=== PATIENT | female | born 1940 | race Caucasian/White ===

== ENCOUNTER 2017-03-20 00:09 | Inpatient (IN) | payer MEDICARE ==
[2017-03-20] MEDS ORDERED: Nitroglycerin 2% Ointment 1 INCH/1 GM Packet ONE (00:54)
[2017-03-20] MEDS ORDERED: Furosemide 40 MG/4 ML VIAL ONE (00:54)
[2017-03-20] MEDS ORDERED: Ondansetron HCl/PF 4 MG/2 ML Vial ONE (00:57)
[2017-03-20 01:06] LABS: #Monocytes 0.7 thou/uL (0.11-0.59); #Neutrophils 7.4 thou/uL (1.40-6.50); %Basophils 0.5 % (0.0-1.0); %Eosinophils 0.4 % (0.0-10.0); %Lymphocytes 10.5 % (21.0-51.0); %Monocytes 7.3 % (0.0-10.0); %Neutrophils 81.3 % (42.0-75.0); Hemoglobin 8.1 g/dL (12.0-16.0); Mean Corpuscular HGB CONC 31.7 g/dL (32.0-36.0); Mean Corpuscular Hemoglobin 26.7 pg (27.0-31.0); Mean Platelet Volume 8.2 fL (7.4-10.4); Platelet Count 175 thou/uL (130-400); RBC Distribution Width 16.3 % (11.5-14.5); Red Blood Cell (RBC) Count 3.03 mill/uL (4.20-5.40); White Blood Cell (WBC) Count 9.1 thou/uL (4.8-10.8)
[2017-03-20 01:08] LABS: INR-International Normal Ratio 2.5; Prothrombin Time 28.4 SEC (12.0-14.7)
[2017-03-20 01:09] LABS: PTT 70.5 SEC (22.9-36.1)
[2017-03-20 01:16] LABS: ALT (SGPT) 16 U/L (8-55); AST (SGOT) 21 U/L (5-34); Albumin 3.3 g/dL (3.4-4.8); Alkaline Phosphatase 80 U/L (40-150); Anion Gap 20 mmol/L (10-20); BUN (Urea Nitrogen) 32 mg/dL (9.8-20.1); CK (CPK) 27 U/L (29-168); Calc. Creatinine Clearance 0 mL/min (70-130); Calcium 8.4 mg/dL (7.8-10.44); Carbon Dioxide 26 mmol/L (23-31); Chloride 98 mmol/L (98-107); Estimated GFR-MDRD 31; Globulin 3.4 g/dL (2.4-3.5); Glucose 199 mg/dL (83-110); Potassium 4.6 mmol/L (3.5-5.1); Protein, Total 6.7 g/dL (6.0-8.3); Sodium 139 mmol/L (136-145)
[2017-03-20 01:21] LABS: CKMB 0.8 ng/mL (0-6.6)
[2017-03-20 02:09] LABS: Bilirubin Negative (Negative); Blood, Urine Negative (Negative); Clarity Slightly Cloudy (Clear); Glucose, Urine (Dipstick) Negative (Negative); Leukocyte Negative (Negative); Nitrite Negative (Negative); Protein, Urine (Dipstick) 30 mg/dL (Neg-Trace)
[2017-03-20 02:19] LABS: Bacteria/HPF Rare-Few HPF (None Seen); Hyaline Casts/LPF NONE SEEN LPF (0-3 Hyaline); RBC/HPF 0-3 HPF (0-3); Squamous Epithelial 0-3 HPF (0-3)
[2017-03-20] MEDS ORDERED: Ondansetron HCl/PF 4 MG/2 ML Vial IVP PRN (03:31)
[2017-03-20] MEDS ORDERED: Ondansetron ODT 4 MG TAB SL PRN (03:31)
[2017-03-20] MEDS: Furosemide 40 MG/4 ML VIAL SLOW IVP SCH ×2 (05:25→11:24)
[2017-03-20 05:30] LABS: Troponin I 0.036 ng/mL (< 0.028)
[2017-03-20] MEDS ORDERED: Sodium Chloride 0.9% 10 ML ONE (07:17)
[2017-03-20 07:47] LABS: Troponin I 0.026 ng/mL (< 0.028)
--- NOTE | 2017-03-20 07:59 | RAD ---
SINGLE VIEW OF THE CHEST: COMPARISON: 04/21/15. HISTORY: Dyspnea and bilateral lower extremity edema. Shortness of breath. FINDINGS: A single view of the chest shows an enlarged cardiomediastinal silhouette. The patient is status pos t sternotomy. This exam is limited secondary to patient's large body habitus. There is no evidence of consolidation, mass, or pleural effusion. IMPRESSION: Stable cardiomegaly. POS: [facility]
[2017-03-20] MEDS ORDERED: Dextrose 5% in Water 1,000 ML IV PRN (10:25)
[2017-03-20] MEDS ORDERED: Dextrose 50% Abboject 50 ML SYRINGE SLOW IVP PRN (10:25)
[2017-03-20] MEDS ORDERED: HYDROcodone/Acetaminophen 10/325 mg Tablet PO PRN (10:25)
[2017-03-20] MEDS ORDERED: Acetaminophen 325 MG TAB PO PRN (10:25)
[2017-03-20] MEDS ORDERED: metFORMIN 500 MG TAB PO SCH (11:00)
[2017-03-20] MEDS ORDERED: glipiZIDE 5 MG TAB PO SCH (11:00)
[2017-03-20] MEDS ORDERED: Gabapentin 300 MG CAP PO SCH (11:00)
[2017-03-20] MEDS ORDERED: Carvedilol 6.25 MG TAB PO SCH ×2 (11:00→21:00)
[2017-03-20] MEDS: HYDROcodone/Acetaminophen 10/325 mg Tablet PO PRN (11:23)
[2017-03-20] MEDS ORDERED: Spironolactone 25 MG TAB PO SCH (11:30)
[2017-03-20] MEDS: HumaLOG 300 UNITS/3 ML VIAL SC PRN (11:36)
--- NOTE | 2017-03-20 13:42 | CT ---
CT OF THE CHEST WITHOUT CONTRAST: COMPARISON: None. HISTORY: Shortness of breath with acute midline thoracic spine tenderness. History of cardiac valve replaceme nt. TECHNIQUE: Multiple contiguous axial images were obtained in a CT of the chest without contrast. Coronal reform ats were performed. FINDINGS: No pneumothorax or pleural effusion are seen. There is pleural thickening in the posterior aspect of the left hemithorax, inferiorly. No focal infiltrates or nodules are seen in the lungs. There is a calcified granuloma in the right upper lobe. The patient is status post aortic valve replacement. There are calcifications in the coronary arteri es, aorta, and mitral valve. No hilar or mediastinal lymphadenopathy are appreciated. Degenerative changes are seen in the spine. No focal fluid collection is seen in the paraspinal or p revertebral soft tissues. No osseous erosions of the vertebral bodies are seen. There are gallstones in the gallbladder. The other visualized subdiaphragmatic structures are unrema rkable. The chest wall soft tissues are unremarkable. IMPRESSION: 1. Nonspecific pleural thickening in the inferior aspect of the left thorax. 2. Cholelithiasis. POS: [facility]
[2017-03-20] MEDS: glipiZIDE 5 MG TAB PO SCH (16:48)
[2017-03-20] MEDS: Warfarin Sodium 5 MG TAB PO SCH (16:48)
[2017-03-20] MEDS: metFORMIN 500 MG TAB PO SCH (16:49)
[2017-03-20] MEDS ORDERED: Torsemide 20 MG TAB PO SCH (21:00)
[2017-03-20] MEDS: Simvastatin 20 MG TAB PO SCH (21:38)
[2017-03-20] MEDS: Gabapentin 300 MG CAP PO SCH (21:38)
[2017-03-20] MEDS: Carvedilol 6.25 MG TAB PO SCH (21:38)
[2017-03-21] MEDS: HYDROcodone/Acetaminophen 10/325 mg Tablet PO PRN ×2 (02:03→21:03)
[2017-03-21 08:32] LABS: ALT (SGPT) 12 U/L (8-55); AST (SGOT) 22 U/L (5-34); Albumin 3.1 g/dL (3.4-4.8); Alkaline Phosphatase 73 U/L (40-150); Anion Gap 17 mmol/L (10-20); BUN (Urea Nitrogen) 36 mg/dL (9.8-20.1); Bilirubin, Total 0.5 mg/dL (0.2-1.2); Calc. Creatinine Clearance 39 mL/min (70-130); Carbon Dioxide 25 mmol/L (23-31); Chloride 96 mmol/L (98-107); Estimated GFR-MDRD 28; Globulin 3.2 g/dL (2.4-3.5); Glucose 64 mg/dL (83-110); Magnesium 1.2 mg/dL (1.6-2.6); Potassium 4.2 mmol/L (3.5-5.1); Protein, Total 6.3 g/dL (6.0-8.3); Sodium 134 mmol/L (136-145)
[2017-03-21 08:37] LABS: #Eosinphils 0.2 thou/uL (0.0-0.7); #Lymphocytes 1.3 thou/uL (1.20-3.40); #Monocytes 0.7 thou/uL (0.11-0.59); #Neutrophils 5.3 thou/uL (1.40-6.50); %Basophils 0.2 % (0.0-1.0); %Eosinophils 3.3 % (0.0-10.0); %Lymphocytes 17.1 % (21.0-51.0); %Neutrophils 70.4 % (42.0-75.0); Hemoglobin 7.9 g/dL (12.0-16.0); Hypochromia SLIGHT = 6-15 cells (100X) (0-5/hpf); MDiff Complete? YES; Mean Corpuscular HGB CONC 29.8 g/dL (32.0-36.0); Mean Corpuscular Hemoglobin 26.3 pg (27.0-31.0); Mean Corpuscular Volume 88.2 fl (81.0-99.0); Mean Platelet Volume 8.7 fL (7.4-10.4); Platelet Count 184 thou/uL (130-400); RBC Distribution Width 16.5 % (11.5-14.5); Red Blood Cell (RBC) Count 2.99 mill/uL (4.20-5.40); White Blood Cell (WBC) Count 7.5 thou/uL (4.8-10.8)
[2017-03-21] MEDS: glipiZIDE 5 MG TAB PO SCH ×2 (09:20→16:47)
[2017-03-21] MEDS: metFORMIN 500 MG TAB PO SCH ×2 (09:21→16:46)
[2017-03-21] MEDS: Aspirin 81 mg Enteric Coated Tablet PO SCH (09:21)
[2017-03-21] MEDS: Spironolactone 25 MG TAB PO SCH (09:21)
[2017-03-21] MEDS: Gabapentin 300 MG CAP PO SCH ×2 (09:22→21:03)
[2017-03-21] MEDS: Carvedilol 6.25 MG TAB PO SCH ×2 (09:22→21:03)
[2017-03-21] MEDS ORDERED: Magnesium Sulfate 4 GM in Sodium Chloride 0.9% 250 ML 250 ML IVPB SCH (10:30)
--- NOTE | 2017-03-21 11:14 | PDOC.PN ---
- Subjective Encounter Start Date: 03/21/17 Encounter Start Time: 08:45 Back pain much better, only present when shemoves. Still feels SOB, no cough or sputum, no F/C, no pleuitic CP. No n/V/D/C. complaining about not getting enough food. CT neg for major abnormality, limited due to lack of contrast. possible pleural thickening in posterior left. 10 point ROS performed and neg for all systems except as per HPI - Objective Resuscitation Status: Resuscitation Status FULL:Full Resuscitation MAR Reviewed: Yes Vital Signs & Weight: Vital Signs (12 hours) Temp Pulse Resp BP BP Pulse Ox 03/21/17 09:22 142/81 H 03/21/17 09:00 97.9 F 78 16 95 03/21/17 07:40 97.9 F 78 16 142/81 H 95 03/21/17 04:00 97.9 F 73 14 119/61 100 Weight Weight 204 lb I&O: 03/20/17 03/21/17 03/22/17 06:59 06:59 06:59 Intake Total 615 Output Total 700 Balance -85 Result Diagrams: 03/21/17 05:04 03/21/17 05:04 Additional Labs: Accuchecks 03/21/17 03/20/17 03/20/17 06:15 20:07 16:50 POC Glucose 154 H 247 H 204 H 03/20/17 11:20 POC Glucose 323 H Radiology Reviewed by me: Yes EKG Reviewed by me: Yes Phys Exam - Physical Examination Constitutional: NAD HEENT: PERRLA, moist MMs, sclera anicteric, oral pharynx no lesions Neck: no nodes, no JVD, supple, full ROM Respiratory: no wheezing, no rales, no rhonchi, clear to auscultation bilateral Cardiovascular: RRR, no significant murmur, no rub Gastrointestinal: soft, non-tender, no distention, positive bowel sounds Musculoskeletal: no edema, pulses present midthoracic back ttp along spine Neurological: non-focal, normal sensation, moves all 4 limbs Lymphatic: no nodes Psychiatric: normal affect, A&O x 3 Dx/Plan (1) Acute thoracic back pain Code(s): M54.6 - PAIN IN THORACIC SPINE Status: Acute Qualifiers: Back pain laterality: midline Qualified Code(s): M54.6 - Pain in thoracic spine Comment: noncontrasted CT unrevealing (2) DM2 (diabetes mellitus, type 2) Status: Chronic Qualifiers: Diabetes mellitus complication status: with unspecified complications 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 No other evidence of acute exacerbation at present (4) HTN (hypertension) Code(s): I10 - ESSENTIAL (PRIMARY) HYPERTENSION Status: Chronic Qualifiers: Hypertension type: essential hypertension Qualified Code(s): I10 - Essential (primary) hypertension (5) Aortic valve disease Code(s): I35.9 - NONRHEUMATIC AORTIC VALVE DISORDER, UNSPECIFIED Status: Chronic Comment: follow up on echo. (6) HLD (hyperlipidemia) Code(s): E78.5 - HYPERLIPIDEMIA, UNSPECIFIED Status: Chronic Qualifiers: Hyperlipidemia type: unspecified Qualified Code(s): E78.5 - Hyperlipidemia , unspecified - Plan * .
[2017-03-21] MEDS: Torsemide 10 MG TAB PO SCH (14:02)
[2017-03-21] MEDS: HumaLOG 300 UNITS/3 ML VIAL SC PRN ×2 (14:06→16:48)
[2017-03-21] MEDS: Warfarin Sodium 5 MG TAB PO SCH (16:47)
[2017-03-21] MEDS ORDERED: Warfarin Sodium 5 MG TAB PO SCH (17:00)
--- NOTE | 2017-03-21 17:12 | HP ---
TIME OF SERVICE: 10:15. PRIMARY CARE PHYSICIAN: Ernst Vanegas M.D. PRIMARY SENIOR QUALITY MANAGER: Avtar Cosby M.D. CHIEF COMPLAINT: Shortness of breath. HISTORY OF PRESENT ILLNESS: Ms. Morejon is a 76-year-old white female with history of combined sys tolic and diastolic chronic congestive heart failure, valvular heart disease, diabetes, hyperlipidemi a, hypertension, who presents to the emergency department for complaints of chest pain. She states she has had worsening back pain in the central part of her back and chest tightness and sh ortness of breath for 2 days and has been taking her fluid pills. She denies any diaphoresis or naus ea. No palpitations. She has had some increased edema of the lower extremities and has woken up sev eral times short of breath. She states that when she breathes deeply, hurts her back more, and she i s getting comfortable. She also came to the emergency department for evaluation and was evaluated th ere. Labs were fairly unremarkable except for creatinine 1.6, which is slightly above her baseline, and a BNP of 1376. We were called for admission, the doctors accepted and turned over the day shift to complete. The patient has no other current complaints. She is writhing in pain from her back and comfortable a nd basically crying. She has no other current complaints. PAST MEDICAL HISTORY: 1. Chronic combined systolic and diastolic CHF. 2. Valvular heart disease, status post atrial valve replacement. 3. Diabetes mellitus type 2. 4. Hyperlipidemia. 5. Hypertension. PAST SURGICAL HISTORY: 1. Aortic valve replacement with a mechanical valve. 2. Right total knee arthroplasty remotely. HOME MEDICATIONS: 1. Metformin 1000 mg p.o. b.i.d. 2. Glipizide 10 mg p.o. b.i.d. 3. Coumadin 5 mg daily. 4. Torsemide 60 mg p.o. b.i.d. 5. Aldactone 2.5 mg daily. 6. Zocor 20 mg p.o. at bedtime. 7. vitamin daily. 8. Omeprazole 20 mg daily. 9. Metolazone 5 mg p.o. on Mondays and Fridays. 10. Gabapentin 300 mg p.o. b.i.d. 11. Coreg 6.25 mg p.o. b.i.d. 12. Aspirin 81 mg daily. 13. Vitamin C 500 mg daily. ALLERGIES: NKDA. Last echocardiogram in 04/2015 showed LV hypokinesis, EF of 25-30%, mechanical aortic valve, diastoli c dysfunction, and moderate mitral regurgitation and tricuspid regurgitation. FAMILY HISTORY: Negative for clotting or bleeding disorder. No immune dysfunction. SOCIAL HISTORY: Negative for habits x3. REVIEW OF SYSTEMS: A 10-point review of systems was performed and negative for all other systems exc ept those per HPI. PHYSICAL EXAMINATION: VITAL SIGNS: Temperature 98.8, pulse 81, blood pressure 134/69, respiratory rate 21, satting 97% on room air and 98% on 2 liters nasal cannula. GENERAL: She is awake. She is alert. She is oriented x3. She appears to be in moderate to severe discomfort. HEENT: Normocephalic, atraumatic. Pupils are equal and reactive bilaterally, mucous membranes moist . There are no visible lesions. No thrush. NECK: Supple. She has no lymphadenopathy, no JVD, no thyromegaly. She has normal carotid upstrokes . There are no bruits. CHEST: Lungs are clear. She has good air movement, symmetrical chest excursion. She has no wheezes , no rales, no rhonchi, no prolonged expiratory phase. She has symmetrical chest excursion. CARDIOVASCULAR: She is slightly tachycardic, but regular. Normal S1 and S2. She does have a holosy stolic murmur best heard at the apex and the right lower sternal border. She has a mechanical aortic valve click at present with a little bit of about 2/6 systolic ejection murmur at the right upper st ernal border. ABDOMEN: Soft, is obese, is nontender and nondistended. I cannot palpate internal organs. She has no rebound, rigidity, or guarding. There is normoactive bowel sounds present in all 4 quadrants. EXTREMITIES: Show no cyanosis, no clubbing. She has 1+ pedal edema. She has 1+ dorsalis pedis and posterior tibial pulses bilaterally. SKIN: Otherwise warm, moist, and well perfused. She has no other rashes or lesions. MUSCULOSKELETAL: Large joints are normal to inspection. She has no inflammation, no palpable effusi ons. She has had point tenderness present at around the T8 level of the midline of her back. There is no fluctuance. No discoloration. NEUROLOGIC: Cranial nerves II through XII are grossly intact. She has no focal neurologic deficits. Normal speech pattern and 5/5 strength. LABORATORY DATA: Sodium 139, potassium 4.6, chloride 98, bicarbonate 26, BUN 32, creatinine 1.63, an d glucose 199. Calcium is 8.4. Liver function completely normal, albumin is little low at 3.3. CBC showed a white count of 9.1, hemoglobin 8.1, and hematocrit of 25.5. Her last hemoglobin here in was 12. Platelets of 175,000. BNP is 1376.5, CK of 27, MB fraction 0.8. Troponin I was 0.020, 0.036, and 0.026. INR is 2.5 on Cou madin. Chest x-ray showed stable cardiomegaly, no acute cardiopulmonary process. ASSESSMENT AND PLAN: 1. Back pain, acute, thoracic. Unclear of etiology. We will get a CT scan noncontrast due to creat inine to evaluate and make sure there is no surrounding fluid or evidence of infection. 2. Elevated BNP. Clinically, the patient has no signs of heart failure. Her lungs are clear. We w ill continue her regular medications. She did get some IV Lasix. We may actually dry her out in the process. We will hold off on any further Lasix now. 3. Valvular heart disease with moderate mitral regurgitation, tricuspid regurgitation, and history o f aortic valve replacement, currently stable. 4. Diabetes mellitus type 2. 5. Hyperlipidemia. 6. Hypertension. We will continue medications. 7. Hyperlipidemia. Continue Zocor. We will reevaluate. We will continue current management at present and follow up on the results of t he CAT scan.
[2017-03-21] MEDS: Simvastatin 20 MG TAB PO SCH (21:03)
[2017-03-22 05:16] LABS: INR-International Normal Ratio 3.4; Prothrombin Time 36.3 SEC (12.0-14.7)
[2017-03-22 05:21] LABS: #Eosinphils 0.3 thou/uL (0.0-0.7); #Monocytes 0.7 thou/uL (0.11-0.59); #Neutrophils 4.8 thou/uL (1.40-6.50); %Basophils 0.4 % (0.0-1.0); %Eosinophils 4.2 % (0.0-10.0); %Lymphocytes 15.1 % (21.0-51.0); %Monocytes 9.9 % (0.0-10.0); %Neutrophils 70.4 % (42.0-75.0); Mean Corpuscular HGB CONC 31.4 g/dL (32.0-36.0); Mean Corpuscular Hemoglobin 27.4 pg (27.0-31.0); Mean Corpuscular Volume 87.3 fl (81.0-99.0); Mean Platelet Volume 8.5 fL (7.4-10.4); Platelet Count 226 thou/uL (130-400); RBC Distribution Width 16.4 % (11.5-14.5); Red Blood Cell (RBC) Count 2.91 mill/uL (4.20-5.40); White Blood Cell (WBC) Count 6.9 thou/uL (4.8-10.8)
[2017-03-22 05:48] LABS: ALT (SGPT) 13 U/L (8-55); AST (SGOT) 19 U/L (5-34); Albumin 3.3 g/dL (3.4-4.8); Alkaline Phosphatase 76 U/L (40-150); Anion Gap 19 mmol/L (10-20); BUN (Urea Nitrogen) 39 mg/dL (9.8-20.1); Bilirubin, Total 0.5 mg/dL (0.2-1.2); Calc. Creatinine Clearance 37 mL/min (70-130); Carbon Dioxide 22 mmol/L (23-31); Chloride 93 mmol/L (98-107); Estimated GFR-MDRD 23; Globulin 3.5 g/dL (2.4-3.5); Glucose 112 mg/dL (83-110); Magnesium 2.1 mg/dL (1.6-2.6); Potassium 4.9 mmol/L (3.5-5.1); Protein, Total 6.8 g/dL (6.0-8.3); Sodium 129 mmol/L (136-145)
[2017-03-22] MEDS: metFORMIN 500 MG TAB PO SCH ×2 (08:14→16:19)
[2017-03-22] MEDS: Carvedilol 6.25 MG TAB PO SCH ×2 (08:15→20:33)
[2017-03-22] MEDS: Metolazone 5 MG TAB PO SCH (08:15)
[2017-03-22] MEDS: glipiZIDE 5 MG TAB PO SCH ×2 (08:15→16:19)
[2017-03-22] MEDS: Gabapentin 300 MG CAP PO SCH ×2 (08:15→20:33)
[2017-03-22] MEDS: Aspirin 81 mg Enteric Coated Tablet PO SCH (08:15)
[2017-03-22] MEDS: Spironolactone 25 MG TAB PO SCH (08:15)
[2017-03-22] MEDS: Torsemide 10 MG TAB PO SCH ×2 (08:16→14:22)
[2017-03-22] MEDS: HumaLOG 300 UNITS/3 ML VIAL SC PRN ×3 (12:06→20:40)
--- NOTE | 2017-03-22 13:42 | PDOC.PN ---
- Subjective Encounter Start Date: 03/22/17 Encounter Start Time: 08:20 Pt seen for followup re: shortness of breath. Reports SOB, particularly with exertion. Back pain still +, with movement. - Objective Resuscitation Status: Resuscitation Status FULL:Full Resuscitation Vital Signs & Weight: Vital Signs (12 hours) Temp Pulse Resp BP BP Pulse Ox 03/22/17 12:00 97.2 F L 76 18 124/61 96 03/22/17 08:05 98.0 F 84 18 138/69 94 L 03/22/17 03:33 99.7 F H 83 20 126/76 94 L Weight Weight 224 lb 13.944 oz I&O: 03/21/17 03/22/17 03/23/17 06:59 06:59 06:59 Intake Total 615 1375 Output Total 700 325 Balance -85 1050 Result Diagrams: 03/22/17 04:51 03/22/17 04:51 Additional Labs: Accuchecks 03/22/17 03/22/17 03/21/17 11:41 05:40 20:20 POC Glucose 201 H 118 H 185 H 03/21/17 16:41 POC Glucose 260 H Phys Exam - Physical Examination Morbid obesity HEENT: moist MMs, sclera anicteric Neck: supple Respiratory: clear to auscultation bilateral Cardiovascular: RRR Gastrointestinal: soft, positive bowel sounds Tenderness over interscapular region Neurological: moves all 4 limbs Psychiatric: normal affect Deviation from normal: Wounds L piper Dx/Plan (1) Shortness of breath Code(s): R06.02 - SHORTNESS OF BREATH Status: Acute (2) Acute thoracic back pain Code(s): M54.6 - PAIN IN THORACIC SPINE Status: Acute Qualifiers: Back pain laterality: midline Qualified Code(s): M54.6 - Pain in thoracic spine Comment: noncontrasted CT unrevealing (3) Chronic combined systolic (congestive) and diastolic (congestive) heart failure Code(s): I50.42 - CHRONIC COMBINED SYSTOLIC AND DIASTOLIC HRT FAIL Status: Chronic Comment: elevated BNP, lungs and exam clear. 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 Etiology of dyspnea unclear. Will consult cardiology re: possible CHF exacerbation. Pt also has pulmonary hypertension. Continue warfarin. CT chest shows degenerative changes in thoracic spine. Pt is on Sultan PRN. Will add Flexeril for possible skeletal muscle spasm. Review of Systems - Review of Systems Respiratory: Shortness of Breath, SOB with Excertion. negative: Cough, Dry, Hemoptysis, Pleuritic Pain, Sputum, Wheezing Cardiovascular: negative: chest pain, palpitations, orthopnea, paroxysmal nocturnal dyspnea, edema, light headedness Musculoskeletal: Back Pain - Medications/Allergies Allergies/Adverse Reactions: Allergies Allergy/AdvReac Type Severity Reaction Status Date / Time No Known Allergies Allergy Verified 03/20/17 03:47 Medications: Current Medications Acetaminophen (Tylenol) 650 mg PO Q4H PRN PRN Reason: Headache/Fever or Pain Hydrocodone Bitart/Acetaminophen (Sultan 10/325) 2 tab PO Q4H PRN PRN Reason: Severe Pain (7-10) Last Admin: 03/21/17 21:03 Dose: 2 tab Hydrocodone Bitart/Acetaminophen (Sultan 10/325) 1 tab PO Q4H PRN PRN Reason: Moderate Pain (4-6) Aspirin (Ecotrin) 81 mg PO DAILY [facility] Last Admin: 03/22/17 08:15 Dose: 81 mg Carvedilol (Coreg) 6.25 mg PO BID [facility] Last Admin: 03/22/17 08:15 Dose: 6.25 mg Dextrose/Water (Dextrose 50%) 25 gm SLOW IVP PRN PRN PRN Reason: Hypoglycemia Furosemide (Lasix) 20 mg SLOW IVP NOW [facility] Stop: 03/22/17 16:00 Gabapentin (Neurontin) 300 mg PO BID [facility] Last Admin: 03/22/17 08:15 Dose: 300 mg Glipizide (Glucotrol) 10 mg PO BID[facility] Last Admin: 03/22/17 08:15 Dose: 10 mg Glucagon (Glucagon) 1 mg IM PRN PRN PRN Reason: Hypoglycemia Dextrose/Water (D5w) 1,000 mls @ 0 mls/hr IV .Q0M PRN; As Directed PRN Reason: Hypoglycemia Insulin Human Lispro (Humalog) 0 units SC .MILD SLIDING SCALE PRN PRN Reason: Mild Correctional Scale Last Admin: 03/22/17 12:06 Dose: 3 unit Metformin HCl (Glucophage) 1,000 mg PO BID-[facility] Last Admin: 03/22/17 08:14 Dose: 1,000 mg Metolazone (Zaroxolyn) 5 mg PO MoFr@0900 [facility] Last Admin: 03/22/17 08:15 Dose: 5 mg Pantoprazole Sodium (Protonix) 40 mg PO DAILY [facility] Last Admin: 03/22/17 08:15 Dose: 40 mg Simvastatin (Zocor) 20 mg PO [facility] Last Admin: 03/21/17 21:03 Dose: 20 mg Spironolactone (Aldactone) 12.5 mg PO DAILY [facility] Last Admin: 03/22/17 08:15 Dose: 12.5 mg Torsemide (Demadex) 60 mg PO BID@0900,1400 [facility] Last Admin: 03/22/17 08:16 Dose: 60 mg Warfarin Sodium (Coumadin) 2.5 mg PO MoFr@1700 [facility] Warfarin Sodium (Coumadin) 5 mg PO SuTuWeThSa@1700 [facility] Last Admin: 03/21/17 16:47 Dose: 5 mg
[2017-03-22] MEDS ORDERED: Furosemide 40 MG/4 ML VIAL SLOW IVP SCH (13:45)
[2017-03-22] MEDS ORDERED: Furosemide 20 MG/2 ML VIAL SLOW IVP SCH (13:45)
[2017-03-22] MEDS ORDERED: Cyclobenzaprine 10 MG TAB PO PRN (13:50)
[2017-03-22] MEDS ORDERED: Cyclobenzaprine 10 MG TAB PO SCH (14:15)
[2017-03-22] MEDS ORDERED: Warfarin Sodium 2.5 MG TAB PO SCH (17:00)
[2017-03-22] MEDS ORDERED: predniSONE 20 MG TAB PO SCH ×2 (17:45→20:00)
--- NOTE | 2017-03-22 20:07 | CON ---
DATE OF CONSULTATION: 03/22/2017 REASON FOR CONSULTATION: Back pain, previous aortic valve replacement, congestive heart failure. HISTORY OF PRESENT ILLNESS: Ms. Morejon is a 76-year-old woman. The patient has multiple medical problems as will be outlined below. Ms. Morejon came to the hospital complaining of back pain, this is in the upper back, mostly to the right of the midline, much worse when she tried to move or lift her right arm or twist or turn with a deep breath. The patient has been on Coumadin, longstanding, for aortic valve replacement. She di d not have any chest pain in front of her chest, heaviness, or squeezing. The patient complains of shortness of breath with breathing and worsening peripheral edema. PAST MEDICAL HISTORY: 1. Combined systolic/diastolic heart failure. 2. Previous mechanical aortic valve replacement. 3. Diabetes. 4. Hyperlipidemia. 5. Hypertension. PAST SURGICAL HISTORY: 1. Aortic valve replacement, mechanical valve years ago. 2. Right total knee arthroplasty remotely. HOME MEDICATIONS: 1. Metformin. 2. Glipizide. 3. Coumadin. 4. Torsemide. 5. Aldactone. 6. Zocor. 7. Omeprazole. 8. Metolazone. 9. Coreg. 10. Aspirin. ALLERGIES: None known. MEDICATIONS: As outlined above. FAMILY HISTORY: Negative for heart disease at a young age. SOCIAL HISTORY: Negative for alcohol or tobacco abuse. REVIEW OF SYSTEMS: Constitutional: No significant weight gain or loss. Vision: No changes. Hearing: No changes. Pulmonary: Positive for shortness of breath. Cardiac: As outlined above. Gastrointestinal: No nausea, vomiting or diarrhea. Skin: No rashes. Extremities: She has some blisters on her lower extremities where she has the edema. PHYSICAL EXAMINATION: GENERAL: This is a pleasant patient in no distress, 5 feet tall, 224 pounds. BMI over 40. VITAL SIGNS: Blood pressure 131/66, pulse 70 and currently regular. NECK: Neck veins normal. Carotid normal upstrokes. LUNGS: Clear. CARDIOVASCULAR: Normal S1, normal S2. I do not hear an S3. There is brisk and crisp prosthetic pablo ve sounds. ABDOMEN: Soft and nontender. EXTREMITIES: No clubbing or cyanosis. There is moderate to severe edema. PERTINENT LABORATORY: Hemoglobin 8, MCV is 87, creatinine is 2.05. Estimated GFR 23. Sodium is 129 . BNP 1376. Troponin peak is 0.036. Chest x-ray did not show pulmonary vascular congestion. Chest CT was done without contrast in view of the renal failure and found to have gallstones and nonspecif ic pleural thickening. There is calcium in the coronary arteries. EKG is sinus rhythm, left bundle- branch block, QRS duration 120. ASSESSMENT: Complicated situation with the following problems: 1. Back pain of uncertain etiology appears to be more musculoskeletal. 2. Congestive heart failure, systolic and diastolic combined. 3. 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 4. Renal failure stage IV. 5. Hyponatremia. 6. Anemia, suspect iron deficiency. PLAN: 1. We wanted to check iron levels tomorrow. 2. We will give some steroids what sounds like musculoskeletal back pain, cannot give anti-inflammat ories in view of the renal failure. 3. Hold Coumadin if the INR is supratherapeutic at 3.4. 4. We will give a dose of Lasix tonight when she is in bed to try to avoid intravascular depletion. Prognosis is guarded in this patient. We will continue to follow with you.
[2017-03-22] MEDS: Simvastatin 20 MG TAB PO SCH (20:33)
[2017-03-22] MEDS: HYDROcodone/Acetaminophen 10/325 mg Tablet PO PRN (20:33)
[2017-03-22] MEDS ORDERED: Furosemide 100 MG/10 ML VIAL SLOW IVP SCH (22:00)
[2017-03-23 05:06] LABS: Prothrombin Time 45.7 SEC (12.0-14.7)
[2017-03-23 05:11] LABS: INR-International Normal Ratio 4.6
[2017-03-23] MEDS: metFORMIN 500 MG TAB PO SCH ×2 (07:55→17:10)
[2017-03-23] MEDS: glipiZIDE 5 MG TAB PO SCH ×2 (07:55→17:11)
[2017-03-23] MEDS: Aspirin 81 mg Enteric Coated Tablet PO SCH (07:56)
[2017-03-23] MEDS: Spironolactone 25 MG TAB PO SCH (07:56)
[2017-03-23] MEDS: Carvedilol 6.25 MG TAB PO SCH ×2 (07:56→20:05)
[2017-03-23] MEDS: Gabapentin 300 MG CAP PO SCH ×2 (07:57→20:06)
[2017-03-23] MEDS: Torsemide 10 MG TAB PO SCH ×2 (07:57→13:48)
[2017-03-23] MEDS ORDERED: Iron Dextran 500 MG in Sodium Chloride 0.9% 250 ML IVPB SCH (10:00)
--- NOTE | 2017-03-23 10:41 | PRG ---
DATE OF SERVICE: 03/23/2017 SUBJECTIVE: Ms. Morejon had a reasonably good diuresis last night after the intravenous Lasix. She is still very edematous. She still feels short of breath and very swollen. No chest pain. OBJECTIVE: VITAL SIGNS: Her blood pressure 147/67, pulse 70. LUNGS: Clear. CARDIAC: Normal S1, normal S2. ABDOMEN: Soft, nontender. EXTREMITIES: Still severe edema. PERTINENT LABORATORY DATA: She has severe iron deficiency with iron level less than 8 and ferritin o f 43.8. ASSESSMENT: 1. Congestive heart failure, systolic and diastolic combined. 2. Severe edema. 3. Severe iron deficiency anemia. PLAN: 1. I will give her an extra dose of furosemide again tonight. 2. INR is high, we will hold Coumadin. 3. Give intravenous iron.
[2017-03-23] MEDS: HumaLOG 300 UNITS/3 ML VIAL SC PRN ×2 (11:19→17:11)
[2017-03-23] MEDS ORDERED: Bisacodyl 5 MG TAB PO PRN (12:32)
[2017-03-23] MEDS ORDERED: Bisacodyl 5 MG TAB PO SCH (12:45)
--- NOTE | 2017-03-23 17:02 | PDOC.PN ---
- Subjective Encounter Start Date: 03/23/17 Encounter Start Time: 07:40 Pt seen for shortness fo breath. Says SOBOE still +, but better. Back pain still +, maybe slightly better. - Objective Resuscitation Status: Resuscitation Status FULL:Full Resuscitation MAR Reviewed: Yes Vital Signs & Weight: Vital Signs (12 hours) Temp Pulse Resp BP Pulse Ox 03/23/17 12:07 97.8 F 78 18 148/65 H 95 03/23/17 08:00 98.0 F 69 20 03/23/17 07:55 98.0 F 69 20 147/67 H 95 Weight Weight 224 lb 13.944 oz I&O: 03/22/17 03/23/17 03/24/17 06:59 06:59 06:59 Intake Total 1375 1050 Output Total 325 2550 Balance 1050 -1500 Result Diagrams: 03/22/17 04:51 03/22/17 04:51 Additional Labs: Accuchecks 03/23/17 03/23/17 03/23/17 16:09 11:09 06:44 POC Glucose 311 H 307 H 288 H 03/22/17 03/22/17 20:14 17:08 POC Glucose 235 H 244 H EKG Reviewed by me: Yes (Tele: NSR) Phys Exam - Physical Examination Morbidly obese HEENT: moist MMs, sclera anicteric Neck: supple Respiratory: clear to auscultation bilateral Cardiovascular: RRR Gastrointestinal: soft Musculoskeletal: edema present Neurological: moves all 4 limbs Psychiatric: normal affect Dx/Plan (1) Shortness of breath Code(s): R06.02 - SHORTNESS OF BREATH Status: Acute (2) Acute thoracic back pain Code(s): M54.6 - PAIN IN THORACIC SPINE Status: Acute Qualifiers: Back pain laterality: midline Qualified Code(s): M54.6 - Pain in thoracic spine Comment: noncontrasted CT unrevealing (3) Chronic combined systolic (congestive) and diastolic (congestive) heart failure Code(s): I50.42 - CHRONIC COMBINED SYSTOLIC AND DIASTOLIC HRT FAIL Status: Chronic Comment: elevated BNP, lungs and exam clear. No other evidence of acute exacerbation at present (4) DM2 (diabetes mellitus, type 2) Status: Chronic Qualifiers: Diabetes mellitus complication status: with unspecified complications Diabetes mellitus extermination supervisor insulin use: without extermination supervisor use Qualified Code( s): E11.8 - Type 2 diabetes mellitus with unspecified complications (5) HLD (hyperlipidemia) Code(s): E78.5 - HYPERLIPIDEMIA, UNSPECIFIED Status: Chronic Qualifiers: Hyperlipidemia type: unspecified Qualified Code(s): E78.5 - Hyperlipidemia , unspecified (6) HTN (hypertension) Code(s): I10 - ESSENTIAL (PRIMARY) HYPERTENSION Status: Chronic Qualifiers: Hypertension type: essential hypertension Qualified Code(s): I10 - Essential (primary) hypertension - Plan PT/OT, out of bed/ambulate * . Continue steroids, flexeril. Warfarin held by cardiology service. Pt receiving diuretic today. Review of Systems - Review of Systems Respiratory: Shortness of Breath, SOB with Excertion. negative: Cough, Dry, Hemoptysis, Pleuritic Pain, Sputum, Wheezing Cardiovascular: negative: chest pain, palpitations, orthopnea, paroxysmal nocturnal dyspnea, edema, light headedness Musculoskeletal: Back Pain - Medications/Allergies Allergies/Adverse Reactions: Allergies Allergy/AdvReac Type Severity Reaction Status Date / Time No Known Allergies Allergy Verified 03/20/17 03:47 Medications: Current Medications Acetaminophen (Tylenol) 650 mg PO Q4H PRN PRN Reason: Headache/Fever or Pain Hydrocodone Bitart/Acetaminophen ([place] 10/325) 2 tab PO Q4H PRN PRN Reason: Severe Pain (7-10) Last Admin: 03/22/17 20:33 Dose: 2 tab Hydrocodone Bitart/Acetaminophen ([place] 10/325) 1 tab PO Q4H PRN PRN Reason: Moderate Pain (4-6) Aspirin (Ecotrin) 81 mg PO DAILY [facility] Last Admin: 03/23/17 07:56 Dose: 81 mg Bisacodyl (Dulcolax) 10 mg PO DAILYPRN PRN PRN Reason: . Carvedilol (Coreg) 6.25 mg PO BID [facility] Last Admin: 03/23/17 07:56 Dose: 6.25 mg Cyclobenzaprine HCl (Flexeril) 10 mg PO TID PRN PRN Reason: Muscle Spasm Dextrose/Water (Dextrose 50%) 25 gm SLOW IVP PRN PRN PRN Reason: Hypoglycemia Furosemide (Lasix) 80 mg SLOW IVP 1999 [facility] Stop: 03/23/17 20:01 Gabapentin (Neurontin) 300 mg PO BID [facility] Last Admin: 03/23/17 07:57 Dose: 300 mg Glipizide (Glucotrol) 10 mg PO BID-[facility] Last Admin: 03/23/17 07:55 Dose: 10 mg Glucagon (Glucagon) 1 mg IM PRN PRN PRN Reason: Hypoglycemia Dextrose/Water (D5w) 1,000 mls @ 0 mls/hr IV .Q0M PRN; As Directed PRN Reason: Hypoglycemia Insulin Human Lispro (Humalog) 0 units SC .MILD SLIDING SCALE PRN PRN Reason: Mild Correctional Scale Last Admin: 03/23/17 11:19 Dose: 5 unit Metformin HCl (Glucophage) 1,000 mg PO BID-[facility] Last Admin: 03/23/17 07:55 Dose: 1,000 mg Metolazone (Zaroxolyn) 5 mg PO MoFr@0900 [facility] Last Admin: 03/22/17 08:15 Dose: 5 mg Pantoprazole Sodium (Protonix) 40 mg PO DAILY [facility] Last Admin: 03/23/17 07:56 Dose: 40 mg Simvastatin (Zocor) 20 mg PO [facility] Last Admin: 03/22/17 20:33 Dose: 20 mg Spironolactone (Aldactone) 12.5 mg PO DAILY [facility] Last Admin: 03/23/17 07:56 Dose: 12.5 mg Torsemide (Demadex) 60 mg PO BID@0900,1400 [facility] Last Admin: 03/23/17 13:48 Dose: 60 mg
[2017-03-23] MEDS ORDERED: Furosemide 100 MG/10 ML VIAL SLOW IVP SCH (20:00)
[2017-03-23] MEDS: Simvastatin 20 MG TAB PO SCH (20:06)
[2017-03-23] MEDS: HYDROcodone/Acetaminophen 10/325 mg Tablet PO PRN (20:29)
[2017-03-24 05:28] LABS: Prothrombin Time 58.5 SEC (12.0-14.7)
[2017-03-24 05:34] LABS: Anion Gap 17 mmol/L (10-20); BUN (Urea Nitrogen) 46 mg/dL (9.8-20.1); Calc. Creatinine Clearance 39 mL/min (70-130); Calcium 8.5 mg/dL (7.8-10.44); Carbon Dioxide 27 mmol/L (23-31); Chloride 89 mmol/L (98-107); Estimated GFR-MDRD 25; Glucose 154 mg/dL (83-110); Potassium 4.7 mmol/L (3.5-5.1); Sodium 128 mmol/L (136-145)
[2017-03-24 05:35] LABS: INR-International Normal Ratio 6.2
[2017-03-24] MEDS: glipiZIDE 5 MG TAB PO SCH ×2 (07:59→17:36)
[2017-03-24] MEDS: Aspirin 81 mg Enteric Coated Tablet PO SCH (07:59)
[2017-03-24] MEDS: metFORMIN 500 MG TAB PO SCH ×2 (07:59→17:36)
[2017-03-24] MEDS: Gabapentin 300 MG CAP PO SCH ×2 (07:59→21:48)
[2017-03-24] MEDS: Spironolactone 25 MG TAB PO SCH (08:00)
[2017-03-24] MEDS: Carvedilol 6.25 MG TAB PO SCH ×2 (08:00→21:48)
[2017-03-24] MEDS: Torsemide 20 MG TAB PO SCH ×2 (08:09→15:09)
--- NOTE | 2017-03-24 09:18 | PQF ---
CLINICAL DOCUMENTATION IMPROVEMENT CLARIFICATION FORM: ICD-10 Updated PLEASE DO AN ADDENDUM TO THE PROGRESS NOTE WITH ANY DOCUMENTATION UPDATES OR ADDITIONS AND CARRY THROUGH TO DC SUMMARY. THANK YOU. DATE: 03/24 ATTN: DR. REINA NYE Please exercise your independent, professional judgment in responding to the clarification form. Clinical indicators are provided on the bottom of this form for your review Please check appropriate box(s): CHRONIC COMBINED SYSTOLIC & DIASTOLIC HEART FAILURE: ACUITY: [ ] Acute [X ] Acute on Chronic [ ] Chronic [ ] Other diagnosis [ ] Unable to determine For continuity of documentation, please document condition throughout progress notes and discharge summary. Thank You. CLINICAL INDICATORS - SIGNS / SYMPTOMS / LABS ER PRESENTATION 03/20: PRESENTS W/SHORTNESS OF BREATH. WORSENING BACK PAIN, CHEST TIGHTNESS OVER PAST 2 DAYS. ASSOCIATED WITH LEG SWELLING, PAROXYSMAL NOCTURNAL DYSPNEA, & ORTHOPNEA ER PHYSICIAN FINAL DIAGNOSIS 03/20: CHF EXACERBATION CARDIOLOGY CONS DOCUMENTATION 03/22: ASSESSMENT: 2. CHF, SYSTOLIC & DIASTOLIC COMBINED; PLAN: 4. WE WILL GIVE A DOSE OF LASIX TONIGHT WHEN SHE IS IN BED TO TRY TO AVOID INTRAVASCULAR DEPLETION CARDIOLOGY PN 03/23: SUBJECTIVE: SHE IS STILL VERY EDEMATOUS. SHE STILL FEELS SOB & VERY SWOLLEN; ASSESSMENT: 1. CHF, SYSTOLIC & DIASTOLIC COMBINED; PLAN: 1. I WILL GIVE HER AN EXTRA DOSE OF FUROSEMIDE AGAIN TONIGHT ATTENDING PN 03/22 & : PT SEEN FOR FOLLOWUP RE: SOB. REPORTS SOB, PARTICULARLY W/EXERTION. DX/PLAN: 1. ACUTE SOB; 3. CHRONIC COMBINED SYSTOLIC & DIASTOLIC HF. BNP: 1376 (03/20) B LE EDEMA ACUTE SOB RISKS: HX CKD CHRONIC COMBINED CHF ACUTE SOB B LE EDEMA MORBID OBESITY TREATMENTS: IV LASIX (ONE TIME DOSES ON 03/22 & 03/23) TELEMETRY MONITORING SUPPLEMENTAL OXYGEN CARDIOLOGY CONSULT THANK YOU! Mariajose (This form is maintained as a part of the permanent medical record) 2015 [employer]. All Rights Reserved Mariajose Samaniego RN, BSN [email or web address] Office: [phone] [facility]
--- NOTE | 2017-03-24 12:48 | PDOC.PN ---
- Subjective Encounter Start Date: 03/24/17 Encounter Start Time: 08:00 Pt seen for followup re: CHF exacerbation. Back pain slightly better. - Objective Resuscitation Status: Resuscitation Status FULL:Full Resuscitation MAR Reviewed: Yes Vital Signs & Weight: Vital Signs (12 hours) Temp Pulse Resp BP Pulse Ox 03/24/17 08:00 98.1 F 71 18 137/74 98 03/24/17 04:00 97.6 F 67 20 133/61 98 Weight Weight 225 lb 8 oz I&O: 03/23/17 03/24/17 03/25/17 06:59 06:59 06:59 Intake Total 1050 760 Output Total 2550 1650 Balance -1500 -890 Result Diagrams: 03/22/17 04:51 03/24/17 05:07 Additional Labs: Accuchecks 03/24/17 03/24/17 03/23/17 11:41 06:03 20:33 POC Glucose 98 162 H 226 H 03/23/17 16:09 POC Glucose 311 H EKG Reviewed by me: Yes (Tele: NSR) Phys Exam - Physical Examination Morbid obesity HEENT: moist MMs Neck: supple Respiratory: clear to auscultation bilateral Cardiovascular: RRR Gastrointestinal: soft Neurological: moves all 4 limbs Psychiatric: normal affect Dx/Plan (1) Acute on chronic congestive heart failure Code(s): I50.9 - HEART FAILURE, UNSPECIFIED Status: Acute (2) Shortness of breath Code(s): R06.02 - SHORTNESS OF BREATH Status: Acute (3) Acute thoracic back pain Code(s): M54.6 - PAIN IN THORACIC SPINE Status: Acute Qualifiers: Back pain laterality: midline Qualified Code(s): M54.6 - Pain in thoracic spine Comment: noncontrasted CT unrevealing (4) DM2 (diabetes mellitus, type 2) Status: Chronic Qualifiers: Diabetes mellitus complication status: with unspecified complications Diabetes mellitus terminal operations manager insulin use: without fci use Qualified Code( s): E11.8 - Type 2 diabetes mellitus with unspecified complications (5) HLD (hyperlipidemia) Code(s): E78.5 - HYPERLIPIDEMIA, UNSPECIFIED Status: Chronic Qualifiers: Hyperlipidemia type: unspecified Qualified Code(s): E78.5 - Hyperlipidemia , unspecified (6) HTN (hypertension) Code(s): I10 - ESSENTIAL (PRIMARY) HYPERTENSION Status: Chronic Qualifiers: Hypertension type: essential hypertension Qualified Code(s): I10 - Essential (primary) hypertension - Plan PT/OT, out of bed/ambulate * . Hold warfarin for supratherapeutic INR. Continue steroids, Flexeril. Ambulate patient. Cardiology service following. Review of Systems - Review of Systems Respiratory: Shortness of Breath, SOB with Excertion. negative: Cough, Dry, Hemoptysis, Pleuritic Pain, Sputum, Wheezing Cardiovascular: negative: chest pain, palpitations, orthopnea, paroxysmal nocturnal dyspnea, edema, light headedness Musculoskeletal: Back Pain - Medications/Allergies Allergies/Adverse Reactions: Allergies Allergy/AdvReac Type Severity Reaction Status Date / Time No Known Allergies Allergy Verified 03/20/17 03:47 Medications: Current Medications Acetaminophen (Tylenol) 650 mg PO Q4H PRN PRN Reason: Headache/Fever or Pain Hydrocodone Bitart/Acetaminophen ([place] 10/325) 2 tab PO Q4H PRN PRN Reason: Severe Pain (7-10) Last Admin: 03/23/17 20:29 Dose: 2 tab Hydrocodone Bitart/Acetaminophen ([place] 10/325) 1 tab PO Q4H PRN PRN Reason: Moderate Pain (4-6) Aspirin (Ecotrin) 81 mg PO DAILY [facility] Last Admin: 03/24/17 07:59 Dose: 81 mg Bisacodyl (Dulcolax) 10 mg PO DAILYPRN PRN PRN Reason: . Last Admin: 03/24/17 08:09 Dose: 10 mg Carvedilol (Coreg) 6.25 mg PO BID [facility] Last Admin: 03/24/17 08:00 Dose: 6.25 mg Cyclobenzaprine HCl (Flexeril) 10 mg PO TID PRN PRN Reason: Muscle Spasm Dextrose/Water (Dextrose 50%) 25 gm SLOW IVP PRN PRN PRN Reason: Hypoglycemia Gabapentin (Neurontin) 300 mg PO BID [facility] Last Admin: 03/24/17 07:59 Dose: 300 mg Glipizide (Glucotrol) 10 mg PO BID-[facility] Last Admin: 03/24/17 07:59 Dose: 10 mg Glucagon (Glucagon) 1 mg IM PRN PRN PRN Reason: Hypoglycemia Dextrose/Water (D5w) 1,000 mls @ 0 mls/hr IV .Q0M PRN; As Directed PRN Reason: Hypoglycemia Insulin Human Lispro (Humalog) 0 units SC .MILD SLIDING SCALE PRN PRN Reason: Mild Correctional Scale Last Admin: 03/23/17 17:11 Dose: 5 unit Metformin HCl (Glucophage) 1,000 mg PO BID-[facility] Last Admin: 03/24/17 07:59 Dose: 1,000 mg Metolazone (Zaroxolyn) 5 mg PO MoFr@0900 [facility] Last Admin: 03/22/17 08:15 Dose: 5 mg Pantoprazole Sodium (Protonix) 40 mg PO DAILY [facility] Last Admin: 03/24/17 07:59 Dose: 40 mg Simvastatin (Zocor) 20 mg PO HS [facility] Last Admin: 03/23/17 20:06 Dose: 20 mg Spironolactone (Aldactone) 12.5 mg PO DAILY [facility] Last Admin: 03/24/17 08:00 Dose: 12.5 mg Torsemide (Demadex) 60 mg PO BID@0900,1400 [facility] Last Admin: 03/24/17 08:09 Dose: 60 mg
[2017-03-24] MEDS ORDERED: Magnesium 2 GM/NS 0.9% 100 ML 2 GM in Premix Bag 1 BAG IVPB SCH ×2 (13:15→20:00)
--- NOTE | 2017-03-24 13:19 | PRG ---
DATE OF SERVICE: 03/24/2017 Ms. Morejon is improving very slowly. She still has a tremendous amount of fluid. She still has some pain between her shoulder blades or in her back. It sounds musculoskeletal. PHYSICAL EXAMINATION: VITAL SIGNS: Blood pressure 134/74, pulse 70, it is regular. LUNGS: Clear. CARDIAC: Normal S1, normal S2, crisp prosthetic valve sounds. ABDOMEN: Soft, nontender. EXTREMITIES: Moderate to severe edema. ASSESSMENT: 1. Congestive heart failure, systolic and diastolic mixed, still very volume overloaded. 2. Anemia, iron deficiency. 3. Renal failure stage 4, stable. 4. Hyponatremia. PLAN: 1. Restrict fluid. 2. Give her some extra metolazone and diuretic tonight. 3. INR is very high, 6.2, Coumadin is on hold. If it is higher tomorrow will give her vitamin K.
[2017-03-24] MEDS: HYDROcodone/Acetaminophen 10/325 mg Tablet PO PRN ×2 (15:10→22:51)
[2017-03-24] MEDS: HumaLOG 300 UNITS/3 ML VIAL SC PRN (17:36)
[2017-03-24] MEDS ORDERED: Metolazone 5 MG TAB PO SCH (18:00)
[2017-03-24] MEDS ORDERED: Furosemide 100 MG/10 ML VIAL SLOW IVP SCH (20:00)
[2017-03-24] MEDS: Simvastatin 20 MG TAB PO SCH (21:48)
[2017-03-25] MEDS: HYDROcodone/Acetaminophen 10/325 mg Tablet PO PRN (05:26)
[2017-03-25 05:27] LABS: Prothrombin Time 40.8 SEC (12.0-14.7)
[2017-03-25 05:34] LABS: Anion Gap 15 mmol/L (10-20); BUN (Urea Nitrogen) 49 mg/dL (9.8-20.1); Calc. Creatinine Clearance 45 mL/min (70-130); Calcium 8.7 mg/dL (7.8-10.44); Carbon Dioxide 32 mmol/L (23-31); Chloride 88 mmol/L (98-107); Estimated GFR-MDRD 29; Glucose 76 mg/dL (83-110); Potassium 4.5 mmol/L (3.5-5.1); Sodium 130 mmol/L (136-145)
[2017-03-25] MEDS: metFORMIN 500 MG TAB PO SCH (08:00)
[2017-03-25] MEDS ORDERED: Polyethylene Glycol 3350 17 GM Packet PO SCH (10:00)
[2017-03-25] MEDS ORDERED: Cyclobenzaprine 10 MG TAB PO SCH (10:00)
[2017-03-25] MEDS: Carvedilol 6.25 MG TAB PO SCH (10:28)
[2017-03-25] MEDS: glipiZIDE 5 MG TAB PO SCH ×2 (10:28→18:55)
[2017-03-25] MEDS: Gabapentin 300 MG CAP PO SCH ×2 (10:28→20:36)
[2017-03-25] MEDS: Spironolactone 25 MG TAB PO SCH (10:29)
[2017-03-25] MEDS: Torsemide 20 MG TAB PO SCH ×2 (10:38→15:42)
--- NOTE | 2017-03-25 11:03 | PDOC.PN ---
- Subjective Encounter Start Date: 03/25/17 Encounter Start Time: 10:30 Patient seen and examined. Back pain - chronic. No CP/SOB at rest. No overnight events - Objective Resuscitation Status: Resuscitation Status FULL:Full Resuscitation MAR Reviewed: Yes Vital Signs & Weight: Vital Signs (12 hours) Temp Pulse Resp BP BP Pulse Ox 03/25/17 10:28 123/58 L 03/25/17 08:15 98.0 F 71 18 123/58 L 95 03/25/17 04:00 97.8 F 75 20 136/65 94 L Weight Weight 224 lb 4.8 oz I&O: 03/24/17 03/25/17 03/26/17 06:59 06:59 06:59 Intake Total 760 1270 Output Total 1650 2685 Balance -890 -1415 Result Diagrams: 03/22/17 04:51 03/25/17 04:58 Additional Labs: Accuchecks 03/25/17 03/24/17 03/24/17 05:22 20:25 17:19 POC Glucose 83 172 H 208 H 03/24/17 11:41 POC Glucose 98 EKG Reviewed by me: Yes (Tele SR) Phys Exam - Physical Examination Constitutional: NAD Respiratory: no wheezing, no rhonchi Cardiovascular: RRR, no rub Gastrointestinal: soft, positive bowel sounds Musculoskeletal: edema present Neurological: moves all 4 limbs Dx/Plan - Plan IMPRESSION: 1. Acute/Chronic Systolic & Diastolic Heart failure exacerbation. No ACEI/ARB due to renal dysfunction. 2. Mod-severe 3. Morbid Obesity BMI 41 4. CKD 4 5. Mechanical Aortic Valve on anticoagulation/Supratherapeutic INR 6. Chronic Anemia/Elevated troponins due to demand ischemia/HTN/HLD/DM2/ Cholelithiasis on CT chest PLAN: * Warfain on hold due to elevated INR * Cont PO Torsemide/Metolazone/low dose Aldactone * Counselled on CHF * AM labs * Cont other meds as below * DC Metformin due to elevated Cr. Review of Systems - Review of Systems Respiratory: negative: Cough, Dry, Shortness of Breath, Hemoptysis, SOB with Excertion, Pleuritic Pain, Sputum, Wheezing Cardiovascular: negative: chest pain, palpitations, orthopnea, paroxysmal nocturnal dyspnea, edema, light headedness - Medications/Allergies Allergies/Adverse Reactions: Allergies Allergy/AdvReac Type Severity Reaction Status Date / Time No Known Allergies Allergy Verified 03/20/17 03:47 Medications: Current Medications Acetaminophen (Tylenol) 650 mg PO Q4H PRN PRN Reason: Headache/Fever or Pain Hydrocodone Bitart/Acetaminophen ([place] 10/325) 2 tab PO Q4H PRN PRN Reason: Severe Pain (7-10) Last Admin: 03/25/17 05:26 Dose: 2 tab Hydrocodone Bitart/Acetaminophen ([place] 10/325) 1 tab PO Q4H PRN PRN Reason: Moderate Pain (4-6) Bisacodyl (Dulcolax) 10 mg PO DAILYPRN PRN PRN Reason: . Last Admin: 03/24/17 08:09 Dose: 10 mg Carvedilol (Coreg) 6.25 mg PO BID [facility] Last Admin: 03/25/17 10:28 Dose: 6.25 mg Cyclobenzaprine HCl (Flexeril) 5 mg PO TID [facility] Stop: 03/27/17 15:01 Cyclobenzaprine HCl (Flexeril) 5 mg PO ONE [facility] Stop: 03/25/17 12:00 Last Admin: 03/25/17 10:38 Dose: 5 mg Dextrose/Water (Dextrose 50%) 25 gm SLOW IVP PRN PRN PRN Reason: Hypoglycemia Docusate Sodium (Colace) 100 mg PO BID [facility] Gabapentin (Neurontin) 300 mg PO BID [facility] Last Admin: 03/25/17 10:28 Dose: 300 mg Glipizide (Glucotrol) 10 mg PO BID-[facility] Last Admin: 03/25/17 10:28 Dose: 10 mg Glucagon (Glucagon) 1 mg IM PRN PRN PRN Reason: Hypoglycemia Dextrose/Water (D5w) 1,000 mls @ 0 mls/hr IV .Q0M PRN; As Directed PRN Reason: Hypoglycemia Insulin Human Lispro (Humalog) 0 units SC .MILD SLIDING SCALE PRN PRN Reason: Mild Correctional Scale Last Admin: 03/24/17 17:36 Dose: 3 unit Metolazone (Zaroxolyn) 5 mg PO MoFr@0900 [facility] Last Admin: 03/22/17 08:15 Dose: 5 mg Pantoprazole Sodium (Protonix) 40 mg PO DAILY [facility] Last Admin: 03/25/17 10:28 Dose: 40 mg Polyethylene Glycol (Miralax) 17 gm PO DAILY [facility] Polyethylene Glycol (Miralax) 17 gm PO ONE [facility] Stop: 03/25/17 14:00 Simvastatin (Zocor) 20 mg PO HS [facility] Last Admin: 03/24/17 21:48 Dose: 20 mg Sodium Chloride (Flush - Normal Saline) 10 ml IVF Q12HR [facility] Last Admin: 03/25/17 10:30 Dose: 10 ml Sodium Chloride (Flush - Normal Saline) 10 ml IVF PRN PRN PRN Reason: Saline Flush Spironolactone (Aldactone) 12.5 mg PO DAILY [facility] Last Admin: 03/25/17 10:29 Dose: 12.5 mg Torsemide (Demadex) 60 mg PO BID@0900,1400 [facility] Last Admin: 03/25/17 10:38 Dose: 60 mg
[2017-03-25 11:58] VITALS: BMI 41.0
[2017-03-25] MEDS ORDERED: Metolazone 5 MG TAB PO SCH (18:15)
--- NOTE | 2017-03-25 18:19 | PRG ---
DATE OF SERVICE: 03/25/2017 SUBJECTIVE: Ms. Morejon is doing just slightly better. She is still extremely edematous and also only diuresing moderately well. PHYSICAL EXAMINATION: VITAL SIGNS: Blood pressure 139/68, pulse 70, regular. LUNGS: Clear. CARDIAC: Normal S1, normal S2. ABDOMEN: Soft, nontender. EXTREMITIES: Still severe edema. LABORATORY DATA: Her hemoglobin is 8. Her creatinine is 1.69. ASSESSMENT: 1. Congestive heart failure, systolic and diastolic mixed. 2. Stage 3-4 renal failure, currently stage 4. 3. Hyponatremia, slightly improved. PLAN: Give her another dose of intravenous furosemide and metolazone today. Prognosis is guarded. I discussed with family.
[2017-03-25] MEDS: Cyclobenzaprine 10 MG TAB PO SCH ×2 (18:40→20:36)
[2017-03-25] MEDS ORDERED: Furosemide 100 MG/10 ML VIAL SLOW IVP SCH (20:00)
[2017-03-25] MEDS: Docusate 100 MG CAP PO SCH (20:36)
[2017-03-25] MEDS: Simvastatin 20 MG TAB PO SCH (20:37)
[2017-03-26 05:10] LABS: #Eosinphils 0.2 thou/uL (0.0-0.7); #Lymphocytes 0.9 thou/uL (1.20-3.40); #Monocytes 0.5 thou/uL (0.11-0.59); #Neutrophils 4.4 thou/uL (1.40-6.50); %Basophils 0.1 % (0.0-1.0); %Lymphocytes 15.5 % (21.0-51.0); %Monocytes 8.9 % (0.0-10.0); %Neutrophils 72.5 % (42.0-75.0); Hemoglobin 7.5 g/dL (12.0-16.0); Mean Corpuscular HGB CONC 31.7 g/dL (32.0-36.0); Mean Corpuscular Hemoglobin 27.2 pg (27.0-31.0); Mean Corpuscular Volume 85.9 fl (81.0-99.0); Mean Platelet Volume 7.3 fL (7.4-10.4); Platelet Count 214 thou/uL (130-400); RBC Distribution Width 16.1 % (11.5-14.5); Red Blood Cell (RBC) Count 2.75 mill/uL (4.20-5.40)
[2017-03-26 05:15] LABS: INR-International Normal Ratio 2.8; Prothrombin Time 30.3 SEC (12.0-14.7)
[2017-03-26 05:25] LABS: Anion Gap 14 mmol/L (10-20); BUN (Urea Nitrogen) 48 mg/dL (9.8-20.1); BUN/Creatinine Ratio 31.17; Calc. Creatinine Clearance 49 mL/min (70-130); Calcium 8.8 mg/dL (7.8-10.44); Carbon Dioxide 35 mmol/L (23-31); Chloride 87 mmol/L (98-107); Estimated GFR-MDRD 33; Glucose 182 mg/dL (83-110); Magnesium 1.7 mg/dL (1.6-2.6); Potassium 4.2 mmol/L (3.5-5.1); Sodium 132 mmol/L (136-145)
[2017-03-26] MEDS: HumaLOG 300 UNITS/3 ML VIAL SC PRN ×2 (06:21→17:35)
[2017-03-26] MEDS: Cyclobenzaprine 10 MG TAB PO SCH ×2 (08:56→15:09)
[2017-03-26] MEDS: Polyethylene Glycol 3350 17 GM Packet PO SCH (08:56)
[2017-03-26] MEDS: Docusate 100 MG CAP PO SCH ×2 (08:58→21:28)
[2017-03-26] MEDS: Gabapentin 300 MG CAP PO SCH ×2 (08:58→21:28)
[2017-03-26] MEDS: Metolazone 5 MG TAB PO SCH (08:58)
[2017-03-26] MEDS: Spironolactone 25 MG TAB PO SCH (08:58)
[2017-03-26] MEDS: glipiZIDE 5 MG TAB PO SCH ×2 (08:58→17:36)
[2017-03-26] MEDS: Torsemide 20 MG TAB PO SCH ×2 (09:01→15:10)
[2017-03-26] MEDS: HYDROcodone/Acetaminophen 10/325 mg Tablet PO PRN (12:11)
[2017-03-26] MEDS ORDERED: Metolazone 5 MG TAB PO SCH (15:15)
--- NOTE | 2017-03-26 15:28 | PRG ---
DATE OF SERVICE: 03/26/2017 SUBJECTIVE: Ms. Morejon feels somewhat better, but still feels very fatigued, has not feel well. OBJECTIVE: VITAL SIGNS: Her blood pressure 112/80, pulse 86 and it is regular. LUNGS: Clear. CARDIAC: Normal S1, normal S2. ABDOMEN: Soft, nontender. EXTREMITIES: Still severe edema. I noted the patient did put out -3.4 liters yesterday. ASSESSMENT: 1. Diastolic and systolic heart failure, combined, very slow to respond. 2. Anemia. 3. Continued back pain, musculoskeletal. The patient did have a chest CT scan done on 03/20/2017 showing just degenerative changes in the spin e. PLAN: 1. Continue to give metolazone and furosemide IV in the evening when she is supine. 2. Coumadin still on hold. The INR is down to 2.8. We will resume Coumadin at low dose 2 mg a day.
[2017-03-26] MEDS ORDERED: Warfarin Sodium 2 MG TAB PO SCH (17:00)
--- NOTE | 2017-03-26 17:41 | PDOC.PN ---
- Subjective Encounter Start Date: 03/26/17 Encounter Start Time: 18:00 Patient seen and examined. SOB on exertion. Feels gen weak. No overnight events - Objective Resuscitation Status: Resuscitation Status FULL:Full Resuscitation MAR Reviewed: Yes Vital Signs & Weight: Vital Signs (12 hours) Temp Pulse Pulse Pulse Resp BP BP 03/26/17 15:37 98.1 F 85 14 03/26/17 11:32 87 14 03/26/17 09:35 74 80 140/61 144/61 H 03/26/17 09:24 74 80 140/61 144/61 H 03/26/17 07:17 97.5 F L 87 14 BP BP Pulse Ox 03/26/17 15:37 162/76 H 94 L 03/26/17 11:32 112/80 92 L 03/26/17 09:35 03/26/17 09:24 03/26/17 07:17 122/58 L 97 Weight Admit Weight 224 lb 13.944 oz Weight 229 lb 6.4 oz I&O: 03/25/17 03/26/17 03/27/17 06:59 06:59 06:59 Intake Total 1270 540 Output Total 2685 3950 Balance -1415 -3410 Result Diagrams: 03/28/17 04:57 03/29/17 07:07 Additional Labs: Accuchecks 03/26/17 03/26/17 03/26/17 15:44 11:33 06:20 POC Glucose 247 H 213 H 178 H 03/25/17 03/25/17 19:45 17:14 POC Glucose 79 61 L Phys Exam - Physical Examination Constitutional: NAD Respiratory: no wheezing, no rhonchi Bibasilar rales Cardiovascular: RRR, no rub Gastrointestinal: soft, non-tender, positive bowel sounds Musculoskeletal: no edema Neurological: non-focal, moves all 4 limbs Dx/Plan - Plan IMPRESSION: 1. Acute/Chronic Systolic & Diastolic Heart failure exacerbation. No ACEI/ARB due to renal dysfunction. 2. Mod-severe 3. Morbid Obesity BMI 41 4. CKD 4 5. Mechanical Aortic Valve on anticoagulation/Supratherapeutic INR 6. Chronic Anemia/Elevated troponins due to demand ischemia/HTN/HLD/DM2/ Cholelithiasis on CT chest PLAN: * Cont Warfain * Cont PO Torsemide/Metolazone/low dose Aldactone * One dose Lasix today per Cardiology * AM labs * Cont other meds as below * Cont to monitor Review of Systems - Review of Systems Respiratory: negative: Cough, Dry, Shortness of Breath, Hemoptysis, SOB with Excertion, Pleuritic Pain, Sputum, Wheezing Cardiovascular: negative: chest pain, palpitations, orthopnea, paroxysmal nocturnal dyspnea, edema, light headedness - Medications/Allergies Allergies/Adverse Reactions: Allergies Allergy/AdvReac Type Severity Reaction Status Date / Time No Known Allergies Allergy Verified 03/20/17 03:47 Medications: Current Medications Acetaminophen (Tylenol) 650 mg PO Q4H PRN PRN Reason: Headache/Fever or Pain Hydrocodone Bitart/Acetaminophen ([place] 10/325) 2 tab PO Q4H PRN PRN Reason: Severe Pain (7-10) Last Admin: 03/26/17 12:11 Dose: 2 tab Hydrocodone Bitart/Acetaminophen ([place] 10/325) 1 tab PO Q4H PRN PRN Reason: Moderate Pain (4-6) Bisacodyl (Dulcolax) 10 mg PO DAILYPRN PRN PRN Reason: . Last Admin: 03/24/17 08:09 Dose: 10 mg Cyclobenzaprine HCl (Flexeril) 5 mg PO TID [facility] Stop: 03/27/17 15:01 Last Admin: 03/26/17 15:09 Dose: 5 mg Dextrose/Water (Dextrose 50%) 25 gm SLOW IVP PRN PRN PRN Reason: Hypoglycemia Docusate Sodium (Colace) 100 mg PO BID [facility] Last Admin: 03/26/17 08:58 Dose: 100 mg Furosemide (Lasix) 80 mg SLOW IVP 1815 [facility] Stop: 03/26/17 20:15 Gabapentin (Neurontin) 300 mg PO BID [facility] Last Admin: 03/26/17 08:58 Dose: 300 mg Glipizide (Glucotrol) 5 mg PO BID-[facility] Last Admin: 03/26/17 08:58 Dose: 5 mg Glucagon (Glucagon) 1 mg IM PRN PRN PRN Reason: Hypoglycemia Dextrose/Water (D5w) 1,000 mls @ 0 mls/hr IV .Q0M PRN; As Directed PRN Reason: Hypoglycemia Insulin Human Lispro (Humalog) 0 units SC .MILD SLIDING SCALE PRN PRN Reason: Mild Correctional Scale Last Admin: 03/26/17 06:21 Dose: 2 unit Metolazone (Zaroxolyn) 5 mg PO MoFr@0900 [facility] Last Admin: 03/26/17 08:58 Dose: 5 mg Pantoprazole Sodium (Protonix) 40 mg PO DAILY [facility] Last Admin: 03/26/17 08:58 Dose: 40 mg Polyethylene Glycol (Miralax) 17 gm PO DAILY [facility] Last Admin: 03/26/17 08:56 Dose: Not Given Simvastatin (Zocor) 20 mg PO HS [facility] Last Admin: 03/25/17 20:37 Dose: 20 mg Sodium Chloride (Flush - Normal Saline) 10 ml IVF Q12HR [facility] Last Admin: 03/26/17 08:56 Dose: 10 ml Sodium Chloride (Flush - Normal Saline) 10 ml IVF PRN PRN PRN Reason: Saline Flush Spironolactone (Aldactone) 12.5 mg PO DAILY [facility] Last Admin: 03/26/17 08:58 Dose: 12.5 mg Torsemide (Demadex) 60 mg PO BID@0900,1400 [facility] Last Admin: 03/26/17 15:10 Dose: 60 mg Warfarin Sodium (Coumadin) 2 mg PO 1700 [facility]
[2017-03-26] MEDS ORDERED: Furosemide 100 MG/10 ML VIAL SLOW IVP SCH (18:15)
[2017-03-26] MEDS: Simvastatin 20 MG TAB PO SCH (21:28)
[2017-03-27] MEDS: Cyclobenzaprine 10 MG TAB PO SCH ×3 (02:25→14:14)
[2017-03-27 05:35] LABS: #Eosinphils 0.2 thou/uL (0.0-0.7); #Monocytes 0.7 thou/uL (0.11-0.59); #Neutrophils 7.3 thou/uL (1.40-6.50); %Basophils 0.3 % (0.0-1.0); %Eosinophils 1.7 % (0.0-10.0); %Lymphocytes 10.8 % (21.0-51.0); %Monocytes 7.4 % (0.0-10.0); %Neutrophils 79.8 % (42.0-75.0); Hemoglobin 7.7 g/dL (12.0-16.0); Mean Corpuscular HGB CONC 31.3 g/dL (32.0-36.0); Mean Corpuscular Hemoglobin 27.3 pg (27.0-31.0); Mean Corpuscular Volume 87.1 fl (81.0-99.0); Mean Platelet Volume 7.6 fL (7.4-10.4); Platelet Count 259 thou/uL (130-400); RBC Distribution Width 16.9 % (11.5-14.5); White Blood Cell (WBC) Count 9.2 thou/uL (4.8-10.8)
[2017-03-27 05:49] LABS: Anion Gap 13 mmol/L (10-20); BUN (Urea Nitrogen) 50 mg/dL (9.8-20.1); BUN/Creatinine Ratio 32.26; Calc. Creatinine Clearance 50 mL/min (70-130); Calcium 8.9 mg/dL (7.8-10.44); Carbon Dioxide 35 mmol/L (23-31); Chloride 88 mmol/L (98-107); Estimated GFR-MDRD 32; Glucose 266 mg/dL (83-110); Magnesium 1.7 mg/dL (1.6-2.6); Phosphorus 3.6 mg/dL (2.3-4.7); Potassium 4.2 mmol/L (3.5-5.1); Sodium 132 mmol/L (136-145)
[2017-03-27 05:53] LABS: INR-International Normal Ratio 2.2
[2017-03-27] MEDS: Furosemide 40 MG/4 ML VIAL SLOW IVP SCH ×2 (06:05→14:13)
[2017-03-27] MEDS: HumaLOG 300 UNITS/3 ML VIAL SC PRN (08:06)
[2017-03-27] MEDS: Polyethylene Glycol 3350 17 GM Packet PO SCH (08:06)
[2017-03-27] MEDS: glipiZIDE 5 MG TAB PO SCH ×2 (08:08→17:25)
[2017-03-27] MEDS: Spironolactone 25 MG TAB PO SCH (08:08)
[2017-03-27] MEDS: Metolazone 5 MG TAB PO SCH (08:08)
[2017-03-27] MEDS: Docusate 100 MG CAP PO SCH ×2 (08:09→21:29)
[2017-03-27] MEDS: Gabapentin 300 MG CAP PO SCH (08:09)
[2017-03-27] MEDS: Simethicone Chewable 80 MG TAB PO PRN ×2 (10:39→22:47)
--- NOTE | 2017-03-27 16:36 | PDOC.CTH ---
<Nelsy Doe - Last Filed: 03/27/17 16:45> Cardiology Progress Note - Subjective The pt seen and examined. No overnight events. No cardiac complaints. She reported she can breath better today; however, still complains of URIARTE. - Objective Vital Signs Temp Pulse Resp BP Pulse Ox 03/27/17 15:30 97.8 F 86 20 120/58 L 95 03/27/17 11:15 96 03/27/17 11:12 85 20 143/62 H 96 03/27/17 07:19 97.8 F 85 20 95 03/27/17 07:07 97.8 F 81 18 135/63 95 Admit Weight 224 lb 13.944 oz Weight 229 lb 6.4 oz 03/26/17 03/27/17 03/28/17 06:59 06:59 06:59 Intake Total 540 920 250 Output Total 3950 1375 1400 Balance -9880 455 -1150 - Physical Examination General/Neuro: alert & oriented x3 Neck: no JVD present Lungs: other: (diminished at bases) Heart: RRR Abdomen: soft Extremities: other: (3+ pitting edema) - Telemetry Telemetry Rhythm: SR w/ PVCs and PACs - Labs Result Diagrams: 03/27/17 04:49 03/27/17 04:49 Troponin/CKMB CK-MB (CK-2) 0.8 ng/mL (0-6.6) 03/20/17 00:50 Troponin I 0.026 ng/mL (< 0.028) 03/20/17 06:49 - Assessment/Plan 1. 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 On Lasix IV, Metolazone, and Aldactone; No ACEI/ARB due to renal dysfunction. 2. HTN - stable 3. CKD stage 4 - no changed; No HARLEY/ARB; cont. monitor 4. Mechanical Aortic Valve with Coumadin - on Coumadin; INR today was 2.2; Pharmacy will manage the pt's Coumadin dosage 5. DM type 2 - managed by PCP 6. Hyperlipidemia - on Statin Chronic Anemia - cont. monitor MAR reviewed Review of Systems - Review of Systems Constitutional: reports: no symptoms reported EENTM: reports: no symptoms reported Respiratory: reports: see HPI Cardiac (ROS): reports: no symptoms reported ABD/GI: reports: no symptoms reported : reports: no symptoms reported Musculoskeletal: reports: no symptoms reported <Jackson Eastman - Last Filed: 03/28/17 01:24> Cardiology Progress Note - Objective Vital Signs Temp Pulse Resp BP Pulse Ox 03/27/17 19:45 98.1 F 77 16 124/60 97 03/27/17 15:30 97.8 F 86 20 120/58 L 95 Admit Weight 224 lb 13.944 oz Weight 229 lb 6.4 oz 03/26/17 03/27/17 03/28/17 06:59 06:59 06:59 Intake Total 540 920 600 Output Total 3950 1375 2900 Balance -7224 -122 -6460 - Labs Result Diagrams: 03/27/17 04:49 03/27/17 04:49 Troponin/CKMB CK-MB (CK-2) 0.8 ng/mL (0-6.6) 03/20/17 00:50 Troponin I 0.026 ng/mL (< 0.028) 03/20/17 06:49 - Assessment/Plan The pt. was seen and eval. by me. I agree with the A/P by the [employer]CHIT[employer]M.
[2017-03-27] MEDS ORDERED: COUMADIN PO PRN (16:56)
[2017-03-27] MEDS ORDERED: Warfarin Sodium 2 MG TAB PO SCH (17:00)
--- NOTE | 2017-03-27 18:08 | PDOC.PN ---
- Subjective Encounter Start Date: 03/27/17 Encounter Start Time: 15:00 Patient seen and examined. No new complaints. Has gen tremors for several months - never mentioned to PCP. No overnight events - Objective Resuscitation Status: Resuscitation Status FULL:Full Resuscitation MAR Reviewed: Yes Vital Signs & Weight: Vital Signs (12 hours) Temp Pulse Resp BP Pulse Ox 03/27/17 15:30 97.8 F 86 20 120/58 L 95 03/27/17 11:15 96 03/27/17 11:12 85 20 143/62 H 96 03/27/17 07:19 97.8 F 85 20 95 03/27/17 07:07 97.8 F 81 18 135/63 95 Weight Admit Weight 224 lb 13.944 oz Weight 229 lb 6.4 oz I&O: 03/26/17 03/27/17 03/28/17 06:59 06:59 06:59 Intake Total 540 920 250 Output Total 3950 1375 1400 Balance -1771 -917 -8090 Result Diagrams: 03/27/17 04:49 03/27/17 04:49 Additional Labs: Accuchecks 03/27/17 03/27/17 03/27/17 16:33 11:32 05:51 POC Glucose 172 H 228 H 331 H 03/26/17 20:37 POC Glucose 236 H EKG Reviewed by me: Yes (Tele SR) Phys Exam - Physical Examination Constitutional: NAD Respiratory: no wheezing, no rhonchi Cardiovascular: RRR, no rub Gastrointestinal: soft, non-tender, positive bowel sounds Musculoskeletal: edema present Neurological: moves all 4 limbs Dx/Plan - Plan IMPRESSION: 1. Acute/Chronic Systolic & Diastolic Heart failure exacerbation. No ACEI/ARB due to renal dysfunction. 2. Mod-severe 3. Morbid Obesity BMI 41 4. CKD 4 5. Mechanical Aortic Valve on anticoagulation/Supratherapeutic INR 6. Tremors - prob due to Gabapentin vs Essential tremors. 7. Chronic Anemia/Elevated troponins due to demand ischemia/HTN/HLD/DM2/ Cholelithiasis on CT chest PLAN: * Cont Warfain. INR 2.2 today * Hold Gabapentin * Cont IV diuretics * AM labs * Cont other meds as below * Cont to monitor * Cardiology following * DC Richard in AM * Await SNF eval * Change Glipizide to home dose Review of Systems - Review of Systems Respiratory: SOB with Excertion. negative: Cough, Dry, Shortness of Breath, Hemoptysis, Pleuritic Pain, Sputum, Wheezing Cardiovascular: edema. negative: chest pain, palpitations, orthopnea, paroxysmal nocturnal dyspnea, light headedness Gastrointestinal: negative: Nausea, Vomiting, Abdominal Pain, Diarrhea, Constipation, Melena, Hematochezia - Medications/Allergies Allergies/Adverse Reactions: Allergies Allergy/AdvReac Type Severity Reaction Status Date / Time No Known Allergies Allergy Verified 03/20/17 03:47 Medications: Current Medications Acetaminophen (Tylenol) 650 mg PO Q4H PRN PRN Reason: Headache/Fever or Pain Hydrocodone Bitart/Acetaminophen ([place] 10/325) 2 tab PO Q4H PRN PRN Reason: Severe Pain (7-10) Last Admin: 03/26/17 12:11 Dose: 2 tab Hydrocodone Bitart/Acetaminophen ([place] 10/325) 1 tab PO Q4H PRN PRN Reason: Moderate Pain (4-6) Bisacodyl (Dulcolax) 10 mg PO DAILYPRN PRN PRN Reason: . Last Admin: 03/24/17 08:09 Dose: 10 mg Dextrose/Water (Dextrose 50%) 25 gm SLOW IVP PRN PRN PRN Reason: Hypoglycemia Docusate Sodium (Colace) 100 mg PO BID [facility] Last Admin: 03/27/17 08:09 Dose: 100 mg Furosemide (Lasix) 60 mg SLOW IVP 0600,1400 [facility] Last Admin: 03/27/17 14:13 Dose: 60 mg Glipizide (Glucotrol) [address] Glucagon (Glucagon) 1 mg IM PRN PRN PRN Reason: Hypoglycemia Dextrose/Water (D5w) 1,000 mls @ 0 mls/hr IV .Q0M PRN; As Directed PRN Reason: Hypoglycemia Insulin Human Lispro (Humalog) 0 units SC .MILD SLIDING SCALE PRN PRN Reason: Mild Correctional Scale Last Admin: 03/27/17 08:06 Dose: 5 unit Metolazone (Zaroxolyn) 5 mg PO 0830 [facility] Last Admin: 03/27/17 08:08 Dose: 5 mg Miscellaneous Medication (Pharmacy To Dose) 1 each PO PRN PRN PRN Reason: Pharmacy to dose Pantoprazole Sodium (Protonix) 40 mg PO DAILY [facility] Last Admin: 03/27/17 08:09 Dose: 40 mg Polyethylene Glycol (Miralax) 17 gm PO DAILY [facility] Last Admin: 03/27/17 08:06 Dose: 17 gm Simethicone (Mylicon Chewable) 80 mg PO PCHS PRN PRN Reason: Gas Pain Last Admin: 03/27/17 10:39 Dose: 80 mg Simvastatin (Zocor) 20 mg PO HS [facility] Last Admin: 03/26/17 21:28 Dose: 20 mg Sodium Chloride (Flush - Normal Saline) 10 ml IVF Q12HR [facility] Last Admin: 03/27/17 08:06 Dose: 10 ml Sodium Chloride (Flush - Normal Saline) 10 ml IVF PRN PRN PRN Reason: Saline Flush Spironolactone (Aldactone) 12.5 mg PO DAILY [facility] Last Admin: 03/27/17 08:08 Dose: 12.5 mg Warfarin Sodium (Coumadin) 2 mg PO 1700 [facility] Last Admin: 03/27/17 17:25 Dose: 2 mg
[2017-03-27] MEDS ORDERED: Primidone 50 MG TAB PO SCH ×2 (21:00)
[2017-03-27] MEDS: Simvastatin 20 MG TAB PO SCH (21:29)
[2017-03-27] MEDS: HYDROcodone/Acetaminophen 10/325 mg Tablet PO PRN (23:51)
[2017-03-28] MEDS: Furosemide 40 MG/4 ML VIAL SLOW IVP SCH ×2 (04:55→13:59)
[2017-03-28 05:14] LABS: #Eosinphils 0.3 thou/uL (0.0-0.7); #Lymphocytes 1.2 thou/uL (1.20-3.40); #Monocytes 0.7 thou/uL (0.11-0.59); #Neutrophils 7.9 thou/uL (1.40-6.50); %Basophils 0.2 % (0.0-1.0); %Eosinophils 2.7 % (0.0-10.0); %Lymphocytes 12.1 % (21.0-51.0); %Neutrophils 78.1 % (42.0-75.0); Hemoglobin 7.8 g/dL (12.0-16.0); Mean Corpuscular HGB CONC 30.7 g/dL (32.0-36.0); Mean Corpuscular Hemoglobin 27.3 pg (27.0-31.0); Mean Platelet Volume 7.3 fL (7.4-10.4); Platelet Count 253 thou/uL (130-400); RBC Distribution Width 17.4 % (11.5-14.5); Red Blood Cell (RBC) Count 2.84 mill/uL (4.20-5.40); White Blood Cell (WBC) Count 10.1 thou/uL (4.8-10.8)
[2017-03-28 05:20] LABS: INR-International Normal Ratio 1.8; Prothrombin Time 21.6 SEC (12.0-14.7)
[2017-03-28 05:31] LABS: Albumin 2.9 g/dL (3.4-4.8); BUN (Urea Nitrogen) 46 mg/dL (9.8-20.1); BUN/Creatinine Ratio 35.94; Calc. Creatinine Clearance 60 mL/min (70-130); Calcium 9.2 mg/dL (7.8-10.44); Estimated GFR-MDRD 40; Glucose 110 mg/dL (83-110); Magnesium 1.4 mg/dL (1.6-2.6); Phosphorus 3.5 mg/dL (2.3-4.7)
[2017-03-28 05:41] LABS: Anion Gap 18 mmol/L (10-20); Carbon Dioxide 35 mmol/L (23-31); Chloride 88 mmol/L (98-107); Sodium 137 mmol/L (136-145)
[2017-03-28] MEDS: Spironolactone 25 MG TAB PO SCH (08:19)
[2017-03-28] MEDS: glipiZIDE 10 MG TAB PO SCH ×2 (08:19→15:57)
[2017-03-28] MEDS: Metolazone 5 MG TAB PO SCH (08:19)
[2017-03-28] MEDS: Docusate 100 MG CAP PO SCH ×2 (08:19→21:35)
[2017-03-28] MEDS: Polyethylene Glycol 3350 17 GM Packet PO SCH (08:20)
[2017-03-28] MEDS: Simethicone Chewable 80 MG TAB PO PRN (08:27)
--- NOTE | 2017-03-28 10:32 | PDOC.PN ---
- Subjective Encounter Start Date: 03/28/17 Encounter Start Time: 10:30 Ms. Morejon was seen today in follow-up. She says she is still as much short of breath now, as she was on admission. She does admit that her legs feel a little stronger. She denies any chest pain. - Objective Resuscitation Status: Resuscitation Status FULL:Full Resuscitation MAR Reviewed: Yes Vital Signs & Weight: Vital Signs (12 hours) Temp Pulse Resp BP Pulse Ox 03/28/17 08:00 99.0 F 79 22 H 138/63 97 03/28/17 04:00 98.7 F 73 18 127/58 L 95 Weight Admit Weight 224 lb 13.944 oz Weight 229 lb 6.4 oz I&O: 03/27/17 03/28/17 03/29/17 06:59 06:59 06:59 Intake Total 920 700 Output Total 1375 6100 Balance -455 5404 Result Diagrams: 03/28/17 04:57 03/28/17 04:57 Additional Labs: Accuchecks 03/28/17 03/27/17 03/27/17 05:16 20:01 16:33 POC Glucose 120 H 127 H 172 H 03/27/17 11:32 POC Glucose 228 H Phys Exam - Physical Examination HEENT: PERRLA Respiratory: wheezing present + wheezing throughout both lungs Cardiovascular: RRR 2/6 systolic murmur Gastrointestinal: soft, non-tender, positive bowel sounds Musculoskeletal: no edema Dx/Plan (1) Acute exacerbation of chronic bronchitis Code(s): J20.9 - ACUTE BRONCHITIS, UNSPECIFIED; J42 - UNSPECIFIED CHRONIC BRONCHITIS Status: Acute (2) Acute on chronic congestive heart failure Code(s): I50.9 - HEART FAILURE, UNSPECIFIED Status: Acute (3) Chronic combined systolic (congestive) and diastolic (congestive) heart failure Code(s): I50.42 - CHRONIC COMBINED SYSTOLIC AND DIASTOLIC HRT FAIL Status: Chronic Comment: elevated BNP, lungs and exam clear. No other evidence of acute exacerbation at present (4) DM2 (diabetes mellitus, type 2) Status: Chronic Qualifiers: Diabetes mellitus complication status: with unspecified complications Diabetes mellitus manager long term care insulin use: without manager long term care use Qualified Code( s): E11.8 - Type 2 diabetes mellitus with unspecified complications (5) HTN (hypertension) Code(s): I10 - ESSENTIAL (PRIMARY) HYPERTENSION Status: Chronic Qualifiers: Hypertension type: essential hypertension Qualified Code(s): I10 - Essential (primary) hypertension - Plan * Ms. Morejon says she is still short of breath- she may have a degree of acute bronchitis on top of chronic bronchitis. She has a history of smoking in the past, and a history of chronic bronchitis- will add Duonebs, and follow * Hypomagnesemia- replace magnesium * Acute on chronic systolic and diastolic heart failure- she has diuresed well- continue Lasix and Metolazone as per Cardiology * Essential Tremor- she has been placed on Primidone * DM- blood glucose is stable * HTN- blood pressure is stable. * Awaiting alf transfer
[2017-03-28] MEDS ORDERED: Magnesium 2 GM/NS 0.9% 50 ML 2 GM in Premix Bag 1 BAG IVPB SCH (10:45)
[2017-03-28] MEDS ORDERED: Magnesium 2 GM/NS 0.9% 100 ML 2 GM in Premix Bag 1 BAG IVPB SCH (11:00)
--- NOTE | 2017-03-28 12:38 | PDOC.CTH ---
<Nelsy Doe - Last Filed: 03/28/17 12:36> Cardiology Progress Note - Subjective The pt seen and examined. No overnight events. No cardiac complaints. She stated she can breath better today. - Objective Vital Signs Temp Pulse Resp BP BP Pulse Ox 03/28/17 12:28 97.2 F L 90 18 151/66 H 97 03/28/17 08:00 99.0 F 79 22 H 138/63 97 03/28/17 04:00 98.7 F 73 18 127/58 L 95 Admit Weight 224 lb 13.944 oz Weight 229 lb 6.4 oz 03/27/17 03/28/17 03/29/17 06:59 06:59 06:59 Intake Total 920 700 Output Total 1375 6100 Balance -455 -5400 - Physical Examination General/Neuro: alert & oriented x3 Neck: no JVD present Lungs: other: (very diminished at bases) Heart: RRR Abdomen: soft Extremities: other: (3+ pitting edema BLE) - Telemetry Telemetry Rhythm: SR 80s PVCs - Labs Result Diagrams: 03/28/17 04:57 03/28/17 04:57 Troponin/CKMB CK-MB (CK-2) 0.8 ng/mL (0-6.6) 03/20/17 00:50 Troponin I 0.026 ng/mL (< 0.028) 03/20/17 06:49 - Assessment/Plan 1. 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 On Lasix IV, Metolazone, and Aldactone; No ACEI/ARB due to renal dysfunction. 2. HTN - stable 3. CKD stage 4 - no changed; No HARLEY/ARB; cont. monitor 4. Mechanical Aortic Valve with Coumadin - on Coumadin; INR today was 2.2; Pharmacy will manage the pt's Coumadin dosage 5. DM type 2 - managed by PCP 6. Hyperlipidemia - on Statin 7. Chronic Anemia - cont. monitor 8. essential tremor - on Primidone; managed by PCP MAR reviewed Review of Systems - Review of Systems Constitutional: reports: no symptoms reported Eyes (ROS): reports: no symptoms reported Ear: reports: no symptoms reported Nose (ROS): reports: no symptoms reported Respiratory: reports: see HPI Cardiology: reports: no symptoms reported <Jackson Eastman - Last Filed: 03/29/17 09:42> Cardiology Progress Note - Objective Vital Signs Temp Pulse Resp BP BP Pulse Ox 03/29/17 08:00 96.5 F L 70 18 123/58 L 98 03/29/17 07:58 68 16 03/29/17 06:45 73 18 135/61 97 Admit Weight 224 lb 13.944 oz Weight 229 lb 03/28/17 03/29/17 03/30/17 06:59 06:59 06:59 Intake Total 700 1200 Output Total 6100 800 Balance -5400 400 - Labs Result Diagrams: 03/28/17 04:57 03/29/17 07:07 Troponin/CKMB CK-MB (CK-2) 0.8 ng/mL (0-6.6) 03/20/17 00:50 Troponin I 0.026 ng/mL (< 0.028) 03/20/17 06:49 - Assessment/Plan Pt. seen and eval. by me. I agree with the A/P by the [employer]INE [employer].Chest clear. RRR.
[2017-03-28] MEDS: Warfarin Sodium 5 MG TAB PO SCH (16:00)
[2017-03-28] MEDS: HumaLOG 300 UNITS/3 ML VIAL SC PRN ×2 (17:07→23:37)
[2017-03-28] MEDS: Simvastatin 20 MG TAB PO SCH (21:35)
[2017-03-29] MEDS: Simethicone Chewable 80 MG TAB PO PRN ×2 (00:18→19:54)
[2017-03-29] MEDS: HYDROcodone/Acetaminophen 10/325 mg Tablet PO PRN ×3 (00:19→22:25)
[2017-03-29 05:49] LABS: Prothrombin Time 23.8 SEC (12.0-14.7)
[2017-03-29] MEDS: Furosemide 40 MG/4 ML VIAL SLOW IVP SCH ×2 (06:38→15:28)
[2017-03-29 07:29] LABS: Albumin 2.6 g/dL (3.4-4.8); Anion Gap 18 mmol/L (10-20); BUN (Urea Nitrogen) 43 mg/dL (9.8-20.1); BUN/Creatinine Ratio 30.94; Calc. Creatinine Clearance 56 mL/min (70-130); Calcium 9.1 mg/dL (7.8-10.44); Carbon Dioxide 32 mmol/L (23-31); Chloride 86 mmol/L (98-107); Estimated GFR-MDRD 37; Glucose 116 mg/dL (83-110); Magnesium 1.7 mg/dL (1.6-2.6); Phosphorus 3.1 mg/dL (2.3-4.7); Potassium 3.8 mmol/L (3.5-5.1); Sodium 132 mmol/L (136-145)
--- NOTE | 2017-03-29 09:18 | PDOC.PN ---
- Subjective Encounter Start Date: 03/29/17 (n) Encounter Start Time: 09:16 Ms. Escobar was seen today in follow-up. She says she still feels a bit weak. She says she can't tell if her breathing is any better. - Objective Resuscitation Status: Resuscitation Status FULL:Full Resuscitation MAR Reviewed: Yes Vital Signs & Weight: Vital Signs (12 hours) Temp Pulse Resp BP BP Pulse Ox 03/29/17 08:00 96.5 F L 70 18 123/58 L 98 03/29/17 07:58 68 16 03/29/17 06:45 73 18 135/61 97 03/28/17 21:35 98.2 F 82 18 121/57 L 93 L Weight Admit Weight 224 lb 13.944 oz Weight 229 lb I&O: 03/28/17 03/29/17 03/30/17 06:59 06:59 06:59 Intake Total 700 1200 Output Total 6100 800 Balance -5400 400 Result Diagrams: 03/28/17 04:57 03/29/17 07:07 Additional Labs: Accuchecks 03/29/17 03/28/17 03/28/17 06:31 21:24 17:01 POC Glucose 130 H 267 H 249 H 03/28/17 11:13 POC Glucose 222 H Phys Exam - Physical Examination HEENT: PERRLA Respiratory: wheezing present + wheezing, but diminished from yesterday Cardiovascular: RRR, no significant murmur Gastrointestinal: soft, non-tender, positive bowel sounds Musculoskeletal: edema present trace pedal edema Dx/Plan (1) Acute exacerbation of chronic bronchitis Code(s): J20.9 - ACUTE BRONCHITIS, UNSPECIFIED; J42 - UNSPECIFIED CHRONIC BRONCHITIS Status: Acute (2) Acute on chronic congestive heart failure Code(s): I50.9 - HEART FAILURE, UNSPECIFIED Status: Acute (3) Chronic combined systolic (congestive) and diastolic (congestive) heart failure Code(s): I50.42 - CHRONIC COMBINED SYSTOLIC AND DIASTOLIC HRT FAIL Status: Chronic Comment: elevated BNP, lungs and exam clear. No other evidence of acute exacerbation at present (4) DM2 (diabetes mellitus, type 2) Status: Chronic Qualifiers: Diabetes mellitus complication status: with unspecified complications Diabetes mellitus snf insulin use: without snf use Qualified Code( s): E11.8 - Type 2 diabetes mellitus with unspecified complications (5) HTN (hypertension) Code(s): I10 - ESSENTIAL (PRIMARY) HYPERTENSION Status: Chronic Qualifiers: Hypertension type: essential hypertension Qualified Code(s): I10 - Essential (primary) hypertension - Plan * Acute on chronic CHF with normal EF- she appears to be close to euvolemia. * Continue IV Lasix as per Cardiology- ? accurate I/O 's * DM- blood glucose is slightly elevated * Chronic kidney disease- continue to monitor renal function * Acute on chronic bronchitis- her lungs sound better, will continue duonebs * Continue PT/OT for severe deconditioning * Anemia- appears to be a combination of anemia in renal disease as well as iron deficiency- will add Iron supplements, and consider Epogen * AVR- INR is now around 2.0, will continue coumadin at 5 mg a day and monitor * Await Rehab evaluation
[2017-03-29] MEDS: glipiZIDE 10 MG TAB PO SCH ×2 (09:19→16:32)
[2017-03-29] MEDS: Docusate 100 MG CAP PO SCH ×2 (09:19→19:54)
[2017-03-29] MEDS: Spironolactone 25 MG TAB PO SCH (09:19)
[2017-03-29] MEDS: Metolazone 5 MG TAB PO SCH (09:19)
[2017-03-29] MEDS: Polyethylene Glycol 3350 17 GM Packet PO SCH (09:20)
[2017-03-29] MEDS: Warfarin Sodium 5 MG TAB PO SCH (16:32)
[2017-03-29] MEDS ORDERED: Ferrous Sulfate 325 MG TAB PO SCH (17:00)
--- NOTE | 2017-03-29 17:49 | PRG ---
DATE OF SERVICE: 03/29/2017 SUBJECTIVE: Ms. Morejon is feeling better. Her back pain is better. Her breathing is improved. Her edema is low. OBJECTIVE: VITAL SIGNS: Blood pressure 153/72, pulse 84. LUNGS: Clear. CARDIAC: Normal S1, normal S2. ABDOMEN: Soft, nontender. EXTREMITIES: There is only [id number] edema now. ASSESSMENT: 1. Congestive heart failure, systolic and diastolic, mixed, improved. 2. Renal failure, stable, creatinine 1.39. PLAN: 1. Continue furosemide. 2. Continue metolazone. 3. Consideration for rehab has been given. She did have an excellent diuresis yesterday, but less s o today. She may be coming close to what her euvolemic status is.
[2017-03-29] MEDS: Simvastatin 20 MG TAB PO SCH (19:54)
[2017-03-29 20:06] VITALS: BP 153/67; TEMP 97.9
--- NOTE | 2017-03-30 02:43 | DIS ---
DATE OF ADMISSION: 03/20/2017 DATE OF DISCHARGE: 03/29/2017 PRIMARY CARE PHYSICIAN: Ernst Vanegas M.D. DISCHARGE DISPOSITION: To inpatient rehabilitation. DISCHARGE DIAGNOSES: 1. Acute on chronic respiratory failure with hypoxemia secondary to acute on chronic systolic and di astolic congestive heart failure exacerbation. 2. History of valvular heart disease, status post aortic valve replacement. 3. Diabetes mellitus, type 2. 4. Hyperlipidemia. 5. Hypertension. DISCHARGE MEDICATIONS: Include Coumadin 5 mg p.o. daily, Aldactone 12.5 mg twice a day, simvastatin 20 mg at bedtime, vitamins once a day, omeprazole 20 mg daily, metolazone 5 mg daily, DuoNeb s q.6 hours scheduled and q.4 hours as needed, glipizide 10 mg twice a day, gabapentin 300 mg twice d aily, furosemide 60 mg twice a day, ferrous sulfate 325 mg twice a day, docusate 100 mg twice a day, carvedilol 6.25 mg twice daily, aspirin 81 mg daily, and vitamin C 500 mg twice a day. PROCEDURES DONE DURING ADMISSION: The patient had a CT scan of the chest, which was significant for nonspecific pleural thickening in the inferior aspect of the left thorax as well as cholelithiasis. There is no pneumothorax or pleural effusion seen. There were no focal infiltrates or nodule in the lungs and there was a calcified granuloma in the right upper lung. The patient also had an echocardi ogram in which the ejection fraction was estimated at 25%-30%. There was grade 2/3 diastolic dysfunc tion as well as global hypokinesia. CODE STATUS: FULL CODE. ALLERGIES: No known drug allergies. HOSPITAL COURSE: Mr. Morejon is a pleasant 76-year-old female, who presented to the emergency room with complaints of shortness of breath. This had happened at least 2 days prior to admission. She states that she has been compliant with her medications. It was found that she was in acute on chron ic systolic and diastolic heart failure. She was evaluated by Cardiology and started on IV diuretics . She diuresed well over the course of her admission. She also continued to have some dyspnea on wh eezing even though she was improving with her volume status. She reports a long history of smoking e peggy though she quit 10 years ago after she had her valve replacement surgery. Therefore, I suspected that she may have some degree of chronic bronchitis and for this reason, the DuoNebs were added and she improved with this. She was severely deconditioned and for this reason, she was discharged to [facility] inpatient rehabilitation unit for continued physical therapy. Also, her PT/INR will also need to b e monitored closely while she in the rehab unit.
== END 2017-03-29 22:28 | DRG 291 ==
LOC: SCSER 00:09 → 2NO 01:48
PROVIDERS: ADMIT Internal Medicine; ATTEND Internal Medicine
DX: I13.0 Hypertensive heart and chronic kidney disease with heart failure and stage 1 through stage 4 chronic kidney disease, or unspecified chronic kidney disease (principal); J96.21 Acute and chronic respiratory failure with hypoxia; E11.22 Type 2 diabetes mellitus with diabetic chronic kidney disease; E66.01 Morbid (severe) obesity due to excess calories; E83.42 Hypomagnesemia; I08.3 Combined rheumatic disorders of mitral, aortic and tricuspid valves; I50.43 Acute on chronic combined systolic (congestive) and diastolic (congestive) heart failure; N18.4 Chronic kidney disease, stage 4 (severe); E87.1 Hypo-osmolality and hyponatremia; I24.8 Other forms of acute ischemic heart disease; Z68.41 Body mass index [BMI] 40.0-44.9, adult; J84.10 Pulmonary fibrosis, unspecified; Z95.2 Presence of prosthetic heart valve; E78.5 Hyperlipidemia, unspecified; K80.20 Calculus of gallbladder without cholecystitis without obstruction; J42 Unspecified chronic bronchitis; D50.9 Iron deficiency anemia, unspecified; Z79.01 Long term (current) use of anticoagulants; J20.9 Acute bronchitis, unspecified; R25.1 Tremor, unspecified; M54.6 Pain in thoracic spine
CPT/HCPCS: 36415; 36416; 51702; 71045; 71250; 80048; 80053; 80069; 81003; 81015; 82553; 82728; 83540; 83735; 83880; 84484; 85025; 85610; 85730; 93005; 93306; 93798; 94640; 96374; 96375; A4216; G8978-GP-CM; G8979-GP-CI; G8987-GO-CL; G8988-GO-CJ; J1750; J1940; J2270; J2405; J3475; J7050; J7506; J7620

== ENCOUNTER 2017-05-03 19:54 | Inpatient (IN) | payer MEDICARE ==
[2017-05-03 21:07] LABS: #Eosinphils 0.1 thou/uL (0.0-0.7); #Lymphocytes 1.3 thou/uL (1.20-3.40); #Monocytes 0.5 thou/uL (0.11-0.59); #Neutrophils 5.5 thou/uL (1.40-6.50); %Basophils 0.6 % (0.0-1.0); %Eosinophils 0.8 % (0.0-10.0); %Lymphocytes 18.1 % (21.0-51.0); %Neutrophils 73.6 % (42.0-75.0); Hemoglobin 8.6 g/dL (12.0-16.0); Mean Corpuscular Hemoglobin 28.9 pg (27.0-31.0); Mean Corpuscular Volume 87.6 fl (81.0-99.0); Mean Platelet Volume 7.7 fL (7.4-10.4); Platelet Count 192 thou/uL (130-400); RBC Distribution Width 15.8 % (11.5-14.5); Red Blood Cell (RBC) Count 2.99 mill/uL (4.20-5.40); White Blood Cell (WBC) Count 7.4 thou/uL (4.8-10.8)
[2017-05-03 21:32] LABS: CKMB 0.9 ng/mL (0-6.6); Troponin I 0.026 ng/mL (< 0.028)
[2017-05-03 21:35] LABS: ALT (SGPT) 16 U/L (8-55); AST (SGOT) 31 U/L (5-34); Albumin 3.2 g/dL (3.4-4.8); Alkaline Phosphatase 134 U/L (40-150); Anion Gap 16 mmol/L (10-20); BUN (Urea Nitrogen) 38 mg/dL (9.8-20.1); Bilirubin, Total 0.5 mg/dL (0.2-1.2); Calc. Creatinine Clearance 0 mL/min (70-130); Calcium 8.6 mg/dL (7.8-10.44); Carbon Dioxide 24 mmol/L (23-31); Chloride 96 mmol/L (98-107); Estimated GFR-MDRD 32; Globulin 3.1 g/dL (2.4-3.5); Glucose 136 mg/dL (83-110); Potassium 4.8 mmol/L (3.5-5.1); Protein, Total 6.3 g/dL (6.0-8.3); Sodium 131 mmol/L (136-145)
--- NOTE | 2017-05-03 21:39 | RAD ---
RIGHT HAND THREE VIEW: History: Pain. Comparison: None. FINDINGS: No displaced fracture or malalignment. Mild narrowing of the second and third metacarpal phalangeal j oints with small lateral erosion of the proximal phalanx space of the second digit. Mild vascular calcifications. IMPRESSION: No acute abnormality. POS: HECTOR
--- NOTE | 2017-05-03 21:44 | RAD ---
CHEST ONE VIEW: History: Fluid overload. CHF. Comparison: 03-20-17 FINDINGS: Heart size is enlarged. Mild pulmonary edema. Small effusions. No pneumothorax. Prosthetic aortic valve is present. IMPRESSION: Mild to moderate congestive heart failure. POS: ZARINA
[2017-05-03 23:26] LABS: INR-International Normal Ratio 3.1; Prothrombin Time 32.9 SEC (12.0-14.7)
[2017-05-03 23:27] LABS: PTT 78.4 SEC (22.9-36.1)
[2017-05-03] MEDS ORDERED: Colchicine 0.6 MG TAB PO SCH (23:45)
[2017-05-04] MEDS ORDERED: Furosemide 40 MG/4 ML VIAL ONE (01:02)
[2017-05-04] MEDS ORDERED: Furosemide 20 MG/2 ML VIAL ONE (01:02)
[2017-05-04] MEDS ORDERED: Morphine 2 MG/ML SYRINGE ONE (01:34)
[2017-05-04] MEDS ORDERED: Bisacodyl 5 MG TAB PO PRN (01:45)
[2017-05-04] MEDS ORDERED: Acetaminophen 650 MG Suppository PR PRN (01:45)
[2017-05-04] MEDS ORDERED: Morphine 2 MG/ML SYRINGE SLOW IVP PRN (01:48)
[2017-05-04] MEDS ORDERED: Dextrose 5% in Water 1,000 ML IV PRN (01:57)
[2017-05-04] MEDS ORDERED: Dextrose 50% Abboject 50 ML SYRINGE SLOW IVP PRN (01:57)
--- NOTE | 2017-05-04 02:40 | HP ---
PRIMARY CARE PHYSICIAN: Ernst Vanegas MD CHIEF COMPLAINT: Shortness of breath. HISTORY OF PRESENT ILLNESS: Ms. Morejon is a pleasant 76-year-old lady who was seen at [facility] on 05/04/2017. She was hospitalized at this facility towards the end of March 2017 for congestive heart failure ex acerbation. She reports that over the last few days, she has had progressively worsening shortness of breath. Sh e also endorses orthopnea and paroxysmal nocturnal dyspnea. She denies any chest pain. She reports worsening leg swelling bilaterally. She denies any cough, fevers, or chills. She reports that she h ad a blister on the left thigh. She denies any abdominal pain. She also reports pain over her right wrist over the last 3 days. REVIEW OF SYSTEMS: The following complete review of systems was negative, unless otherwise mentioned in the HPI or below: Constitutional: Weight loss or gain, ability to conduct usual activities. Sk in: Rash, itching. Eyes: Double vision, pain. ENT/Mouth: Nose bleeding, neck stiffness, pain, te nderness. Cardiovascular: Palpitations, dyspnea on exertion, orthopnea. Respiratory: Shortness of breath, wheezing, cough, hemoptysis, fever or night sweats. Gastrointestinal: Poor appetite, abdom inal pain, heartburn, nausea, vomiting, constipation, or diarrhea. Genitourinary: Urgency, frequenc y, dysuria, nocturia. Musculoskeletal: Pain, swelling. Neurologic/Psychiatric: Anxiety, depressio n. Allergy/Immunologic: Skin rash, bleeding tendency. 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 PAST SURGICAL HISTORY: Aortic valve replacement with a mechanical valve, right total knee arthroplas ty. SOCIAL HISTORY: The patient denies tobacco use, alcohol use, or recreational drug use. FAMILY HISTORY: Negative for clotting or bleeding disorder. ALLERGIES: No known drug allergies. CURRENT MEDICATIONS: Include warfarin 5 mg daily, aspirin 81 mg daily, Coreg 6.25 mg 2 times a day, Lasix 60 mg 2 times a day, gabapentin 300 mg 2 times a day, glipizide 10 mg 2 times a day, omeprazole 20 mg daily, simvastatin 20 mg daily, spironolactone 25 mg daily, Levemir insulin 10 units at bedtim e, and ferrous sulfate 325 mg 2 times a day. CODE STATUS: I discussed her code status. She is FULL CODE. PHYSICAL EXAMINATION: GENERAL: Ms. Morejon is awake and alert, not in acute distress. VITAL SIGNS: Blood pressure is 110/59, pulse is 79. She is breathing at rate of 18, and saturating 100% on 2 liters of oxygen. Her room air oxygen saturation was 90%. She is afebrile. EYES: No scleral icterus. No conjunctival pallor. ENT: Moist mucosal membranes, no oropharyngeal erythema or exudates. NECK: Supple, nontender, she has jugular venous distention, trachea is midline. RESPIRATORY: Accessory muscles of breathing are not active. Chest wall movements are symmetric bila terally. She has few bibasilar crackles. CARDIOVASCULAR: S1 and S2 are heard, regular. LUNGS: Peripheral pulses palpable. No carotid bruit, no pericardial rub. ABDOMEN: Soft, nontender, bowel sounds are heard, no hepatomegaly, no splenomegaly. NEUROLOGIC: Cranial nerves II through XII intact. Deep tendon reflexes 2+. MUSCULOSKELETAL: Power is 5/5 in all four extremities. She has bilateral lower extremity edema. Ri ght wrist is swollen and warm. SKIN: She has a dressing over the left thigh. Otherwise, no rashes or subcutaneous nodules. LYMPHATIC: No cervical lymphadenopathy. PSYCHIATRIC: Normal mood, normal affect. The patient is oriented to person, place, and time. LABORATORY DATA: Ms. Morejon's labs and investigations were reviewed. I reviewed her electrocardi ogram, which shows normal sinus rhythm, no ST changes to suggest an acute coronary artery syndrome. She has a left bundle branch block. I also reviewed her chest x-ray, which shows pulmonary edema and small pleural effusions. She also had x-rays of the right hand, which did not show any acute abnorm ality. She has normal white count, normocytic anemia with hemoglobin 8.6, normal platelet count, INR 3.1, decreased sodium of 131, normal potassium, elevated blood urea nitrogen of 38, elevated creatin ine of 1.57, normal troponin I, unremarkable liver profile except for decreased albumin of 3.2, eleva kehinde C-reactive protein of 11.27, elevated uric acid of 15.3 and an elevated BNP of 1030.9. Her ESR i s 104. ASSESSMENT AND PLAN: Ms. Morejon is a pleasant 76-year-old lady who was seen at [facility] on 05/04/2017. Her problem list includes: 1. Congestive heart failure exacerbation: Ms. Morejon is presenting with congestive heart failure exacerbation. She will be admitted to the hospital for further management including intravenous diu retics. Cardiology service consultation. We will be requested for optimizing her heart failure medi cations. 2. Gout flare: She appears to have gout flare in her right wrist. She received a dose of colchicin e. We will hold off on further doses of colchicine due to interaction with carvedilol. We will star t her on steroids and quickly taper off. 3. Diabetes mellitus. Start Accu-Cheks, insulin sliding scale. 4. Mechanical aortic valve: Pharmacy will be requested to manage her warfarin dosing. 5. Hypertension: Monitor vital signs, titrate antihypertensives as needed. 6. Dyslipidemia: Continue statin. Many thanks for allowing me to participate in your patient's care. Please feel free to contact me wi th any questions or concerns. LEVEL OF RISK: High. LEVEL OF COMPLEXITY: High.
[2017-05-04 05:26] LABS: #Eosinphils 0.1 thou/uL (0.0-0.7); #Lymphocytes 1.5 thou/uL (1.20-3.40); #Monocytes 0.7 thou/uL (0.11-0.59); %Basophils 0.2 % (0.0-1.0); %Eosinophils 0.8 % (0.0-10.0); %Lymphocytes 20.3 % (21.0-51.0); %Monocytes 9.1 % (0.0-10.0); %Neutrophils 69.6 % (42.0-75.0); Hemoglobin 8.5 g/dL (12.0-16.0); Mean Corpuscular HGB CONC 32.2 g/dL (32.0-36.0); Mean Corpuscular Hemoglobin 28.1 pg (27.0-31.0); Mean Corpuscular Volume 87.5 fl (81.0-99.0); Mean Platelet Volume 7.7 fL (7.4-10.4); Platelet Count 196 thou/uL (130-400); RBC Distribution Width 15.9 % (11.5-14.5); White Blood Cell (WBC) Count 7.1 thou/uL (4.8-10.8)
[2017-05-04 05:49] LABS: Anion Gap 15 mmol/L (10-20); BUN (Urea Nitrogen) 37 mg/dL (9.8-20.1); Calc. Creatinine Clearance 48 mL/min (70-130); Calcium 9.1 mg/dL (7.8-10.44); Carbon Dioxide 23 mmol/L (23-31); Chloride 98 mmol/L (98-107); Estimated GFR-MDRD 34; Glucose 86 mg/dL (83-110); Potassium 4.6 mmol/L (3.5-5.1); Sodium 131 mmol/L (136-145)
[2017-05-04] MEDS: Furosemide 40 MG/4 ML VIAL SLOW IVP SCH ×2 (06:28→15:54)
[2017-05-04] MEDS ORDERED: Enoxaparin Sodium 40 MG/0.4 ML SYRINGE SC SCH (09:00)
--- NOTE | 2017-05-04 10:27 | PDOC.EVN ---
Event Note - Event Note Event Note: 76 F with a 10+ year history of CHF admitted with exacerbation and possible Gout flare. Has no complaints today and is diuresing well. Physical examination significant for edema and erythema R hand, as well as significant b/l leg edema. Plan is to continue to diurese and monitor vital signs, labs and ensure adequate pain control.
[2017-05-04] MEDS: Acetaminophen 325 MG TAB PO PRN (10:29)
[2017-05-04] MEDS: Sulfameth/Trimethoprim DS 800-160mg TAB PO SCH ×2 (10:29→20:44)
[2017-05-04] MEDS: predniSONE 20 MG TAB PO SCH (10:29)
[2017-05-04] MEDS ORDERED: Metolazone 5 MG TAB PO SCH (14:15)
[2017-05-04] MEDS ORDERED: Warfarin Sodium 5 MG TAB PO SCH (17:00)
[2017-05-04] MEDS: Ferrous Sulfate 325 MG TAB PO SCH (18:44)
[2017-05-04] MEDS ORDERED: Colchicine 0.6 MG TAB PO SCH (18:45)
[2017-05-04] MEDS: HumaLOG 300 UNITS/3 ML VIAL SC PRN (18:52)
[2017-05-04] MEDS: Carvedilol 6.25 MG TAB PO SCH (20:43)
[2017-05-04] MEDS: Gabapentin 300 MG CAP PO SCH (20:43)
[2017-05-04] MEDS: Spironolactone 25 MG TAB PO SCH (20:44)
[2017-05-04] MEDS: Simvastatin 20 MG TAB PO SCH (20:44)
[2017-05-04] MEDS: Insulin Detemir 100 UNITS/ML 10 UNITS in Pre-Filled Syringe SC SCH (20:48)
--- NOTE | 2017-05-05 00:42 | CON ---
DATE OF CONSULTATION: 05/04/2017 REASON FOR CONSULTATION: Congestive heart failure, systolic and diastolic mixed with recurrent volum e overload. Ms. Morejon is a very pleasant patient with history of severe heart failure, systolic and diastolic combined, also history of mechanical aortic valve. She was hospitalized for a prolonged time. Rece ntly, here it was very difficult to get the patient free of heart failure symptoms, ultimately that w as able to be accomplished. She required high doses of diuretics. She required metolazone as well as intravenous furosemide. Ul luisito was able to be gotten euvolemic. She also had some renal failure during that admission. Cr eatinine got as high as 2.05. She did undergo echocardiogram and was found to have a normally functioning mechanical aortic valve, but an ejection fraction of 25%-30%. The velocity is up to 2.9 meters per second. The patient ultim ately was able to be released home. She, however, has had gradual fluid retention and had to come ba ck to the hospital for further diuresis and therapy. The patient also has a history of iron deficiency anemia. She did receive some intravenous iron last visit, but is still iron deficient. MEDICATIONS: At home, she was takin. Coumadin. 2. Carvedilol. 3. Spironolactone. 4. Furosemide 60 mg twice a day. 5. Insulin. REVIEW OF SYSTEMS: Constitutional: No significant weight gain or loss. Vision: No changes. Heari ng: No changes. Pulmonary: Cough, or wheezing. Gastrointestinal: No nausea, vomiting, diarrhea. Skin: No rashes. Neurologic: No unilateral weakness or numbness. Psychiatric: No unusual depres lauro or anxiety. Hematologic: No unusual bruising. Musculoskeletal: She does have what appears to be gout in the right hand. Skin: Warm and dry. SOCIAL HISTORY: She was living at home. No alcohol or tobacco. PHYSICAL EXAMINATION: GENERAL: On examination is a pleasant patient in no distress, 5 feet 2 inches tall, 209 pounds, BMI is 38. HEENT: Eyes: Sclerae nonicteric. Mouth: Mucous membranes moist. NECK: Supple, no lymphadenopathy. LUNGS: Clear, no wheezing, rales, or rhonchi. CARDIAC: Costilla prosthetic valve sounds. No significant murmur, rub, or gallop. ABDOMEN: Soft, nontender. EXTREMITIES: No clubbing or cyanosis. There is idkxuekr-po-ehmtwy edema. PERTINENT LABORATORY AND X-RAY FINDINGS: The sodium is 131, creatinine 1.47. Iron level 41. Ferrit in 82.1. The hemoglobin is 8.5. It did get as low as 7.2 last admission. The EKG sinus rhythm with a bundle branch block. The QRS duration is 0.14. ASSESSMENT: 1. Congestive heart failure, systolic and diastolic mixed. 2. Iron deficiency anemia. 3. Previous prosthetic aortic valve. PLAN: 1. Continue diuretics. 2. We will give intravenous iron tomorrow. 3. We will follow with you.
[2017-05-05] MEDS: Furosemide 40 MG/4 ML VIAL SLOW IVP SCH ×2 (05:05→10:54)
[2017-05-05 05:24] LABS: #Lymphocytes 0.7 thou/uL (1.20-3.40); #Monocytes 0.3 thou/uL (0.11-0.59); #Neutrophils 3.8 thou/uL (1.40-6.50); %Basophils 0.1 % (0.0-1.0); %Eosinophils 0.3 % (0.0-10.0); %Monocytes 6.4 % (0.0-10.0); %Neutrophils 78.3 % (42.0-75.0); Hemoglobin 7.6 g/dL (12.0-16.0); Mean Corpuscular HGB CONC 32.2 g/dL (32.0-36.0); Mean Corpuscular Hemoglobin 28.1 pg (27.0-31.0); Mean Corpuscular Volume 87.2 fl (81.0-99.0); Mean Platelet Volume 7.5 fL (7.4-10.4); Platelet Count 203 thou/uL (130-400); RBC Distribution Width 15.5 % (11.5-14.5); Red Blood Cell (RBC) Count 2.68 mill/uL (4.20-5.40); White Blood Cell (WBC) Count 4.8 thou/uL (4.8-10.8)
[2017-05-05 05:35] LABS: INR-International Normal Ratio 3.7; Prothrombin Time 38.8 SEC (12.0-14.7)
[2017-05-05 05:44] LABS: Anion Gap 14 mmol/L (10-20); BUN (Urea Nitrogen) 46 mg/dL (9.8-20.1); Calc. Creatinine Clearance 41 mL/min (70-130); Calcium 8.7 mg/dL (7.8-10.44); Carbon Dioxide 26 mmol/L (23-31); Chloride 95 mmol/L (98-107); Estimated GFR-MDRD 29; Glucose 217 mg/dL (83-110); Iron 20 ug/dL (50-170); Iron 21 ug/dL (50-170); Iron Binding Capacity, Total 189 mcg/dL (265-497); Sodium 130 mmol/L (136-145); Uric Acid 16.3 mg/dL (2.6-6.0)
[2017-05-05] MEDS ORDERED: Iron Dextran 500 MG in Sodium Chloride 0.9% 250 ML 250 ML IVPB SCH ×2 (08:00→11:45)
[2017-05-05] MEDS ORDERED: Colchicine 0.6 MG TAB PO SCH (09:00)
[2017-05-05] MEDS ORDERED: Aspirin 81 mg Enteric Coated Tablet PO SCH (09:00)
[2017-05-05] MEDS: predniSONE 20 MG TAB PO SCH (10:55)
[2017-05-05] MEDS: Ferrous Sulfate 325 MG TAB PO SCH (10:55)
[2017-05-05] MEDS: Gabapentin 300 MG CAP PO SCH ×2 (10:55→19:58)
[2017-05-05] MEDS: Spironolactone 25 MG TAB PO SCH ×2 (10:56→19:59)
[2017-05-05] MEDS: Carvedilol 6.25 MG TAB PO SCH ×2 (10:56→19:57)
[2017-05-05] MEDS: Sulfameth/Trimethoprim DS 800-160mg TAB PO SCH ×2 (10:56→20:00)
--- NOTE | 2017-05-05 11:12 | PRG ---
DATE OF SERVICE: 05/05/2017 Ms. Morejon is doing about the same. She had really not a very good response to the metolazone and furosemide. Only very minimal negative balance with ins and outs. Her gout is worse, or at least no better in th e right hand. She has had severe constipation. She thinks the iron is playing a role, which it probably is. PHYSICAL EXAMINATION: VITAL SIGNS: Her blood pressure 140/60 earlier, now it is 110 systolic, pulse 60s. LUNGS: Clear. CARDIAC: Normal S1, normal S2. ABDOMEN: Soft, nontender. EXTREMITIES: Still moderate to severe edema. PERTINENT LABORATORY: Creatinine is up to 1.7. Estimated GFR is 29, which is stage 4 renal failure. Potassium is 5.0. Her ferritin level was 133 today, but it was 82 on the , the percent iron sa turation is still low at 11, iron level is 21. ASSESSMENT: 1. Iron deficiency anemia, probably slow gastrointestinal blood loss. 2. Mechanical aortic valve in place, needs to be on Coumadin. 3. Coumadin levels are elevated today at 3.7. 4. Congestive heart failure, systolic, diastolic mixed, still volume overloaded. 5. Stage 4 renal failure. 6. Gout. PLAN: 1. Prednisone x1 for the gout. 2. We will stop the colchicine after this morning's dose in view of renal failure. 3. Stop oral iron. 4. Continue to try the diuresis. We will give her a dose tonight of furosemide. The patient is really not doing very well. Long-term prognosis is guarded.
[2017-05-05] MEDS: Acetaminophen 325 MG TAB PO PRN (11:14)
[2017-05-05] MEDS: HumaLOG 300 UNITS/3 ML VIAL SC PRN ×2 (12:34→16:10)
--- NOTE | 2017-05-05 13:20 | PDOC.PN ---
- Subjective Encounter Start Date: 05/05/17 Encounter Start Time: 13:24 Subjective: Still has soome pain in her hand. -: No acute events overnight. - Objective Resuscitation Status: Resuscitation Status FULL:Full Resuscitation MAR Reviewed: Yes Vital Signs & Weight: Vital Signs (12 hours) Temp Pulse Resp BP BP Pulse Ox 05/05/17 10:56 107/53 L 05/05/17 03:37 98.0 F 73 20 127/60 96 Weight Admit Weight 209 lb 11.2 oz Weight 210 lb 1.6 oz I&O: 05/04/17 05/05/17 05/06/17 06:59 06:59 06:59 Intake Total 1300 Output Total 1355 Balance -55 Result Diagrams: 05/05/17 04:33 05/05/17 04:33 Additional Labs: Accuchecks 05/05/17 05/05/17 05/04/17 12:18 06:07 20:31 POC Glucose 234 H 226 H 260 H 05/04/17 16:51 POC Glucose 211 H Phys Exam - Physical Examination Constitutional: NAD HEENT: PERRLA, moist MMs, sclera anicteric Neck: no JVD, supple, full ROM Respiratory: no wheezing, no rales, no rhonchi mild b/l basal crackles. Cardiovascular: no significant murmur Gastrointestinal: soft, non-tender, no distention, positive bowel sounds Musculoskeletal: pulses present, edema present Neurological: non-focal, moves all 4 limbs Psychiatric: normal affect, A&O x 3 Skin: no rash, normal turgor Dx/Plan (1) Chronic combined systolic (congestive) and diastolic (congestive) heart failure Code(s): I50.42 - CHRONIC COMBINED SYSTOLIC AND DIASTOLIC HRT FAIL Status: Acute Comment: In acute exacerbation. Startesd on furosemide and home meds. Guarded diuresis since creatinine trending up. Cardiology on board, recs appreciated. (2) Gout flare Code(s): M10.9 - GOUT, UNSPECIFIED Status: Acute Qualifiers: Gout site: hand Laterality: right Comment: Given colchicine at first but discontinued tdue to SPENCER on CKD. Started on prednisone. (3) SPENCER (acute kidney injury) Code(s): N17.9 - ACUTE KIDNEY FAILURE, UNSPECIFIED Status: Acute Comment: Likely cardiorenal. Continue diuresis. Will monitor and consult nephrology if worsening. (4) Prosthetic replacement of heart valve Code(s): Z95.2 - PRESENCE OF PROSTHETIC HEART VALVE Status: Chronic Comment : AVR (5) DM2 (diabetes mellitus, type 2) Status: Chronic Qualifiers: Diabetes mellitus complication status: with kidney complications Diabetes mellitus complication detail: with chronic kidney disease Diabetes mellitus longterm insulin use: with hair or beauty salon assistant use Chronic kidney disease stage: stage 3 (moderate) Qualified Code(s): E11.22 - Type 2 diabetes mellitus with diabetic chronic kidney disease; N18.3 - Chronic kidney disease, stage 3 ( moderate); N18.3 - Chronic kidney disease, stage 3 (moderate); Z79.4 - hepatology physician (current) use of insulin; Z79.4 - hepatology physician (current) use of insulin; Z79.4 - longterm (current) use of insulin; Z79.4 - longterm (current) use of insulin Comment: Continue glipizide, insulin. (6) HTN (hypertension) Code(s): I10 - ESSENTIAL (PRIMARY) HYPERTENSION Status: Chronic Qualifiers: Hypertension type: essential hypertension Comment: Fairly well controlled. (7) HLD (hyperlipidemia) Code(s): E78.5 - HYPERLIPIDEMIA, UNSPECIFIED Status: Chronic Qualifiers: Hyperlipidemia type: pure hypercholesterolemia Qualified Code(s): E78.00 - Pure hypercholesterolemia, unspecified; E78.0 - Pure hypercholesterolemia - Plan cont current plan of care, gonzalez catheter, out of bed/ambulate, DVT proph w/ heparin * .
[2017-05-05] MEDS ORDERED: Docusate 100 MG CAP PO SCH (13:30)
[2017-05-05] MEDS: glipiZIDE 10 MG TAB PO SCH (16:10)
[2017-05-05] MEDS: Docusate 100 MG CAP PO SCH (19:58)
[2017-05-05] MEDS: Simvastatin 20 MG TAB PO SCH (19:59)
[2017-05-05] MEDS: Senokot 8.6 MG TAB PO SCH (19:59)
[2017-05-05] MEDS ORDERED: Furosemide 40 MG/4 ML VIAL SLOW IVP SCH (20:00)
[2017-05-05] MEDS: Insulin Detemir 100 UNITS/ML 10 UNITS in Pre-Filled Syringe SC SCH (20:56)
[2017-05-05] MEDS ORDERED: Heparin 5,000 UNITS/ML VIAL SC SCH (21:00)
[2017-05-06 05:37] LABS: #Lymphocytes 0.7 thou/uL (1.20-3.40); #Monocytes 0.3 thou/uL (0.11-0.59); #Neutrophils 5.5 thou/uL (1.40-6.50); %Basophils 0.2 % (0.0-1.0); %Eosinophils 0.5 % (0.0-10.0); %Lymphocytes 10.6 % (21.0-51.0); %Neutrophils 84.7 % (42.0-75.0); Hemoglobin 8.2 g/dL (12.0-16.0); Mean Corpuscular HGB CONC 31.7 g/dL (32.0-36.0); Mean Corpuscular Hemoglobin 28.3 pg (27.0-31.0); Mean Corpuscular Volume 89.4 fl (81.0-99.0); Mean Platelet Volume 7.6 fL (7.4-10.4); Platelet Count 225 thou/uL (130-400); RBC Distribution Width 15.8 % (11.5-14.5); Red Blood Cell (RBC) Count 2.89 mill/uL (4.20-5.40); White Blood Cell (WBC) Count 6.5 thou/uL (4.8-10.8)
[2017-05-06 05:38] LABS: Prothrombin Time 45.2 SEC (12.0-14.7)
[2017-05-06 05:44] LABS: INR-International Normal Ratio 4.5
[2017-05-06 05:52] LABS: Anion Gap 15 mmol/L (10-20); BUN (Urea Nitrogen) 56 mg/dL (9.8-20.1); Calc. Creatinine Clearance 38 mL/min (70-130); Calcium 8.8 mg/dL (7.8-10.44); Carbon Dioxide 23 mmol/L (23-31); Chloride 95 mmol/L (98-107); Estimated GFR-MDRD 26; Glucose 249 mg/dL (83-110); Potassium 4.9 mmol/L (3.5-5.1); Sodium 128 mmol/L (136-145)
[2017-05-06] MEDS ORDERED: Phytonadione 10 MG/ML AMP PO SCH (07:00)
--- NOTE | 2017-05-06 09:01 | PRG ---
DATE OF SERVICE: 05/06/2017 HISTORY: Ms. Morejon is very nauseated today. She is vomiting after her breakfast. She has some epigastric discomfort. Her breathing is about the same. PHYSICAL EXAMINATION: VITAL SIGNS: Blood pressure 118/53, pulse 70. LUNGS: Clear. CARDIAC: Normal S1, S2. ABDOMEN: Soft, nontender. EXTREMITIES: Still with significant moderate edema. ASSESSMENT: 1. Congestive heart failure, systolic, diastolic, becoming more refractory due to medication. 2. Renal failure stage 4, estimated GFR is 26. 3. Nausea and vomiting. 4. Iron deficiency anemia. 5. Previous mechanical aortic valve. 6. Increase INR of 4.5. PLAN: 1. Coumadin has been stopped. 2. Would hold off on vitamin K at this time in view of the mechanical valve. 3. Stop heparin. 4. Hold aspirin for now. 5. Stop spironolactone for now. 6. Prognosis group home guarded.
[2017-05-06] MEDS: Docusate 100 MG CAP PO SCH ×2 (09:58→21:05)
[2017-05-06] MEDS: Furosemide 40 MG/4 ML VIAL SLOW IVP SCH (09:58)
[2017-05-06] MEDS: Carvedilol 6.25 MG TAB PO SCH ×2 (09:59→21:06)
[2017-05-06] MEDS: Sulfameth/Trimethoprim DS 800-160mg TAB PO SCH ×2 (09:59→21:07)
[2017-05-06] MEDS: glipiZIDE 10 MG TAB PO SCH ×2 (09:59→17:33)
[2017-05-06] MEDS: Gabapentin 300 MG CAP PO SCH ×2 (09:59→21:06)
[2017-05-06] MEDS: predniSONE 20 MG TAB PO SCH ×2 (10:01→10:26)
[2017-05-06] MEDS: HumaLOG 300 UNITS/3 ML VIAL SC PRN ×3 (10:03→22:01)
[2017-05-06] MEDS ORDERED: Ondansetron ODT 4 MG TAB PO PRN (10:31)
[2017-05-06] MEDS ORDERED: Ondansetron HCl/PF 4 MG/2 ML Vial SLOW IVP PRN (10:33)
--- NOTE | 2017-05-06 11:20 | PQF ---
CLINICAL DOCUMENTATION IMPROVEMENT CLARIFICATION FORM: ICD-10 Updated PLEASE DO AN ADDENDUM TO THE PROGRESS NOTE WITH ANY DOCUMENTATION UPDATES OR ADDITIONS AND CARRY THROUGH TO DC SUMMARY. THANK YOU. DATE: 05/06/17 ATTN: Dr. Valle Please exercise your independent, professional judgment in responding to the clarification form. Clinical indicators are provided on the bottom of this form for your review Please check appropriate box(s): I (concur) with the Wound Care findings as stated below. [ ] Pressure Ulcer: (Stage I: Erythema; Stage II: Partial thickness; Stage III : Full thickness; Stage IV: Necrosis to muscle/bone) [ ] Location: __L hip stage 3 Stage (I to IV): (Left_x____ Right Bilateral____ _ N/A ) [ ] Location: Stage (I to IV): (Left Right Bilateral N/A ) [ ] No pressure ulcer diagnosis [ ] Deep tissue injury [ ] Other diagnosis [ ] Unable to determine In addition, please specify: Present on Admission (POA): [ x ] Yes [ ] No [ ] Unable to determine For continuity of documentation, please document condition throughout progress notes and discharge summary. Thank You. CLINICAL INDICATORS - SIGNS / SYMPTOMS / LABS WOUND CARE ASSESSMENT: LEFT HIP PRESSURE ULCER. STAGE III. RISKS: H&P: SHE REPORTS THAT SHE HAD A BLISTER ON THE L THIGH. HX SIGNIFICANT FOR CHRONIC COMBINED SYSTOLIC & DIASTOLIC CHF; DM 2 ; HTN. SHE HAS BILATERAL LOWER EXTREMITY EDEMA. TREATMENT: CONSULT 05/04/17: WOUNDCARE EVAL / TREAT ROUTINE FOR BOIL ? TO L HIP, BLE EDEMATOUS / WEEPING RECOMMENDATIONS: FOLLOW NURSING WOUND CARE PROTOCOL REINFORCE W/ ABSORBENT PAD & GAUZE ROLL Pre-ulcer skin changes limited to persistent focal edema (Stage 1) Abrasion, blister, partial thickness skin loss involving epidermis and/or dermis (Stage 2) Full thickness skin loss involving damage or necrosis of SQ tissue. (Stage 3) Necrosis of soft tissue through to underlying muscle, tendon, or bone. (Stage 4) Purple or maroon discolored skin or blood filled blister Thank you, Patito (This form is maintained as a part of the permanent medical record) 2015 [employer] All Rights Reserved Patito Mims RN, BSN [email or web address] Office: [phone] [facility]
--- NOTE | 2017-05-06 16:08 | PDOC.PN ---
- Subjective Encounter Start Date: 05/06/17 Encounter Start Time: 16:17 Subjective: NO new complaints -: No acute events overnight. - Objective Resuscitation Status: Resuscitation Status FULL:Full Resuscitation MAR Reviewed: Yes Vital Signs & Weight: Vital Signs (12 hours) Temp Pulse Pulse Pulse Resp BP BP 05/06/17 14:01 67 05/06/17 13:25 76 73 115/55 L 05/06/17 11:15 98.4 F 68 18 05/06/17 09:59 126/59 L BP BP Pulse Ox Pulse Ox Pulse Ox 05/06/17 14:01 117/56 L 95 97 05/06/17 13:25 123/58 L 92 L 94 L 05/06/17 11:15 115/54 L 98 05/06/17 09:59 Weight Admit Weight 209 lb 11.2 oz Weight 211 lb 9.6 oz I&O: 05/05/17 05/06/17 05/07/17 06:59 06:59 06:59 Intake Total 1300 1920 480 Output Total 1355 900 Balance -55 1020 480 Result Diagrams: 05/06/17 04:31 05/06/17 04:31 Additional Labs: Accuchecks 05/06/17 05/06/17 05/05/17 12:47 05:44 20:31 POC Glucose 159 H 243 H 325 H Phys Exam - Physical Examination Constitutional: NAD HEENT: PERRLA, moist MMs, sclera anicteric Neck: no JVD, supple Respiratory: no rales, no rhonchi Vesicular breath sounds with bibasilar crackles Cardiovascular: RRR, no significant murmur, no rub Gastrointestinal: soft, non-tender, no distention, positive bowel sounds Musculoskeletal: edema present (b/l lower extremities) Neurological: non-focal, moves all 4 limbs Psychiatric: normal affect, A&O x 3 Skin: no rash, normal turgor Dx/Plan (1) Chronic combined systolic (congestive) and diastolic (congestive) heart failure Code(s): I50.42 - CHRONIC COMBINED SYSTOLIC AND DIASTOLIC HRT FAIL Status: Acute Comment: In acute exacerbation. Startesd on furosemide and home meds. Guarded diuresis since creatinine trending up. Cardiology on board, recs appreciated. (2) Gout flare Code(s): M10.9 - GOUT, UNSPECIFIED Status: Acute Qualifiers: Gout site: hand Laterality: right Comment: Given colchicine at first but discontinued due to SPENCER on CKD. Continue prednisone. (3) SPENCER (acute kidney injury) Code(s): N17.9 - ACUTE KIDNEY FAILURE, UNSPECIFIED Status: Acute Comment: Likely cardiorenal. Continue guarged diuresis. Will consult nephrology. Monitor creatinine. (4) Prosthetic replacement of heart valve Code(s): Z95.2 - PRESENCE OF PROSTHETIC HEART VALVE Status: Chronic Comment : AVR. Coumadin held 2/2 supratherapeutic INR. Monitor. (5) DM2 (diabetes mellitus, type 2) Status: Chronic Qualifiers: Diabetes mellitus complication status: with kidney complications Diabetes mellitus complication detail: with chronic kidney disease Diabetes mellitus tank terminal gauger insulin use: with [facility] use Chronic kidney disease stage: stage 3 (moderate) Qualified Code(s): E11.22 - Type 2 diabetes mellitus with diabetic chronic kidney disease; N18.3 - Chronic kidney disease, stage 3 ( moderate); N18.3 - Chronic kidney disease, stage 3 (moderate); Z79.4 - care home (current) use of insulin; Z79.4 - care home (current) use of insulin; Z79.4 - intermediate project manager (current) use of insulin; Z79.4 - intermediate project manager (current) use of insulin Comment: Continue glipizide, insulin. (6) HTN (hypertension) Code(s): I10 - ESSENTIAL (PRIMARY) HYPERTENSION Status: Chronic Qualifiers: Hypertension type: essential hypertension Comment: Fairly well controlled. (7) HLD (hyperlipidemia) Code(s): E78.5 - HYPERLIPIDEMIA, UNSPECIFIED Status: Chronic Qualifiers: Hyperlipidemia type: pure hypercholesterolemia Qualified Code(s): E78.00 - Pure hypercholesterolemia, unspecified; E78.0 - Pure hypercholesterolemia - Plan cont current plan of care, gonzalez catheter, PT/OT * . Review of Systems - Review of Systems Constitutional: negative: fever, chills, sweats, weakness, malaise, other Eyes: negative: Pain, Vision Change, Conjunctivae Inflammation, Eyelid Inflammation, Redness, Other ENT: negative: Ear Pain, Ear Discharge, Nose Pain, Nose Discharge, Nose Congestion, Mouth Pain, Mouth Swelling, Throat Pain, Throat Swelling, Other Respiratory: negative: Cough, Dry, Shortness of Breath, Hemoptysis, SOB with Excertion, Pleuritic Pain, Sputum, Wheezing Cardiovascular: edema Gastrointestinal: negative: Nausea, Vomiting, Abdominal Pain, Diarrhea, Constipation, Melena, Hematochezia, Other Genitourinary: negative: Dysuria, Frequency, Incontinence, Hematuria, Retention , Other Musculoskeletal: negative: Neck Pain, Shoulder Pain, Arm Pain, Back Pain, Hand Pain, Leg Pain, Foot Pain, Other Neurological: negative: Weakness, Numbness, Incoordination, Change in Speech, Confusion, Seizures, Other - Medications/Allergies Allergies/Adverse Reactions: Allergies Allergy/AdvReac Type Severity Reaction Status Date / Time No Known Allergies Allergy Verified 05/04/17 05:11 Medications: Current Medications Acetaminophen (Tylenol) 650 mg PO Q4H PRN PRN Reason: Headache/Fever or Pain Last Admin: 05/05/17 11:14 Dose: 650 mg Acetaminophen (Tylenol) 650 mg MN Q4H PRN PRN Reason: Headache/Fever or Pain Bisacodyl (Dulcolax) 10 mg PO DAILYPRN PRN PRN Reason: Constipation Carvedilol (Coreg) 6.25 mg PO BID [facility] Last Admin: 05/06/17 09:59 Dose: 6.25 mg Dextrose/Water (Dextrose 50%) 25 gm SLOW IVP PRN PRN PRN Reason: Hypoglycemia Docusate Sodium (Colace) 100 mg PO BID [facility] Last Admin: 05/06/17 09:58 Dose: 100 mg Furosemide (Lasix) 40 mg SLOW IVP DAILY [facility] Last Admin: 05/06/17 09:58 Dose: 40 mg Gabapentin (Neurontin) 300 mg PO BID [facility] Last Admin: 05/06/17 09:59 Dose: 300 mg Glipizide (Glucotrol) 10 mg PO BID-AC [facility] Last Admin: 05/06/17 09:59 Dose: 10 mg Glucagon (Glucagon) 1 mg IM PRN PRN PRN Reason: Hypoglycemia Dextrose/Water (D5w) 1,000 mls @ 0 mls/hr IV .Q0M PRN; As Directed PRN Reason: Hypoglycemia Insulin Detemir 10 units/ (Miscellaneous Medication) 0.1 mls @ 0 mls/hr [facility] Last Admin: 05/05/17 20:56 Dose: 0.1 mls Insulin Human Lispro (Humalog) 0 units SC .MILD SLIDING SCALE PRN PRN Reason: Mild Correctional Scale Last Admin: 05/06/17 10:03 Dose: 3 unit Miscellaneous Medication (Pharmacy To Dose) 1 each PO PRN PRN PRN Reason: Pharmacy to dose Morphine Sulfate (Morphine) 2 mg SLOW IVP Q4H PRN PRN Reason: Pain Last Admin: 05/06/17 02:36 Dose: 2 mg Ondansetron HCl (Zofran Odt) 4 mg PO Q6H PRN PRN Reason: Nausea/Vomiting Last Admin: 05/06/17 11:01 Dose: 4 mg Ondansetron HCl (Zofran) 4 mg SLOW IVP Q6H PRN PRN Reason: Nausea/Vomiting Pantoprazole Sodium (Protonix) 40 mg PO DAILY [facility] Last Admin: 05/06/17 09:59 Dose: 40 mg Prednisone (Prednisone) 20 mg PO QAM-WM [facility] Last Admin: 05/06/17 10:01 Dose: 20 mg Senna (Senokot) 1 tab PO HS [facility] Last Admin: 05/05/17 19:59 Dose: 1 tab Simvastatin (Zocor) 20 mg PO HS [facility] Last Admin: 05/05/17 19:59 Dose: 20 mg Sodium Chloride (Flush - Normal Saline) 10 ml IVF Q12HR [facility] Last Admin: 05/06/17 10:02 Dose: 10 ml Sodium Chloride (Flush - Normal Saline) 10 ml IVF PRN PRN PRN Reason: Saline Flush Last Admin: 05/05/17 05:05 Dose: 10 ml Trimethoprim/Sulfamethoxazole (Bactrim Ds) 1 tab PO BID [facility] Last Admin: 05/06/17 09:59 Dose: 1 tab
[2017-05-06] MEDS: Senokot 8.6 MG TAB PO SCH (21:06)
[2017-05-06] MEDS: Simvastatin 20 MG TAB PO SCH (21:07)
[2017-05-06] MEDS: Insulin Detemir 100 UNITS/ML 10 UNITS in Pre-Filled Syringe SC SCH (22:00)
[2017-05-07 05:08] LABS: #Eosinphils 0.1 thou/uL (0.0-0.7); #Lymphocytes 1.1 thou/uL (1.20-3.40); #Monocytes 0.5 thou/uL (0.11-0.59); #Neutrophils 5.2 thou/uL (1.40-6.50); %Basophils 0.1 % (0.0-1.0); %Eosinophils 0.9 % (0.0-10.0); %Lymphocytes 16.4 % (21.0-51.0); %Monocytes 7.1 % (0.0-10.0); %Neutrophils 75.4 % (42.0-75.0); Hemoglobin 7.8 g/dL (12.0-16.0); Mean Corpuscular HGB CONC 31.4 g/dL (32.0-36.0); Mean Corpuscular Hemoglobin 27.7 pg (27.0-31.0); Mean Corpuscular Volume 88.1 fl (81.0-99.0); Mean Platelet Volume 7.5 fL (7.4-10.4); Platelet Count 226 thou/uL (130-400); RBC Distribution Width 15.6 % (11.5-14.5); Red Blood Cell (RBC) Count 2.84 mill/uL (4.20-5.40); White Blood Cell (WBC) Count 6.9 thou/uL (4.8-10.8)
[2017-05-07 05:12] LABS: Prothrombin Time 47.9 SEC (12.0-14.7)
[2017-05-07 05:17] LABS: Anion Gap 13 mmol/L (10-20); BUN (Urea Nitrogen) 69 mg/dL (9.8-20.1); Calc. Creatinine Clearance 36 mL/min (70-130); Calcium 8.8 mg/dL (7.8-10.44); Carbon Dioxide 26 mmol/L (23-31); Chloride 95 mmol/L (98-107); Estimated GFR-MDRD 24; Glucose 156 mg/dL (83-110); INR-International Normal Ratio 4.8; Potassium 5.3 mmol/L (3.5-5.1); Sodium 129 mmol/L (136-145)
[2017-05-07] MEDS: Furosemide 40 MG/4 ML VIAL SLOW IVP SCH ×2 (09:17→09:20)
[2017-05-07] MEDS: Gabapentin 300 MG CAP PO SCH ×2 (09:18→21:49)
[2017-05-07] MEDS: Docusate 100 MG CAP PO SCH ×2 (09:18→21:49)
[2017-05-07] MEDS: Carvedilol 6.25 MG TAB PO SCH ×2 (09:18→21:49)
[2017-05-07] MEDS: glipiZIDE 10 MG TAB PO SCH ×2 (09:19→17:20)
[2017-05-07] MEDS: predniSONE 20 MG TAB PO SCH (09:19)
--- NOTE | 2017-05-07 09:38 | PRG ---
DATE OF SERVICE: 05/07/2017 SUBJECTIVE: Ms. Morejon is feeling somewhat better. Her gout is improved. OBJECTIVE: VITAL SIGNS: Her blood pressure is 128/57, pulse 70, it is regular. LUNGS: Clear. CARDIAC: Normal S1, normal S2. ABDOMEN: Soft, nontender. EXTREMITIES: Still moderate edema. LABORATORY DATA: Her hemoglobin is down to 7.8. The potassium is 5.3, creatinine is up to 1.99. ASSESSMENT: 1. Congestive heart failure; systolic and diastolic mixed, becoming more refractory to medical thera py. 2. Previous mechanically placed aortic valve with normal function. 3. Supratherapeutic INR of 4.8, but no evidence of bleeding, we would avoid vitamin K at this point. She has not received Coumadin for several days, likely there will be a trend down to suspect it may be slightly lower tomorrow. 4. Volume overloaded. 5. Gout, improved. 6. Diabetes. PLAN: 1. I would continue intravenous diuretic, but we have stopped the spironolactone. 2. I have discussed with the patient, the ejection fraction is below 35%. There is some risk of mal ignant ventricular arrhythmias, which can be life threatening. However, the patient's heart failure is becoming more and more intractable, explained to the patient that the defibrillator will not obvio usly help her heart failure. We also have to go off Coumadin to successfully place the device, it is not clear to me that with the defibrillator would lengthen her life. Her prognosis from a heart angel lure standpoint does not appear to be favorable. After further discussion, she does not wish to purs ue defibrillator implantation at this point. 3. Reduce prednisone in view of the fluid retention and the gout is improved.
--- NOTE | 2017-05-07 10:29 | ULT ---
BILATERAL RENAL ULTRASOUND: COMPARISON: 03/14/06. HISTORY: Renal failure. TECHNIQUE: Sagittal and transverse imaging of the kidneys performed. FINDINGS: There is bilateral renal cortical thinning. The right kidney measures 8.3 x 4.8 x 4.6 cm. The left kidney measures 7.7 x 5.6 x 4.4 cm. Bilaterally, no hydronephrosis. Note there is a Ramos catheter present, but there is still urine within the bladder. Bladder measure s 5.4 x 4.3 x 3.5 cm. IMPRESSION: 1. Bilateral renal cortical thinning. 2. No hydronephrosis. POS: [facility]
--- NOTE | 2017-05-07 10:32 | CON ---
DATE OF CONSULTATION: 05/07/2017 HISTORY OF PRESENT ILLNESS: Ms. Morejon is a 76-year-old white female, who was initially admitted for shortness of breath. She was found to be in congestive heart failure. Over the last few days wi th the diuretics, her renal function has been worsening. Please note her spironolactone, Bactrim has been discontinued recently. We are being consulted for her acute kidney injury on top of her chroni c renal failure. REVIEW OF SYSTEMS: Shortness of breath actually improved. No chest pain, no syncopal episode, no na usea, no vomiting. Positive for leg edema. No diarrhea, no constipation, no gross hematuria, no dys uria, no frequency. Appetite and energy level is fair. No headache, no diplopia, no sore throat, oc casional joint pains, no new skin rash, no abdominal pain, no hematochezia, no melena, no hematemesis . MEDICATIONS: The patient currently on Tylenol q.6 hours p.r.n., Dulcolax 10 mg daily p.r.n., carvedi lol 6.25 mg p.o. b.i.d., furosemide 40 mg IV p.r.n., gabapentin 300 mg p.o. b.i.d., glipizide 10 mg b .i.d., Humalog sliding scale, Protonix 40 mg daily, and simvastatin 20 mg tab at bedtime. PAST MEDICAL HISTORY: Includes the following, 1. History of CHF. 2. Aortic valve disease. 3. Type 2 diabetes mellitus. 4. Hyperlipidemia. 5. Hypertension. 6. History of diabetic neuropathy. PAST SURGICAL HISTORY: Status post cardiac catheterization, status post aortic valve replacement wit h mechanical valve, right total knee replacement, status post colonoscopy. SOCIAL HISTORY: The patient lives in [place], lives alone, 2 children. She smoked for 15-20 years 1-2 packs a day. Alcohol currently none. No IV drug abuse. Denies any blood transfusion. 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 ALLERGIES: No known drug allergies. TRAUMA: None. IMMUNIZATIONS: Up to date. HOSPITALIZATIONS: Please see past medical history. PHYSICAL EXAMINATION: VITAL SIGNS: Blood pressure 120/57, heart rate 73, respiratory 16, temperature 97.5, and pulse ox 96 %. GENERAL: Noted to be awake, alert, comfortable, not in distress. SKIN: Adequate turgor. HEENT: Pinkish conjunctivae, anicteric sclerae. NECK: No neck mass, no carotid bruits, no JVD. CHEST: No deformities. LUNGS: Decreased breath sounds. HEART: Normal sinus rhythm. No murmur, no gallops, no rubs. ABDOMEN: Globular, soft, nontender, no masses. EXTREMITIES: Positive for edema, but no deformities. NEUROLOGIC: Awake, oriented to 3 spheres. Moving all extremities. LABORATORY DATA: On 05/05/2017 - white count 6.9, hemoglobin 7.8. Sodium 130, potassium 5.0, chlori de 95, carbon dioxide 26, BUN 46, creatinine 1.71. Laboratories of 05/07/2017 - Sodium 129, potassium 5.3, chloride 95, carbon dioxide 26, BUN 69, creat inine 1.99, glucose 156, and calcium 8.8. Chest x-ray of 05/03/2017 showed mild to moderate CHF. ASSESSMENT AND PLAN: 1. Acute kidney injury on top of her chronic renal failure, consider the possibility of a hemodynami linda mediated renal dysfunction secondary to her underlying congestive heart failure. Currently on p.r.n. Lasix. Continue current diuretic regimen in view of her congestive heart failure. Her underl adis chronic renal failure is of uncertain etiology, although diabetic nephropathy is a possibility. I am waiting for a repeat urinalysis with this patient. In addition, renal ultrasound has been orde red. There is no indication for any dialytic intervention with this patient. 2. Congestive heart failure. The patient on p.r.n. IV Lasix. Cardiology is following. I agree to hold off the spironolactone. Please note the Bactrim DS also has been discontinued since this could artificially elevate the creatinine. Agree with supportive management. Recheck base met and CBC in a.m.
[2017-05-07] MEDS ORDERED: Albuterol Sulfate 2.5 mg/3 ml Neb NEB PRN (12:53)
--- NOTE | 2017-05-07 12:59 | PDOC.PN ---
- Subjective Encounter Start Date: 05/07/17 Encounter Start Time: 13:04 Subjective: No new complaints today. -: No acute events overnight. - Objective Resuscitation Status: Resuscitation Status FULL:Full Resuscitation MAR Reviewed: Yes Vital Signs & Weight: Vital Signs (12 hours) Temp Pulse Resp BP BP Pulse Ox 05/07/17 11:18 97.7 F 78 14 121/60 93 L 05/07/17 09:18 130/60 05/07/17 08:59 98.2 F 86 16 130/60 92 L 05/07/17 03:04 97.5 F L 73 16 128/57 L 96 Weight Admit Weight 209 lb 11.2 oz Weight 209 lb 11.2 oz I&O: 05/06/17 05/07/17 05/08/17 06:59 06:59 06:59 Intake Total 1920 1280 Output Total 900 675 Balance 1020 605 Result Diagrams: 05/07/17 04:33 05/07/17 04:33 Additional Labs: Accuchecks 05/07/17 05/07/17 05/06/17 10:52 06:12 20:42 POC Glucose 135 H 138 H 344 H 05/06/17 05/06/17 16:47 12:47 POC Glucose 264 H 159 H Phys Exam - Physical Examination Constitutional: NAD HEENT: PERRLA, moist MMs, sclera anicteric Neck: no JVD, supple, full ROM Respiratory: no wheezing, no rales, wheezing present, clear to auscultation bilateral Cardiovascular: RRR, no significant murmur, no rub Gastrointestinal: soft, non-tender, no distention, positive bowel sounds Musculoskeletal: no edema, pulses present Neurological: non-focal, moves all 4 limbs Psychiatric: normal affect, A&O x 3 Skin: no rash, normal turgor Dx/Plan (1) Chronic combined systolic (congestive) and diastolic (congestive) heart failure Code(s): I50.42 - CHRONIC COMBINED SYSTOLIC AND DIASTOLIC HRT FAIL Status: Acute Comment: Improving. Cardiology on board, recs appreciated. Furosemide PRN (2) Gout flare Code(s): M10.9 - GOUT, UNSPECIFIED Status: Acute Qualifiers: Gout site: hand Laterality: right Comment: Markedly improved. Given colchicine at first in the ER but discontinued due to SPENCER on CKD. Continue prednisone. (3) Kixcu-bj-enzkvai kidney injury Code(s): N17.9 - ACUTE KIDNEY FAILURE, UNSPECIFIED; N18.9 - CHRONIC KIDNEY DISEASE, UNSPECIFIED Status: Acute Comment: Likely cardiorenal. Continued on guarged diuresis. Renal US w no obstruction. Spironolactone and bactrim discontinued. Nephrology on board. Recs appreciated. (4) Prosthetic replacement of heart valve Code(s): Z95.2 - PRESENCE OF PROSTHETIC HEART VALVE Status: Chronic Comment : AVR. Coumadin held 2/2 supratherapeutic INR. Monitor. (5) DM2 (diabetes mellitus, type 2) Status: Chronic Qualifiers: Diabetes mellitus complication status: with kidney complications Diabetes mellitus complication detail: with chronic kidney disease Diabetes mellitus terminal supervisor insulin use: with terminal supervisor use Chronic kidney disease stage: stage 3 (moderate) Qualified Code(s): E11.22 - Type 2 diabetes mellitus with diabetic chronic kidney disease; N18.3 - Chronic kidney disease, stage 3 ( moderate); N18.3 - Chronic kidney disease, stage 3 (moderate); Z79.4 - FPC (current) use of insulin; Z79.4 - FPC (current) use of insulin; Z79.4 - FPC (current) use of insulin; Z79.4 - FPC (current) use of insulin Comment: Continue glipizide, insulin. (6) HTN (hypertension) Code(s): I10 - ESSENTIAL (PRIMARY) HYPERTENSION Status: Chronic Qualifiers: Hypertension type: essential hypertension Comment: Fairly well controlled. (7) HLD (hyperlipidemia) Code(s): E78.5 - HYPERLIPIDEMIA, UNSPECIFIED Status: Chronic Qualifiers: Hyperlipidemia type: pure hypercholesterolemia Qualified Code(s): E78.00 - Pure hypercholesterolemia, unspecified; E78.0 - Pure hypercholesterolemia (8) Supratherapeutic INR Code(s): R79.1 - ABNORMAL COAGULATION PROFILE Status: Acute Comment: Asymptomatic. Coumadin and Bactrim held. will monitor. (9) Hyperkalemia Code(s): E87.5 - HYPERKALEMIA Status: Acute Comment: Likely 2/2 bactrim, which has been discontinued. - Plan cont current plan of care, gonzalez catheter, PT/OT, respiratory therapy * .
[2017-05-07 15:19] LABS: Bilirubin Negative (Negative); Blood, Urine Small (Negative); Clarity CLEAR (Clear); Glucose, Urine (Dipstick) Negative (Negative); Leukocyte Small (Negative); Nitrite Negative (Negative); Protein, Urine (Dipstick) Negative (Neg-Trace); Specific Gravity, Urine 1.015 (1.002-1.036); Urobilinogen 0.2 mg/dL (0.2-1.0)
[2017-05-07 15:25] LABS: Bacteria/HPF None Seen HPF (None Seen); Hyaline Casts/LPF 4-6 HYALINE CAST LPF (0-3 Hyaline); Pathc Cast-AUWi Flag 1.08 (0-2.49); Squamous Epithelial 0-3 HPF (0-3)
[2017-05-07] MEDS ORDERED: Warfarin Sodium 2.5 MG TAB PO SCH (17:00)
[2017-05-07] MEDS: HumaLOG 300 UNITS/3 ML VIAL SC PRN ×2 (17:21→21:50)
[2017-05-07] MEDS: Simvastatin 20 MG TAB PO SCH (21:49)
[2017-05-07] MEDS: Senokot 8.6 MG TAB PO SCH (21:49)
[2017-05-07] MEDS: Insulin Detemir 100 UNITS/ML 10 UNITS in Pre-Filled Syringe SC SCH (21:50)
[2017-05-08] MEDS: Bisacodyl 10 MG SUPP PR PRN (04:40)
[2017-05-08] MEDS ORDERED: Bisacodyl 10 MG SUPP PR SCH (05:45)
[2017-05-08] MEDS ORDERED: Fleet Enema 133 ML BOT PR PRN (05:52)
[2017-05-08 07:46] LABS: INR-International Normal Ratio 2.9; Prothrombin Time 31.5 SEC (12.0-14.7)
[2017-05-08 07:54] LABS: Anion Gap 15 mmol/L (10-20); BUN (Urea Nitrogen) 78 mg/dL (9.8-20.1); Calc. Creatinine Clearance 36 mL/min (70-130); Calcium 9.1 mg/dL (7.8-10.44); Carbon Dioxide 27 mmol/L (23-31); Chloride 94 mmol/L (98-107); Estimated GFR-MDRD 25; Glucose 127 mg/dL (83-110); Sodium 131 mmol/L (136-145)
[2017-05-08] MEDS: Senokot S 8.6-50 MG TAB PO SCH ×2 (08:51→21:03)
[2017-05-08] MEDS: Carvedilol 6.25 MG TAB PO SCH ×2 (08:51→21:03)
[2017-05-08 08:55] LABS: #Eosinphils 0.1 thou/uL (0.0-0.7); #Lymphocytes 1.3 thou/uL (1.20-3.40); #Monocytes 0.6 thou/uL (0.11-0.59); #Neutrophils 6.3 thou/uL (1.40-6.50); %Basophils 0.1 % (0.0-1.0); %Eosinophils 1.5 % (0.0-10.0); %Monocytes 7.6 % (0.0-10.0); %Neutrophils 74.9 % (42.0-75.0); Hemoglobin 7.8 g/dL (12.0-16.0); MDiff Complete? YES; Mean Corpuscular HGB CONC 31.5 g/dL (32.0-36.0); Mean Platelet Volume 7.6 fL (7.4-10.4); PLT Morphology Comment 1; Platelet Count 270 thou/uL (130-400); Polychromasia SLIGHT = 2-3 cells (100X) (0-2/hpf); Red Blood Cell (RBC) Count 2.79 mill/uL (4.20-5.40); White Blood Cell (WBC) Count 8.4 thou/uL (4.8-10.8)
[2017-05-08] MEDS: glipiZIDE 10 MG TAB PO SCH ×2 (08:55→17:11)
[2017-05-08] MEDS: predniSONE 5 MG TAB PO SCH (08:55)
[2017-05-08] MEDS: Docusate 100 MG CAP PO SCH ×2 (08:55→21:03)
[2017-05-08] MEDS: Gabapentin 300 MG CAP PO SCH ×2 (08:56→21:03)
[2017-05-08] MEDS: Furosemide 40 MG/4 ML VIAL SLOW IVP SCH (08:56)
[2017-05-08] MEDS: Polyethylene Glycol 3350 17 GM Packet PO SCH (08:56)
[2017-05-08] MEDS ORDERED: Epoetin (ESRD) 20,000 UNITS/ML SC SCH (10:15)
--- NOTE | 2017-05-08 10:36 | PRG ---
DATE OF SERVICE: 05/08/2017 RENAL MEDICINE SUBJECTIVE: Ms. Morejon is a 76-year-old white female who was seen for acute kidney injury on top of her chronic renal failure. At that time, her Bactrim and spironolactone has been discontinued. S he still gets p.r.n. Lasix. Her acute kidney injury could all be hemodynamically mediated renal dysf unction due to her history of CHF. In addition, patient may most likely have chronic renal failure. I did review the renal ultrasound which showed cortical thinning. The etiology of the chronic renal failure could either be from diabetic versus hypertensive nephropathy. She is still complaining wit h some mild shortness of breath. My feeling is that the shortness of breath has been contributed fro m a possible underlying chronic obstructive pulmonary disease although CHF is also another considerat ion. No other new complaints. PHYSICAL EXAMINATION: VITAL SIGNS: Blood pressure 138/65, heart rate 75, respiratory rate 16, temperature 98.2, pulse ox i s 94%. GENERAL: Noted to be awake, alert, supine, comfortable, obese, not in distress. SKIN: Adequate turgor. HEENT: She has slightly pale conjunctivae, anicteric sclerae. NECK: No neck mass, no carotid bruits, no JVD. CHEST: No deformities. LUNGS: Decreased breath sounds. HEART: Normal sinus rhythm. No murmurs, no gallops, no rubs. ABDOMEN: Globular, soft, nontender, no masses. EXTREMITIES: Positive for edema, but no deformities. MEDICATIONS: Medications of 05/08/2017 reviewed. LABORATORY DATA: Laboratories of 05/08/2017; sodium 131, potassium 5, chloride 94, carbon dioxide 27 , BUN 78, creatinine 1.95, glucose 127, calcium 9.1, hemoglobin 7.8. ASSESSMENT AND PLAN: 1. Acute kidney injury on top of her chronic renal failure, stable renal function. Creatinine noted at 1.9, which is about the same as yesterday. She is currently at stage IV chronic renal failure. Continue supportive care. Continue gentle diuresis. Agree to hold off Bactrim and spironolactone. No indication for any acute dialytic intervention. 2. Anemia - start patient on ferrous sulfate 325 mg p.o. b.i.d. We will also start the patient on E pogen due to the decreased glomerular filtration rate. 3. Congestive heart failure/shortness of breath - on IV diuretics. Recheck base met and CBC in a.m.
[2017-05-08] MEDS: HumaLOG 300 UNITS/3 ML VIAL SC PRN ×3 (11:30→21:04)
[2017-05-08] MEDS ORDERED: Warfarin Sodium 3.75 MG HALF.TAB PO SCH (17:00)
[2017-05-08] MEDS: Ferrous Sulfate 325 MG TAB PO SCH (17:10)
[2017-05-08] MEDS: Simvastatin 20 MG TAB PO SCH (21:02)
[2017-05-08] MEDS: Insulin Detemir 100 UNITS/ML 10 UNITS in Pre-Filled Syringe SC SCH (21:03)
[2017-05-08] MEDS: Senokot 8.6 MG TAB PO SCH (21:03)
[2017-05-09] MEDS: Bisacodyl 10 MG SUPP PR PRN (04:25)
[2017-05-09 05:47] LABS: Anion Gap 12 mmol/L (10-20); BUN (Urea Nitrogen) 70 mg/dL (9.8-20.1); Calc. Creatinine Clearance 44 mL/min (70-130); Carbon Dioxide 29 mmol/L (23-31); Chloride 94 mmol/L (98-107); Estimated GFR-MDRD 31; INR-International Normal Ratio 2.1; Potassium 4.7 mmol/L (3.5-5.1); Prothrombin Time 24.5 SEC (12.0-14.7); Sodium 130 mmol/L (136-145)
[2017-05-09 05:48] LABS: #Eosinphils 0.1 thou/uL (0.0-0.7); #Lymphocytes 1.2 thou/uL (1.20-3.40); #Monocytes 0.4 thou/uL (0.11-0.59); #Neutrophils 4.8 thou/uL (1.40-6.50); %Basophils 0.5 % (0.0-1.0); %Eosinophils 1.9 % (0.0-10.0); %Lymphocytes 18.8 % (21.0-51.0); %Monocytes 6.1 % (0.0-10.0); %Neutrophils 72.6 % (42.0-75.0); Calcium 9.1 mg/dL (7.8-10.44); Glucose 153 mg/dL (83-110); Hemoglobin 7.1 g/dL (12.0-16.0); Mean Corpuscular HGB CONC 32.1 g/dL (32.0-36.0); Mean Corpuscular Hemoglobin 28.9 pg (27.0-31.0); Mean Corpuscular Volume 89.8 fl (81.0-99.0); Mean Platelet Volume 7.4 fL (7.4-10.4); Platelet Count 225 thou/uL (130-400); RBC Distribution Width 16.3 % (11.5-14.5); Red Blood Cell (RBC) Count 2.45 mill/uL (4.20-5.40); White Blood Cell (WBC) Count 6.6 thou/uL (4.8-10.8)
[2017-05-09] MEDS: Gabapentin 300 MG CAP PO SCH ×2 (09:28→21:59)
[2017-05-09] MEDS: predniSONE 5 MG TAB PO SCH (09:28)
[2017-05-09] MEDS: Carvedilol 6.25 MG TAB PO SCH ×2 (09:28→21:59)
[2017-05-09] MEDS: Polyethylene Glycol 3350 17 GM Packet PO SCH (09:28)
[2017-05-09] MEDS: Senokot S 8.6-50 MG TAB PO SCH ×2 (09:28→21:59)
[2017-05-09] MEDS: Ferrous Sulfate 325 MG TAB PO SCH ×2 (09:29→16:42)
[2017-05-09] MEDS: glipiZIDE 10 MG TAB PO SCH ×2 (09:29→16:42)
[2017-05-09] MEDS: Furosemide 40 MG/4 ML VIAL SLOW IVP SCH (09:29)
[2017-05-09] MEDS: Docusate 100 MG CAP PO SCH ×2 (09:29→21:59)
--- NOTE | 2017-05-09 11:00 | PRG ---
DATE OF SERVICE: 05/09/2017 RENAL MEDICINE SUBJECTIVE: Ms. Morejon is a 76-year-old white female who was seen by Renal Service for acute kidn ey injury on top of her chronic renal failure. She was also in CHF. She has been receiving diuretic s. This morning, her breathing is much improved. 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 No other comp laints today except she wants to change her diet which has been done. PHYSICAL EXAMINATION: VITAL SIGNS: Blood pressure is 123/60, heart rate 74, respiratory rate 18, pulse ox 96%, temperature 97.8. GENERAL: Noted to be awake, alert, sitting comfortable, not in distress. SKIN: Adequate turgor. HEENT: She has slightly pale conjunctivae, anicteric sclerae. NECK: No neck mass, no carotid bruits, no JVD. CHEST: No deformities. LUNGS: Decreased breath sounds. HEART: Normal sinus rhythm. No murmurs, no gallops, no rubs. ABDOMEN: Globular, soft, nontender. Positive for bowel sounds. EXTREMITIES: Positive for edema. NEUROLOGIC: No tremors, no asterixis. Oriented to 3 spheres. MEDICATIONS: Medications of 05/09/2017 reviewed. LABORATORY DATA: Laboratories of 05/09/2017; white count 6.6, hemoglobin 7.1, hematocrit 22. Sodium 130, potassium 4.7, chloride 94, carbon dioxide 29, BUN 70, creatinine 1.59, glucose 153, and calciu m 9.1. ASSESSMENT AND PLAN: 1. Acute kidney injury on top of her chronic renal failure, superimposed prerenal azotemia, slowly i mproving. Currently on a diuretic regimen and her kidney seems to be tolerating this. No indication for any acute dialytic intervention. 2. Shortness of breath - multifactorial, congestive heart failure/chronic obstructive pulmonary dise ase, stable, clinically improving on IV diuretics. 3. Anemia. Patient has been started on ferrous sulfate and Epogen. P.r.n. blood transfusion. Rech chuck base met and CBC in a.m.
--- NOTE | 2017-05-09 11:21 | PDOC.PN ---
- Subjective Encounter Start Date: 05/09/17 Encounter Start Time: 09:45 no acute night events. sob improving - Objective Resuscitation Status: Resuscitation Status FULL:Full Resuscitation Vital Signs & Weight: Vital Signs (12 hours) Temp Pulse Resp BP BP Pulse Ox 05/09/17 09:28 123/60 05/09/17 07:25 97.8 F 74 18 123/60 96 05/09/17 07:20 97.8 F 74 18 96 05/09/17 04:00 97.7 F 74 16 120/56 L 94 L 05/08/17 23:43 98.6 F 76 16 120/56 L 96 Weight Admit Weight 209 lb 11.2 oz Weight 206 lb I&O: 05/08/17 05/09/17 05/10/17 05:59 06:59 06:59 Intake Total Output Total Balance Result Diagrams: 05/09/17 04:36 05/09/17 04:36 Additional Labs: Accuchecks 05/09/17 05/09/17 05/08/17 10:39 06:00 23:53 POC Glucose 271 H 144 H 277 H 05/08/17 05/08/17 05/08/17 20:04 16:26 11:03 POC Glucose 306 H 245 H 293 H Phys Exam - Physical Examination Constitutional: NAD HEENT: PERRLA, moist MMs, sclera anicteric Neck: no nodes, no JVD, supple, full ROM Respiratory: no wheezing, no rales, no rhonchi Cardiovascular: RRR Gastrointestinal: soft, non-tender, no distention Musculoskeletal: pulses present Neurological: non-focal, moves all 4 limbs Psychiatric: normal affect, A&O x 3 Dx/Plan (1) SEPNCER (acute kidney injury) Code(s): N17.9 - ACUTE KIDNEY FAILURE, UNSPECIFIED Status: Acute (2) Umjjf-hr-raotxgw kidney injury Code(s): N17.9 - ACUTE KIDNEY FAILURE, UNSPECIFIED; N18.9 - CHRONIC KIDNEY DISEASE, UNSPECIFIED Status: Acute Comment: Likely cardiorenal. Continued on guarged diuresis. Renal US w no obstruction. Spironolactone and bactrim discontinued. Nephrology on board. Recs appreciated. (3) Acute on chronic congestive heart failure Code(s): I50.9 - HEART FAILURE, UNSPECIFIED Status: Acute (4) Acute thoracic back pain Code(s): M54.6 - PAIN IN THORACIC SPINE Status: Acute Qualifiers: Back pain laterality: midline Qualified Code(s): M54.6 - Pain in thoracic spine Comment: noncontrasted CT unrevealing (5) Shortness of breath Code(s): R06.02 - SHORTNESS OF BREATH Status: Acute (6) DM2 (diabetes mellitus, type 2) Status: Chronic Qualifiers: Diabetes mellitus complication status: with kidney complications Diabetes mellitus complication detail: with chronic kidney disease Diabetes mellitus exterminator termite insulin use: with care home use Chronic kidney disease stage: stage 3 (moderate) Qualified Code(s): E11.22 - Type 2 diabetes mellitus with diabetic chronic kidney disease; N18.3 - Chronic kidney disease, stage 3 ( moderate); N18.3 - Chronic kidney disease, stage 3 (moderate); Z79.4 - exterminator termite (current) use of insulin; Z79.4 - exterminator termite (current) use of insulin; Z79.4 - [facility] (current) use of insulin; Z79.4 - [facility] (current) use of insulin Comment: Continue glipizide, insulin. (7) HLD (hyperlipidemia) Code(s): E78.5 - HYPERLIPIDEMIA, UNSPECIFIED Status: Chronic Qualifiers: Hyperlipidemia type: pure hypercholesterolemia Qualified Code(s): E78.00 - Pure hypercholesterolemia, unspecified; E78.0 - Pure hypercholesterolemia (8) HTN (hypertension) Code(s): I10 - ESSENTIAL (PRIMARY) HYPERTENSION Status: Chronic Qualifiers: Hypertension type: essential hypertension Comment: Fairly well controlled. - Plan cont current plan of care, plan discussed w/ family, PT/OT, respiratory therapy * . continue IV lasix possible swtich to PO tmrw follow recs from renal and cardiology plan is [facility] once medically cleared possibly DC tmrw
[2017-05-09] MEDS: HumaLOG 300 UNITS/3 ML VIAL SC PRN ×3 (11:45→22:03)
[2017-05-09] MEDS: Simvastatin 20 MG TAB PO SCH (21:59)
[2017-05-09] MEDS: Senokot 8.6 MG TAB PO SCH (21:59)
[2017-05-09] MEDS: Insulin Detemir 100 UNITS/ML 10 UNITS in Pre-Filled Syringe SC SCH (22:01)
--- NOTE | 2017-05-09 22:20 | CON ---
DATE OF CONSULTATION: 05/09/2017 REASON FOR CONSULTATION: Anemia and also history of colon polyp. HISTORY OF PRESENT ILLNESS: Ms. Mary Morejon is a very pleasant 76-year-old female hos pitalized for congestive heart failure and fluid overload. The patient has markedly improved. She i s not short of breath anymore. She is tolerating diet. She was found to have anemia, which is iron deficient. The patient has no GI symptoms at present time. Plan is being made to discharge home xavi greene. I was asked to see the patient by Cardiology Service for possible colonoscopy because of anem ia and past history of colon polyp. She is a very pleasant 76-year-old female, who has had aortic valve replacement in 2006. She was seen by me at that time because of melena and also drop i n blood count. She had an EGD and was found to have gastric ulcer. She also had a colonoscopy and p olypectomy in 2006. The patient had not seen me over the last 10-11 years. The patient had seen Dr. Ernst Vanegas before, but she has changed to Dr. Amaury Beltre recently. She has seen Dr. Beltre only one time a month ago. The patient has anemia, which appears more of chronic in nature. The patient has no GI symptoms. She denies any history of hematochezia, melena or passing dark stool. No abdomi nal pain. No dyspepsia. No nausea or vomiting, and no dysphagia. The lab data does show anemia. O n 05/04/2017, WBC 7100, hemoglobin 8.3, hematocrit 26.3. Her blood count has been drifting down slow ly. It dropped to 7.8 yesterday and 7.1 today. Hematocrit is 22, MCV 10.8. The patient has regular bowel movements and she has not seen blood in stool or any black tarry stool. No other relevant his tory. MEDICAL ILLNESSES: 1. Aortic valve replacement in 2006. 2. Congestive heart failure. 3. Type 2 diabetes. 4. Hypertension. 5. Hyperlipidemia. 6. Colon polyp. 7. Past history of peptic ulcer in 2006. SURGERIES: 1. Status post aortic valve replacement in 2006. 2. Right knee replacement. SOCIAL HISTORY: The patient does not smoke or drink alcohol. ALLERGIES: None. FAMILY HISTORY: Unremarkable. MEDICATIONS: Include warfarin, Coreg, aspirin, Lasix, gabapentin, glipizide, omeprazole, simvastatin , Aldactone Levemir insulin 10 units at bedtime, ferrous sulfate 325 mg p.o. twice a day. REVIEW OF SYSTEMS: Constitutional: No fever, no night sweats, no weight loss and good energy level. Respiratory: No chronic cough, dyspnea, hemoptysis. Cardiovascular: History of recurrent dyspnea and orthopnea. At the present time, symptoms are markedly improved. No PND, no chest pain, no palp itation. Gastrointestinal: No abdominal pain, no nausea, no vomiting, no hematochezia or melena. G enitourinary: No dysuria, hematuria or frequent urination. Musculoskeletal: Unremarkable. Endocri ne: Unremarkable. Neuropsychiatry: No depression or anxiety. PHYSICAL EXAMINATION: GENERAL: Patient is obese, appears very comfortable. She is alert, oriented to time, place and pers on. VITAL SIGNS: Afebrile, pulse is 75, blood pressure 122/59. HEENT: Conjunctivae clear. NECK: Supple. CARDIOVASCULAR: First and second heart sounds. She has systolic murmur. LUNGS: Clear to auscultation. ABDOMEN: Soft. Abdomen is nondistended. Abdomen is nontender. There is no organomegaly or masses. EXTREMITIES: No edema. LABORATORY DATA: Does show anemia which appears more chronic in nature and she is actually normal. The most recent CBC dated 05/09/2017 shows WBC 6600, hemoglobin 7.1, hematocrit 22, MCV 9.8, platelet count 220,000, polymorphs 72, lymphocytes 18. Serum chemistries: Sodium is 130, potassium 4.7, chl oride 94, bicarbonate 20, BUN is 17, creatinine 1.59, glucose 153. CLINICAL IMPRESSION: A 76-year-old female with anemia, which appears to be chronic in natu re. The patient had a colonoscopy and polypectomy in the past. Apparently, scheduled for a colonosc opy this year. She also had gastric ulcer in the past. At the present time, she is totally asymptom atic from GI standpoint. She admitted in the hospital because of heart failure. She is improving an d plan is being made to send her to [facility] tomorrow. RECOMMENDATIONS: From GI standpoint, no colonoscopy planned at this time. The colonoscopy can be do ne as an outpatient in the near future. She has to stop warfarin 3 days before colonoscopy and I josiah lly see no reason to keep her for three more days just for a colonoscopy. From a GI standpoint, she can be discharged home and we will plan for outpatient endoscopic studies probably in a month or so.
[2017-05-10 05:50] LABS: #Eosinphils 0.2 thou/uL (0.0-0.7); #Lymphocytes 1.1 thou/uL (1.20-3.40); #Monocytes 0.4 thou/uL (0.11-0.59); #Neutrophils 3.9 thou/uL (1.40-6.50); %Basophils 0.5 % (0.0-1.0); %Eosinophils 3.2 % (0.0-10.0); %Lymphocytes 19.6 % (21.0-51.0); %Monocytes 6.7 % (0.0-10.0); Mean Corpuscular HGB CONC 32.2 g/dL (32.0-36.0); Mean Corpuscular Hemoglobin 28.3 pg (27.0-31.0); Mean Corpuscular Volume 88.1 fl (81.0-99.0); Mean Platelet Volume 7.1 fL (7.4-10.4); Platelet Count 226 thou/uL (130-400); RBC Distribution Width 16.6 % (11.5-14.5); Red Blood Cell (RBC) Count 2.48 mill/uL (4.20-5.40); White Blood Cell (WBC) Count 5.6 thou/uL (4.8-10.8)
[2017-05-10 05:55] LABS: INR-International Normal Ratio 1.6; Prothrombin Time 19.5 SEC (12.0-14.7)
[2017-05-10 06:03] LABS: Anion Gap 11 mmol/L (10-20); BUN (Urea Nitrogen) 62 mg/dL (9.8-20.1); Calc. Creatinine Clearance 57 mL/min (70-130); Calcium 9.1 mg/dL (7.8-10.44); Carbon Dioxide 30 mmol/L (23-31); Chloride 95 mmol/L (98-107); Estimated GFR-MDRD 42; Glucose 118 mg/dL (83-110); Potassium 4.4 mmol/L (3.5-5.1); Sodium 132 mmol/L (136-145)
[2017-05-10] MEDS: Carvedilol 6.25 MG TAB PO SCH (08:22)
[2017-05-10] MEDS: Ferrous Sulfate 325 MG TAB PO SCH ×2 (08:22→19:31)
[2017-05-10] MEDS: glipiZIDE 10 MG TAB PO SCH ×2 (08:22→19:31)
[2017-05-10] MEDS: Gabapentin 300 MG CAP PO SCH (08:22)
[2017-05-10] MEDS: predniSONE 5 MG TAB PO SCH (08:22)
[2017-05-10] MEDS: Docusate 100 MG CAP PO SCH (08:23)
[2017-05-10] MEDS: Senokot S 8.6-50 MG TAB PO SCH (08:23)
[2017-05-10] MEDS: Furosemide 40 MG/4 ML VIAL SLOW IVP SCH (08:23)
[2017-05-10] MEDS: Polyethylene Glycol 3350 17 GM Packet PO SCH (08:23)
--- NOTE | 2017-05-10 09:02 | PRG ---
DATE OF SERVICE: 05/10/2017 RENAL MEDICINE SUBJECTIVE: Ms. Morejon is a 76-year-old white female who was seen for acute kidney injury on top of her chronic renal failure. She was initially admitted for CHF. She is currently being diuresed a nd she is tolerating the current diuretic regimen. Her breathing is actually improving. Please note she is on Lasix 40 mg IV daily. This morning, she was noted to be more anemic. Patient voices no new complaints. She denies any worsening shortness of breath or chest pain. PHYSICAL EXAMINATION: VITAL SIGNS: Blood pressure is 141/65, heart rate 75, respiratory rate 18, temperature 97.9, pulse o ximetry 99%. GENERAL: Patient is awake, sitting comfortable, not in distress. SKIN: Adequate turgor. HEENT: Pale conjunctivae, anicteric sclerae. NECK: No neck mass, no carotid bruits, no JVD. CHEST: No deformities. LUNGS: Decreased breath sounds. HEART: Normal sinus rhythm. No murmurs, no gallops, no rubs. ABDOMEN: Globular, soft, nontender, no masses. EXTREMITIES: Positive for edema, but no deformities. MEDICATIONS: Medications of 05/10/2017 reviewed. LABORATORY DATA: Laboratories of 05/10/2017; white count 5.6, hemoglobin 7, hematocrit 21.9. Sodium 132, potassium 4.4, chloride 95, carbon dioxide 30, BUN 62, creatinine 1.23, glucose 118, and calciu m 9.1. ASSESSMENT AND PLAN: 1. Acute kidney injury on top of her chronic renal failure. I suspect superimposed prerenal azotemi a. Clinically, much improved with improving failure. Continue current management. No indication fo r any dialytic intervention. 2. Mild hyponatremia. Continue free water restriction. 3. Anemia. Patient has been started on Epogen and ferrous sulfate. If anemia further worsens, cons ider blood transfusion and eventual GI workup. Overall, agree with current management. No indicatio n for dialysis. Recheck basic metabolic panel and CBC in a.m.
--- NOTE | 2017-05-10 13:24 | DIS ---
DISCHARGE DIAGNOSES: 1. Acute kidney injury. 2. Acute on chronic kidney injury. 3. Acute on chronic congestive heart failure. 4. Acute thoracic back pain. 5. Shortness of breath. 6. Diabetes, type 2. 7. Hyperlipidemia. 8. Hypertension. HOSPITAL COURSE: While patient is in hospital, the patient was started on IV Lasix. The patient's s ymptoms had improved significantly. The patient's oxygen requirements had decreased significantly as well. She was breathing much, much better. She was seen by both Cardiology as well as Nephrology. The patient's creatinine was monitored closely as the patient had acute kidney injury thought to be due to acute congestive heart failure exacerbation. Her creatinine had improved with the Lasix that the patient was started on. Cardiology had also been on the board, who had managed her medications w hile she was here. She was diuresing very well. I's and O's were monitored closely. The patient wa s also seen by physical therapy, who had recommended half-way facility. This was approved wit h the help of case management. The patient was also found to have anemia. Therefore, GI was consult ed. After evaluation from GI point of view, it was felt that the patient did not need to have endosc opy and a stat could be followed outpatient with a colonoscopy. From that standpoint, I felt that th e patient could be discharged home. On the day of discharge, the patient's hemoglobin was right at t he 7.0 prince. Because the patient was going home, I felt it was best to transfuse the patient with 1 unit of PRBCs before sending home. She did not have any active bleed; however, giving her 1 unit at least I think would improve her overall condition status. Therefore, she will be given this prior to discharge. Due to no further interventions required, I was comfortable discharging the patient home today. The patient was instructed to follow with primary care physician in one week as well as spec ialist with bath tester and GI as per their recommendations. DISPOSITION: To half-way facility. DISCHARGE CONDITION: Much improved when she first came in. DISCHARGE ACTIVITY: As tolerated. DISCHARGE MEDICATIONS: Please see home medication list. DISCHARGE DIET: Cardiac, 2 gram sodium diet. DISCHARGE ACTIVITY: As tolerated. FOLLOWUP APPOINTMENT: The patient will follow with primary care physician in one week as well as Car diology as well as GI as per their recommendations. DISCHARGE PLAN: Discharge plan was greater than 30 minutes.
[2017-05-10 13:39] VITALS: BMI 37.8
[2017-05-10] MEDS ORDERED: Warfarin Sodium 3 MG TAB PO SCH (17:00)
[2017-05-10 18:38] VITALS: BP 139/61; TEMP 98.3
--- NOTE | 2017-06-02 15:08 | EKG ---
Test Reason : Blood Pressure : / mmHG Vent. Rate : 083 BPM Atrial Rate : 083 BPM P-R Int : 158 ms QRS Dur : 140 ms QT Int : 436 ms P-R-T Axes : 011 -31 148 degrees QTc Int : 512 ms Normal sinus rhythm Left axis deviation Left bundle branch block Abnormal ECG Confirmed by LAVERN FLORES D.O. ([id number]), editorial intern NEGRITA EUGENE ([id number] on 06/02/2017 3:07:29 PM Referred By: Confirmed By:LAVERN FLORES D.O.
== END 2017-05-10 18:10 | DRG 291 ==
LOC: ERS 19:54 → 2NO 23:30
PROVIDERS: ADMIT Internal Medicine; ATTEND Internal Medicine
PROC: 30233N1 Transfusion of Nonautologous Red Blood Cells into Peripheral Vein, Percutaneous Approach (ICD-10-PCS; principal; 2017-05-10)
DX: I13.0 Hypertensive heart and chronic kidney disease with heart failure and stage 1 through stage 4 chronic kidney disease, or unspecified chronic kidney disease (principal); L89.223 Pressure ulcer of left hip, stage 3; N17.9 Acute kidney failure, unspecified; N18.4 Chronic kidney disease, stage 4 (severe); E11.22 Type 2 diabetes mellitus with diabetic chronic kidney disease; E87.5 Hyperkalemia; D63.8 Anemia in other chronic diseases classified elsewhere; I50.43 Acute on chronic combined systolic (congestive) and diastolic (congestive) heart failure; E87.1 Hypo-osmolality and hyponatremia; Z95.2 Presence of prosthetic heart valve; Z79.4 Long term (current) use of insulin; Z79.84 Long term (current) use of oral hypoglycemic drugs; M10.9 Gout, unspecified; E78.5 Hyperlipidemia, unspecified; K59.00 Constipation, unspecified
CPT/HCPCS: 36415; 36416; 36430; 51702; 71045; 76770; 80048; 80053; 81001; 82553; 82728; 83540; 83550; 83880; 84484; 84550; 85025; 85610; 85652; 85730; 86140; 86850; 86900; 86901; 93005; 93798; 94640; 94760; 96374; 96375; A4216; G8978-GP-CL; G8979-GP-CJ; G8987-GO-CK; G8988-GO-CI; J1644; J1750; J1815; J1940; J2270; J3430; J7050; J7506; J7611; P9016; Q0162; Q4081

== ENCOUNTER 2017-05-18 17:36 | Inpatient (IN) | payer MEDICARE ==
[2017-05-18 19:01] LABS: #Eosinphils 0.1 thou/uL (0.0-0.7); #Lymphocytes 1.9 thou/uL (1.20-3.40); #Monocytes 0.8 thou/uL (0.11-0.59); #Neutrophils 4.6 thou/uL (1.40-6.50); %Basophils 0.2 % (0.0-1.0); %Lymphocytes 25.6 % (21.0-51.0); %Monocytes 10.4 % (0.0-10.0); %Neutrophils 62.7 % (42.0-75.0); Hemoglobin 9.6 g/dL (12.0-16.0); Mean Corpuscular HGB CONC 32.2 g/dL (32.0-36.0); Mean Corpuscular Hemoglobin 29.2 pg (27.0-31.0); Mean Corpuscular Volume 90.8 fl (81.0-99.0); Platelet Count 120 thou/uL (130-400); RBC Distribution Width 17.9 % (11.5-14.5); Red Blood Cell (RBC) Count 3.29 mill/uL (4.20-5.40); White Blood Cell (WBC) Count 7.3 thou/uL (4.8-10.8)
[2017-05-18] MEDS ORDERED: HYDROcodone/Acetaminophen 5/325 mg Tablet ONE ×2 (19:07→21:57)
[2017-05-18] MEDS ORDERED: Furosemide 40 MG TAB ONE (19:08)
[2017-05-18 19:29] LABS: Troponin I 0.053 ng/mL (< 0.028)
--- NOTE | 2017-05-18 19:47 | RAD ---
RADIOGRAPH CHEST 1 VIEW: Date: 05/18/17 Time: 7:24 p.m. HISTORY: 76-year-old female with dyspnea. COMPARISON: 05/03/17. FINDINGS: There is cardiomegaly. There are sternotomy wires. New finding of mild blunting of the left lateral c ostophrenic angle. Minimal blunting of right lateral costophrenic angle is unchanged. There is no pul monary edema. Mild streaky densities in the retrocardiac left lower lobe are questionably slightly wo rse than prior study, suggestive of subsegmental atelectasis. No pneumothorax. IMPRESSION: 1. Cardiomegaly without overt congestive heart failure. 2. Probable small bilateral pleural effusions. 3. Probable subsegmental atelectasis in the left lower lobe. WILMER [] POS: ZARINA
[2017-05-18 20:45] LABS: Anion Gap 15 mmol/L (10-20); BUN (Urea Nitrogen) 29 mg/dL (9.8-20.1); Calc. Creatinine Clearance 0 mL/min (70-130); Calcium 8.8 mg/dL (7.8-10.44); Carbon Dioxide 25 mmol/L (23-31); Chloride 99 mmol/L (98-107); Estimated GFR-MDRD 48; Glucose 341 mg/dL (83-110); Potassium 4.6 mmol/L (3.5-5.1); Sodium 134 mmol/L (136-145); Uric Acid 13.2 mg/dL (2.6-6.0)
[2017-05-18] MEDS ORDERED: HumaLOG 300 UNITS/3 ML VIAL ONE (21:57)
[2017-05-18] MEDS ORDERED: Insulin Detemir 100 UNITS/ML 15 UNITS in Pre-Filled Syringe 1 EACH SC SCH (22:15)
[2017-05-18 22:33] LABS: Troponin I 0.051 ng/mL (< 0.028)
[2017-05-19 01:38] LABS: Troponin I 0.056 ng/mL (< 0.028)
[2017-05-19] MEDS ORDERED: Dextrose 5% in Water 1,000 ML IV PRN (02:52)
[2017-05-19] MEDS ORDERED: Acetaminophen 325 MG TAB PO PRN (02:52)
[2017-05-19] MEDS ORDERED: Dextrose 50% Abboject 50 ML SYRINGE SLOW IVP PRN (02:52)
[2017-05-19] MEDS ORDERED: Colchicine 0.3 MG TAB PO SCH (03:00)
[2017-05-19] MEDS: HYDROcodone/Acetaminophen 5/325 mg Tablet PO PRN ×5 (03:07→21:29)
--- NOTE | 2017-05-19 04:40 | HP ---
DATE OF ADMISSION: 05/18/2017 TIME OF SERVICE: 0230 PRIMARY CARE PHYSICIAN: Dr. Ernst Vanegas. CODE STATUS: FULL CODE. CHIEF COMPLAINT: Swelling. HISTORY OF PRESENT ILLNESS: Ms. Morejon is a pleasant, obese 76-year-old female with history of va lvular heart disease, CKD 3, acute on chronic systolic and diastolic CHF, diabetes, hyperlipidemia, a nd hypertension. Patient will be admitted for acute exacerbation of her combined heart failure and w as discharged to the [facility] for rehabilitation. While there, she continued to have some swelling, but overall it was felt to have fairly stable. She has had right wrist and left ankle pain seems to be getting not much better. She describes a severe ly painful with motion or light touch. She was told by several people while she was in the hospital, she had gout, but no changes were made to her medication regimen. While at rehab, she was having si gnificant pain and doctor there would not prescribe any pain medications until she had certain labs o r diagnosis. She was subsequently sent to the ER for evaluation. There she was found to have improved labs. There were some concerning for ongoing heart failure, so we called for admission. Incidentally, uric acid level was obtained in the emergency department that was elevated at 13.2. On arrival to the floor, she is still complaining of discomfort. No fevers or chills. No nausea, vo miting, no diarrhea, constipation. PAST MEDICAL HISTORY: 1. Chronic kidney disease, 3. 2. Congestive heart failure, combined systolic and diastolic, last echo 03/20/2017 showed an EF of 2 5%-30%, grade 2/3 diastolic dysfunction, moderate MR, TR, and increased pulmonary artery pressure silas und 50 mmHg and [id number] . 3. Diabetes mellitus, type 2. 4. Hyperlipidemia. 5. Hypertension. PAST SURGICAL HISTORY: Includes, 1. Valve replaced in the past. 2. Left TKA. 3. Bilateral cataract replacement. MEDICATIONS: 1. Spironolactone 25 mg daily. 2. Levemir 10 units subcutaneous daily. 3. Lasix 60 mg p.o. b.i.d. 4. Ferrous sulfate 325 mg b.i.d. 5. Zocor 20 mg p.o. at bedtime. 6. Prilosec 20 mg daily. 7. Coreg 6.25 mg p.o. b.i.d. 8. Aspirin 81 mg daily. 9. Glipizide 10 mg p.o. b.i.d. 10. Gabapentin 300 mg p.o. b.i.d. 11. Coumadin 2.5 or 5 mg daily. ALLERGIES: NKDA. FAMILY HISTORY: Negative for clotting or bleeding disorder, no immune dysfunction. SOCIAL HISTORY: She is currently residing at [facility] for rehabilitation. 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 No alcohol or drug use. REVIEW OF SYSTEMS: A 10-point review of systems was performed, negative for all systems except as st ated as per HPI. PHYSICAL EXAMINATION: VITAL SIGNS: Temperature on arrival 98.2, pulse 71, blood pressure 142/72, respiratory rate 16, satt ing 95% on room air. GENERAL: She is awake. She is alert. She is oriented x3. She is well-developed, well-nourished, o bese white female, appears stated age appropriate, and is in no acute distress. HEENT: Normocephalic and atraumatic. Pupils equal, round, react to light bilaterally. Mucous membr anes are moist. She has no visible lesions or thrush. NECK: Supple. There is no lymphadenopathy, no JVD, no thyromegaly. LUNGS: Clear to auscultation anteriorly, posteriorly, fine bibasilar crackles. She has good air mov ement. Symmetrical chest excursion. No wheezes, no rales or rhonchi. CARDIOVASCULAR: She has normal S1, S2. She has a 3-4/6 systolic ejection murmur, shows best heard a t the right upper sternal border, at the right lower sternal border, and the apex. She has a 2/6 hol osystolic murmur is present. ABDOMEN: Obese, it is nontender, nondistended with good bowel sounds. EXTREMITIES: No cyanosis, no clubbing. She has 2+ lower extremity edema. Her right wrist and left ankle are erythematous and tender to light palpation and active or passive range of motion. SKIN: Otherwise warm, moist, and well perfused. She has some chronic venous stasis changes to her b ilateral lower legs. NEUROLOGIC: Cranial nerves II-XII are grossly intact. She has no focal neurologic deficits. She gardiner s 5/5 strength in all 4 extremities and normal speech pattern. MUSCULOSKELETAL: Normal to inspection. She has no inflamed joints. No palpable effusions. She has a well-healed scar of her right knee from the knee replacement. LABORATORY DATA: Sodium is 134, potassium 4.6, chloride 99, bicarbonate 25, BUN 29, creatinine 1.10, and glucose 341, calcium 8.0. CBC showed a white count of 7.3, hemoglobin is 9.6, hematocrit is 29.9, platelet count is 120,000. T here is normal differential. BNP was 449, which is down from 1021 in her last admit. On 05/03 and her CK-MB was normal at 1.0, troponin I 0.053 and 0.051. Uric acid was elevated at 13.2. ASSESSMENT AND PLAN: 1. Acute gouty arthritis of the wrist and ankle. She was placed on colchicine b.i.d. and anti-infla mmatories. 2. Acute on chronic combined systolic and diastolic congestive heart failure. Appears stable from d ischarge. The numbers were improved, Back to rehab when stable. 3. Diabetes mellitus, type 2, continue home medications plus sliding scale insulin with Humalog. 4. Hyperlipidemia. 5. Gastroesophageal reflux disease. 6. Hypertension. 7. Chronic kidney disease 3. 8. History of valvular heart disease. Otherwise, continue home medications. We will see the patien t and reevaluate in the morning. If she has good response to the colchicine may be able to back to r ehab today.
[2017-05-19 05:57] LABS: #Eosinphils 0.1 thou/uL (0.0-0.7); #Lymphocytes 1.6 thou/uL (1.20-3.40); #Monocytes 0.6 thou/uL (0.11-0.59); #Neutrophils 2.7 thou/uL (1.40-6.50); %Eosinophils 1.4 % (0.0-10.0); %Lymphocytes 32.1 % (21.0-51.0); %Monocytes 12.6 % (0.0-10.0); %Neutrophils 53.9 % (42.0-75.0); Hemoglobin 8.5 g/dL (12.0-16.0); Mean Corpuscular HGB CONC 31.8 g/dL (32.0-36.0); Mean Corpuscular Volume 91.3 fl (81.0-99.0); Mean Platelet Volume 8.1 fL (7.4-10.4); Platelet Count 133 thou/uL (130-400); RBC Distribution Width 17.4 % (11.5-14.5); Red Blood Cell (RBC) Count 2.94 mill/uL (4.20-5.40)
[2017-05-19 06:07] LABS: INR-International Normal Ratio 1.7
[2017-05-19 06:10] LABS: Anion Gap 10 mmol/L (10-20); BUN (Urea Nitrogen) 30 mg/dL (9.8-20.1); Calc. Creatinine Clearance 67 mL/min (70-130); Calcium 8.6 mg/dL (7.8-10.44); Carbon Dioxide 30 mmol/L (23-31); Chloride 99 mmol/L (98-107); Estimated GFR-MDRD 50; Glucose 206 mg/dL (83-110); Magnesium 1.4 mg/dL (1.6-2.6); Potassium 4.2 mmol/L (3.5-5.1); Sodium 135 mmol/L (136-145)
[2017-05-19] MEDS: Furosemide 40 MG/4 ML VIAL SLOW IVP SCH ×2 (06:18→14:31)
[2017-05-19] MEDS: HumaLOG 300 UNITS/3 ML VIAL SC PRN ×3 (06:54→21:39)
[2017-05-19] MEDS ORDERED: Furosemide 20 MG TAB PO SCH (09:00)
[2017-05-19] MEDS ORDERED: Prevnar 13-Val Conj/PF 0.5 ML SYRINGE IM ONE (09:00)
[2017-05-19] MEDS: Carvedilol 6.25 MG TAB PO SCH ×2 (09:08→16:34)
[2017-05-19] MEDS: glipiZIDE 10 MG TAB PO SCH ×2 (09:08→16:34)
[2017-05-19] MEDS: Aspirin 81 mg Enteric Coated Tablet PO SCH (09:09)
[2017-05-19] MEDS: Spironolactone 25 MG TAB PO SCH (09:09)
[2017-05-19] MEDS: Gabapentin 300 MG CAP PO SCH ×2 (09:10→21:31)
[2017-05-19] MEDS: Colchicine 0.6 MG TAB PO SCH ×2 (09:10→21:31)
[2017-05-19] MEDS ORDERED: Iron Sucrose Complex 200 MG in Sodium Chloride 0.9% 250 ML 250 ML IVPB SCH (09:30)
[2017-05-19] MEDS ORDERED: Sodium Ferric Gluconate 250 MG in Sodium Chloride 0.9% 100 ML IVPB SCH (10:30)
--- NOTE | 2017-05-19 11:18 | PQF ---
DATE: 05-19-17 ATTN: DR. LUIS ALCAZAR Please exercise your independent, professional judgment in responding to the clarification form. Clinical indicators are provided on the bottom of this form for your review Please check appropriate box(s): [ X ] Demand Ischemia [ ] DE (type: ) [ ] Insignificant Lab Value [ ] Unable to determine In addition, please specify: Present on Admission (POA): [ ] Yes [ ] No [ ] Unable to determine For continuity of documentation, please document condition throughout progress notes and discharge summary. Thank You. CLINICAL INDICATORS - SIGNS / SYMPTOMS/ LABS are present in the medical record: TROPONIN: 05-18-17: 0.053 0.051 0.056 RISK FACTORS: H&P: HX OF CHF, CKD 3, HX OF VALVULAR HEART DISEASE, HTN, HYPERLIPIDEMIA, JUST DISCHARGED WITH CHF EXACERBATION TREATMENT: SERIES OF LABS (This form is maintained as a part of the permanent medical record) 2014 [employer] All Rights Reserved JUAN ANTONIO [email or web address] Office: [phone] [facility] BROTHERS MEDICAL CENTERLeelee
--- NOTE | 2017-05-19 14:49 | PDOC.EVN ---
Event Note - Event Note Event Note: Pt seen and examined. chart reviewed in detail. Cont Cochicine.if no improvement,may add NSAID depending on renal Fx. Troponin elevated brandenley due to demand ischemia. cont .IV lasix for Ac CHF. Stirct I/os.
[2017-05-19] MEDS: Warfarin Sodium 5 MG TAB PO SCH (16:34)
[2017-05-19] MEDS: Insulin Detemir 100 UNITS/ML 10 UNITS in Pre-Filled Syringe 1 EACH SC SCH (21:31)
[2017-05-19] MEDS: Atorvastatin Calcium 10 MG TAB PO SCH (21:31)
[2017-05-20 06:03] LABS: INR-International Normal Ratio 1.7; Prothrombin Time 20.2 SEC (12.0-14.7)
[2017-05-20 06:19] LABS: Anion Gap 14 mmol/L (10-20); BUN (Urea Nitrogen) 34 mg/dL (9.8-20.1); Calc. Creatinine Clearance 61 mL/min (70-130); Calcium 8.7 mg/dL (7.8-10.44); Carbon Dioxide 28 mmol/L (23-31); Chloride 98 mmol/L (98-107); Estimated GFR-MDRD 45; Glucose 220 mg/dL (83-110); Magnesium 1.6 mg/dL (1.6-2.6); Potassium 4.6 mmol/L (3.5-5.1); Sodium 135 mmol/L (136-145); Uric Acid 14.4 mg/dL (2.6-6.0)
[2017-05-20 06:33] LABS: Eosinophils 1 % (0-10); Hemoglobin 8.5 g/dL (12.0-16.0); Lymphocytes 35 % (21-51); MDiff Complete? YES; Mean Corpuscular HGB CONC 31.8 g/dL (32.0-36.0); Mean Corpuscular Hemoglobin 29.1 pg (27.0-31.0); Mean Corpuscular Volume 91.8 fl (81.0-99.0); Mean Platelet Volume 8.4 fL (7.4-10.4); Monocytes 7 % (0-10); Neutrophil 57 % (42-75); PLT Morphology Comment Appears Decreased; Platelet Count 125 thou/uL (130-400); RBC Distribution Width 17.3 % (11.5-14.5); Red Blood Cell (RBC) Count 2.91 mill/uL (4.20-5.40); White Blood Cell (WBC) Count 4.6 thou/uL (4.8-10.8)
[2017-05-20] MEDS: Furosemide 40 MG/4 ML VIAL SLOW IVP SCH ×2 (06:48→13:42)
[2017-05-20] MEDS: HumaLOG 300 UNITS/3 ML VIAL SC PRN ×4 (06:48→20:44)
[2017-05-20] MEDS: HYDROcodone/Acetaminophen 5/325 mg Tablet PO PRN ×3 (07:30→20:38)
[2017-05-20] MEDS: glipiZIDE 10 MG TAB PO SCH ×2 (07:31→18:35)
[2017-05-20] MEDS: Gabapentin 300 MG CAP PO SCH ×2 (08:03→20:38)
[2017-05-20] MEDS: Carvedilol 6.25 MG TAB PO SCH ×2 (08:03→18:35)
[2017-05-20] MEDS: Spironolactone 25 MG TAB PO SCH (08:03)
[2017-05-20] MEDS: Aspirin 81 mg Enteric Coated Tablet PO SCH (08:03)
[2017-05-20] MEDS: Colchicine 0.6 MG TAB PO SCH ×2 (08:04→20:38)
--- NOTE | 2017-05-20 14:13 | PRG ---
DATE OF SERVICE: 05/20/2017 SUBJECTIVE: The patient seen and examined at bedside. She is still in a lot of pain in both wrists, more on the right side than on the left side. Her appetite is somewhat diminished. OBJECTIVE: VITAL SIGNS: Blood pressure is 124/61, pulse is 77, temperature is 98.6, respiratory rate is 18, and pulse oximetry 95% on room air. HEENT: Head is atraumatic, normocephalic. Eyes are PERRLA. Conjunctivae pinkish. Sclerae nonicter ic. Oral mucosa is moist. NECK: Supple, no lymphadenopathy. Thyroid is not palpable. LUNGS: Clear, maybe breath sounds slightly diminished at both bases, but no crackles, rales or wheez ing. CARDIOVASCULAR: S1, S2 normal, no S3, no S4, no murmur. ABDOMEN: Soft, nontender, nondistended. Bowel sounds are present, no organomegaly. EXTREMITIES: Both lower extremities wrapped with ice wraps, showing some swelling of the skin above the upper edge of the wrap. NEUROLOGIC: She is alert and oriented x4. There is not any sensorimotor deficit present. Cranial n erves are intact. LABORATORY DATA: Showed a white count of 4.6, hemoglobin 8.5, hematocrit 26.7, platelet count is 125 ,000. INR is 1.7, PT of 20.2. Sodium of 135, potassium 4.6, chloride 98, CO2 28, BUN 34, creatinine 1.16, glucose is ranging from 186 to 331, uric acid is 14.4, magnesium 1.6. BNP 736.4. IMPRESSION: 1. Congestive heart failure, combined systolic with diastolic. Last echo in March showed EF of 25 -30% and grade 2/3 diastolic dysfunction with increased pulmonary artery pressure around 50 with mode rate to severe aortic stenosis. 2. Diabetes mellitus type 2. 3. Hyperlipidemia. 4. Anemia. 5. Hypertension. 6. Chronic kidney disease stage 3. 7. Acute gouty arthritis, both wrists and ankles, placed on colchicine twice a day. PLAN: Continue current regimen as she seems to be responding to the treatment. Her uric acid is up to 14.4, this is most likely secondary to a long diuretic use for her CHF. At some point she will ne ed to have allopurinol started when the inflammatory process is under better control. She will be wa tched closely and her Lasix doses will be adjusted, will have to be switched to p.o. if her creatinin e goes up with IV diuretic. She is on a fluid restriction and we will continue that. She is on DVT prophylaxis. She is on Coumadin and a subtherapeutic level, so she is going to have additional 2.5 m g of Coumadin tonight on the top of her regular schedule. We will continue her PT and INRs daily and kidney function daily. We are also going to obtain some iron studies since she is anemic with anshu l MCV.
[2017-05-20] MEDS ORDERED: Warfarin Sodium 2.5 MG TAB PO SCH (17:00)
[2017-05-20] MEDS: Warfarin Sodium 5 MG TAB PO SCH (18:42)
[2017-05-20] MEDS: Atorvastatin Calcium 10 MG TAB PO SCH (20:38)
[2017-05-20] MEDS: Insulin Detemir 100 UNITS/ML 10 UNITS in Pre-Filled Syringe 1 EACH SC SCH (20:44)
[2017-05-21 06:01] LABS: Anion Gap 13 mmol/L (10-20); BUN (Urea Nitrogen) 36 mg/dL (9.8-20.1); Calc. Creatinine Clearance 55 mL/min (70-130); Calcium 8.6 mg/dL (7.8-10.44); Carbon Dioxide 27 mmol/L (23-31); Chloride 99 mmol/L (98-107); Estimated GFR-MDRD 40; Glucose 188 mg/dL (83-110); Iron 36 ug/dL (50-170); Iron Binding Capacity, Total 203 mcg/dL (265-497); Potassium 4.2 mmol/L (3.5-5.1); Sodium 135 mmol/L (136-145)
[2017-05-21 06:07] LABS: Troponin I 0.038 ng/mL (< 0.028)
[2017-05-21] MEDS: Furosemide 40 MG/4 ML VIAL SLOW IVP SCH ×2 (06:46→13:30)
[2017-05-21] MEDS: HYDROcodone/Acetaminophen 5/325 mg Tablet PO PRN ×3 (08:28→21:06)
[2017-05-21] MEDS: Aspirin 81 mg Enteric Coated Tablet PO SCH (08:29)
[2017-05-21] MEDS ORDERED: hydrALAZINE 20 MG/ML VIAL SLOW IVP PRN (08:29)
[2017-05-21] MEDS: Colchicine 0.6 MG TAB PO SCH ×2 (08:29→21:00)
[2017-05-21] MEDS ORDERED: Loratadine 10 MG TAB PO PRN (08:29)
[2017-05-21] MEDS ORDERED: Zolpidem Tartrate 5 MG TAB PO PRN (08:29)
[2017-05-21] MEDS: Gabapentin 300 MG CAP PO SCH ×2 (08:29→20:59)
[2017-05-21] MEDS: Spironolactone 25 MG TAB PO SCH (08:29)
[2017-05-21] MEDS ORDERED: Diabetic Tussin 200 MG/10 ML UDCUP PO PRN (08:29)
[2017-05-21] MEDS ORDERED: Senokot 8.6 MG TAB PO PRN (08:29)
[2017-05-21] MEDS ORDERED: Ondansetron HCl/PF 4 MG/2 ML Vial IVP PRN (08:29)
[2017-05-21] MEDS ORDERED: Artificial Tears 18 DROP/0.9 ML EA EYE PRN (08:29)
[2017-05-21] MEDS: glipiZIDE 10 MG TAB PO SCH ×2 (08:29→18:24)
[2017-05-21] MEDS ORDERED: Chloraseptic Spray 180 ml Bottle PO PRN (08:29)
[2017-05-21] MEDS ORDERED: Milk Of Magnesia 30 ML UDCUP PO PRN (08:29)
[2017-05-21] MEDS ORDERED: Eucerin (Mineral Oil/Petrolatum,White) 30 gm Jar TOP PRN (08:29)
[2017-05-21] MEDS ORDERED: Mag-Al 1200 mg/1200 mg/30 ML UDCUP PO PRN (08:29)
[2017-05-21] MEDS: Carvedilol 6.25 MG TAB PO SCH ×2 (08:29→18:24)
[2017-05-21] MEDS: HumaLOG 300 UNITS/3 ML VIAL SC PRN ×2 (08:35→18:28)
[2017-05-21] MEDS ORDERED: Bisacodyl 10 MG SUPP PR PRN (11:33)
--- NOTE | 2017-05-21 11:50 | EKG ---
Test Reason : EMERGENCY EXAM Blood Pressure : / mmHG Vent. Rate : 089 BPM Atrial Rate : 089 BPM P-R Int : 144 ms QRS Dur : 124 ms QT Int : 410 ms P-R-T Axes : 001 -07 154 degrees QTc Int : 498 ms Sinus rhythm with marked sinus arrhythmia with occasional Premature ventricular complexes Left bundle branch block No STEMI Abnormal ECG Confirmed by FLORENCE Hartman, BEBE ([id number]), film editor NEGRITA EUGENE ([id number]) on 05/21/2017 11:49:40 AM Referred By: Confirmed By:BEBE HENRIQUEZ M.D.
--- NOTE | 2017-05-21 12:13 | PDOC.PN ---
- Subjective Encounter Start Date: 05/21/17 Encounter Start Time: 08:30 -: old records requested/rev Patient seen and examined. No overnight events c/o constipation - Objective Resuscitation Status: Resuscitation Status FULL:Full Resuscitation MAR Reviewed: Yes Vital Signs & Weight: Vital Signs (12 hours) Temp Pulse Pulse Pulse Resp BP BP 05/21/17 08:47 98.2 F 72 18 05/21/17 07:59 71 74 132/62 151/64 H 05/21/17 04:00 98.1 F 69 20 BP Pulse Ox Pulse Ox 05/21/17 08:47 146/67 H 94 L 05/21/17 07:59 92 L 05/21/17 04:00 133/60 94 L Weight Admit Weight 210 lb Weight 210 lb I&O: 05/20/17 05/21/17 05/22/17 06:59 06:59 06:59 Intake Total 440 960 Output Total 920 1700 Balance -480 -740 Result Diagrams: 05/20/17 05:14 05/21/17 05:03 Additional Labs: Accuchecks 05/21/17 05/21/17 05/20/17 11:04 05:42 20:23 POC Glucose 176 H 196 H 241 H 05/20/17 17:04 POC Glucose 202 H EKG Reviewed by me: Yes Phys Exam - Physical Examination Constitutional: NAD HEENT: PERRLA, moist MMs, sclera anicteric Neck: no JVD, supple Respiratory: no wheezing, no rales, no rhonchi Cardiovascular: RRR, no rub SM+ Gastrointestinal: soft, non-tender, no distention, positive bowel sounds Musculoskeletal: pulses present, edema present Neurological: non-focal, normal sensation Lymphatic: no nodes Psychiatric: normal affect, A&O x 3 Skin: no rash, normal turgor Dx/Plan (1) Acute on chronic combined systolic and diastolic congestive heart failure Code(s): I50.43 - ACUTE ON CHRONIC COMBINED SYSTOLIC AND DIASTOLIC HRT FAIL Status: Acute (2) Demand ischemia Code(s): I24.8 - OTHER FORMS OF ACUTE ISCHEMIC HEART DISEASE Status: Acute (3) Gout flare Code(s): M10.9 - GOUT, UNSPECIFIED Status: Acute Comment: (4) Anemia, normocytic normochromic Code(s): D64.9 - ANEMIA, UNSPECIFIED Status: Chronic (5) Aortic valve disease Code(s): I35.9 - NONRHEUMATIC AORTIC VALVE DISORDER, UNSPECIFIED Status: Chronic Comment: (6) CKD (chronic kidney disease) stage 3, GFR 30-59 ml/min Code(s): N18.3 - CHRONIC KIDNEY DISEASE, STAGE 3 (MODERATE) Status: Chronic (7) Chronic anticoagulation Code(s): Z79.01 - [facility]CI (CURRENT) USE OF ANTICOAGULANTS Status: Chronic (8) DM2 (diabetes mellitus, type 2) Status: Chronic Qualifiers: Comment: (9) HLD (hyperlipidemia) Code(s): E78.5 - HYPERLIPIDEMIA, UNSPECIFIED Status: Chronic Qualifiers: (10) HTN (hypertension) Code(s): I10 - ESSENTIAL (PRIMARY) HYPERTENSION Status: Chronic Qualifiers: Comment: (11) Obesity (BMI 30-39.9) Code(s): E66.9 - OBESITY, UNSPECIFIED Status: Chronic (12) Prosthetic replacement of heart valve Code(s): Z95.2 - PRESENCE OF PROSTHETIC HEART VALVE Status: Chronic - Plan cont current plan of care * start lisinopril 2.5 mg po daily * continue aldactone and coreg * medication reviewed as below * symptomatic treatment. Review of Systems - Review of Systems ENT: negative: Ear Pain, Ear Discharge, Nose Pain, Nose Discharge, Nose Congestion, Mouth Pain, Mouth Swelling, Throat Pain, Throat Swelling, Other Respiratory: negative: Cough, Dry, Shortness of Breath, Hemoptysis, SOB with Excertion, Pleuritic Pain, Sputum, Wheezing Cardiovascular: negative: chest pain, palpitations, orthopnea, paroxysmal nocturnal dyspnea, edema, light headedness, other Gastrointestinal: Constipation. negative: Nausea, Vomiting, Abdominal Pain, Diarrhea, Melena, Hematochezia, Other Genitourinary: negative: Dysuria, Frequency, Incontinence, Hematuria, Retention , Other Musculoskeletal: negative: Neck Pain, Shoulder Pain, Arm Pain, Back Pain, Hand Pain, Leg Pain, Foot Pain, Other Skin: negative: Rash, Lesions, Chintan, Bruising, Other - Medications/Allergies Allergies/Adverse Reactions: Allergies Allergy/AdvReac Type Severity Reaction Status Date / Time No Known Allergies Allergy Verified 05/19/17 00:17 Medications: Current Medications Acetaminophen (Tylenol) 650 mg PO Q4H PRN PRN Reason: Headache/Fever or Pain Hydrocodone Bitart/Acetaminophen ([place] 5/325) 1 tab PO Q4H PRN PRN Reason: Moderate Pain (4-6) Last Admin: 05/21/17 08:28 Dose: 1 tab Al Hydroxide/Mg Hydroxide (Maalox) 15 ml PO Q4H PRN PRN Reason: Heartburn or Indigestion Artificial Tears (Tears Naturale) 0 drop EA EYE PRN PRN PRN Reason: Dry Eyes Aspirin (Ecotrin) 81 mg PO DAILY [facility] Last Admin: 05/21/17 08:29 Dose: 81 mg Atorvastatin Calcium (Lipitor) 10 mg PO HS [facility] Last Admin: 05/20/17 20:38 Dose: 10 mg Bisacodyl (Dulcolax) 10 mg WA Q8H PRN PRN Reason: Constipation Carvedilol (Coreg) 6.25 mg PO BID-[facility] Last Admin: 05/21/17 08:29 Dose: 6.25 mg Colchicine (Colcrys) 0.6 mg PO BID [facility] Last Admin: 05/21/17 08:29 Dose: 0.6 mg Dextrose/Water (Dextrose 50%) 25 gm SLOW IVP PRN PRN PRN Reason: Hypoglycemia Diphenhydramine HCl (Benadryl) 25 mg PO DAILYPRN PRN PRN Reason: Sinus Symptoms Famotidine (Pepcid) 20 mg PO DAILY [facility] Furosemide (Lasix) 40 mg SLOW IVP 0600,1400 [facility] Last Admin: 05/21/17 06:46 Dose: 40 mg Gabapentin (Neurontin) 300 mg PO BID [facility] Last Admin: 05/21/17 08:29 Dose: 300 mg Glipizide (Glucotrol) 10 mg PO BID-AC [facility] Last Admin: 05/21/17 08:29 Dose: 10 mg Glucagon (Glucagon) 1 mg IM PRN PRN PRN Reason: Hypoglycemia Guaifenesin (Robitussin Sf) 200 mg PO Q4H PRN PRN Reason: Cough Hydralazine HCl (Apresoline) 10 mg SLOW IVP Q4H PRN PRN Reason: Systolic BP > 180 Dextrose/Water (D5w) 1,000 mls @ 0 mls/hr IV .Q0M PRN; As Directed PRN Reason: Hypoglycemia Insulin Detemir 10 units/ (Miscellaneous Medication) 0.1 mls @ 0 mls/hr [facility] Last Admin: 05/20/17 20:44 Dose: 0.1 mls Insulin Human Lispro (Humalog) 0 units SC .MILD SLIDING SCALE PRN PRN Reason: Mild Correctional Scale Last Admin: 05/21/17 08:35 Dose: 2 unit Loperamide HCl (Imodium) 2 mg PO PRN PRN PRN Reason: Diarrhea/Loose Stools Loratadine (Claritin) 10 mg PO DAILYPRN PRN PRN Reason: Sinus Symptoms Magnesium Hydroxide (Milk Of Magnesium) 30 ml PO DAILYPRN PRN PRN Reason: Constipation Mineral Oil/White Petrolatum (Eucerin Cream) 0 gm TOP BIDPRN PRN PRN Reason: Dry Skin Ondansetron HCl (Zofran Odt) 4 mg PO Q6H PRN PRN Reason: Nausea/Vomiting Ondansetron HCl (Zofran) 4 mg IVP Q6H PRN PRN Reason: Nausea/Vomiting Pantoprazole Sodium (Protonix) 40 mg PO DAILY [facility] Last Admin: 05/21/17 08:29 Dose: 40 mg Phenol (Chloraseptic [place] 180 Ml Bot) 0 ml PO PRN PRN PRN Reason: Sore Throat Senna (Senokot) 2 tab PO HSPRN PRN PRN Reason: Constipation Sodium Chloride (Flush - Normal Saline) 10 ml IVF Q12HR [facility] Sodium Chloride (Flush - Normal Saline) 10 ml IVF PRN PRN PRN Reason: Saline Flush Spironolactone (Aldactone) 25 mg PO QAM-WM [facility] Last Admin: 05/21/17 08:29 Dose: 25 mg Warfarin Sodium (Coumadin) 2.5 mg PO MoFr [facility] Warfarin Sodium (Coumadin) 5 mg PO SuTuWeThSa [facility] Last Admin: 05/20/17 18:42 Dose: 5 mg Zolpidem Tartrate (Ambien) 5 mg PO HSPRN PRN PRN Reason: Insomnia
[2017-05-21] MEDS: Famotidine 20 MG TAB PO SCH (13:31)
[2017-05-21] MEDS ORDERED: Warfarin Sodium 2.5 MG TAB PO SCH (17:00)
[2017-05-21] MEDS: Insulin Detemir 100 UNITS/ML 10 UNITS in Pre-Filled Syringe 1 EACH SC SCH (21:00)
[2017-05-21] MEDS: Atorvastatin Calcium 10 MG TAB PO SCH (21:00)
[2017-05-22] MEDS: Furosemide 40 MG/4 ML VIAL SLOW IVP SCH ×2 (05:31→14:49)
[2017-05-22] MEDS: HYDROcodone/Acetaminophen 5/325 mg Tablet PO PRN ×2 (06:01→21:37)
[2017-05-22 06:51] LABS: Hemoglobin 8.8 g/dL (12.0-16.0); Platelet Count 123 thou/uL (130-400)
[2017-05-22 06:57] LABS: INR-International Normal Ratio 2.6; Prothrombin Time 28.7 SEC (12.0-14.7)
[2017-05-22] MEDS ORDERED: Ferrous Sulfate 325 MG TAB PO SCH (09:00)
[2017-05-22] MEDS: Gabapentin 300 MG CAP PO SCH ×2 (09:27→21:28)
[2017-05-22] MEDS: Famotidine 20 MG TAB PO SCH (09:27)
[2017-05-22] MEDS: Aspirin 81 mg Enteric Coated Tablet PO SCH (09:28)
[2017-05-22] MEDS: Spironolactone 25 MG TAB PO SCH (09:28)
[2017-05-22] MEDS: Colchicine 0.6 MG TAB PO SCH ×2 (09:28→21:27)
[2017-05-22] MEDS: glipiZIDE 10 MG TAB PO SCH ×2 (09:28→17:41)
[2017-05-22] MEDS: Lisinopril 2.5 MG TAB PO SCH (09:30)
[2017-05-22] MEDS: Carvedilol 6.25 MG TAB PO SCH ×2 (09:30→17:41)
--- NOTE | 2017-05-22 10:55 | PDOC.PN ---
- Subjective Encounter Start Date: 05/22/17 Encounter Start Time: 08:00 Patient seen and examined. No new complaints. No overnight events - Objective Resuscitation Status: Resuscitation Status FULL:Full Resuscitation MAR Reviewed: Yes Vital Signs & Weight: Vital Signs (12 hours) Temp Pulse Resp BP BP BP Pulse Ox 05/22/17 09:30 65 145/66 H 05/22/17 08:00 97.2 F L 65 17 145/66 H 95 05/22/17 04:00 97.8 F 65 20 123/59 L 96 05/22/17 00:00 97.6 F 64 20 126/59 L 94 L Weight Admit Weight 210 lb Weight 203 lb 14.4 oz I&O: 05/21/17 05/22/17 05/23/17 06:59 06:59 06:59 Intake Total 960 960 Output Total 1700 1500 Balance -740 -540 Result Diagrams: 05/22/17 06:24 05/21/17 05:03 Additional Labs: Accuchecks 05/22/17 05/21/17 05/21/17 05:39 21:00 16:43 POC Glucose 86 125 H 173 H 05/21/17 05/20/17 11:04 11:42 POC Glucose 176 H 200 H EKG Reviewed by me: Yes Phys Exam - Physical Examination Constitutional: NAD HEENT: PERRLA, moist MMs, sclera anicteric Neck: no JVD, supple Respiratory: no wheezing, no rales, no rhonchi Cardiovascular: RRR, no significant murmur, no rub Gastrointestinal: soft, non-tender, no distention, positive bowel sounds Musculoskeletal: no edema, pulses present Neurological: non-focal, normal sensation Lymphatic: no nodes Psychiatric: normal affect, A&O x 3 Skin: no rash, normal turgor Dx/Plan (1) Acute on chronic combined systolic and diastolic congestive heart failure Code(s): I50.43 - ACUTE ON CHRONIC COMBINED SYSTOLIC AND DIASTOLIC HRT FAIL Status: Acute (2) Demand ischemia Code(s): I24.8 - OTHER FORMS OF ACUTE ISCHEMIC HEART DISEASE Status: Acute (3) Gout flare Code(s): M10.9 - GOUT, UNSPECIFIED Status: Acute Comment: (4) Anemia, normocytic normochromic Code(s): D64.9 - ANEMIA, UNSPECIFIED Status: Chronic (5) Aortic valve disease Code(s): I35.9 - NONRHEUMATIC AORTIC VALVE DISORDER, UNSPECIFIED Status: Chronic Comment: (6) CKD (chronic kidney disease) stage 3, GFR 30-59 ml/min Code(s): N18.3 - CHRONIC KIDNEY DISEASE, STAGE 3 (MODERATE) Status: Chronic (7) Chronic anticoagulation Code(s): Z79.01 - SHELTER (CURRENT) USE OF ANTICOAGULANTS Status: Chronic (8) DM2 (diabetes mellitus, type 2) Status: Chronic Qualifiers: Comment: (9) HLD (hyperlipidemia) Code(s): E78.5 - HYPERLIPIDEMIA, UNSPECIFIED Status: Chronic Qualifiers: (10) HTN (hypertension) Code(s): I10 - ESSENTIAL (PRIMARY) HYPERTENSION Status: Chronic Qualifiers: Comment: (11) Obesity (BMI 30-39.9) Code(s): E66.9 - OBESITY, UNSPECIFIED Status: Chronic (12) Prosthetic replacement of heart valve Code(s): Z95.2 - PRESENCE OF PROSTHETIC HEART VALVE Status: Chronic - Plan cont current plan of care * still not euvolemic, will need diuresis * medication reviewed as below * symptomatic treatment * repeat labs tomorrow. * reduce warfarin to 2.5 mg po daily Review of Systems - Review of Systems ENT: negative: Ear Pain, Ear Discharge, Nose Pain, Nose Discharge, Nose Congestion, Mouth Pain, Mouth Swelling, Throat Pain, Throat Swelling, Other Respiratory: negative: Cough, Dry, Shortness of Breath, Hemoptysis, SOB with Excertion, Pleuritic Pain, Sputum, Wheezing Cardiovascular: negative: chest pain, palpitations, orthopnea, paroxysmal nocturnal dyspnea, edema, light headedness, other Gastrointestinal: negative: Nausea, Vomiting, Abdominal Pain, Diarrhea, Constipation, Melena, Hematochezia, Other Genitourinary: negative: Dysuria, Frequency, Incontinence, Hematuria, Retention , Other Musculoskeletal: negative: Neck Pain, Shoulder Pain, Arm Pain, Back Pain, Hand Pain, Leg Pain, Foot Pain, Other Skin: negative: Rash, Lesions, Chintan, Bruising, Other - Medications/Allergies Allergies/Adverse Reactions: Allergies Allergy/AdvReac Type Severity Reaction Status Date / Time No Known Allergies Allergy Verified 05/19/17 00:17 Medications: Current Medications Acetaminophen (Tylenol) 650 mg PO Q4H PRN PRN Reason: Headache/Fever or Pain Hydrocodone Bitart/Acetaminophen ([place] 5/325) 1 tab PO Q4H PRN PRN Reason: Moderate Pain (4-6) Last Admin: 05/22/17 06:01 Dose: 1 tab Al Hydroxide/Mg Hydroxide (Maalox) 15 ml PO Q4H PRN PRN Reason: Heartburn or Indigestion Artificial Tears (Tears Naturale) 0 drop EA EYE PRN PRN PRN Reason: Dry Eyes Aspirin (Ecotrin) 81 mg PO DAILY [facility] Last Admin: 05/22/17 09:28 Dose: 81 mg Atorvastatin Calcium (Lipitor) 10 mg PO HS [facility] Last Admin: 05/21/17 21:00 Dose: 10 mg Bisacodyl (Dulcolax) 10 mg [place] Q8H PRN PRN Reason: Constipation Last Admin: 05/21/17 16:59 Dose: 10 mg Carvedilol (Coreg) 6.25 mg PO BID-[facility] Last Admin: 05/22/17 09:30 Dose: 6.25 mg Colchicine (Colcrys) 0.6 mg PO BID [facility] Last Admin: 05/22/17 09:28 Dose: 0.6 mg Dextrose/Water (Dextrose 50%) 25 gm SLOW IVP PRN PRN PRN Reason: Hypoglycemia Diphenhydramine HCl (Benadryl) 25 mg PO DAILYPRN PRN PRN Reason: Sinus Symptoms Famotidine (Pepcid) 20 mg PO DAILY [facility] Last Admin: 05/22/17 09:27 Dose: 20 mg Ferrous Sulf[facility] ([facility]ol) [facility] Furosemide (Lasix) 40 mg SLOW IVP 0600,1400 [facility] Last Admin: 05/22/17 05:31 Dose: 40 mg Gabapentin (Neurontin) 300 mg PO BID [facility] Last Admin: 05/22/17 09:27 Dose: 300 mg Glipizide (Glucotrol) 10 mg PO BID-[facility] Last Admin: 05/22/17 09:28 Dose: 10 mg Glucagon (Glucagon) 1 mg IM PRN PRN PRN Reason: Hypoglycemia Guaifenesin (Robitussin Sf) 200 mg PO Q4H PRN PRN Reason: Cough Hydralazine HCl (Apresoline) 10 mg SLOW IVP Q4H PRN PRN Reason: Systolic BP > 180 Dextrose/Water (D5w) 1,000 mls @ 0 mls/hr IV .Q0M PRN; As Directed PRN Reason: Hypoglycemia Insulin Detemir 10 units/ (Miscellaneous Medication) 0.1 mls @ 0 mls/hr SC [facility] Last Admin: 05/21/17 21:00 Dose: 0.1 mls Insulin Human Lispro (Humalog) 0 units [place] .MILD SLIDING SCALE PRN PRN Reason: Mild Correctional Scale Last Admin: 05/21/17 18:28 Dose: 2 unit Lisinopril (Zestril) 2.5 mg PO DAILY [facility] Last Admin: 05/22/17 09:30 Dose: 2.5 mg Loperamide HCl (Imodium) 2 mg PO PRN PRN PRN Reason: Diarrhea/Loose Stools Loratadine (Claritin) 10 mg PO DAILYPRN PRN PRN Reason: Sinus Symptoms Magnesium Hydroxide (Milk Of Magnesium) 30 ml PO DAILYPRN PRN PRN Reason: Constipation Mineral Oil/White Petrolatum (Eucerin Cream) 0 gm TOP BIDPRN PRN PRN Reason: Dry Skin Ondansetron HCl (Zofran Odt) 4 mg PO Q6H PRN PRN Reason: Nausea/Vomiting Ondansetron HCl (Zofran) 4 mg IVP Q6H PRN PRN Reason: Nausea/Vomiting Pantoprazole Sodium (Protonix) 40 mg PO DAILY [facility] Last Admin: 05/22/17 09:28 Dose: 40 mg Phenol (Chloraseptic [place] 180 Ml Bot) 0 ml PO PRN PRN PRN Reason: Sore Throat Senna (Senokot) 2 tab PO HSPRN PRN PRN Reason: Constipation Sodium Chloride (Flush - Normal Saline) 10 ml IVF Q12HR [facility] Last Admin: 05/22/17 09:31 Dose: 10 ml Sodium Chloride (Flush - Normal Saline) 10 ml IVF PRN PRN PRN Reason: Saline Flush Spironolactone (Aldactone) 25 mg PO QAM-WM [facility] Last Admin: 05/22/17 09:28 Dose: 25 mg Warfarin Sodium (Coumadin) 2.5 mg PO 1700 [facility] Zolpidem Tartrate (Ambien) 5 mg PO HSPRN PRN PRN Reason: Insomnia
[2017-05-22] MEDS ORDERED: Warfarin Sodium 2.5 MG TAB PO SCH (17:00)
[2017-05-22] MEDS: Loperamide HCl 2 MG CAP PO PRN (19:15)
[2017-05-22] MEDS: Ondansetron ODT 4 MG TAB PO PRN (19:15)
[2017-05-22] MEDS: Atorvastatin Calcium 10 MG TAB PO SCH (21:27)
[2017-05-22] MEDS: Insulin Detemir 100 UNITS/ML 10 UNITS in Pre-Filled Syringe 1 EACH SC SCH (21:28)
[2017-05-23] MEDS: Furosemide 40 MG/4 ML VIAL SLOW IVP SCH ×2 (05:47→09:34)
[2017-05-23] MEDS: Loperamide HCl 2 MG CAP PO PRN (05:47)
[2017-05-23] MEDS: Ondansetron ODT 4 MG TAB PO PRN (05:48)
[2017-05-23 06:22] LABS: #Eosinphils 0.1 thou/uL (0.0-0.7); #Lymphocytes 1.1 thou/uL (1.20-3.40); #Monocytes 0.2 thou/uL (0.11-0.59); #Neutrophils 1.3 thou/uL (1.40-6.50); %Basophils 0.9 % (0.0-1.0); %Eosinophils 1.9 % (0.0-10.0); %Lymphocytes 39.9 % (21.0-51.0); %Neutrophils 48.2 % (42.0-75.0); Hemoglobin 9.2 g/dL (12.0-16.0); Mean Corpuscular HGB CONC 31.1 g/dL (32.0-36.0); Mean Corpuscular Volume 93.2 fl (81.0-99.0); Mean Platelet Volume 7.9 fL (7.4-10.4); Platelet Count 128 thou/uL (130-400); RBC Distribution Width 17.1 % (11.5-14.5); Red Blood Cell (RBC) Count 3.18 mill/uL (4.20-5.40); White Blood Cell (WBC) Count 2.7 thou/uL (4.8-10.8)
[2017-05-23 06:27] LABS: Prothrombin Time 32.4 SEC (12.0-14.7)
[2017-05-23 06:41] LABS: Anion Gap 11 mmol/L (10-20); BUN (Urea Nitrogen) 29 mg/dL (9.8-20.1); Calc. Creatinine Clearance 55 mL/min (70-130); Calcium 8.7 mg/dL (7.8-10.44); Carbon Dioxide 32 mmol/L (23-31); Chloride 98 mmol/L (98-107); Estimated GFR-MDRD 42; Glucose 110 mg/dL (83-110); Magnesium 1.4 mg/dL (1.6-2.6); Potassium 3.8 mmol/L (3.5-5.1); Sodium 137 mmol/L (136-145)
[2017-05-23] MEDS ORDERED: Magnesium Sulfate 3 GM in Sodium Chloride 0.9% 100 ML IVPB SCH (08:00)
[2017-05-23] MEDS: Gabapentin 300 MG CAP PO SCH ×2 (09:31→21:41)
[2017-05-23] MEDS: Ferrous Sulfate 325 MG TAB PO SCH (09:31)
[2017-05-23] MEDS: glipiZIDE 10 MG TAB PO SCH ×2 (09:31→18:23)
[2017-05-23] MEDS: Carvedilol 6.25 MG TAB PO SCH ×2 (09:32→18:21)
[2017-05-23] MEDS: Famotidine 20 MG TAB PO SCH (09:32)
[2017-05-23] MEDS: Lisinopril 2.5 MG TAB PO SCH (09:33)
[2017-05-23] MEDS: Aspirin 81 mg Enteric Coated Tablet PO SCH (09:33)
[2017-05-23] MEDS: Spironolactone 25 MG TAB PO SCH (09:35)
--- NOTE | 2017-05-23 10:17 | PDOC.PN ---
- Subjective Encounter Start Date: 05/23/17 Encounter Start Time: 08:40 Patient seen and examined. c/o diarrhoea and nausea. No overnight events - Objective Resuscitation Status: Resuscitation Status FULL:Full Resuscitation MAR Reviewed: Yes Vital Signs & Weight: Vital Signs (12 hours) Temp Pulse Resp BP BP BP Pulse Ox 05/23/17 09:33 61 131/60 05/23/17 09:32 131/60 05/23/17 08:00 96.7 F L 61 18 131/60 92 L 05/23/17 04:37 97.5 F L 59 L 20 126/61 96 Weight Admit Weight 210 lb Weight 200 lb 9.6 oz I&O: 05/22/17 05/23/17 05/24/17 06:59 06:59 06:59 Intake Total 960 600 Output Total 1500 1801 Balance -540 -1201 Result Diagrams: 05/23/17 05:49 05/23/17 05:49 Additional Labs: Accuchecks 05/22/17 05/22/17 05/22/17 20:54 16:28 11:00 POC Glucose 138 H 125 H 96 EKG Reviewed by me: Yes Phys Exam - Physical Examination Constitutional: NAD HEENT: PERRLA, moist MMs, sclera anicteric Neck: no JVD, supple Respiratory: no wheezing, no rales, no rhonchi Cardiovascular: RRR, no significant murmur, no rub Gastrointestinal: soft, non-tender, no distention, positive bowel sounds Musculoskeletal: no edema, pulses present both leg with wilian bandage Neurological: non-focal, normal sensation, moves all 4 limbs Psychiatric: normal affect, A&O x 3 Skin: no rash, normal turgor Dx/Plan (1) Acute on chronic combined systolic and diastolic congestive heart failure Code(s): I50.43 - ACUTE ON CHRONIC COMBINED SYSTOLIC AND DIASTOLIC HRT FAIL Status: Acute (2) Demand ischemia Code(s): I24.8 - OTHER FORMS OF ACUTE ISCHEMIC HEART DISEASE Status: Acute (3) Gout flare Code(s): M10.9 - GOUT, UNSPECIFIED Status: Acute Comment: (4) Anemia, normocytic normochromic Code(s): D64.9 - ANEMIA, UNSPECIFIED Status: Chronic (5) Aortic valve disease Code(s): I35.9 - NONRHEUMATIC AORTIC VALVE DISORDER, UNSPECIFIED Status: Chronic Comment: (6) CKD (chronic kidney disease) stage 3, GFR 30-59 ml/min Code(s): N18.3 - CHRONIC KIDNEY DISEASE, STAGE 3 (MODERATE) Status: Chronic (7) Chronic anticoagulation Code(s): Z79.01 - HEARING SPECIALIST (CURRENT) USE OF ANTICOAGULANTS Status: Chronic (8) DM2 (diabetes mellitus, type 2) Status: Chronic Qualifiers: Comment: (9) HLD (hyperlipidemia) Code(s): E78.5 - HYPERLIPIDEMIA, UNSPECIFIED Status: Chronic Qualifiers: (10) HTN (hypertension) Code(s): I10 - ESSENTIAL (PRIMARY) HYPERTENSION Status: Chronic Qualifiers: Comment: (11) Obesity (BMI 30-39.9) Code(s): E66.9 - OBESITY, UNSPECIFIED Status: Chronic (12) Prosthetic replacement of heart valve Code(s): Z95.2 - PRESENCE OF PROSTHETIC HEART VALVE Status: Chronic - Plan cont current plan of care, 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, 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 * DC Colchicine * medication reviewed as below * symptomatic treatment * continue lasix * expecting discharge tomorrow Review of Systems - Review of Systems Constitutional: negative: fever, chills, sweats, weakness, malaise, other ENT: negative: Ear Pain, Ear Discharge, Nose Pain, Nose Discharge, Nose Congestion, Mouth Pain, Mouth Swelling, Throat Pain, Throat Swelling, Other Respiratory: negative: Cough, Dry, Shortness of Breath, Hemoptysis, SOB with Excertion, Pleuritic Pain, Sputum, Wheezing Cardiovascular: negative: chest pain, palpitations, orthopnea, paroxysmal nocturnal dyspnea, edema, light headedness, other Gastrointestinal: Nausea, Diarrhea. negative: Vomiting, Abdominal Pain, Constipation, Melena, Hematochezia, Other Genitourinary: negative: Dysuria, Frequency, Incontinence, Hematuria, Retention , Other Musculoskeletal: negative: Neck Pain, Shoulder Pain, Arm Pain, Back Pain, Hand Pain, Leg Pain, Foot Pain, Other Skin: negative: Rash, Lesions, Chintan, Bruising, Other - Medications/Allergies Allergies/Adverse Reactions: Allergies Allergy/AdvReac Type Severity Reaction Status Date / Time No Known Allergies Allergy Verified 05/19/17 00:17 Medications: Current Medications Acetaminophen (Tylenol) 650 mg PO Q4H PRN PRN Reason: Headache/Fever or Pain Hydrocodone Bitart/Acetaminophen ([place] 5/325) 1 tab PO Q4H PRN PRN Reason: Moderate Pain (4-6) Last Admin: 05/22/17 21:37 Dose: 1 tab Al Hydroxide/Mg Hydroxide (Maalox) 15 ml PO Q4H PRN PRN Reason: Heartburn or Indigestion Artificial Tears (Tears Naturale) 0 drop EA EYE PRN PRN PRN Reason: Dry Eyes Aspirin (Ecotrin) 81 mg PO DAILY [facility] Last Admin: 05/23/17 09:33 Dose: 81 mg Atorvastatin Calcium (Lipitor) 10 mg PO HS [facility] Last Admin: 05/22/17 21:27 Dose: 10 mg Bisacodyl (Dulcolax) 10 mg [place] Q8H PRN PRN Reason: Constipation Last Admin: 05/21/17 16:59 Dose: 10 mg Carvedilol (Coreg) 6.25 mg PO BID-[facility] Last Admin: 05/23/17 09:32 Dose: 6.25 mg Dextrose/Water (Dextrose 50%) 25 gm SLOW IVP PRN PRN PRN Reason: Hypoglycemia Diphenhydramine HCl (Benadryl) 25 mg PO DAILYPRN PRN PRN Reason: Sinus Symptoms Famotidine (Pepcid) 20 mg PO DAILY [facility] Last Admin: 05/23/17 09:32 Dose: 20 mg Ferrous Sulfate (Feosol) 325 mg PO QAM-[facility] Last Admin: 05/23/17 09:31 Dose: 325 mg Furosemide (Lasix) 40 mg SLOW IVP DAILY [facility] Last Admin: 05/23/17 09:34 Dose: 40 mg Gabapentin (Neurontin) 300 mg PO BID [facility] Last Admin: 05/23/17 09:31 Dose: 300 mg Glipizide (Glucotrol) 10 mg PO BID-[facility] Last Admin: 05/23/17 09:31 Dose: 10 mg Glucagon (Glucagon) 1 mg IM PRN PRN PRN Reason: Hypoglycemia Guaifenesin (Robitussin Sf) 200 mg PO Q4H PRN PRN Reason: Cough Hydralazine HCl (Apresoline) 10 mg SLOW IVP Q4H PRN PRN Reason: Systolic BP > 180 Dextrose/Water (D5w) 1,000 mls @ 0 mls/hr IV .Q0M PRN; As Directed PRN Reason: Hypoglycemia Insulin Detemir 10 units/ (Miscellaneous Medication) 0.1 mls @ 0 mls/hr SC [facility] Last Admin: 05/22/17 21:28 Dose: 0.1 mls Insulin Human Lispro (Humalog) 0 units [place] .MILD SLIDING SCALE PRN PRN Reason: Mild Correctional Scale Last Admin: 05/21/17 18:28 Dose: 2 unit Lisinopril (Zestril) 2.5 mg PO DAILY [facility] Last Admin: 05/23/17 09:33 Dose: 2.5 mg Loperamide HCl (Imodium) 2 mg PO PRN PRN PRN Reason: Diarrhea/Loose Stools Last Admin: 05/23/17 05:47 Dose: 2 mg Loratadine (Claritin) 10 mg PO DAILYPRN PRN PRN Reason: Sinus Symptoms Magnesium Hydroxide (Milk Of Magnesium) 30 ml PO DAILYPRN PRN PRN Reason: Constipation Mineral Oil/White Petrolatum (Eucerin Cream) 0 gm TOP BIDPRN PRN PRN Reason: Dry Skin Ondansetron HCl (Zofran Odt) 4 mg PO Q6H PRN PRN Reason: Nausea/Vomiting Last Admin: 05/23/17 05:48 Dose: 4 mg Ondansetron HCl (Zofran) 4 mg IVP Q6H PRN PRN Reason: Nausea/Vomiting Pantoprazole Sodium (Protonix) 40 mg PO DAILY [facility] Last Admin: 05/23/17 09:33 Dose: 40 mg Phenol (Chloraseptic [place] 180 Ml Bot) 0 ml PO PRN PRN PRN Reason: Sore Throat Senna (Senokot) 2 tab PO HSPRN PRN PRN Reason: Constipation Sodium Chloride (Flush - Normal Saline) 10 ml IVF Q12HR [facility] Last Admin: 05/23/17 09:34 Dose: 10 ml Sodium Chloride (Flush - Normal Saline) 10 ml IVF PRN PRN PRN Reason: Saline Flush Last Admin: 05/23/17 05:48 Dose: 10 ml Spironolactone (Aldactone) 25 mg PO QAM-WM [facility] Last Admin: 05/23/17 09:35 Dose: 25 mg Zolpidem Tartrate (Ambien) 5 mg PO HSPRN PRN PRN Reason: Insomnia
[2017-05-23] MEDS: Atorvastatin Calcium 10 MG TAB PO SCH (21:41)
[2017-05-23] MEDS: Insulin Detemir 100 UNITS/ML 10 UNITS in Pre-Filled Syringe 1 EACH SC SCH (22:02)
[2017-05-24 05:19] LABS: INR-International Normal Ratio 3.2; Prothrombin Time 34.6 SEC (12.0-14.7)
[2017-05-24 05:27] LABS: Anion Gap 14 mmol/L (10-20); BUN (Urea Nitrogen) 27 mg/dL (9.8-20.1); Calc. Creatinine Clearance 49 mL/min (70-130); Calcium 8.5 mg/dL (7.8-10.44); Carbon Dioxide 29 mmol/L (23-31); Chloride 97 mmol/L (98-107); Estimated GFR-MDRD 37; Glucose 137 mg/dL (83-110); Potassium 3.7 mmol/L (3.5-5.1); Sodium 136 mmol/L (136-145)
[2017-05-24] MEDS: Ondansetron ODT 4 MG TAB PO PRN (07:18)
[2017-05-24] MEDS: Loperamide HCl 2 MG CAP PO PRN (07:18)
[2017-05-24] MEDS: Gabapentin 300 MG CAP PO SCH ×2 (09:41→20:43)
[2017-05-24] MEDS: Spironolactone 25 MG TAB PO SCH (09:41)
[2017-05-24] MEDS: Aspirin 81 mg Enteric Coated Tablet PO SCH (09:42)
[2017-05-24] MEDS: Lisinopril 2.5 MG TAB PO SCH (09:42)
[2017-05-24] MEDS: Famotidine 20 MG TAB PO SCH (09:42)
[2017-05-24] MEDS: glipiZIDE 10 MG TAB PO SCH ×2 (09:42→18:21)
[2017-05-24] MEDS: Ferrous Sulfate 325 MG TAB PO SCH (09:42)
[2017-05-24] MEDS: Carvedilol 6.25 MG TAB PO SCH ×2 (09:42→18:21)
[2017-05-24] MEDS: Furosemide 40 MG/4 ML VIAL SLOW IVP SCH (09:43)
--- NOTE | 2017-05-24 11:23 | PDOC.PN ---
- Subjective Encounter Start Date: 05/24/17 Encounter Start Time: 08:30 Patient seen and examined. No overnight events pt has diarrhoea and nausea and vomiting she is not feeling good today - Objective Resuscitation Status: Resuscitation Status FULL:Full Resuscitation MAR Reviewed: Yes Vital Signs & Weight: Vital Signs (12 hours) Temp Pulse Resp BP BP Pulse Ox 05/24/17 09:42 66 115/58 L 05/24/17 07:45 97.9 F 66 17 115/58 L 92 L 05/24/17 04:10 97.6 F 67 18 115/55 L 94 L Weight Admit Weight 210 lb Weight 202 lb I&O: 05/23/17 05/24/17 05/25/17 06:59 06:59 06:59 Intake Total 600 720 Output Total 1801 1151 Balance -1201 -431 Result Diagrams: 05/23/17 05:49 05/24/17 04:24 Additional Labs: Accuchecks 05/23/17 05/23/17 05/23/17 20:47 16:56 11:35 POC Glucose 205 H 111 H 80 EKG Reviewed by me: Yes Phys Exam - Physical Examination Constitutional: NAD HEENT: PERRLA, moist MMs, sclera anicteric Neck: no JVD, supple Respiratory: no wheezing, no rales, no rhonchi Cardiovascular: RRR, no significant murmur, no rub Gastrointestinal: soft, non-tender, no distention, positive bowel sounds Musculoskeletal: no edema, pulses present Neurological: non-focal, normal sensation Lymphatic: no nodes Psychiatric: normal affect, A&O x 3 Skin: no rash, normal turgor Dx/Plan (1) Acute on chronic combined systolic and diastolic congestive heart failure Code(s): I50.43 - ACUTE ON CHRONIC COMBINED SYSTOLIC AND DIASTOLIC HRT FAIL Status: Acute (2) Demand ischemia Code(s): I24.8 - OTHER FORMS OF ACUTE ISCHEMIC HEART DISEASE Status: Acute (3) Gout flare Code(s): M10.9 - GOUT, UNSPECIFIED Status: Acute Comment: (4) Anemia, normocytic normochromic Code(s): D64.9 - ANEMIA, UNSPECIFIED Status: Chronic (5) Aortic valve disease Code(s): I35.9 - NONRHEUMATIC AORTIC VALVE DISORDER, UNSPECIFIED Status: Chronic Comment: (6) CKD (chronic kidney disease) stage 3, GFR 30-59 ml/min Code(s): N18.3 - CHRONIC KIDNEY DISEASE, STAGE 3 (MODERATE) Status: Chronic (7) Chronic anticoagulation Code(s): Z79.01 - PERFORMANCE SOLUTIONS SPECIALIST (CURRENT) USE OF ANTICOAGULANTS Status: Chronic (8) DM2 (diabetes mellitus, type 2) Status: Chronic Qualifiers: Comment: (9) HLD (hyperlipidemia) Code(s): E78.5 - HYPERLIPIDEMIA, UNSPECIFIED Status: Chronic Qualifiers: (10) HTN (hypertension) Code(s): I10 - ESSENTIAL (PRIMARY) HYPERTENSION Status: Chronic Qualifiers: Comment: (11) Obesity (BMI 30-39.9) Code(s): E66.9 - OBESITY, UNSPECIFIED Status: Chronic (12) Prosthetic replacement of heart valve Code(s): Z95.2 - PRESENCE OF PROSTHETIC HEART VALVE Status: Chronic - Plan cont current plan of care, PT/OT * send stool for c-diff, O & P, Campylobactor * medication reviewed as below * symptomatic treatment * change lasix po * eventual plan to send her SNU when stable * CHF davila stable. Review of Systems - Review of Systems Constitutional: negative: fever, chills, sweats, weakness, malaise, other Eyes: negative: Pain, Vision Change, Conjunctivae Inflammation, Eyelid Inflammation, Redness, Other ENT: negative: Ear Pain, Ear Discharge, Nose Pain, Nose Discharge, Nose Congestion, Mouth Pain, Mouth Swelling, Throat Pain, Throat Swelling, Other Respiratory: negative: Cough, Dry, Shortness of Breath, Hemoptysis, SOB with Excertion, Pleuritic Pain, Sputum, Wheezing Cardiovascular: negative: chest pain, palpitations, orthopnea, paroxysmal nocturnal dyspnea, edema, light headedness, other Gastrointestinal: Nausea, Vomiting, Diarrhea. negative: Abdominal Pain, Constipation, Melena, Hematochezia, Other Genitourinary: negative: Dysuria, Frequency, Incontinence, Hematuria, Retention , Other Musculoskeletal: negative: Neck Pain, Shoulder Pain, Arm Pain, Back Pain, Hand Pain, Leg Pain, Foot Pain, Other Skin: negative: Rash, Lesions, Chintan, Bruising, Other - Medications/Allergies Allergies/Adverse Reactions: Allergies Allergy/AdvReac Type Severity Reaction Status Date / Time No Known Allergies Allergy Verified 05/19/17 00:17 Medications: Current Medications Acetaminophen (Tylenol) 650 mg PO Q4H PRN PRN Reason: Headache/Fever or Pain Hydrocodone Bitart/Acetaminophen ([place] 5/325) 1 tab PO Q4H PRN PRN Reason: Moderate Pain (4-6) Last Admin: 05/22/17 21:37 Dose: 1 tab Al Hydroxide/Mg Hydroxide (Maalox) 15 ml PO Q4H PRN PRN Reason: Heartburn or Indigestion Artificial Tears (Tears Naturale) 0 drop EA EYE PRN PRN PRN Reason: Dry Eyes Aspirin (Ecotrin) 81 mg PO DAILY [facility] Last Admin: 05/24/17 09:42 Dose: 81 mg Atorvastatin Calcium (Lipitor) 10 mg PO HS [facility] Last Admin: 05/23/17 21:41 Dose: 10 mg Bisacodyl (Dulcolax) 10 mg [place] Q8H PRN PRN Reason: Constipation Last Admin: 05/21/17 16:59 Dose: 10 mg Carvedilol (Coreg) 6.25 mg PO BID-[facility] Last Admin: 05/24/17 09:42 Dose: 6.25 mg Dextrose/Water (Dextrose 50%) 25 gm SLOW IVP PRN PRN PRN Reason: Hypoglycemia Diphenhydramine HCl (Benadryl) 25 mg PO DAILYPRN PRN PRN Reason: Sinus Symptoms Famotidine (Pepcid) 20 mg PO DAILY [facility] Last Admin: 05/24/17 09:42 Dose: 20 mg Ferrous Sulfate (Feosol) 325 mg PO QA-[facility] Last Admin: 05/24/17 09:42 Dose: 325 mg Furosemide (Lasix) 40 mg SLOW IVP DAILY [facility] Last Admin: 05/24/17 09:43 Dose: 40 mg Gabapentin (Neurontin) 300 mg PO BID [facility] Last Admin: 05/24/17 09:41 Dose: 300 mg Glipizide (Glucotrol) 10 mg PO BID-[facility] Last Admin: 05/24/17 09:42 Dose: 10 mg Glucagon (Glucagon) 1 mg IM PRN PRN PRN Reason: Hypoglycemia Guaifenesin (Robitussin Sf) 200 mg PO Q4H PRN PRN Reason: Cough Hydralazine HCl (Apresoline) 10 mg SLOW IVP Q4H PRN PRN Reason: Systolic BP > 180 Dextrose/Water (D5w) 1,000 mls @ 0 mls/hr IV .Q0M PRN; As Directed PRN Reason: Hypoglycemia Insulin Detemir 10 units/ (Miscellaneous Medication) 0.1 mls @ 0 mls/hr SC [facility] Last Admin: 05/23/17 22:02 Dose: 0.1 mls Insulin Human Lispro (Humalog) 0 units [place] .MILD SLIDING SCALE PRN PRN Reason: Mild Correctional Scale Last Admin: 05/21/17 18:28 Dose: 2 unit Lisinopril (Zestril) 2.5 mg PO DAILY [facility] Last Admin: 05/24/17 09:42 Dose: 2.5 mg Loperamide HCl (Imodium) 2 mg PO PRN PRN PRN Reason: Diarrhea/Loose Stools Last Admin: 05/24/17 07:18 Dose: 2 mg Loratadine (Claritin) 10 mg PO DAILYPRN PRN PRN Reason: Sinus Symptoms Magnesium Hydroxide (Milk Of Magnesium) 30 ml PO DAILYPRN PRN PRN Reason: Constipation Mineral Oil/White Petrolatum (Eucerin Cream) 0 gm TOP BIDPRN PRN PRN Reason: Dry Skin Ondansetron HCl (Zofran Odt) 4 mg PO Q6H PRN PRN Reason: Nausea/Vomiting Last Admin: 05/24/17 07:18 Dose: 4 mg Ondansetron HCl (Zofran) 4 mg IVP Q6H PRN PRN Reason: Nausea/Vomiting Pantoprazole Sodium (Protonix) 40 mg PO DAILY [facility] Last Admin: 05/24/17 09:41 Dose: 40 mg Phenol (Chloraseptic [place] 180 Ml Bot) 0 ml PO PRN PRN PRN Reason: Sore Throat Senna (Senokot) 2 tab PO HSPRN PRN PRN Reason: Constipation Sodium Chloride (Flush - Normal Saline) 10 ml IVF Q12HR [facility] Last Admin: 05/24/17 09:43 Dose: 10 ml Sodium Chloride (Flush - Normal Saline) 10 ml IVF PRN PRN PRN Reason: Saline Flush Last Admin: 05/23/17 05:48 Dose: 10 ml Spironolactone (Aldactone) 25 mg PO QAM-[facility] Last Admin: 05/24/17 09:41 Dose: 25 mg Zolpidem Tartrate (Ambien) 5 mg PO HSPRN PRN PRN Reason: Insomnia
[2017-05-24 14:38] VITALS: BMI 36.9
[2017-05-24] MEDS: Atorvastatin Calcium 10 MG TAB PO SCH (20:43)
[2017-05-24] MEDS: Insulin Detemir 100 UNITS/ML 10 UNITS in Pre-Filled Syringe 1 EACH SC SCH (20:43)
[2017-05-24] MEDS: diphenhydrAMINE 25 MG CAP PO PRN (20:50)
[2017-05-25 05:33] LABS: INR-International Normal Ratio 3.3; Prothrombin Time 35.2 SEC (12.0-14.7)
[2017-05-25] MEDS: Ferrous Sulfate 325 MG TAB PO SCH (09:13)
[2017-05-25] MEDS: Spironolactone 25 MG TAB PO SCH (09:13)
[2017-05-25] MEDS: Famotidine 20 MG TAB PO SCH (09:13)
[2017-05-25] MEDS: Lisinopril 2.5 MG TAB PO SCH (09:13)
[2017-05-25] MEDS: Furosemide 40 MG TAB PO SCH (09:14)
[2017-05-25] MEDS: Gabapentin 300 MG CAP PO SCH ×2 (09:14→20:59)
[2017-05-25] MEDS: Carvedilol 6.25 MG TAB PO SCH ×2 (09:14→17:05)
[2017-05-25] MEDS: glipiZIDE 10 MG TAB PO SCH ×2 (09:14→17:05)
[2017-05-25] MEDS: Aspirin 81 mg Enteric Coated Tablet PO SCH (09:14)
--- NOTE | 2017-05-25 11:48 | PDOC.PN ---
- Subjective Encounter Start Date: 05/25/17 Encounter Start Time: 11:46 Patient seen and examined, continues to have diarrhea, no new issues. - Objective Resuscitation Status: Resuscitation Status FULL:Full Resuscitation Vital Signs & Weight: Vital Signs (12 hours) Temp Pulse Resp BP BP BP Pulse Ox 05/25/17 09:13 70 126/58 L 05/25/17 08:55 97.8 F 70 16 126/58 L 91 L 05/25/17 04:00 97.5 F L 80 18 121/58 L 98 Weight Admit Weight 210 lb Weight 203 lb I&O: 05/24/17 05/25/17 05/26/17 06:59 06:59 06:59 Intake Total 720 510 Output Total 1151 950 Balance -431 -440 Result Diagrams: 05/23/17 05:49 05/24/17 04:24 Additional Labs: Accuchecks 05/25/17 05/24/17 05/24/17 05:57 20:38 16:08 POC Glucose 107 240 H 222 H 05/24/17 05/23/17 05:53 06:00 POC Glucose 138 H 120 H Phys Exam - Physical Examination Constitutional: NAD HEENT: PERRLA, moist MMs, sclera anicteric Neck: no nodes, no JVD, supple Respiratory: no wheezing, no rales, no rhonchi Cardiovascular: RRR, no significant murmur, no rub Gastrointestinal: soft, non-tender, no distention Musculoskeletal: no edema, pulses present Dx/Plan (1) C. difficile diarrhea Code(s): A04.72 - ENTEROCOLITIS D/T CLOSTRIDIUM DIFFICILE, NOT SPCF RECUR Status: Acute (2) Aortic valve disease Code(s): I35.9 - NONRHEUMATIC AORTIC VALVE DISORDER, UNSPECIFIED Status: Chronic Comment: (3) CKD (chronic kidney disease) stage 3, GFR 30-59 ml/min Code(s): N18.3 - CHRONIC KIDNEY DISEASE, STAGE 3 (MODERATE) Status: Chronic (4) DM2 (diabetes mellitus, type 2) Status: Chronic Qualifiers: Comment: (5) HLD (hyperlipidemia) Code(s): E78.5 - HYPERLIPIDEMIA, UNSPECIFIED Status: Chronic Qualifiers: (6) HTN (hypertension) Code(s): I10 - ESSENTIAL (PRIMARY) HYPERTENSION Status: Chronic Qualifiers: Comment: - Plan * will start patient on IV flagyl for now, C-diff positive * labs in AM, will hold off on IVF for now given good BP and low EF * DC plans to facility where the patient came from in 24-48hrs * no other changes to plan of care
[2017-05-25] MEDS: metroNIDAZOLE 500 MG in Premix Bag 1 BAG IVPB SCH ×2 (14:46→21:00)
[2017-05-25] MEDS: diphenhydrAMINE 25 MG CAP PO PRN (20:59)
[2017-05-25] MEDS: Atorvastatin Calcium 10 MG TAB PO SCH (20:59)
[2017-05-25] MEDS: Insulin Detemir 100 UNITS/ML 10 UNITS in Pre-Filled Syringe 1 EACH SC SCH (21:02)
[2017-05-25] MEDS: Calcium Carbonate 500 MG ChewTAB PO PRN (22:33)
[2017-05-26 05:32] LABS: INR-International Normal Ratio 2.4; Prothrombin Time 26.7 SEC (12.0-14.7)
[2017-05-26 05:45] LABS: ALT (SGPT) 67 U/L (8-55); AST (SGOT) 89 U/L (5-34); Albumin 2.7 g/dL (3.4-4.8); Alkaline Phosphatase 122 U/L (40-150); Anion Gap 11 mmol/L (10-20); BUN (Urea Nitrogen) 35 mg/dL (9.8-20.1); Bilirubin, Total 1.1 mg/dL (0.2-1.2); Calc. Creatinine Clearance 46 mL/min (70-130); Calcium 8.4 mg/dL (7.8-10.44); Carbon Dioxide 29 mmol/L (23-31); Chloride 94 mmol/L (98-107); Estimated GFR-MDRD 34; Globulin 3.1 g/dL (2.4-3.5); Glucose 159 mg/dL (83-110); Potassium 4.3 mmol/L (3.5-5.1); Protein, Total 5.8 g/dL (6.0-8.3); Sodium 130 mmol/L (136-145)
[2017-05-26] MEDS: metroNIDAZOLE 500 MG in Premix Bag 1 BAG IVPB SCH ×3 (05:45→21:10)
[2017-05-26] MEDS: Calcium Carbonate 500 MG ChewTAB PO PRN (05:45)
[2017-05-26 06:31] LABS: Anisocytosis MODERATE=16-30 cells (100X) (0-5/hpf); Band 2 % (5-11); Hemoglobin 8.8 g/dL (12.0-16.0); Hypochromia SLIGHT = 6-15 cells (100X) (0-5/hpf); Lymphocytes 38 % (21-51); MDiff Complete? YES; Mean Corpuscular HGB CONC 31.2 g/dL (32.0-36.0); Mean Corpuscular Hemoglobin 29.2 pg (27.0-31.0); Mean Corpuscular Volume 93.5 fl (81.0-99.0); Mean Platelet Volume 9.2 fL (7.4-10.4); Monocytes 3 % (0-10); Neutrophil 57 % (42-75); PLT Morphology Comment Appears Decreased; Platelet Count 119 thou/uL (130-400); Polychromasia SLIGHT = 2-3 cells (100X) (0-2/hpf); RBC Distribution Width 17.5 % (11.5-14.5); Red Blood Cell (RBC) Count 3.03 mill/uL (4.20-5.40); White Blood Cell (WBC) Count 4.8 thou/uL (4.8-10.8)
[2017-05-26] MEDS: glipiZIDE 10 MG TAB PO SCH ×2 (07:18→17:28)
[2017-05-26] MEDS: Spironolactone 25 MG TAB PO SCH (07:18)
[2017-05-26] MEDS: Furosemide 40 MG TAB PO SCH (07:18)
[2017-05-26] MEDS: Carvedilol 6.25 MG TAB PO SCH ×2 (07:18→17:28)
[2017-05-26] MEDS: Ondansetron ODT 4 MG TAB PO PRN (07:18)
[2017-05-26] MEDS: Ferrous Sulfate 325 MG TAB PO SCH (07:18)
[2017-05-26] MEDS ORDERED: Sodium Chloride 0.9% 1,000 ML IV SCH (09:15)
[2017-05-26] MEDS: Lisinopril 2.5 MG TAB PO SCH (09:20)
[2017-05-26] MEDS: Famotidine 20 MG TAB PO SCH (09:20)
[2017-05-26] MEDS: Gabapentin 300 MG CAP PO SCH ×2 (09:20→21:09)
[2017-05-26] MEDS: Aspirin 81 mg Enteric Coated Tablet PO SCH (09:20)
--- NOTE | 2017-05-26 14:33 | PDOC.PN ---
- Subjective Encounter Start Date: 05/26/17 Encounter Start Time: 14:32 Patient seen and examined, no new issues, states her diarrhea is slightly improved. All questions answered. - Objective Resuscitation Status: Resuscitation Status FULL:Full Resuscitation Vital Signs & Weight: Vital Signs (12 hours) Temp Pulse Resp BP BP BP Pulse Ox 05/26/17 11:38 97.7 F 62 18 119/58 L 93 L 05/26/17 09:20 70 05/26/17 07:21 98.3 F 70 18 92 L 05/26/17 07:18 110/56 L 05/26/17 07:06 98.3 F 70 18 110/56 L 92 L 05/26/17 04:00 98.1 F 71 16 109/72 95 Weight Admit Weight 210 lb Weight 205 lb I&O: 05/25/17 05/26/17 05/27/17 06:59 06:59 06:59 Intake Total 510 1100 Output Total 950 600 Balance -440 500 Result Diagrams: 05/26/17 04:17 05/26/17 04:17 Additional Labs: Accuchecks 05/26/17 05/26/17 05/25/17 12:18 05:34 20:34 POC Glucose 148 H 169 H 204 H Phys Exam - Physical Examination Constitutional: NAD HEENT: PERRLA, moist MMs, sclera anicteric Neck: no nodes, no JVD, supple Respiratory: no wheezing, no rales, no rhonchi Cardiovascular: RRR, no significant murmur, no rub Gastrointestinal: soft, non-tender, no distention rotund Musculoskeletal: pulses present, edema present (trace) Dx/Plan (1) C. difficile diarrhea Code(s): A04.72 - ENTEROCOLITIS D/T CLOSTRIDIUM DIFFICILE, NOT SPCF RECUR Status: Acute (2) Aortic valve disease Code(s): I35.9 - NONRHEUMATIC AORTIC VALVE DISORDER, UNSPECIFIED Status: Chronic Comment: (3) CKD (chronic kidney disease) stage 3, GFR 30-59 ml/min Code(s): N18.3 - CHRONIC KIDNEY DISEASE, STAGE 3 (MODERATE) Status: Chronic (4) DM2 (diabetes mellitus, type 2) Status: Chronic Qualifiers: Comment: (5) HLD (hyperlipidemia) Code(s): E78.5 - HYPERLIPIDEMIA, UNSPECIFIED Status: Chronic Qualifiers: (6) HTN (hypertension) Code(s): I10 - ESSENTIAL (PRIMARY) HYPERTENSION Status: Chronic Qualifiers: Comment: - Plan * continue with IV flagyl for now * start IVFs as Cr levels continue to rise, likely due to volume loss from diarrhea * DC plans in AM with PO flagyl if patient's Cr improves in AM * continue all other medical plan of care w/o any changes for now * case and plan d/w patient at length, she undertsands and agrees with this plan
[2017-05-26] MEDS: Insulin Detemir 100 UNITS/ML 10 UNITS in Pre-Filled Syringe 1 EACH SC SCH (21:08)
[2017-05-26] MEDS: Atorvastatin Calcium 10 MG TAB PO SCH (21:09)
[2017-05-26] MEDS: diphenhydrAMINE 25 MG CAP PO PRN (21:09)
[2017-05-27 04:56] LABS: INR-International Normal Ratio 2.1; Prothrombin Time 24.6 SEC (12.0-14.7)
[2017-05-27] MEDS: metroNIDAZOLE 500 MG in Premix Bag 1 BAG IVPB SCH ×2 (05:41→14:29)
[2017-05-27] MEDS: glipiZIDE 10 MG TAB PO SCH (08:04)
[2017-05-27] MEDS: Furosemide 40 MG TAB PO SCH (08:04)
[2017-05-27] MEDS: Spironolactone 25 MG TAB PO SCH (08:05)
[2017-05-27] MEDS: Carvedilol 6.25 MG TAB PO SCH (08:08)
[2017-05-27] MEDS: Ferrous Sulfate 325 MG TAB PO SCH (08:08)
[2017-05-27] MEDS: Famotidine 20 MG TAB PO SCH (10:03)
[2017-05-27] MEDS: Aspirin 81 mg Enteric Coated Tablet PO SCH (10:04)
[2017-05-27] MEDS: Lisinopril 2.5 MG TAB PO SCH (10:04)
[2017-05-27] MEDS: Gabapentin 300 MG CAP PO SCH (10:06)
[2017-05-27 11:37] VITALS: BP 130/63; TEMP 98.2
[2017-05-27] MEDS: HYDROcodone/Acetaminophen 5/325 mg Tablet PO PRN (11:38)
[2017-05-27 12:11] LABS: Anion Gap 16 mmol/L (10-20); BUN (Urea Nitrogen) 44 mg/dL (9.8-20.1); Calc. Creatinine Clearance 47 mL/min (70-130); Calcium 8.4 mg/dL (7.8-10.44); Carbon Dioxide 22 mmol/L (23-31); Chloride 97 mmol/L (98-107); Estimated GFR-MDRD 34; Glucose 176 mg/dL (83-110); Potassium 5.9 mmol/L (3.5-5.1); Sodium 129 mmol/L (136-145)
[2017-05-27] MEDS: HumaLOG 300 UNITS/3 ML VIAL SC PRN (12:30)
[2017-05-27] MEDS ORDERED: [UNRECOGNIZED DRUG - REMARK] PO PRN (12:40)
[2017-05-27] MEDS ORDERED: Warfarin Sodium 2.5 MG TAB PO SCH (17:00)
--- NOTE | 2017-05-28 13:10 | DIS ---
DATE OF ADMISSION: 05/18/2017 DATE OF DISCHARGE: 05/27/2017 ADMITTING DIAGNOSES: Swelling, chronic kidney disease 3, congestive heart failure diastolic and syst olic, diabetes mellitus type 2, hypertension and hyperlipidemia. DISCHARGE DIAGNOSES: Clostridium difficile infection with diarrhea, stage 3 chronic kidney disease s table, congestive heart failure stable, diabetes mellitus type 2 stable, hyperlipidemia stable, hyper tension stable. HOSPITAL COURSE: This was a 76-year-old female admitted to the hospital with valvular disease and gardiner ving swelling, was also found to have C. diff diarrhea. During her stay, the patient was evaluated b y the Internal Medicine team as well as closely followed by OT and PT. The patient was found to have severe significant diarrhea and SPENCER due to volume loss. The patient was started on IV fluids and had a significant improvement in her renal function. The patient at point in time of discharge was stab le, did not have any nausea, vomiting, diarrhea, constipation, chest pain, fevers, chills, shortness of breath. Stated that she was looking forward to going back home. DISPOSITION: Back to facility from where she came. FOLLOWUP: With PCP within 3-5 days. DIET: As tolerated, low fat, low calorie. ACTIVITY: As tolerated. MEDICATIONS: See MAR. The patient given prescription for Flagyl to be taken for C. diff. CONDITION: Stable. PROGNOSIS: Guarded. Again, case and plan discussed with the patient at length. She understood and agreed with this plan.
--- NOTE | 2017-05-28 14:53 | PDOC.EVN ---
Event Note - Event Note Event Note: DC SUMMARY #[id number]
== END 2017-05-27 14:24 | DRG 291 ==
LOC: ERS 17:36 → 2SE 21:00 → 2NO 05-20 08:31
PROVIDERS: ADMIT Internal Medicine; ATTEND Internal Medicine
DX: I13.0 Hypertensive heart and chronic kidney disease with heart failure and stage 1 through stage 4 chronic kidney disease, or unspecified chronic kidney disease (principal); I50.43 Acute on chronic combined systolic (congestive) and diastolic (congestive) heart failure; N17.9 Acute kidney failure, unspecified; A04.72 Enterocolitis due to Clostridium difficile, not specified as recurrent; E11.22 Type 2 diabetes mellitus with diabetic chronic kidney disease; D69.6 Thrombocytopenia, unspecified; N18.3 Chronic kidney disease, stage 3 (moderate); I24.8 Other forms of acute ischemic heart disease; D64.9 Anemia, unspecified; E66.9 Obesity, unspecified; Z68.37 Body mass index [BMI] 37.0-37.9, adult; E78.5 Hyperlipidemia, unspecified; Z79.82 Long term (current) use of aspirin; Z79.4 Long term (current) use of insulin; Z87.891 Personal history of nicotine dependence; Z96.652 Presence of left artificial knee joint; M10.9 Gout, unspecified; K21.9 Gastro-esophageal reflux disease without esophagitis; Z79.01 Long term (current) use of anticoagulants; Z95.2 Presence of prosthetic heart valve; I44.7 Left bundle-branch block, unspecified
CPT/HCPCS: 36415; 36416; 71045; 80048; 80053; 82553; 83540; 83550; 83735; 83880; 84484; 84550; 85007; 85014; 85018; 85025; 85027; 85049; 85610; 87045; 87046; 87324; 87328; 87329; 87449; 87899; 90471; 90670; 93005; A4216; G0009; G8978-GP-CM; G8979-GP-CK; G8987-GO-CK; G8988-GO-CI; J1815; J1940; J2916; J3475; J7050; Q0162

== ENCOUNTER 2017-06-01 12:23 | Inpatient (IN) | payer MEDICARE ==
[2017-06-01 13:39] LABS: Prothrombin Time 42.1 SEC (12.0-14.7)
[2017-06-01 13:40] LABS: PTT 87.6 SEC (22.9-36.1)
[2017-06-01 13:42] LABS: INR-International Normal Ratio 4.1
--- NOTE | 2017-06-01 14:15 | RAD ---
THREE VIEW LEFT KNEE: CLINICAL HISTORY: Fall with left knee pain. FINDINGS: There is obliteration of the medial joint compartment with associated subchondral sclerosis and osteo phytosis. Mild narrowing of the lateral joint compartment with mild osteophytosis is present. There is osteophytosis of the patellofemoral articulation. Mild suprapatellar joint capsular distention i s seen. There is no fracture. Incidental note of vascular calcification. IMPRESSION: Moderate osteoarthritis, with preferential involvement of the medial joint compartment. POS: [facility]
[2017-06-01] MEDS ORDERED: Furosemide 40 MG/4 ML VIAL ONE (14:20)
[2017-06-01] MEDS ORDERED: Furosemide 20 MG/2 ML VIAL ONE (14:20)
[2017-06-01 14:45] LABS: Bilirubin Negative (Negative); Blood, Urine Negative (Negative); Clarity CLEAR (Clear); Glucose, Urine (Dipstick) Negative (Negative); Leukocyte Negative (Negative); Nitrite Negative (Negative); Protein, Urine (Dipstick) Negative (Neg-Trace); Urobilinogen 0.2 mg/dL (0.2-1.0)
--- NOTE | 2017-06-01 14:48 | RAD ---
SINGLE VIEW CHEST: Date: 06/01/17 COMPARISON: 05/18/17. HISTORY: Chest pain and shortness of breath. FINDINGS: Single view of the chest shows an enlarged cardiomediastinal silhouette. This is stable in size. The patient is status post sternotomy. There is no evidence of consolidation, mass, or pleural effusion. IMPRESSION: Stable cardiomegaly. POS: [facility]
[2017-06-01 14:52] LABS: #Eosinphils 0.1 thou/uL (0.0-0.7); #Lymphocytes 1.1 thou/uL (1.20-3.40); #Monocytes 0.7 thou/uL (0.11-0.59); #Neutrophils 3.5 thou/uL (1.40-6.50); %Basophils 0.2 % (0.0-1.0); %Eosinophils 1.6 % (0.0-10.0); %Lymphocytes 19.7 % (21.0-51.0); %Monocytes 13.8 % (0.0-10.0); %Neutrophils 64.7 % (42.0-75.0); Hemoglobin 8.4 g/dL (12.0-16.0); Mean Corpuscular HGB CONC 31.9 g/dL (32.0-36.0); Mean Corpuscular Hemoglobin 29.1 pg (27.0-31.0); Mean Platelet Volume 8.1 fL (7.4-10.4); Platelet Count 221 thou/uL (130-400); RBC Distribution Width 16.4 % (11.5-14.5); Red Blood Cell (RBC) Count 2.88 mill/uL (4.20-5.40); White Blood Cell (WBC) Count 5.4 thou/uL (4.8-10.8)
[2017-06-01 15:03] LABS: ALT (SGPT) 13 U/L (8-55); AST (SGOT) 24 U/L (5-34); Albumin 2.5 g/dL (3.4-4.8); Alkaline Phosphatase 191 U/L (40-150); Anion Gap 17 mmol/L (10-20); BUN (Urea Nitrogen) 72 mg/dL (9.8-20.1); Bilirubin, Total 0.6 mg/dL (0.2-1.2); Calc. Creatinine Clearance 0 mL/min (70-130); Calcium 8.2 mg/dL (7.8-10.44); Carbon Dioxide 22 mmol/L (23-31); Chloride 92 mmol/L (98-107); Estimated GFR-MDRD 15; Globulin 3.1 g/dL (2.4-3.5); Glucose 236 mg/dL (83-110); Lipase 33 U/L (8-78); Potassium 5.5 mmol/L (3.5-5.1); Protein, Total 5.6 g/dL (6.0-8.3); Sodium 125 mmol/L (136-145)
[2017-06-01 15:07] LABS: CKMB 1.6 ng/mL (0-6.6); Troponin I 0.012 ng/mL (< 0.028)
[2017-06-01] MEDS ORDERED: Nitroglycerin 2% Ointment 1 INCH/1 GM Packet ONE (16:00)
[2017-06-01] MEDS ORDERED: Calcium Carbonate 500 MG ChewTAB PO PRN (17:02)
[2017-06-01] MEDS ORDERED: Acetaminophen 325 MG TAB PO PRN (17:02)
[2017-06-01] MEDS ORDERED: Mag-Al 1200 mg/1200 mg/30 ML UDCUP PO PRN (17:02)
[2017-06-01] MEDS ORDERED: Ondansetron HCl/PF 4 MG/2 ML Vial IVP PRN (17:02)
[2017-06-01] MEDS ORDERED: Senokot 8.6 MG TAB PO PRN (17:02)
[2017-06-01] MEDS ORDERED: Nitroglycerin 0.4 MG TAB (25 Tab Bottle) SL PRN (17:03)
[2017-06-01] MEDS ORDERED: Diabetic Tussin 200 MG/10 ML UDCUP PO PRN (17:03)
[2017-06-01] MEDS ORDERED: cloNIDine 0.1 MG TAB PO PRN (17:03)
[2017-06-01] MEDS ORDERED: Loratadine 10 MG TAB PO PRN (17:03)
[2017-06-01] MEDS ORDERED: Benzonatate 100 MG CAP PO PRN (17:03)
[2017-06-01] MEDS ORDERED: hydrALAZINE 20 MG/ML VIAL SLOW IVP PRN (17:03)
[2017-06-01] MEDS ORDERED: Dextrose 5% in Water 1,000 ML IV PRN (17:24)
[2017-06-01] MEDS ORDERED: Dextrose 50% Abboject 50 ML SYRINGE SLOW IVP PRN (17:24)
[2017-06-01] MEDS ORDERED: Sodium Ferric Gluconate 62.5 MG/5 ML AMP SLOW IVP SCH ×2 (17:30→21:00)
--- NOTE | 2017-06-01 18:27 | HP ---
DATE OF ADMISSION: 06/01/2017 PRIMARY CARE PHYSICIAN: Rusty Beltre M.D. PRIMARY CAMERA ENGINEER: Avtar Cosby M.D. CHIEF COMPLAINT: Worsening weakness and shortness of breath. HISTORY OF PRESENTING ILLNESS: Ms. Morejon is a pleasant 76-year-old female with known h istory of severe cardiomyopathy with EF of 25%-30% as well as severe aortic stenosis, pulmonary arter ial hypertension and moderate mitral regurgitation, chronic kidney disease, diabetes, hypertension, a nd dyslipidemia who presented to the emergency room with above-mentioned complaint. History is mainl y obtained by the patient herself and electronic medical records have been reviewed. Ms. Morejon h as been admitted to our facility 3 times this year. Initially, she was admitted in 03/2017 for acute on chronic systolic and diastolic congestive heart failure. She was readmitted on April week or so for acute kidney injury and acute on chronic congestive heart failure. During that hospitaliza tion, she received 1 unit of packed RBC for anemia and was evaluated by GI, but it was felt that she did not need any emergent EGD or colonoscopy and was discharged to care home facility. She was readmitted later in 04/2017 and was once again treated for acute on chronic congestive heart failure as well as C. difficile infection and gout. She was discharged to [facility] only few days ag o on 05/27/2017. She reports that since her discharge, she has not really felt good. She has been continuously feelin g well and has not been able to participate with the physical therapy except that whatever they worke d with her in her room only. She reported that when she was discharged, she did not have any leg swe lling. Now, she has noticed worsening leg swelling and she started to notice worsening shortness of breath since yesterday. She reports that she is compliant with her medications and fluid restriction , but somehow is not feeling any better. She otherwise denies any recent illnesses. She denies any fever, chills or cough. She denies any chest pain. She does not have any dysuria, frequency, urgenc y, or diarrhea. Upon presentation to the Emergency Room today, she was hemodynamically stable and saturating 96% on r oom air. Her workup included chest x-ray which did not show any specific pulmonary edema or vascular congestion. Her BNP was only minimally elevated to 438, which is actually better than her last BNP checked earlier this month at 07:36 on 05/20/2017. She, however, is found to have acute renal insuff iciency with BUN of 72, creatinine of 3.09 with her baseline anywhere from 1.0-1.5. Her sodium level is also low at 125 and potassium high at 5.5. Her hemoglobin is stable at 8.4, which was 8.8 at the time of discharge on 05/26/2017. In the emergency room, she has received a dose of Lasix and was al so given nebulizer as she was found to have significant wheezing on examination along with transderma l nitroglycerin. She is feeling a little bit better now and is being admitted for further evaluation and SPENCER. PAST MEDICAL HISTORY: 1. Chronic kidney disease, stage 3. 2. Chronic systolic and diastolic congestive heart failure with last echo done in 03/2017 showing EF of 25%-30% and grade 2/3 diastolic dysfunction as well as moderate MR, TR, and increased pulmonary a rterial pressure of 50 mmHg and moderate to severe aortic stenosis. 3. History of prosthetic aortic valve. 4. Diabetes mellitus type 2. 5. Hypertension. 6. Dyslipidemia. PAST SURGICAL HISTORY: 1. Aortic valve replacement. 2. Left TKA. 3. Bilateral cataract replacement. ALLERGIES: No known drug allergies. FAMILY HISTORY: No history of premature coronary artery disease, stroke or clotting or bleeding diso rders. SOCIAL HISTORY: She is currently doing rehabilitation in [facility]. She has no history of dr lisa, tobacco or alcohol abuse. Her medical power of signal constructor is her 2 daughters, who were present in the room at this time. She reports that prior to her falling sick earlier this year, she was quite i ndependent and lived at home by herself. CODE STATUS: FULL CODE. MEDICATIONS: As per the ER record are as follows; aspirin 81 mg daily, gabapentin 300 mg p.o. b.i.d. , glipizide 10 mg b.i.d., Aldactone 25 mg daily, Levemir 10 units at bedtime, ferrous sulfate 325 mg b.i.d., Lasix 60 mg twice a day, Zocor 20 mg at bedtime, Prilosec 20 mg daily, Coreg 6.25 mg b.i.d., and Coumadin 5 mg daily. REVIEW OF SYSTEMS: The following complete review of systems was negative, unless otherwise mentioned in the HPI or below: Constitutional: Weight loss or gain, ability to conduct usual activities. Sk in: Rash, itching. Eyes: Double vision, pain. ENT/Mouth: Nose bleeding, neck stiffness, pain, te nderness. Cardiovascular: Palpitations, dyspnea on exertion, orthopnea. Respiratory: Shortness of breath, wheezing, cough, hemoptysis, fever or night sweats. Gastrointestinal: Poor appetite, abdom inal pain, heartburn, nausea, vomiting, constipation, or diarrhea. Genitourinary: Urgency, frequenc y, dysuria, nocturia. Musculoskeletal: Pain, swelling. Neurologic/Psychiatric: Anxiety, depressio n. Allergy/Immunologic: Skin rash, bleeding tendency. It is negative except for those mentioned in the history and physical. LABORATORY DATA AND IMAGING DATA: Her CBC shows hemoglobin of 8.4 with hematocrit of 26.2, RDW eleva kehinde at 16.4, otherwise unremarkable. INR is 4.1. Serum chemistry shows sodium 125, potassium 5.5, c hloride 92, bicarbonate 22, BUN 72, creatinine 3.09, glucose 236, alkaline phosphatase 191. CK-MB an d troponin normal. BNP 438. Lipase normal. Urinalysis is unremarkable. Chest x-ray by my review h as no evidence to suggest any pulmonary vascular congestion, infiltrate or edema. She does have evid ence of cardiomegaly. Knee x-ray was done in the ER which shows osteoarthritis. A 12-lead EKG done in the emergency room per my review shows normal sinus rhythm at 71 beats per minute with some freque nt PVCs and complete left bundle branch block. ST segments and T waves are normal. PHYSICAL EXAMINATION: VITAL SIGNS: Upon presentation, blood pressure 136/63, respirations 18, saturating 96% on room air, pulse 80, temperature 98. GENERAL: She is lying comfortably in bed on her side. Daughters are at bedside. Awake, alert, orie nted x3, in no acute distress. She is not wearing oxygen at this time and is not winded with convers ation. HEENT: Mucous membranes are slightly dry. No oropharyngeal exudate or erythema. Head is normocepha lic, atraumatic. Pupils are equal and reactive to light and accommodation. Extraocular movement is intact. NECK: Supple without any lymphadenopathy, JVD or bruit. CHEST: Evaluation shows bilateral wheezing without any significant crackles. Rate, rhythm is regula r without any murmur, rubs or gallops. ABDOMEN: Obese, soft, somewhat tender to palpation in the suprapubic region. Positive bowel sounds. EXTREMITIES: Show pitting edema, more so on right lower extremity than the left lower extremity. Sh john has chronic venostasis changes in the left lower extremity and reports that it is tender to palpati on. NEUROLOGIC: Examination is nonfocal. SKIN: Free of any rashes or bruises. I feel warm and dry to touch. PSYCHIATRIC: Normal affect. IMPRESSION AND PLAN: 1. Acute renal insufficiency. The patient has been on Aldactone as well as higher dose of Lasix. S he is also compliant with her fluid restriction. Most likely, she has suffered dehydration and would need replacement of some of the fluids. Also, the possibility of cardiorenal syndrome is highly lik jaden at this time. The patient has a very poor ejection fraction and is not on any inotropic medicati ons. We will consult Nephrology for further recommendations. I discussed the case with Dr. Serna on c all who is agreeable to give her some volume in the form of albumin along with some Lasix and holding her Aldactone. We will avoid any nephrotoxic medications and recheck in the morning. The patient d oes not seem to be on any HARLEY inhibitor or ARBs at this time. This will further be confirmed. 2. Dyspnea and lower extremity swelling. The patient most likely is also in acute congestive heart failure with failure to diuresis because of acute on chronic kidney disease. We will give her IV Las ix as discussion per Dr. Serna and consult her lathe mechanic, Dr. Cosby for further recommendations. I am not sure if the patient was ever evaluated for an AICD or LifeVest and she declined or not. At t his time, we will monitor her I's and O's strictly and watch for any worsening of renal function. Co ntinue to diurese and monitor urine output strictly. The patient also seems to be having a component of either chronic obstructive pulmonary disease or reactive airway disease. We will start her on ne bulizers scheduled as well as p.r.n. 3. Acute on chronic combined congestive heart failure. 4. Hyponatremia. This is likely secondary to volume overload versus dehydration. We will check uri ne osmolality and urine sodium for further evaluation. Nephrology has been consulted and we will con tinue to monitor closely. 5. Hyperkalemia, most likely secondary to acute on chronic kidney disease. Recheck in the morning. 6. Coumadin coagulopathy. We will hold her warfarin for now and consult Pharmacy to monitor and man age. Monitor PT/INRs on a daily basis. 7. Generalized weakness, this is most likely secondary to #1, acute kidney insufficiency. We will c ontinue her rehabilitation while in the hospital. [place] fall risk for this patient. 8. History of prosthetic aortic valve. 9. Chronic anemia, most likely iron deficiency. The patient's iron indices were checked during her last hospitalization with low iron at 36, low TIBC at 203 and percentage saturation of 11%. Her ferr itin level was within normal limit at that time. We will replace her iron by IV route and continue o ral supplement as well. 10. Code status: FULL CODE. Discussed with the patient and her daughters. 11. Diabetes mellitus. We will restart her home medications, but monitor for hypoglycemia. Hold th e Levemir for now and continue only with insulin sliding scale. The patient gives history of 2 hypog lycemic episodes in the last 2 days where sugar dropped to 40s and 50s. 12. Hypertension: Resume home medication with Coreg at this time. Aldactone will be on hold for no w. 13. Dyslipidemia: Resume Zocor. DISPOSITION: Ms. Morejon is readmitted for worsening shortness of breath. Ms. Morejon is curren tly being admitted for generalized weakness and dyspnea and will be treated for acute renal insuffici ency as well as acute on chronic congestive heart failure among other things as outlined above. Paula mated length of stay is at least 2-3 midnights. Further management will depend upon her clinical cou rse.
[2017-06-01] MEDS ORDERED: Sodium Ferric Gluconate 250 MG in Sodium Chloride 0.9% 100 ML IVPB SCH (21:30)
[2017-06-01] MEDS: Gabapentin 300 MG CAP PO SCH (21:49)
[2017-06-01] MEDS: Simvastatin 20 MG TAB PO SCH (21:49)
[2017-06-01] MEDS: Carvedilol 6.25 MG TAB PO SCH (21:49)
[2017-06-01] MEDS: HumaLOG 300 UNITS/3 ML VIAL SC PRN (21:50)
[2017-06-01] MEDS: Albumin 25% 25 GM/100 ML BOT IVPB SCH ×2 (21:53→23:39)
[2017-06-01] MEDS: traMADol HCl 50 MG TAB PO PRN (23:46)
--- NOTE | 2017-06-01 23:46 | CON ---
DATE OF CONSULTATION: 06/01/2017 HISTORY OF PRESENT ILLNESS: Ms. Morejon is a 76-year-old white female who was admitted for shortne ss of breath. She was felt that she may be in CHF. She also tells me she had a fall and that the re ason she is in the hospital. Her blood sugars noted to be on the low side at that time. She also ma kes mention about her head hitting the floor. We are now being consulted for her acute kidney injury . Of interest, this patient was seen by the renal service several weeks ago for an acute kidney inju ry. She improved with conservative management at that time. Adjustment of diuretics was made. REVIEW OF SYSTEMS: Positive for forgetfulness. Positive for a fall. Positive for mild shortness of breath, having chronic in nature. No nausea, no vomiting, no syncopal episode. Appetite and energy level is fair. No hematochezia, no melena, no hematemesis, no productive cough, no fever or chills, no gross hematuria. No hemoptysis. PAST MEDICAL HISTORY: Chronic renal failure from presumed diabetic nephropathy, status post acute ki dney injury; type 2 diabetes mellitus; history of valvular heart disease, status post CHF; hyperlipid emia. Patient also has history of diabetic neuropathy, hypertension. PAST SURGICAL HISTORY: Status post cardiac catheterization, status post aortic valve replacement wit h a mechanical valve, status post total right knee replacement, status post colonoscopy. SOCIAL HISTORY: Patient lives in [place], lives alone, two children. Smoked for 15-20 years , 1-2 packs a day. Alcohol none. No IV drug abuse. Denies any blood transfusion. Sedentary lifest yle. 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 ALLERGIES: None. TRAUMA: None. IMMUNIZATIONS: Up to date. HOSPITALIZATIONS: Please see past medical history. PHYSICAL EXAMINATION: VITAL SIGNS: Blood pressure is noted to be at 127/70 with a heart rate of 60, pulse ox 95% on room a ir. GENERAL: Awake, supine, comfortable, not in overt distress. SKIN: Adequate turgor. HEENT: She has pinkish conjunctivae, anicteric sclerae. NECK: No neck mass, no carotid bruits, no JVD. Patient is morbidly obese. LUNGS: Decreased breath sounds. Occasional wheezing. HEART: Normal sinus rhythm. No murmur, no gallops, or rubs. ABDOMEN: Globular, soft, nontender, no masses. EXTREMITIES: Positive for edema. NEUROLOGICAL EXAM: Patient is confused. She could not remember person. She is aware that she is in hospital made LABORATORY DATA: On 06/01/2017, white count 5.4, hemoglobin 8.4, hematocrit 26.2. Sodium 125, potas sium 5.5, chloride 92, carbon dioxide 22, BUN 72, creatinine 3.09, glucose 236. BNP is 438, albumin 2.5, troponin I 0.012. On 05/27/2017, BUN 44, creatinine 1.47. Chest x-ray of 06/01/2017, shows stable cardiomegaly, no overt CHF. ASSESSMENT AND PLAN: 1. Acute kidney injury - acute kidney injury on top of her chronic renal failure, this is most likel y a superimposed hemodynamically mediated renal dysfunction. Patient was on spironolactone and on La six. In addition, she was on low-dose lisinopril. The plan is to hold off the spironolactone and li sinopril due to the hyperkalemia. However, we will maintain the diuretics due to the leg edema. Gail st x-ray does not show any overt congestive heart failure, although, I could not exclude the shortnes s of breath being from congestive heart failure. No indication for any dialytic intervention. Salt- poor albumin has been initiated. 2. Mild hyperkalemia. We will discontinue lisinopril and spironolactone. 3. Chronic leg edema on IV Lasix. We will be continued together with salt-poor albumin. 4. Shortness of breath, multifactorial etiology, although the possibility of congestive heart failur e remains. However, this patient may have underlying chronic obstructive pulmonary disease. DuoNeb q.6 hours round the clock will be given. In addition, low-dose diuretic started on 40 mg IV q.12. Thank you for the consult. We will continue to follow.
[2017-06-02] MEDS: Furosemide 40 MG/4 ML VIAL SLOW IVP SCH ×2 (05:32→16:59)
[2017-06-02] MEDS: Albumin 25% 25 GM/100 ML BOT IVPB SCH ×3 (05:32→18:36)
[2017-06-02 05:58] LABS: #Monocytes 0.6 thou/uL (0.11-0.59); #Neutrophils 2.1 thou/uL (1.40-6.50); %Basophils 0.3 % (0.0-1.0); %Eosinophils 1.2 % (0.0-10.0); %Lymphocytes 25.6 % (21.0-51.0); %Monocytes 14.9 % (0.0-10.0); Hemoglobin 6.8 g/dL (12.0-16.0); Mean Corpuscular HGB CONC 32.3 g/dL (32.0-36.0); Mean Corpuscular Hemoglobin 29.1 pg (27.0-31.0); Mean Corpuscular Volume 90.3 fl (81.0-99.0); Mean Platelet Volume 7.5 fL (7.4-10.4); Platelet Count 201 thou/uL (130-400); RBC Distribution Width 16.3 % (11.5-14.5); Red Blood Cell (RBC) Count 2.32 mill/uL (4.20-5.40); White Blood Cell (WBC) Count 3.7 thou/uL (4.8-10.8)
[2017-06-02 06:05] LABS: Prothrombin Time 50.8 SEC (12.0-14.7)
[2017-06-02 06:11] LABS: Anion Gap 15 mmol/L (10-20); BUN (Urea Nitrogen) 70 mg/dL (9.8-20.1); Calc. Creatinine Clearance 27 mL/min (70-130); Calcium 8.5 mg/dL (7.8-10.44); Carbon Dioxide 26 mmol/L (23-31); Chloride 96 mmol/L (98-107); Estimated GFR-MDRD 18; Glucose 150 mg/dL (83-110); Iron 107 ug/dL (50-170); Potassium 5.7 mmol/L (3.5-5.1); Sodium 131 mmol/L (136-145)
[2017-06-02 06:27] LABS: INR-International Normal Ratio 5.2
[2017-06-02] MEDS ORDERED: Aspirin 81 mg Enteric Coated Tablet PO SCH (09:00)
[2017-06-02] MEDS: Carvedilol 6.25 MG TAB PO SCH ×2 (09:05→22:20)
[2017-06-02] MEDS: Ferrous Sulfate 325 MG TAB PO SCH ×2 (09:06→17:01)
[2017-06-02] MEDS: Gabapentin 300 MG CAP PO SCH ×2 (09:06→22:19)
[2017-06-02] MEDS: glipiZIDE 10 MG TAB PO SCH ×2 (09:06→17:01)
--- NOTE | 2017-06-02 09:18 | PRG ---
DATE OF SERVICE: 06/02/2017 SUBJECTIVE: Ms. Morejon is a 76-year-old white female admitted for shortness of breath. Etiology is multifactorial. Chest x-ray did not reveal much fluid. However, she did complain of leg edema. In addition, she most likely has underlying COPD. Neb treatment was started. A gentle IV Lasix was given together with salt poor albumin. This morning, she is feeling better. She denies any worsenin g shortness of breath. OBJECTIVE: VITAL SIGNS: Blood pressure is 120/57, heart rate 90, respiratory rate 16, temperature 98.9, pulse o x 96%. GENERAL: Awake, alert, comfortable, obese, not in distress. SKIN: Adequate turgor. HEENT: Pale conjunctivae, anicteric sclerae. NECK: No neck mass, no carotid bruits, no JVD. CHEST: No deformities. LUNGS: Decreased breath sounds. HEART: Normal sinus rhythm. No murmur, gallops or rubs. ABDOMEN: Globular, soft, nontender. No masses. EXTREMITIES: Positive for edema. MEDICATIONS: Of 06/02/2017 was reviewed. LABORATORY DATA: Of 06/02/2017, white count 3.7, hemoglobin 6.8. Sodium 131, potassium 5.7, chlorid e 96, carbon dioxide 26, BUN 70, creatinine 2.58, calcium 8.5, iron 107, ferritin 361. BNP 430. ASSESSMENT AND PLAN: 1. Acute kidney injury - slightly improved creatinine. Creatinine of 2.58 is improved from yesterda y of 3.09. She is currently receiving salt poor albumin IV infusion. She is relatively low dose of Lasix at 40 mg IV q.12 h. to help with the leg edema. I will continue current management. There is no indication for any acute dialytic intervention with this patient. 2. Acute kidney injury on top of chronic renal failure, hemodynamically mediated renal dysfunction. Continue salt poor albumin. 3. Anemia p.r.n. blood transfusion. Please note that the patient's shortness of breath is much improved. This is noted to be multifactor ial.
[2017-06-02] MEDS ORDERED: Cepastat Lozenges 1 LOZ PO PRN (10:07)
[2017-06-02] MEDS ORDERED: Phytonadione 10 MG/ML AMP SC SCH ×2 (10:15→12:45)
[2017-06-02] MEDS: HumaLOG 300 UNITS/3 ML VIAL SC PRN (12:37)
--- NOTE | 2017-06-02 13:51 | PDOC.PN ---
- Subjective Encounter Start Date: 06/02/17 Encounter Start Time: 13:49 Subjective: feels about the same.leg swelling slightly better -: c/o a piece of ornage stuck in throat.c/o sore throat -: no problem with swollowing.no SOB,no throat swelling no melena/hematochezia - Objective Resuscitation Status: Resuscitation Status FULL:Full Resuscitation MAR Reviewed: Yes Vital Signs & Weight: Vital Signs (12 hours) Temp Pulse Resp BP Pulse Ox 06/02/17 12:18 100.1 F H 85 18 120/57 L 96 06/02/17 07:46 98.9 F 90 16 120/57 L 96 06/02/17 07:33 92 16 99 06/02/17 04:00 98.2 F 95 15 95/60 95 Weight Weight 206 lb 8 oz I&O: 06/01/17 06/02/17 06/03/17 06:59 06:59 06:59 Intake Total 780 Output Total 2925 Balance -2145 Result Diagrams: 06/05/17 04:44 06/05/17 04:44 Additional Labs: Accuchecks 06/02/17 06/02/17 06/01/17 10:38 06:37 23:49 POC Glucose 188 H 158 H 258 H 06/01/17 21:08 POC Glucose 275 H Laboratory Tests 05/03/17 05/18/17 05/18/17 20:58 18:48 21:57 Hgb Sodium Creatinine Troponin I 0.026 0.053 H 0.051 H B-Natriuretic Peptide 05/19/17 05/26/17 05/27/17 01:04 04:17 11:32 Hgb 8.8 L Sodium Creatinine 1.47 H Troponin I 0.056 H B-Natriuretic Peptide 06/01/17 06/01/17 06/01/17 13:19 13:19 13:19 Hgb 8.4 L Sodium 125 L Creatinine 3.09 H Troponin I B-Natriuretic Peptide 438.8 H 06/02/17 06/02/17 05:48 05:48 Hgb 6.8 L Sodium 131 L Creatinine 2.58 H Troponin I B-Natriuretic Peptide Radiology Reviewed by me: Yes Phys Exam - Physical Examination Constitutional: NAD HEENT: PERRLA, moist MMs, sclera anicteric, oral pharynx no lesions Neck: no nodes, no JVD, supple, full ROM Respiratory: no wheezing, no rales, no rhonchi, clear to auscultation bilateral Cardiovascular: RRR, no significant murmur, no rub, gallop Gastrointestinal: soft, non-tender, no distention, positive bowel sounds Musculoskeletal: pulses present, edema present (improved ) Neurological: non-focal, normal sensation, moves all 4 limbs Psychiatric: normal affect, A&O x 3 Skin: no rash Dx/Plan (1) Anemia Code(s): D64.9 - ANEMIA, UNSPECIFIED Status: Acute Qualifiers: Other causes of anemia: acute posthemorrhagic Comment: acute drop again today.1 unit PRBC given 06/02/17.2 units given 06/03/17 (2) Acute kidney injury superimposed on CKD Code(s): N17.9 - ACUTE KIDNEY FAILURE, UNSPECIFIED; N18.9 - CHRONIC KIDNEY DISEASE, UNSPECIFIED Status: Acute (3) Dyspnea Code(s): R06.00 - DYSPNEA, UNSPECIFIED Status: Acute Comment: Likley due to anemia and COPD with mild CHF exacerbation (4) 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 Code(s): I50.40 - UNSP COMBINED SYSTOLIC AND DIASTOLIC (CONGESTIVE) HRT FAIL Status: Acute Comment: Change lasix to PO (5) Supratherapeutic INR Code(s): R79.1 - ABNORMAL COAGULATION PROFILE Status: Acute Comment: s/p 1 dose Vit K yesterday 06/02/17.INR in range today (6) Hyperkalemia Code(s): E87.5 - HYPERKALEMIA Status: Acute (7) Hyponatremia Code(s): E87.1 - HYPO-OSMOLALITY AND HYPONATREMIA Status: Resolved (8) CKD (chronic kidney disease) stage 3, GFR 30-59 ml/min Code(s): N18.3 - CHRONIC KIDNEY DISEASE, STAGE 3 (MODERATE) Status: Chronic (9) Chronic anticoagulation Code(s): Z79.01 - CUSTODIAL (CURRENT) USE OF ANTICOAGULANTS Status: Chronic Comment: Coumadin on hold due to High INR and GIB (10) DM2 (diabetes mellitus, type 2) Status: Chronic Qualifiers: Comment: (11) HLD (hyperlipidemia) Code(s): E78.5 - HYPERLIPIDEMIA, UNSPECIFIED Status: Chronic Qualifiers: (12) HTN (hypertension) Code(s): I10 - ESSENTIAL (PRIMARY) HYPERTENSION Status: Chronic Qualifiers: Comment: (13) Obesity (BMI 30-39.9) Code(s): E66.9 - OBESITY, UNSPECIFIED Status: Chronic (14) Prosthetic replacement of heart valve Code(s): Z95.2 - PRESENCE OF PROSTHETIC HEART VALVE Status: Chronic (15) Cardiomyopathy Code(s): I42.9 - CARDIOMYOPATHY, UNSPECIFIED Status: Chronic Comment: last EF 05/16 25-30% (16) Pulmonary hypertension Code(s): I27.20 - PULMONARY HYPERTENSION, UNSPECIFIED Status: Chronic (17) Aortic stenosis Code(s): I35.0 - NONRHEUMATIC AORTIC (VALVE) STENOSIS Status: Chronic Qualifiers: Cardiac valve disease etiology: nonrheumatic Qualified Code(s): I35.0 - Nonrheumatic aortic (valve) stenosis Comment: s/p AVR,mechanical.On coumadin (18) COPD (chronic obstructive pulmonary disease) Status: Suspected - Plan plan discussed w/ family, PT/OT, speech therapy, out of bed/ambulate, DVT proph w/SCDs 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 -: coumadin on hold.pharmacy to monitor -: 1 dose kayexalate for high potassium.likley d/t Aldactone w SPENCER/CKD.monitor -: Transfuse 1 unit PRBC for ac drop in Hb.consult GI.h/o gastric ulcer. * .Cont lasix IV BID w albumin per nephrology Cardiology recs pending. Severe w severe cardiomyopathy.Poor candidate for any surgery. Plan discussed with daughter in detail.all Qs answered cont nebs. OT,PT. strict I/Os. am labs. supportive care total time spent 38 minutes including face to face Review of Systems - Review of Systems Constitutional: weakness, malaise. negative: fever, chills, sweats, other Eyes: negative: Pain, Vision Change, Conjunctivae Inflammation, Eyelid Inflammation, Redness, Other ENT: negative: Ear Pain, Ear Discharge, Nose Pain, Nose Discharge, Nose Congestion, Mouth Pain, Mouth Swelling, Throat Pain, Throat Swelling, Other Respiratory: Dry, SOB with Excertion. negative: Cough, Shortness of Breath, Hemoptysis, Pleuritic Pain, Sputum, Wheezing Cardiovascular: edema. negative: chest pain, palpitations, orthopnea, paroxysmal nocturnal dyspnea, light headedness, other Gastrointestinal: Nausea. negative: Vomiting, Abdominal Pain, Diarrhea, Constipation, Melena, Hematochezia, Other Genitourinary: negative: Dysuria, Frequency, Incontinence, Hematuria, Retention , Other Musculoskeletal: negative: Neck Pain, Shoulder Pain, Arm Pain, Back Pain, Hand Pain, Leg Pain, Foot Pain, Other Skin: negative: Rash, Lesions, Chintan, Bruising, Other Neurological: negative: Weakness, Numbness, Incoordination, Change in Speech, Confusion, Seizures, Other - Medications/Allergies Allergies/Adverse Reactions: Allergies Allergy/AdvReac Type Severity Reaction Status Date / Time No Known Allergies Allergy Verified 06/01/17 20:51 Medications: Current Medications Acetaminophen (Tylenol) 650 mg PO Q4H PRN PRN Reason: Headache/Fever or Pain Al Hydroxide/Mg Hydroxide (Maalox) 30 ml PO Q6H PRN PRN Reason: Heartburn or Indigestion Albumin Human (Albumin 25%) 25 gm IVPB Q6HR [facility] Stop: 06/04/17 12:01 Last Admin: 06/02/17 12:23 Dose: 25 gm Albuterol/Ipratropium (Duoneb) 3 ml NEB [id number] [facility] Last Admin: 06/02/17 13:34 Dose: Not Given Albuterol/Ipratropium (Duoneb) 3 ml NEB [id number] PRN PRN Reason: SOB &/or Wheezing Benzonatate (Tessalon) 100 mg PO Q4H PRN PRN Reason: Cough Bisacodyl (Dulcolax) 10 mg PO DAILYPRN PRN PRN Reason: Constipation Calcium Carbonate (Tums) 1,000 mg PO Q4H PRN PRN Reason: Heartburn or Indigestion Carvedilol (Coreg) 6.25 mg PO BID [facility] Last Admin: 06/02/17 09:05 Dose: 6.25 mg Clonidine (Catapres) 0.1 mg PO Q4H PRN PRN Reason: Systolic BP > 160 Dextrose/Water (Dextrose 50%) 25 gm SLOW IVP PRN PRN PRN Reason: Hypoglycemia Ferrous Sulfate (Feosol) 325 mg PO BID-[facility] Last Admin: 06/02/17 09:06 Dose: 325 mg Furosemide (Lasix) 40 mg SLOW IVP 0600,1400 [facility] Last Admin: 06/02/17 05:32 Dose: 40 mg Gabapentin (Neurontin) 300 mg PO BID [facility] Last Admin: 06/02/17 09:06 Dose: 300 mg Glipizide (Glucotrol) 10 mg PO BID-AC [facility] Last Admin: 06/02/17 09:06 Dose: 10 mg Glucagon (Glucagon) 1 mg IM PRN PRN PRN Reason: Hypoglycemia Guaifenesin (Robitussin Sf) 200 mg PO Q4H PRN PRN Reason: Cough Hydralazine HCl (Apresoline) 10 mg SLOW IVP Q4H PRN PRN Reason: Systolic BP > 170 Dextrose/Water (D5w) 1,000 mls @ 0 mls/hr IV .Q0M PRN; As Directed PRN Reason: Hypoglycemia Insulin Human Lispro (Humalog) 0 units SC .MODERATE SLIDING SC PRN PRN Reason: Moderate Correctional Scale Last Admin: 06/02/17 12:37 Dose: 2 unit Insulin Human Lispro (Humalog) 0 units SC .BEDTIME SLIDING SC PRN PRN Reason: Bedtime Correctional Scale Last Admin: 06/01/17 21:50 Dose: 3 units Loratadine (Claritin) 10 mg PO DAILYPRN PRN PRN Reason: Sinus Symptoms Miscellaneous Medication (Pharmacy To Dose) 0 each PO PRN PRN PRN Reason: Pharmacy to dose Nitroglycerin (Nitrostat) 0.4 mg SL Q5MIN PRN PRN Reason: Chest Pain Ondansetron HCl (Zofran) 4 mg IVP Q6H PRN PRN Reason: Nausea/Vomiting Pantoprazole Sodium (Protonix) 40 mg PO DAILY [facility] Last Admin: 06/02/17 09:06 Dose: 40 mg Phytonadione (Aquamephyton) 5 mg SC NOW [facility] Stop: 06/02/17 14:00 Senna (Senokot) 2 tab PO HSPRN PRN PRN Reason: Constipation Simvastatin (Zocor) 20 mg PO [facility] Last Admin: 06/01/17 21:49 Dose: 20 mg Throat Lozenges (Cepastat Lozenges) 1 pham PO Q2H PRN PRN Reason: Sore Throat Last Admin: 06/02/17 12:26 Dose: 1 pham Tramadol HCl (Ultram) 50 mg PO Q4H PRN PRN Reason: Moderate Pain (4-6) Last Admin: 06/01/17 23:46 Dose: 50 mg
[2017-06-02] MEDS: Simvastatin 20 MG TAB PO SCH (22:20)
--- NOTE | 2017-06-02 22:29 | CON ---
DATE OF CONSULTATION: 06/02/2017 CARDIOLOGY CONSULTATION REASON FOR CONSULTATION: 1. Congestive heart failure, systolic/diastolic combined, acute on chronic. 2. Anemia. 3. Renal failure. 4. Previous aortic valve replacement. HISTORY OF PRESENT ILLNESS: Ms. Mary Morejon is a pleasant 76-year-old woman who has unfortunate ly had a really declining course recently. She has had multiple admissions for the same problem. Shonda lopez was brought to the hospital this occasion again back into congestive heart failure with edema, also hyperkalemic and anemic. PAST MEDICAL HISTORY: 1. She has a history of mechanical aortic valve replacement. 2. History of anemia, iron deficiency. 3. History of edema. 4. History of renal failure. MEDICATIONS: She is taking, 1. Warfarin. 2. Carvedilol. 3. Spironolactone. 4. Aspirin. 5. Iron. 6. Furosemide. 7. Lisinopril. ALLERGIES: None known. REVIEW OF SYSTEMS: Constitutional: Positive for weakness, fatigue. Vision: No changes. Hearing: No changes. Pulmonary: No cough or wheezing. Gastrointestinal: No nausea, vomiting, diarrhea. C ardiovascular: No chest pain. Skin: No rashes. Neurologic: No unilateral weakness or numbness. Psychiatric: No unusual depression or anxiety. PHYSICAL EXAMINATION: GENERAL: This is a chronically ill-appearing, very pleasant woman. VITAL SIGNS: Blood pressure 107/53, pulse 90, it is regular. HEENT: Sclerae nonicteric. Mouth, mucous membranes moist. NECK: Supple, no lymphadenopathy. LUNGS: Clear, no wheezing, rales or rhonchi. CARDIAC: No murmur, rub or gallop. ABDOMEN: Soft, nontender. EXTREMITIES: There is severe edema. SKIN: Warm and dry. PERTINENT LABORATORY DATA: Creatinine is 2.58, estimated GFR is 18. Potassium is 5.7, hemoglobin wa s 6.8. ASSESSMENT: 1. Congestive heart failure, systolic, diastolic combined with ejection fraction 25-30%. 2. Increased INR, probably related to hepatic congestion. 3. Previous mechanical aortic valve replacement. 4. Severe anemia. PLAN: 1. Transfusion with 1 unit of packed red blood cells. 2. Hold Coumadin, but we would not give vitamin K, especially since has a mechanical valve, if we re verse anticoagulation, she will be at risk of thrombosing in a mechanical valve. 3. Continue diuretics. 4. Agree with stopping HARLEY inhibitors and spironolactone for now. 5. Base met in the morning. We will follow with you.
[2017-06-03] MEDS: Albumin 25% 25 GM/100 ML BOT IVPB SCH ×4 (00:25→22:11)
[2017-06-03 05:44] LABS: #Eosinphils 0.1 thou/uL (0.0-0.7); #Lymphocytes 1.2 thou/uL (1.20-3.40); #Monocytes 0.5 thou/uL (0.11-0.59); #Neutrophils 2.6 thou/uL (1.40-6.50); %Basophils 0.2 % (0.0-1.0); %Eosinophils 1.5 % (0.0-10.0); %Lymphocytes 27.3 % (21.0-51.0); %Monocytes 11.6 % (0.0-10.0); %Neutrophils 59.4 % (42.0-75.0); Hemoglobin 5.8 g/dL (12.0-16.0); Mean Corpuscular Hemoglobin 29.9 pg (27.0-31.0); Mean Corpuscular Volume 90.6 fl (81.0-99.0); Mean Platelet Volume 7.8 fL (7.4-10.4); Platelet Count 181 thou/uL (130-400); RBC Distribution Width 15.5 % (11.5-14.5); Red Blood Cell (RBC) Count 1.93 mill/uL (4.20-5.40); White Blood Cell (WBC) Count 4.3 thou/uL (4.8-10.8)
[2017-06-03 05:45] LABS: INR-International Normal Ratio 2.8; Prothrombin Time 30.4 SEC (12.0-14.7)
[2017-06-03 05:51] LABS: Anion Gap 9 mmol/L (10-20); BUN (Urea Nitrogen) 80 mg/dL (9.8-20.1); Calc. Creatinine Clearance 31 mL/min (70-130); Calcium 8.9 mg/dL (7.8-10.44); Carbon Dioxide 35 mmol/L (23-31); Chloride 99 mmol/L (98-107); Estimated GFR-MDRD 21; Glucose 124 mg/dL (83-110); Potassium 5.4 mmol/L (3.5-5.1); Sodium 138 mmol/L (136-145)
[2017-06-03] MEDS: Furosemide 40 MG/4 ML VIAL SLOW IVP SCH ×2 (06:13→15:13)
[2017-06-03] MEDS ORDERED: glipiZIDE 5 MG TAB PO SCH (07:30)
--- NOTE | 2017-06-03 09:14 | PRG ---
DATE OF SERVICE: 06/03/2017 SUBJECTIVE: Ms. Morejon is a 76-year-old white female who was admitted for shortness of breath. S he has been empirically treated for congestive heart failure. We were consulted for acute kidney inj ury over chronic renal failure. We have started this patient on salt poor albumin. Renal function i s slowly improving. This morning she was noted to be significantly anemic. She also has positive st ool cards. No new complaints. Her shortness of breath is actually improved. She is also getting ne b treatment regularly. She is feeling lethargic today. PHYSICAL EXAMINATION: VITAL SIGNS: Blood pressure is 117/58, heart rate 75, respiratory rate 18, temperature 98.8, pulse o ximetry 98% on room air. GENERAL: Awake, supine, lethargic, not in overt distress. Please note this patient is quite confuse d. SKIN: Adequate turgor. HEENT: Pale conjunctivae. LUNGS: Clear breath sounds, no wheezing, no crackles. HEART: Normal sinus rhythm. No murmur, no gallops or rubs. ABDOMEN: Globular, soft, nontender, no masses. EXTREMITIES: Trace edema. MEDICATIONS: 06/03/2017 - Reviewed. LABORATORY: 06/03/2017 - White count 4.2, hemoglobin 5.8, hematocrit 17.5. Sodium 138, potassium 5. 4, chloride 99, carbon dioxide 35, BUN 80, creatinine 2.23, glucose 124, calcium 8.9. ASSESSMENT AND PLAN: 1. Acute kidney injury - superimposed prerenal azotemia, improving with gentle placement of salt poo r albumin. Continue current management. No indication for any dialytic intervention. 2. Shortness of breath, multifactorial. The patient is currently on neb treatment and on gentle diu resis. 3. Anemia. She may need a GI workup. Currently, will transfuse 2 units of packed red blood cells. Continue supportive care. We will recheck base met and CBC in a.m.
--- NOTE | 2017-06-03 09:45 | PRG ---
DATE OF SERVICE: 06/03/2017 HISTORY: Ms. Morejon is receiving packed red blood cells. She is extremely anemic this morning. PHYSICAL EXAMINATION: VITAL SIGNS: Her blood pressure 117/58, pulse 70s. LUNGS: Clear. CARDIAC: No new murmur, rub or gallop. ABDOMEN: Soft, nontender. EXTREMITIES: There is mild to moderate edema. PERTINENT LABORATORY DATA: Hemoglobin was 5.8 this morning. Potassium 5.4, creatinine 2.23. Her fe rritin level was 361. Iron level was 107. ASSESSMENT: 1. Anemia, acute on chronic. 2. Renal failure. 3. Congestive heart failure, systolic, diastolic combined. PLAN: 1. She is receiving packed red blood cells. 2. I am going to repeat the echocardiogram. 3. May consider fluoroscopy to see if the valve leaflets are functioning normally. The patient continues to be critically ill, is not doing well. Continue to treat aggressively. Prognosis is looking progressively worse.
--- NOTE | 2017-06-03 10:41 | CON ---
DATE OF CONSULTATION: 06/02/2017 REFERRING PHYSICIAN: Suzi Whyte M.D. REASON FOR CONSULTATION: Acute drop in blood count to 21, GI bleeding. HISTORY OF PRESENT ILLNESS: Laquita Morejon is a very pleasant 76-year-old woman who known to me from before. The patient was hospitalized here with heart failure in 04/2017 and are seen by me because of anemia. At that time, she had no hematochezia, no melena. The patient has remote hist ory of gastric ulcer in the past. She also has a history of colon polyp before. My recommendation a t that time was to perform EGD and colonoscopy as an outpatient. The patient was hospitalized becaus e of acute shortness of breath and generalized weakness. On admission, the patient found to have ane guadalupe. The anemia is the same thing as before, but her blood count dropped from 8.5 to 4.8 today. The patient has had no hematemesis or melena. The patient had no stool today. Apparently, she had a st ool yesterday and day before. The patient cannot tell me whether the stool has any black stool or an y blood in stool. At the present time, her INR is still very prolonged. The PT today is 50.8, INR i s 5.2. No other relevant history. PAST MEDICAL HISTORY: 1. Ischemic cardiomyopathy with low ejection fraction. 2. Chronic kidney disease. 3. Severe aortic stenosis. 4. Hypertension. 5. Mitral regurgitation. 6. Chronic kidney disease. 7. Diabetes. 8. Hypertension. 9. Dyslipidemia. 10. Colon polyp. 11. Possible history of gastric ulcer. ALLERGIES: None. PAST SURGICAL HISTORY: 1. Aortic valve replacement. 2. Left knee replacement. 3. Bilateral cataract surgery. PHYSICAL EXAMINATION: GENERAL: Patient appears weak. She is awake and alert and communicative. She has abdominal pain. VITAL SIGNS: Temperature 100.7 degrees Fahrenheit, pulse is 91, blood pressure 104/54. CARDIOVASCULAR SYSTEM: First and second heart sounds normal. LUNGS: Clear. ABDOMEN: Soft. Nontender. No guarding or mass. LABORATORY DATA: Shows anemia on admission which has dropped further down. CBC yesterday WBC 5400, hemoglobin 8.4, hematocrit 26.2. Today, the count dropped to 6.8 from 21. CLINICAL IMPRESSION: 1. Recent drop in blood count, rule out gastrointestinal bleeding. 2. Anemia of chronic disease. 3. Marked a prolonged INR. RECOMMENDATIONS: 1. Follow up H and H. 2. Transfuse p.r.n. 3. Once the PT/INR comes to therapeutic level, we will plan for endoscopic studies.
[2017-06-03] MEDS: Ferrous Sulfate 325 MG TAB PO SCH ×2 (12:46→17:27)
[2017-06-03] MEDS: Gabapentin 300 MG CAP PO SCH ×2 (12:47→22:12)
[2017-06-03] MEDS: Carvedilol 6.25 MG TAB PO SCH ×2 (12:47→22:12)
--- NOTE | 2017-06-03 14:22 | PDOC.PN ---
- Subjective Encounter Start Date: 06/03/17 Encounter Start Time: 14:20 Subjective: feels poorly.weak and tired -: care discussed w daughter on phone after pt seen at bedside -: c/o loose stools.nursing report asif stools - Objective Resuscitation Status: Resuscitation Status FULL:Full Resuscitation MAR Reviewed: Yes Vital Signs & Weight: Vital Signs (12 hours) Temp Pulse Resp BP BP Pulse Ox 06/03/17 12:47 110/57 L 06/03/17 12:33 98.8 F 88 18 117/56 L 96 06/03/17 08:45 98.4 F 80 20 06/03/17 08:44 98 F 80 20 133/56 L 96 06/03/17 08:01 75 18 98 06/03/17 03:29 98.8 F 94 20 117/58 L 94 L Weight Weight 201 lb 12.8 oz I&O: 06/02/17 06/03/17 06/04/17 06:59 06:59 06:59 Intake Total 780 1980 350 Output Total 2925 2275 Balance -2145 -295 350 Result Diagrams: 06/03/17 05:10 06/03/17 05:10 Additional Labs: Accuchecks 06/03/17 06/03/17 06/02/17 11:15 06:50 20:54 POC Glucose 143 H 149 H 94 06/02/17 15:47 POC Glucose 131 H Microbiology 06/03/17 00:20 Stool C. difficile GDH Antigen & Toxins - Final 06/02/17 16:30 Stool - Loose Stool Occult Blood (GAMAL) - Final Laboratory Tests 06/01/17 06/01/17 06/02/17 13:19 13:19 05:48 Hgb 8.4 L Creatinine 3.09 H 2.58 H 06/02/17 06/03/17 06/03/17 05:48 05:10 05:10 Hgb 6.8 L 5.8 L* Creatinine 2.23 H Phys Exam - Physical Examination sleepy and pale HEENT: PERRLA, sclera anicteric dry mucosa Neck: no nodes, no JVD, supple, full ROM Respiratory: no wheezing, no rales, no rhonchi, clear to auscultation bilateral Cardiovascular: RRR, no significant murmur Gastrointestinal: soft, no distention, positive bowel sounds mild diffuse tenderness Musculoskeletal: no edema (improved), pulses present Neurological: non-focal, normal sensation, moves all 4 limbs Psychiatric: normal affect, A&O x 3 Skin: no rash Dx/Plan (1) GI (gastrointestinal hemorrhage) Code(s): K92.2 - GASTROINTESTINAL HEMORRHAGE, UNSPECIFIED Status: Acute (2) Anemia Code(s): D64.9 - ANEMIA, UNSPECIFIED Status: Acute Qualifiers: Other causes of anemia: acute posthemorrhagic Comment: acute drop again today.1 unit PRBC given 06/02/17. 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 Code(s): I50.40 - UNSP COMBINED SYSTOLIC AND DIASTOLIC (CONGESTIVE) HRT FAIL Status: Acute (6) Supratherapeutic INR Code(s): R79.1 - ABNORMAL COAGULATION PROFILE Status: Acute Comment: s/p 1 dose Vit K yesterday 06/02/17.INR in range today (7) Hyperkalemia Code(s): E87.5 - HYPERKALEMIA Status: Acute (8) CKD (chronic kidney disease) stage 3, GFR 30-59 ml/min Code(s): N18.3 - CHRONIC KIDNEY DISEASE, STAGE 3 (MODERATE) Status: Chronic (9) Chronic anticoagulation Code(s): Z79.01 - [facility] (CURRENT) USE OF ANTICOAGULANTS Status: Chronic Comment: Coumadin on hold due to High INR and GIB (10) DM2 (diabetes mellitus, type 2) Status: Chronic Qualifiers: Comment: (11) HLD (hyperlipidemia) Code(s): E78.5 - HYPERLIPIDEMIA, UNSPECIFIED Status: Chronic Qualifiers: (12) HTN (hypertension) Code(s): I10 - ESSENTIAL (PRIMARY) HYPERTENSION Status: Chronic Qualifiers: Comment: (13) Obesity (BMI 30-39.9) Code(s): E66.9 - OBESITY, UNSPECIFIED Status: Chronic (14) Prosthetic replacement of heart valve Code(s): Z95.2 - PRESENCE OF PROSTHETIC HEART VALVE Status: Chronic (15) Cardiomyopathy Code(s): I42.9 - CARDIOMYOPATHY, UNSPECIFIED Status: Chronic Comment: last EF 05/16 25-30% (16) Pulmonary hypertension Code(s): I27.20 - PULMONARY HYPERTENSION, UNSPECIFIED Status: Chronic (17) Aortic stenosis Code(s): I35.0 - NONRHEUMATIC AORTIC (VALVE) STENOSIS Status: Chronic Qualifiers: Cardiac valve disease etiology: nonrheumatic Qualified Code(s): I35.0 - Nonrheumatic aortic (valve) stenosis (18) COPD (chronic obstructive pulmonary disease) Status: Suspected (19) Hyponatremia Code(s): E87.1 - HYPO-OSMOLALITY AND HYPONATREMIA Status: Resolved - Plan PT/OT, out of bed/ambulate, DVT proph w/SCDs Will transfuse again today-2units ordereed.lasix afterwards.H/H serially -: Keep NPO for possible Endoscopy.left message for Dr. Juarez -: INR better today.cont to hold eliquis.high risk of valve thrombosis however -: cont gentle diuresis.Renal Fx improving.appreciate Cardio/Nephro input -: Severe As & cardiomyopathy .repeat ECHO per cardiology * .Pt poor candidate for cardiac Sx. * C.Diff inderminate .re send sample.Add Probiotics.recent H/O C.Diff * Poor prognosis as Pt has obviuosly worsened with severe underlying co morbidities to start with * She ramins full code. * Daughter made aware of all changes. * cont supportive care. Remains Hd stable. * AM labs Review of Systems - Review of Systems Constitutional: weakness, malaise. negative: fever, chills, sweats, other Respiratory: negative: Cough, Dry, Shortness of Breath, Hemoptysis, SOB with Excertion, Pleuritic Pain, Sputum, Wheezing Cardiovascular: negative: chest pain, palpitations, orthopnea, paroxysmal nocturnal dyspnea, edema, light headedness, other Gastrointestinal: Abdominal Pain, Diarrhea Genitourinary: negative: Dysuria, Frequency, Incontinence, Hematuria, Retention , Other Musculoskeletal: negative: Neck Pain, Shoulder Pain, Arm Pain, Back Pain, Hand Pain, Leg Pain, Foot Pain, Other Skin: negative: Rash, Lesions, Chintan, Bruising, Other Neurological: negative: Weakness, Numbness, Incoordination, Change in Speech, Confusion, Seizures, Other - Medications/Allergies Allergies/Adverse Reactions: Allergies Allergy/AdvReac Type Severity Reaction Status Date / Time No Known Allergies Allergy Verified 06/01/17 20:51 Medications: Current Medications Acetaminophen (Tylenol) 650 mg PO Q4H PRN PRN Reason: Headache/Fever or Pain Al Hydroxide/Mg Hydroxide (Maalox) 30 ml PO Q6H PRN PRN Reason: Heartburn or Indigestion Albumin Human (Albumin 25%) 25 gm IVPB Q6HR [facility] Stop: 06/04/17 12:01 Last Admin: 06/03/17 06:13 Dose: 25 gm Albuterol/Ipratropium (Duoneb) 3 ml NEB [id number] [facility] Last Admin: 06/03/17 14:17 Dose: Not Given Albuterol/Ipratropium (Duoneb) 3 ml NEB [id number] PRN PRN Reason: SOB &/or Wheezing Benzonatate (Tessalon) 100 mg PO Q4H PRN PRN Reason: Cough Bisacodyl (Dulcolax) 10 mg PO DAILYPRN PRN PRN Reason: Constipation Calcium Carbonate (Tums) 1,000 mg PO Q4H PRN PRN Reason: Heartburn or Indigestion Carvedilol (Coreg) 6.25 mg PO BID [facility] Last Admin: 06/03/17 12:47 Dose: Not Given Clonidine (Catapres) 0.1 mg PO Q4H PRN PRN Reason: Systolic BP > 160 Dextrose/Water (Dextrose 50%) 25 gm SLOW IVP PRN PRN PRN Reason: Hypoglycemia Ferrous Sulfate (Feosol) 325 mg PO BID-[facility] Last Admin: 06/03/17 12:46 Dose: Not Given Furosemide (Lasix) 40 mg SLOW IVP 0600,1400 [facility] Last Admin: 06/03/17 06:13 Dose: 40 mg Gabapentin (Neurontin) 300 mg PO BID [facility] Last Admin: 06/03/17 12:47 Dose: Not Given Glipizide (Glucotrol) 5 mg PO DAILY-[facility] Last Admin: 06/03/17 12:46 Dose: Not Given Glucagon (Glucagon) 1 mg IM PRN PRN PRN Reason: Hypoglycemia Guaifenesin (Robitussin Sf) 200 mg PO Q4H PRN PRN Reason: Cough Hydralazine HCl (Apresoline) 10 mg SLOW IVP Q4H PRN PRN Reason: Systolic BP > 170 Dextrose/Water (D5w) 1,000 mls @ 0 mls/hr IV .Q0M PRN; As Directed PRN Reason: Hypoglycemia Insulin Human Lispro (Humalog) 0 units SC .MODERATE SLIDING SC PRN PRN Reason: Moderate Correctional Scale Last Admin: 06/02/17 12:37 Dose: 2 unit Insulin Human Lispro (Humalog) 0 units SC .BEDTIME SLIDING SC PRN PRN Reason: Bedtime Correctional Scale Last Admin: 06/01/17 21:50 Dose: 3 units Loratadine (Claritin) 10 mg PO DAILYPRN PRN PRN Reason: Sinus Symptoms Miscellaneous Medication (Pharmacy To Dose) 0 each PO PRN PRN PRN Reason: Pharmacy to dose Nitroglycerin (Nitrostat) 0.4 mg SL Q5MIN PRN PRN Reason: Chest Pain Ondansetron HCl (Zofran) 4 mg IVP Q6H PRN PRN Reason: Nausea/Vomiting Pantoprazole Sodium (Protonix) 40 mg PO DAILY [facility] Last Admin: 06/03/17 12:47 Dose: Not Given Senna (Senokot) 2 tab PO HSPRN PRN PRN Reason: Constipation Simvastatin (Zocor) 20 mg PO HS [facility] Last Admin: 06/02/17 22:20 Dose: 20 mg Sodium Chloride (Flush - Normal Saline) 10 ml IVF PRN PRN PRN Reason: Saline Flush Throat Lozenges (Cepastat Lozenges) 1 pham PO Q2H PRN PRN Reason: Sore Throat Last Admin: 06/02/17 12:26 Dose: 1 pham Tramadol HCl (Ultram) 50 mg PO Q4H PRN PRN Reason: Moderate Pain (4-6) Last Admin: 06/01/17 23:46 Dose: 50 mg
[2017-06-03 20:09] LABS: Hemoglobin 7.6 g/dL (12.0-16.0)
[2017-06-03] MEDS ORDERED: HYDROcodone/Acetaminophen 5/325 mg Tablet PO SCH (20:45)
--- NOTE | 2017-06-03 20:56 | PRG ---
DATE OF SERVICE: 06/03/2017 SUBJECTIVE: The patient is a very pleasant 76-year-old female hospitalized with acute shor tness of breath and also has had GI bleeding yesterday, as an associate 4 bloody stool. She has rece ived 2 units of packed RBCs. Her PT/INR was markedly prolonged yesterday. Today is actually better. It is coming down towards baseline. PT today is 30.4. INR is 2.8. is off the anticoagulation. T he hemoglobin today is 5.8 and hematocrit is 17.5. The patient has had no stool throughout the day. The patient is somewhat sleepy from sleeping medication. The patient's family is in the room. OBJECTIVE: GENERAL: She is obese, appears comfortable. VITAL SIGNS: Stable. CARDIOVASCULAR SYSTEM AND LUNGS: Within normal limits. ABDOMEN: Soft to palpate. No organomegaly. No tenderness. CLINICAL IMPRESSION AND RECOMMENDATIONS: Anemia due to blood loss. She had four bloody stools yeste rday. Probably clear that she has GI source of bleeding or lower GI series GI bleeding. Her PT/INR was markedly prolonged yesterday, but subsequently trending down today. I had a long talk with the lizzy sandoval's family and friends that most likely we will plan for an esophagogastroduodenoscopy tomorrow. If the esophagogastroduodenoscopy does not show any pathology, we will consider colonoscopy.
[2017-06-03] MEDS: Simvastatin 20 MG TAB PO SCH (22:12)
[2017-06-04 05:19] LABS: #Eosinphils 0.1 thou/uL (0.0-0.7); #Lymphocytes 1.5 thou/uL (1.20-3.40); #Monocytes 0.5 thou/uL (0.11-0.59); #Neutrophils 3.4 thou/uL (1.40-6.50); %Basophils 0.1 % (0.0-1.0); %Eosinophils 1.1 % (0.0-10.0); %Lymphocytes 26.9 % (21.0-51.0); %Monocytes 9.7 % (0.0-10.0); %Neutrophils 62.2 % (42.0-75.0); Hemoglobin 7.7 g/dL (12.0-16.0); Mean Corpuscular HGB CONC 33.4 g/dL (32.0-36.0); Mean Corpuscular Hemoglobin 29.9 pg (27.0-31.0); Mean Corpuscular Volume 89.5 fl (81.0-99.0); Mean Platelet Volume 7.6 fL (7.4-10.4); Platelet Count 175 thou/uL (130-400); RBC Distribution Width 15.2 % (11.5-14.5); Red Blood Cell (RBC) Count 2.58 mill/uL (4.20-5.40); White Blood Cell (WBC) Count 5.5 thou/uL (4.8-10.8)
[2017-06-04 05:20] LABS: INR-International Normal Ratio 1.8; Prothrombin Time 21.1 SEC (12.0-14.7)
[2017-06-04 05:27] LABS: Anion Gap 17 mmol/L (10-20); BUN (Urea Nitrogen) 79 mg/dL (9.8-20.1); Calc. Creatinine Clearance 34 mL/min (70-130); Calcium 9.4 mg/dL (7.8-10.44); Carbon Dioxide 26 mmol/L (23-31); Chloride 101 mmol/L (98-107); Estimated GFR-MDRD 25; Glucose 83 mg/dL (83-110); Potassium 4.8 mmol/L (3.5-5.1); Sodium 139 mmol/L (136-145)
[2017-06-04 05:28] LABS: Band 2 % (5-11); Hemoglobin 7.7 g/dL (12.0-16.0); Lymphocytes 33 % (21-51); MDiff Complete? YES; Mean Corpuscular HGB CONC 33.1 g/dL (32.0-36.0); Mean Corpuscular Hemoglobin 29.6 pg (27.0-31.0); Mean Corpuscular Volume 89.4 fl (81.0-99.0); Mean Platelet Volume 7.4 fL (7.4-10.4); Monocytes 5 % (0-10); Neutrophil 56 % (42-75); Platelet Count 181 thou/uL (130-400); RBC Distribution Width 15.2 % (11.5-14.5); RBC Morphology Normal; Reactive Lymphocytes 4 % (0-10); Red Blood Cell (RBC) Count 2.59 mill/uL (4.20-5.40); White Blood Cell (WBC) Count 5.1 thou/uL (4.8-10.8)
[2017-06-04] MEDS: Furosemide 40 MG/4 ML VIAL SLOW IVP SCH (05:44)
[2017-06-04] MEDS: Carvedilol 6.25 MG TAB PO SCH (05:44)
[2017-06-04] MEDS: Gabapentin 300 MG CAP PO SCH ×2 (10:49→20:23)
[2017-06-04] MEDS: Ferrous Sulfate 325 MG TAB PO SCH ×2 (10:49→17:29)
--- NOTE | 2017-06-04 10:59 | PRG ---
DATE OF SERVICE: 06/04/2017 SERVICE: Renal Medicine. SUBJECTIVE: Ms. Morejon is a 76-year-old white female, seen for her acute kidney injury on top of her chronic renal failure. She is slowly much improved with albumin infusion as well as transfusion of packed RBC. Please note, she received 2 units of packed RBCs. She is scheduled for an upper GI e ndoscopy today. Renal function is slowly improving. Her shortness of breath is also much improved. She is on neb treatment and has been on diuretics in the recent past. OBJECTIVE: VITAL SIGNS: Blood pressure today is noted at 109/51, heart rate 95, respiratory rate 16, temperatur e 98.7, pulse ox 91%. GENERAL EXAM: Awake, alert, comfortable, not in distress. SKIN: Adequate turgor. HEENT: Slightly pale conjunctivae, anicteric sclerae. NECK: No neck mass, no carotid bruits, no JVD. CHEST: No deformities. LUNGS: Decreased breath sounds. HEART: Normal sinus rhythm. No murmur, no gallops, no rubs. ABDOMEN: Globular, soft, nontender, no masses. EXTREMITIES: Positive for edema. No deformities. Medications of 06/04/2017 were reviewed. LABORATORY DATA: Laboratories of 06/04/2017, white count 5.1, hemoglobin 7.7, sodium 139, potassium 4.8, chloride 101, carbon dioxide 26, BUN 79, creatinine 1.97, glucose 83, calcium 9.4, LDH is 260. ASSESSMENT AND PLAN: 1. Acute kidney injury on top of chronic renal failure, prerenal azotemia, slowly improving. Creati nine is now noted at 1.97, which is so far the best value we have. Continue supportive care. Contin ue judicious use of diuretics. No indication for any dialytic intervention. 2. Anemia, much improved with 2 units of packed RBC. The patient is for planned upper GI endoscopy to rule out any bleeding ulcers. 3. Congestive heart failure, clinically much improved. Continue judicious use of diuretics. Overall, agree with current management.
[2017-06-04] MEDS ORDERED: Furosemide 40 MG TAB PO SCH (14:00)
--- NOTE | 2017-06-04 14:23 | PDOC.PN ---
- Subjective Encounter Start Date: 06/04/17 Encounter Start Time: 14:21 Subjective: feels Ok but very weak.No stools since yesterday am - Objective Resuscitation Status: Resuscitation Status FULL:Full Resuscitation MAR Reviewed: Yes Vital Signs & Weight: Vital Signs (12 hours) Temp Pulse Pulse Pulse Resp BP BP 06/04/17 10:51 98.7 F 92 16 06/04/17 08:59 68 16 06/04/17 08:24 86 86 111/66 06/04/17 07:34 98.7 F 95 16 06/04/17 05:44 138/60 06/04/17 04:00 98.6 F 95 20 BP BP Pulse Ox 06/04/17 10:51 138/67 91 L 06/04/17 08:59 06/04/17 08:24 116/70 06/04/17 07:34 109/51 L 91 L 06/04/17 05:44 06/04/17 04:00 138/60 92 L Weight Weight 201 lb 6.4 oz I&O: 06/03/17 06/04/17 06/05/17 06:59 06:59 06:59 Intake Total 1980 1750 Output Total 2275 2300 Balance -295 -550 Result Diagrams: 06/04/17 05:03 06/04/17 05:03 Additional Labs: Accuchecks 06/04/17 06/04/17 06/03/17 11:04 05:48 21:09 POC Glucose 107 95 148 H 06/03/17 16:47 POC Glucose 114 H Microbiology 06/03/17 00:20 Stool Clostridium difficile Toxin A&B PCR - Final 06/02/17 16:30 Stool - Loose Stool Occult Blood (GAMAL) - Final 06/03/17 00:20 Stool C. difficile GDH Antigen & Toxins - Preliminary Laboratory Tests 06/01/17 06/01/17 06/02/17 13:19 13:19 05:48 Hgb 8.4 L Creatinine 3.09 H 2.58 H Lactate Dehydrogenase 06/02/17 06/03/17 06/03/17 05:48 05:10 05:10 Hgb 6.8 L 5.8 L* Creatinine 2.23 H Lactate Dehydrogenase 06/03/17 06/04/17 06/04/17 19:43 05:03 05:03 Hgb 7.6 L 7.7 L Creatinine 1.97 H Lactate Dehydrogenase 06/04/17 06/04/17 05:03 05:03 Hgb 7.7 L Creatinine Lactate Dehydrogenase 260 H Laboratory Tests 06/04/17 05:03 INR 1.8 Phys Exam - Physical Examination Constitutional: NAD pale and weak looking HEENT: PERRLA, moist MMs, sclera anicteric, oral pharynx no lesions Neck: no JVD Respiratory: no wheezing, no rales, no rhonchi, clear to auscultation bilateral Cardiovascular: RRR, no significant murmur Gastrointestinal: soft, non-tender, no distention, positive bowel sounds Musculoskeletal: no edema, pulses present Neurological: non-focal, normal sensation, moves all 4 limbs Psychiatric: normal affect, A&O x 3 Skin: no rash Dx/Plan (1) Recurrent Clostridium difficile diarrhea Code(s): A04.71 - ENTEROCOLITIS DUE TO CLOSTRIDIUM DIFFICILE, RECURRENT Status : Acute (2) GI (gastrointestinal hemorrhage) Code(s): K92.2 - GASTROINTESTINAL HEMORRHAGE, UNSPECIFIED Status: Acute Comment: For EGD today.H/H stable .Total 3 unit PRBC given (3) Anemia Code(s): D64.9 - ANEMIA, UNSPECIFIED Status: Acute Qualifiers: Other causes of anemia: acute posthemorrhagic Comment: acute drop again today.1 unit PRBC given 06/02/17.2 units given 06/03/17 (4) Acute kidney injury superimposed on CKD Code(s): N17.9 - ACUTE KIDNEY FAILURE, UNSPECIFIED; N18.9 - CHRONIC KIDNEY DISEASE, UNSPECIFIED Status: Acute (5) Dyspnea Code(s): R06.00 - DYSPNEA, UNSPECIFIED Status: Acute Comment: Likley due to anemia and COPD with mild CHF exacerbation (6) 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 Code(s): I50.40 - UNSP COMBINED SYSTOLIC AND DIASTOLIC (CONGESTIVE) HRT FAIL Status: Acute Comment: Change lasix to PO (7) Supratherapeutic INR Code(s): R79.1 - ABNORMAL COAGULATION PROFILE Status: Acute Comment: s/p 1 dose Vit K yesterday 06/02/17.INR in range today (8) Hyperkalemia Code(s): E87.5 - HYPERKALEMIA Status: Acute (9) CKD (chronic kidney disease) stage 3, GFR 30-59 ml/min Code(s): N18.3 - CHRONIC KIDNEY DISEASE, STAGE 3 (MODERATE) Status: Chronic (10) Chronic anticoagulation Code(s): Z79.01 - [facility] (CURRENT) USE OF ANTICOAGULANTS Status: Chronic Comment: Coumadin on hold due to High INR and GIB (11) DM2 (diabetes mellitus, type 2) Status: Chronic Qualifiers: Comment: (12) HLD (hyperlipidemia) Code(s): E78.5 - HYPERLIPIDEMIA, UNSPECIFIED Status: Chronic Qualifiers: (13) HTN (hypertension) Code(s): I10 - ESSENTIAL (PRIMARY) HYPERTENSION Status: Chronic Qualifiers: Comment: (14) Obesity (BMI 30-39.9) Code(s): E66.9 - OBESITY, UNSPECIFIED Status: Chronic (15) Prosthetic replacement of heart valve Code(s): Z95.2 - PRESENCE OF PROSTHETIC HEART VALVE Status: Chronic (16) Cardiomyopathy Code(s): I42.9 - CARDIOMYOPATHY, UNSPECIFIED Status: Chronic Comment: last EF 05/16 25-30% (17) Pulmonary hypertension Code(s): I27.20 - PULMONARY HYPERTENSION, UNSPECIFIED Status: Chronic (18) Aortic stenosis Code(s): I35.0 - NONRHEUMATIC AORTIC (VALVE) STENOSIS Status: Chronic Qualifiers: Cardiac valve disease etiology: nonrheumatic Qualified Code(s): I35.0 - Nonrheumatic aortic (valve) stenosis (19) COPD (chronic obstructive pulmonary disease) Status: Suspected (20) Hyponatremia Code(s): E87.1 - HYPO-OSMOLALITY AND HYPONATREMIA Status: Resolved - Plan PT/OT, out of bed/ambulate, DVT proph w/SCDs add PO mvancomycin.2nd pisode this year.last treated w Flagyl -: H/H stable. EGD today.cont PPI. -: chnage lasix to PO. renal Fx much improved. -: appreciate GI,cardiology & Nephrology input -: Pt remains a poor candidate for invasive procedures regarding CHF/ * .INR better today.Cont to hold coumadin. * am labs * I/Os Review of Systems - Review of Systems Constitutional: weakness, malaise. negative: fever, chills, sweats, other Eyes: negative: Pain, Vision Change, Conjunctivae Inflammation, Eyelid Inflammation, Redness, Other ENT: negative: Ear Pain, Ear Discharge, Nose Pain, Nose Discharge, Nose Congestion, Mouth Pain, Mouth Swelling, Throat Pain, Throat Swelling, Other Respiratory: SOB with Excertion. negative: Cough, Dry, Shortness of Breath, Hemoptysis, Pleuritic Pain, Sputum, Wheezing Cardiovascular: edema. negative: chest pain, palpitations, orthopnea, paroxysmal nocturnal dyspnea, light headedness, other Gastrointestinal: negative: Nausea, Vomiting, Abdominal Pain, Diarrhea, Constipation, Melena, Hematochezia, Other Genitourinary: negative: Dysuria, Frequency, Incontinence, Hematuria, Retention , Other Musculoskeletal: negative: Neck Pain, Shoulder Pain, Arm Pain, Back Pain, Hand Pain, Leg Pain, Foot Pain, Other Skin: negative: Rash, Lesions, Chintan, Bruising, Other Neurological: negative: Weakness, Numbness, Incoordination, Change in Speech, Confusion, Seizures, Other - Medications/Allergies Allergies/Adverse Reactions: Allergies Allergy/AdvReac Type Severity Reaction Status Date / Time No Known Allergies Allergy Verified 06/01/17 20:51 Medications: Current Medications Acetaminophen (Tylenol) 650 mg PO Q4H PRN PRN Reason: Headache/Fever or Pain Al Hydroxide/Mg Hydroxide (Maalox) 30 ml PO Q6H PRN PRN Reason: Heartburn or Indigestion Albuterol/Ipratropium (Duoneb) 3 ml NEB [id number] [facility] Last Admin: 06/04/17 08:59 Dose: 3 ml Albuterol/Ipratropium (Duoneb) 3 ml NEB [id number] PRN PRN Reason: SOB &/or Wheezing Benzonatate (Tessalon) 100 mg PO Q4H PRN PRN Reason: Cough Bisacodyl (Dulcolax) 10 mg PO DAILYPRN PRN PRN Reason: Constipation Calcium Carbonate (Tums) 1,000 mg PO Q4H PRN PRN Reason: Heartburn or Indigestion Carvedilol (Coreg) 3.125 mg PO BID [facility] Last Admin: 06/04/17 05:44 Dose: 3.125 mg Clonidine (Catapres) 0.1 mg PO Q4H PRN PRN Reason: Systolic BP > 160 Dextrose/Water (Dextrose 50%) 25 gm SLOW IVP PRN PRN PRN Reason: Hypoglycemia Ferrous Sulfate (Feosol) 325 mg PO BID-WM [facility] Last Admin: 06/04/17 10:49 Dose: 325 mg Furosemide (Lasix) 40 mg PO 0900,1400 [facility] Gabapentin (Neurontin) 300 mg PO BID [facility] Last Admin: 06/04/17 10:49 Dose: 300 mg Glucagon (Glucagon) 1 mg IM PRN PRN PRN Reason: Hypoglycemia Guaifenesin (Robitussin Sf) 200 mg PO Q4H PRN PRN Reason: Cough Hydralazine HCl (Apresoline) 10 mg SLOW IVP Q4H PRN PRN Reason: Systolic BP > 170 Dextrose/Water (D5w) 1,000 mls @ 0 mls/hr IV .Q0M PRN; As Directed PRN Reason: Hypoglycemia Insulin Human Lispro (Humalog) 0 units SC .MODERATE SLIDING SC PRN PRN Reason: Moderate Correctional Scale Last Admin: 06/02/17 12:37 Dose: 2 unit Insulin Human Lispro (Humalog) 0 units SC .BEDTIME SLIDING SC PRN PRN Reason: Bedtime Correctional Scale Last Admin: 06/01/17 21:50 Dose: 3 units Loratadine (Claritin) 10 mg PO DAILYPRN PRN PRN Reason: Sinus Symptoms Miscellaneous Medication (Pharmacy To Dose) 0 each PO PRN PRN PRN Reason: Pharmacy to dose Nitroglycerin (Nitrostat) 0.4 mg SL Q5MIN PRN PRN Reason: Chest Pain Ondansetron HCl (Zofran) 4 mg IVP Q6H PRN PRN Reason: Nausea/Vomiting Pantoprazole Sodium (Protonix) 40 mg PO DAILY [facility] Last Admin: 06/04/17 10:49 Dose: 40 mg Senna (Senokot) 2 tab PO HSPRN PRN PRN Reason: Constipation Simvastatin (Zocor) 20 mg PO HS [facility] Last Admin: 06/03/17 22:12 Dose: 20 mg Sodium Chloride (Flush - Normal Saline) 10 ml IVF PRN PRN PRN Reason: Saline Flush Last Admin: 06/04/17 10:49 Dose: 10 ml Throat Lozenges (Cepastat Lozenges) 1 pham PO Q2H PRN PRN Reason: Sore Throat Last Admin: 06/02/17 12:26 Dose: 1 pham Tramadol HCl (Ultram) 50 mg PO Q4H PRN PRN Reason: Moderate Pain (4-6) Last Admin: 06/01/17 23:46 Dose: 50 mg Vancomycin HCl (First Vancomycin) 250 mg PO QID [facility]
[2017-06-04] MEDS ORDERED: Furosemide 40 MG/4 ML VIAL SLOW IVP SCH ×2 (15:45→20:00)
[2017-06-04] MEDS ORDERED: PROPOFOL 200 MG/20 ML VIAL ONE (16:47)
[2017-06-04] MEDS ORDERED: PHENYLEPHRINE-NS 100 MCG/ML 10 ML SYRINGE ONE (16:47)
[2017-06-04] MEDS ORDERED: Lidocaine 1% PF 5 ML VIAL ONE (16:47)
[2017-06-04] MEDS ORDERED: Warfarin Sodium 3 MG TAB PO SCH (17:00)
[2017-06-04] MEDS: Vancomycin HCl 25 MG/ML Oral PO SCH ×2 (17:28→20:22)
[2017-06-04] MEDS: HumaLOG 300 UNITS/3 ML VIAL SC PRN ×2 (18:38→20:40)
[2017-06-04] MEDS: Simvastatin 20 MG TAB PO SCH (20:23)
[2017-06-04] MEDS: HYDROcodone/Acetaminophen 5/325 mg Tablet PO PRN (23:10)
[2017-06-05] MEDS: Furosemide 40 MG/4 ML VIAL SLOW IVP SCH ×2 (05:26→13:03)
[2017-06-05 05:28] LABS: #Eosinphils 0.1 thou/uL (0.0-0.7); #Lymphocytes 1.5 thou/uL (1.20-3.40); #Monocytes 0.5 thou/uL (0.11-0.59); %Basophils 0.3 % (0.0-1.0); %Eosinophils 1.3 % (0.0-10.0); %Lymphocytes 23.9 % (21.0-51.0); %Neutrophils 66.5 % (42.0-75.0); Hemoglobin 7.3 g/dL (12.0-16.0); Mean Corpuscular HGB CONC 32.7 g/dL (32.0-36.0); Mean Corpuscular Hemoglobin 29.8 pg (27.0-31.0); Mean Corpuscular Volume 91.2 fl (81.0-99.0); Mean Platelet Volume 7.7 fL (7.4-10.4); Platelet Count 191 thou/uL (130-400); RBC Distribution Width 15.3 % (11.5-14.5); Red Blood Cell (RBC) Count 2.44 mill/uL (4.20-5.40); White Blood Cell (WBC) Count 6.1 thou/uL (4.8-10.8)
[2017-06-05 05:33] LABS: INR-International Normal Ratio 1.8; Prothrombin Time 21.4 SEC (12.0-14.7)
[2017-06-05 05:39] LABS: Anion Gap 14 mmol/L (10-20); BUN (Urea Nitrogen) 75 mg/dL (9.8-20.1); Calc. Creatinine Clearance 38 mL/min (70-130); Calcium 8.9 mg/dL (7.8-10.44); Carbon Dioxide 28 mmol/L (23-31); Chloride 102 mmol/L (98-107); Estimated GFR-MDRD 27; Glucose 135 mg/dL (83-110); Potassium 4.6 mmol/L (3.5-5.1); Sodium 139 mmol/L (136-145)
[2017-06-05] MEDS: Ferrous Sulfate 325 MG TAB PO SCH ×2 (08:17→17:22)
[2017-06-05] MEDS: Vancomycin HCl 25 MG/ML Oral PO SCH ×4 (08:18→20:46)
[2017-06-05] MEDS: Gabapentin 300 MG CAP PO SCH ×2 (08:18→20:43)
[2017-06-05] MEDS: Bisacodyl 5 MG TAB PO PRN (13:03)
[2017-06-05] MEDS: HumaLOG 300 UNITS/3 ML VIAL SC PRN ×2 (13:04→17:22)
--- NOTE | 2017-06-05 13:30 | PRG ---
DATE OF SERVICE: 06/05/2017 SUBJECTIVE: Ms. Morejon is a 76-year-old white female, who was seen by the Renal Service for an ac vinny kidney injury on top of her chronic renal failure. We felt that she had a hemodynamically mediat ed renal dysfunction on top of chronic renal failure. She was also found to have anemia and positive stool cards. She underwent an upper GI endoscopy. As per patient's report, she had a bleeding ulce r, which was cauterized. This morning, she is feeling better. No complaints of chest pain or shortness of breath. PHYSICAL EXAMINATION: VITAL SIGNS: Blood pressure 110/59, heart rate 91, respiratory rate 20, pulse ox 97%, and temperatur e 98.7. GENERAL: Noted to be awake, alert, comfortable, not in distress. SKIN: Adequate turgor. HEENT: Slightly pale conjunctivae, anicteric sclerae. NECK: No neck mass, no carotid bruits. No JVD. CHEST: No deformities. LUNGS: Clear breath sounds, no wheezing, no crackles. HEART: Normal sinus rhythm. No murmur, no gallops, no rubs. ABDOMEN: Globular, soft, nontender, no masses. EXTREMITIES: Trace edema. MEDICATIONS: 06/05/2017 was reviewed. LABORATORY DATA: 06/05/2017, white count 6.1, hemoglobin 7.3, hematocrit 22.2. Sodium 139, potassiu m 4.6, chloride 102, carbon dioxide 28, BUN 75, creatinine 1.8, glucose 135, calcium 8.9. ASSESSMENT AND PLAN: 1. Anemia status post-GI bleed - stabilizing. P.r.n. blood transfusion. GI following. Patient is status post upper GI endoscopy with cauterization of bleeding ulcers. 2. Acute kidney injury on top of chronic renal failure, much improved renal function. Continue curr ent management except consider changing IV Lasix to p.o. Lasix. No indication for any dialytic inter vention. 3. Congestive heart failure - clinically improving. Change IV Lasix to p.o. Lasix. We will recheck base met and CBC in a.m.
--- NOTE | 2017-06-05 14:17 | PDOC.PN ---
- Subjective Encounter Start Date: 06/05/17 Encounter Start Time: 14:15 Subjective: feels much better. worked more w PT.sat up in chair and tolerates -: leg swelling resolved - Objective Resuscitation Status: Resuscitation Status FULL:Full Resuscitation MAR Reviewed: Yes Vital Signs & Weight: Vital Signs (12 hours) Temp Pulse Resp BP BP Pulse Ox 06/05/17 11:36 97.7 F 89 20 120/58 L 98 06/05/17 08:20 98.7 F 91 20 98 06/05/17 08:00 98.7 F 91 20 110/59 L 97 06/05/17 04:00 98.5 F 86 20 137/69 100 Weight Weight 204 lb I&O: 06/04/17 06/05/17 06/06/17 06:59 06:59 06:59 Intake Total 1750 370 Output Total 2300 2050 Balance -550 -1680 Result Diagrams: 06/05/17 04:44 06/05/17 04:44 Additional Labs: Accuchecks 06/05/17 06/05/17 06/04/17 11:31 06:06 20:35 POC Glucose 266 H 138 H 257 H 06/04/17 17:49 POC Glucose 229 H Laboratory Tests 06/01/17 06/02/17 06/03/17 13:19 05:48 05:10 Creatinine 3.09 H 2.58 H 2.23 H 06/04/17 06/05/17 05:03 04:44 Creatinine 1.97 H 1.80 H Radiology Reviewed by me: Yes Phys Exam - Physical Examination Constitutional: NAD HEENT: PERRLA, moist MMs, sclera anicteric, oral pharynx no lesions Neck: no nodes, no JVD, supple, full ROM Respiratory: no wheezing, no rales, no rhonchi, clear to auscultation bilateral Cardiovascular: RRR, no significant murmur, no rub, gallop Gastrointestinal: soft, non-tender, no distention, positive bowel sounds Musculoskeletal: no edema, pulses present Neurological: non-focal, normal sensation, moves all 4 limbs Psychiatric: normal affect, A&O x 3 Skin: no rash Dx/Plan (1) Anemia Code(s): D64.9 - ANEMIA, UNSPECIFIED Status: Acute Qualifiers: Other causes of anemia: acute posthemorrhagic Comment: H/h stable now1 unit PRBC given 06/02/17.2 units given 06/03/17 (2) Acute kidney injury superimposed on CKD Code(s): N17.9 - ACUTE KIDNEY FAILURE, UNSPECIFIED; N18.9 - CHRONIC KIDNEY DISEASE, UNSPECIFIED Status: Acute (3) Dyspnea Code(s): R06.00 - DYSPNEA, UNSPECIFIED Status: Resolved Comment: Likley due to anemia and COPD with mild CHF exacerbation (4) 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 (6) CKD (chronic kidney disease) stage 3, GFR 30-59 ml/min Code(s): N18.3 - CHRONIC KIDNEY DISEASE, STAGE 3 (MODERATE) Status: Chronic (7) Chronic anticoagulation Code(s): Z79.01 - CONSOLE MANAGER (CURRENT) USE OF ANTICOAGULANTS Status: Chronic Comment: Coumadin on hold due to High INR and GIB (8) DM2 (diabetes mellitus, type 2) Status: Chronic Qualifiers: Comment: (9) HLD (hyperlipidemia) Code(s): E78.5 - HYPERLIPIDEMIA, UNSPECIFIED Status: Chronic Qualifiers: (10) HTN (hypertension) Code(s): I10 - ESSENTIAL (PRIMARY) HYPERTENSION Status: Chronic Qualifiers: Comment: (11) Obesity (BMI 30-39.9) Code(s): E66.9 - OBESITY, UNSPECIFIED Status: Chronic (12) Prosthetic replacement of heart valve Code(s): Z95.2 - PRESENCE OF PROSTHETIC HEART VALVE Status: Chronic (13) Cardiomyopathy Code(s): I42.9 - CARDIOMYOPATHY, UNSPECIFIED Status: Chronic Comment: last EF 05/16 25-30% (14) Pulmonary hypertension Code(s): I27.20 - PULMONARY HYPERTENSION, UNSPECIFIED Status: Chronic (15) Aortic stenosis Code(s): I35.0 - NONRHEUMATIC AORTIC (VALVE) STENOSIS Status: Chronic Qualifiers: Cardiac valve disease etiology: nonrheumatic Qualified Code(s): I35.0 - Nonrheumatic aortic (valve) stenosis Comment: s/p AVR,mechanical.On coumadin (16) COPD (chronic obstructive pulmonary disease) Status: Suspected (17) Hyponatremia Code(s): E87.1 - HYPO-OSMOLALITY AND HYPONATREMIA Status: Resolved (18) Hyperkalemia Code(s): E87.5 - HYPERKALEMIA Status: Resolved - Plan continue antibiotics, PT/OT, director social welfare, respiratory therapy, incentive spirometry, DVT proph w/SCDs Cont PO Vancomycin for C.Diff. -: lasix w strict I/Os. nephrology & cardiology following. -: Coumadin on hold d/t GIB.EGD report unavialable -: Cont PPI.restart Coumadin when OK w GI. -: AM labs.encourage PT.pt reluctant * .AM labs. * renal fx much imrpved w lasix and albumin * Review of Systems - Review of Systems Constitutional: weakness, malaise. negative: fever, chills, sweats, other ENT: negative: Ear Pain, Ear Discharge, Nose Pain, Nose Discharge, Nose Congestion, Mouth Pain, Mouth Swelling, Throat Pain, Throat Swelling, Other Respiratory: SOB with Excertion. negative: Cough, Dry, Shortness of Breath, Hemoptysis, Pleuritic Pain, Sputum, Wheezing Cardiovascular: negative: chest pain, palpitations, orthopnea, paroxysmal nocturnal dyspnea, edema, light headedness, other Gastrointestinal: negative: Nausea, Vomiting, Abdominal Pain, Diarrhea, Constipation, Melena, Hematochezia, Other Genitourinary: negative: Dysuria, Frequency, Incontinence, Hematuria, Retention , Other Musculoskeletal: negative: Neck Pain, Shoulder Pain, Arm Pain, Back Pain, Hand Pain, Leg Pain, Foot Pain, Other Skin: negative: Rash, Lesions, Chintan, Bruising, Other - Medications/Allergies Allergies/Adverse Reactions: Allergies Allergy/AdvReac Type Severity Reaction Status Date / Time No Known Allergies Allergy Verified 06/01/17 20:51 Medications: Current Medications Acetaminophen (Tylenol) 650 mg PO Q4H PRN PRN Reason: Headache/Fever or Pain Hydrocodone Bitart/Acetaminophen ([place] 5/325) 1 tab PO Q6H PRN PRN Reason: Moderate Pain (4-6) Last Admin: 06/04/17 23:10 Dose: 1 tab Al Hydroxide/Mg Hydroxide (Maalox) 30 ml PO Q6H PRN PRN Reason: Heartburn or Indigestion Albuterol/Ipratropium (Duoneb) 3 ml NEB [id number] PRN PRN Reason: SOB &/or Wheezing Albuterol/Ipratropium (Duoneb) 3 ml NEB Q6H PRN PRN Reason: Dyspnea Benzonatate (Tessalon) 100 mg PO Q4H PRN PRN Reason: Cough Bisacodyl (Dulcolax) 10 mg PO DAILYPRN PRN PRN Reason: Constipation Last Admin: 06/05/17 13:03 Dose: 10 mg Calcium Carbonate (Tums) 1,000 mg PO Q4H PRN PRN Reason: Heartburn or Indigestion Clonidine (Catapres) 0.1 mg PO Q4H PRN PRN Reason: Systolic BP > 160 Dextrose/Water (Dextrose 50%) 25 gm SLOW IVP PRN PRN PRN Reason: Hypoglycemia Ferrous Sulfate (Feosol) 325 mg PO BID-[facility] Last Admin: 06/05/17 08:17 Dose: 325 mg Furosemide (Lasix) 40 mg SLOW IVP 0600,1400 [facility] Last Admin: 06/05/17 13:03 Dose: 40 mg Gabapentin (Neurontin) 300 mg PO BID [facility] Last Admin: 06/05/17 08:18 Dose: 300 mg Glucagon (Glucagon) 1 mg IM PRN PRN PRN Reason: Hypoglycemia Guaifenesin (Robitussin Sf) 200 mg PO Q4H PRN PRN Reason: Cough Hydralazine HCl (Apresoline) 10 mg SLOW IVP Q4H PRN PRN Reason: Systolic BP > 170 Dextrose/Water (D5w) 1,000 mls @ 0 mls/hr IV .Q0M PRN; As Directed PRN Reason: Hypoglycemia Insulin Human Lispro (Humalog) 0 units SC .MODERATE SLIDING SC PRN PRN Reason: Moderate Correctional Scale Last Admin: 06/05/17 13:04 Dose: 6 unit Insulin Human Lispro (Humalog) 0 units SC .BEDTIME SLIDING SC PRN PRN Reason: Bedtime Correctional Scale Last Admin: 06/04/17 20:40 Dose: 2 units Loratadine (Claritin) 10 mg PO DAILYPRN PRN PRN Reason: Sinus Symptoms Miscellaneous Medication (Pharmacy To Dose) 0 each PO PRN PRN PRN Reason: Pharmacy to dose Nitroglycerin (Nitrostat) 0.4 mg SL Q5MIN PRN PRN Reason: Chest Pain Ondansetron HCl (Zofran) 4 mg IVP Q6H PRN PRN Reason: Nausea/Vomiting Pantoprazole Sodium (Protonix) 40 mg PO DAILY [facility] Last Admin: 06/05/17 08:18 Dose: 40 mg Senna (Senokot) 2 tab PO HSPRN PRN PRN Reason: Constipation Simvastatin (Zocor) 20 mg PO HS [facility] Last Admin: 06/04/17 20:23 Dose: 20 mg Sodium Chloride (Flush - Normal Saline) 10 ml IVF PRN PRN PRN Reason: Saline Flush Last Admin: 06/05/17 08:18 Dose: 10 ml Throat Lozenges (Cepastat Lozenges) 1 pham PO Q2H PRN PRN Reason: Sore Throat Last Admin: 06/02/17 12:26 Dose: 1 pham Tramadol HCl (Ultram) 50 mg PO Q4H PRN PRN Reason: Moderate Pain (4-6) Last Admin: 06/01/17 23:46 Dose: 50 mg Vancomycin HCl (First Vancomycin) 250 mg PO QID [facility] Last Admin: 06/05/17 13:02 Dose: 250 mg
--- NOTE | 2017-06-05 15:50 | PDOC.CTH ---
<Nelsy Doe - Last Filed: 06/05/17 15:46> Cardiology Progress Note - Subjective The pt seen and examined. No overnight events. No cardiac complaints. She stated her BLE edema are much better than yesterday. She has been sitting on chair for more than 3 hrs without any difficulties. - Objective Vital Signs Temp Pulse Resp BP BP Pulse Ox 06/05/17 11:36 97.7 F 89 20 120/58 L 98 06/05/17 08:20 98.7 F 91 20 98 06/05/17 08:00 98.7 F 91 20 110/59 L 97 06/05/17 04:00 98.5 F 86 20 137/69 100 Weight 204 lb 06/04/17 06/05/17 06/06/17 06:59 06:59 06:59 Intake Total 1750 370 Output Total 2300 2050 Balance -550 -1680 - Physical Examination General/Neuro: alert & oriented x3 Neck: no JVD present Lungs: other: (wheezing and very coases) Heart: RRR Abdomen: soft Extremities: other: (2+ pitting BLE edema) - Telemetry Telemetry Rhythm: SR 80-90s - Labs Result Diagrams: 06/05/17 04:44 06/05/17 04:44 Troponin/CKMB CK-MB (CK-2) 1.6 ng/mL (0-6.6) 06/01/17 13:19 Troponin I 0.012 ng/mL (< 0.028) 06/01/17 13:19 - Assessment/Plan 1. Acute on Chronic combined HF - Stable with Lasix 40mg IV BID; Not on HARLEY due to hx of CKD. Start Coreg 3.125mg BID 2. Anemia possible 2ndary to GI bleed - Coumadin is on hold. EGD was done on and the result is pending at this time. 3. SPENCER on CKD - stable; managed by customer experience strategist 4. HTN - stable 5. DM type 2 - managed by PCP 6. Hx of Mechanical AVR - Coumadin is on hold due to possible GI bleed. When GI is clear, resume the medication 7. COPD - stable on 2LNC MAR reviewed Review of Systems - Review of Systems Constitutional: reports: no symptoms reported EENTM: reports: no symptoms reported Respiratory: reports: see HPI Cardiac (ROS): reports: no symptoms reported ABD/GI: reports: no symptoms reported : reports: no symptoms reported Musculoskeletal: reports: no symptoms reported <Jackson Eastman - Last Filed: 06/06/17 00:13> Cardiology Progress Note - Objective Vital Signs Temp Pulse Pulse Resp BP BP Pulse Ox 06/05/17 22:15 98.9 F 84 18 109/76 98 06/05/17 20:40 98.9 F 84 18 98 06/05/17 20:36 98.9 F 84 18 109/76 98 06/05/17 16:00 97.7 F 96 27 H 136/73 99 Weight 204 lb 06/04/17 06/05/17 06/06/17 06:59 06:59 06:59 Intake Total 9818 458 2857 Output Total 2300 2050 1150 Balance -550 -1680 235 - Labs Result Diagrams: 06/05/17 04:44 06/05/17 04:44 Troponin/CKMB CK-MB (CK-2) 1.6 ng/mL (0-6.6) 06/01/17 13:19 Troponin I 0.012 ng/mL (< 0.028) 06/01/17 13:19 - Assessment/Plan Pt. seen and eval. by me. I agree with the A/P by the COMMUNITY COORDINATOR FOR [employer]CHO[employer]. We discussed the pt. and plan.
[2017-06-05] MEDS: Carvedilol 3.125 MG TAB PO SCH (17:22)
--- NOTE | 2017-06-05 18:46 | PRG ---
DATE OF SERVICE: 06/05/2017 SUBJECTIVE: Ms. Morejon has no acute complaints. She is tolerating a solid diet. She has had brad rrhea, but states that this has improved with vancomycin orally. She tested positive for toxigenic C . diff on 06/03/2017. OBJECTIVE: VITAL SIGNS: Temperature 97.7, pulse 89, blood pressure 120/58. GENERAL: She is in no acute distress, awake and alert. LUNGS: Clear to auscultation bilaterally. HEART: Regular rate and rhythm. ABDOMEN: Soft, mildly tender diffusely without guarding. Bowel sounds are present. EXTREMITIES: 1+ pitting lower extremity edema. IMPRESSION: 1. Gastrointestinal bleed and anemia of acute blood loss when her INR was supratherapeutic. She und erwent EGD yesterday and Dr. Juarez cauterized a couple of vessels in the stomach that were active ly bleeding. These were clipped. She should be able to restart anticoagulation tomorrow. 2. Anemia of acute blood loss. She received 3 units transfusion. Her hemoglobin is stable today at 7.3. It would be reasonable to give her next unit of blood now given her significant heart disease, may need to restart anticoagulation. 3. Clostridium difficile colitis. She does report clinical improvement with the vancomycin. RECOMMENDATIONS: 1. Restart warfarin tomorrow. 2. Her diet has been advanced. 3. Vancomycin 4 times daily x14 days. 4. Proton pump inhibitor. Transfuse 1 unit today.
[2017-06-05] MEDS: Simvastatin 20 MG TAB PO SCH (20:43)
--- NOTE | 2017-06-05 21:35 | EKG ---
Test Reason : Blood Pressure : / mmHG Vent. Rate : 071 BPM Atrial Rate : 071 BPM P-R Int : 140 ms QRS Dur : 142 ms QT Int : 448 ms P-R-T Axes : 000 -34 115 degrees QTc Int : 486 ms Sinus rhythm with occasional Premature ventricular complexes Left axis deviation Left bundle branch block Abnormal ECG Confirmed by ROSA MARIA SAUCEDO M.D. ([id number]), associate attorney NEGRITA EUGENE ([id number] on 06/05/2017 9:34:45 PM Referred By: Confirmed By:ROSA MARIA SAUCEDO M.D.
[2017-06-06] MEDS: Furosemide 40 MG/4 ML VIAL SLOW IVP SCH ×2 (04:48→14:51)
[2017-06-06 05:03] LABS: #Eosinphils 0.1 thou/uL (0.0-0.7); #Lymphocytes 1.6 thou/uL (1.20-3.40); #Monocytes 0.5 thou/uL (0.11-0.59); #Neutrophils 3.9 thou/uL (1.40-6.50); %Basophils 0.5 % (0.0-1.0); %Eosinophils 2.4 % (0.0-10.0); %Lymphocytes 25.6 % (21.0-51.0); %Monocytes 8.1 % (0.0-10.0); %Neutrophils 63.4 % (42.0-75.0); Mean Corpuscular HGB CONC 32.8 g/dL (32.0-36.0); Mean Corpuscular Hemoglobin 30.7 pg (27.0-31.0); Mean Corpuscular Volume 93.7 fl (81.0-99.0); Mean Platelet Volume 8.2 fL (7.4-10.4); Platelet Count 176 thou/uL (130-400); RBC Distribution Width 15.1 % (11.5-14.5); Red Blood Cell (RBC) Count 2.93 mill/uL (4.20-5.40); White Blood Cell (WBC) Count 6.1 thou/uL (4.8-10.8)
[2017-06-06 05:09] LABS: INR-International Normal Ratio 1.6; Prothrombin Time 19.1 SEC (12.0-14.7)
[2017-06-06 05:14] LABS: Anion Gap 14 mmol/L (10-20); BUN (Urea Nitrogen) 62 mg/dL (9.8-20.1); Calc. Creatinine Clearance 49 mL/min (70-130); Carbon Dioxide 26 mmol/L (23-31); Chloride 102 mmol/L (98-107); Estimated GFR-MDRD 36; Glucose 90 mg/dL (83-110); Sodium 137 mmol/L (136-145)
[2017-06-06] MEDS: Carvedilol 3.125 MG TAB PO SCH ×2 (08:27→17:45)
[2017-06-06] MEDS: Vancomycin HCl 25 MG/ML Oral PO SCH ×4 (08:27→20:45)
[2017-06-06] MEDS: Gabapentin 300 MG CAP PO SCH ×2 (08:27→20:44)
[2017-06-06] MEDS: Ferrous Sulfate 325 MG TAB PO SCH ×2 (08:27→17:45)
[2017-06-06] MEDS: Bisacodyl 5 MG TAB PO PRN (08:28)
[2017-06-06] MEDS ORDERED: Bisacodyl 10 MG SUPP PR PRN (09:22)
--- NOTE | 2017-06-06 11:28 | PRG ---
DATE OF SERVICE: 06/04/2017 SUBJECTIVE: Ms. Morejon underwent upper endoscopy today. 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 She is resting comfortably now. She said the breathing treatments make her tremulous, but do not seem to improve her breathing. She is not having chest pain. She is still short of breath. PHYSICAL EXAMINATION: VITAL SIGNS: Her blood pressure 138/67, pulse 90. LUNGS: There is mild expiratory wheezing and scattered rhonchi and rales. CARDIAC: Normal S1, normal S2. ABDOMEN: Soft, nontender. EXTREMITIES: There are still moderate to severe edema. LABORATORY DATA AND IMAGING: Hemoglobin is 7.7. She has received 3 units of packed red blood cells. Creatinine is 1.97, potassium is 4.8. Echocardiogram showed ejection fraction 25%-30%. There is an increased gradient across the aortic valve prosthesis. I am concerning that perhaps there may be so me problem in leaflet mobility and likely this represents a markedly reduced effective valve area. ASSESSMENT: 1. Congestive heart failure, systolic, diastolic mixed. 2. Suspect there may be some reduced leaflet mobility of the aortic valve prosthesis, mechanical pablo ve. 3. Recurrent gastrointestinal bleeding. 4. Renal failure stage IV, probably a lot of this is low cardiac output. PLAN: 1. At this time, aspirin has been stopped in view of the recurrent bleeding. 2. She has been placed back on Coumadin. 3. We will plan on doing Fluoroscopy early next week to see if there is reduced leaflet mobility. W e may also consider transesophageal echo. Although, if she has impaired mobility of the leaflets, wo uld be a very poor candidate for surgery. 4. We will go back to intravenous diuretics still volume overloaded. Prognosis is guarded to poor i n this pleasant patient, discussed with the family.
--- NOTE | 2017-06-06 12:04 | PDOC.PN ---
- Subjective Encounter Start Date: 06/06/17 Encounter Start Time: 12:02 Subjective: feels much better.eating and moving better -: constipation resolved.denies any SOB/pain - Objective Resuscitation Status: Resuscitation Status FULL:Full Resuscitation MAR Reviewed: Yes Vital Signs & Weight: Vital Signs (12 hours) Temp Pulse Resp BP BP Pulse Ox 06/06/17 08:12 97.7 F 94 21 H 95 06/06/17 08:10 97.7 F 94 21 H 139/59 L 95 06/06/17 04:52 98.1 F 77 14 124/56 L 98 Weight Weight 202 lb 3.2 oz I&O: 06/05/17 06/06/17 06/07/17 06:59 06:59 06:59 Intake Total 370 1625 Output Total 205 1700 Balance -28348 Result Diagrams: 06/06/17 04:32 06/06/17 04:32 Additional Labs: Accuchecks 06/06/17 06/06/17 06/05/17 11:25 06:30 20:33 POC Glucose 273 H 111 H 209 H 06/05/17 16:48 POC Glucose 310 H Laboratory Tests 06/01/17 06/01/17 06/02/17 13:19 13:19 05:48 Hgb 8.4 L Creatinine 3.09 H 2.58 H 06/02/17 06/03/17 06/03/17 05:48 05:10 05:10 Hgb 6.8 L 5.8 L* Creatinine 2.23 H 06/03/17 06/04/17 06/04/17 19:43 05:03 05:03 Hgb 7.6 L 7.7 L Creatinine 1.97 H 06/04/17 06/05/17 06/05/17 05:03 04:44 04:44 Hgb 7.7 L 7.3 L Creatinine 1.80 H 06/06/17 06/06/17 04:32 04:32 Hgb 9.0 L Creatinine 1.40 H Phys Exam - Physical Examination Constitutional: NAD HEENT: PERRLA, moist MMs, sclera anicteric, oral pharynx no lesions Neck: no JVD Respiratory: no wheezing, no rales, no rhonchi, clear to auscultation bilateral Cardiovascular: RRR, no significant murmur Gastrointestinal: soft, non-tender, no distention, positive bowel sounds Musculoskeletal: no edema, pulses present Neurological: non-focal, normal sensation, moves all 4 limbs Psychiatric: normal affect, A&O x 3 Skin: no rash Dx/Plan (1) Recurrent Clostridium difficile diarrhea Code(s): A04.71 - ENTEROCOLITIS DUE TO CLOSTRIDIUM DIFFICILE, RECURRENT Status : Acute (2) GI (gastrointestinal hemorrhage) Code(s): K92.2 - GASTROINTESTINAL HEMORRHAGE, UNSPECIFIED Status: Acute Comment: s/p EGD with cauterisation of small bleeding ulcer.H/H stable .Total 3 unit PRBC given (3) Acute kidney injury superimposed on CKD Code(s): N17.9 - ACUTE KIDNEY FAILURE, UNSPECIFIED; N18.9 - CHRONIC KIDNEY DISEASE, UNSPECIFIED Status: Acute (4) 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 (6) CKD (chronic kidney disease) stage 3, GFR 30-59 ml/min Code(s): N18.3 - CHRONIC KIDNEY DISEASE, STAGE 3 (MODERATE) Status: Chronic (7) Chronic anticoagulation Code(s): Z79.01 - SNF (CURRENT) USE OF ANTICOAGULANTS Status: Chronic Comment: Coumadin on hold due to High INR and GIB (8) DM2 (diabetes mellitus, type 2) Status: Chronic Qualifiers: Comment: (9) HLD (hyperlipidemia) Code(s): E78.5 - HYPERLIPIDEMIA, UNSPECIFIED Status: Chronic Qualifiers: (10) HTN (hypertension) Code(s): I10 - ESSENTIAL (PRIMARY) HYPERTENSION Status: Chronic Qualifiers: Comment: (11) Obesity (BMI 30-39.9) Code(s): E66.9 - OBESITY, UNSPECIFIED Status: Chronic (12) Prosthetic replacement of heart valve Code(s): Z95.2 - PRESENCE OF PROSTHETIC HEART VALVE Status: Chronic (13) Cardiomyopathy Code(s): I42.9 - CARDIOMYOPATHY, UNSPECIFIED Status: Chronic Comment: last EF 05/16 25-30%.Aldactone on hold due to hyperkalemia.HARLEY-I/ARB on hold due to SPENCER (14) Pulmonary hypertension Code(s): I27.20 - PULMONARY HYPERTENSION, UNSPECIFIED Status: Chronic (15) Aortic stenosis Code(s): I35.0 - NONRHEUMATIC AORTIC (VALVE) STENOSIS Status: Chronic Qualifiers: Cardiac valve disease etiology: nonrheumatic Qualified Code(s): I35.0 - Nonrheumatic aortic (valve) stenosis Comment: s/p AVR,mechanical.On coumadin (16) COPD (chronic obstructive pulmonary disease) Status: Suspected (17) Hyponatremia Code(s): E87.1 - HYPO-OSMOLALITY AND HYPONATREMIA Status: Resolved (18) Hyperkalemia Code(s): E87.5 - HYPERKALEMIA Status: Resolved (19) Anemia Code(s): D64.9 - ANEMIA, UNSPECIFIED Status: Resolved Qualifiers: Other causes of anemia: acute posthemorrhagic Comment: H/h stable now1 unit PRBC given 06/02/17.2 units given 06/03/17 (20) Dyspnea Code(s): R06.00 - DYSPNEA, UNSPECIFIED Status: Resolved Comment: Likley due to anemia and COPD with mild CHF exacerbation - Plan continue antibiotics, PT/OT, respiratory therapy, incentive spirometry, out of bed/ambulate, DVT proph w/SCDs restart Coumadin today w careful monitoring of INR.appreciate GI input. -: Cont PPI and H/H monitoring. -: cont PO vanco (total 14 days) for recurrent C. Diff. -: renal FX improving daily.on lasix BID.nephrology following -: restart home meds including Coreg as already done by cardiology * .Discuss lifeVest/AICD prior to DC * iva DC back to rehab in 24-48 hours.Will not discharge too soon as she remains a high risk of readmission Review of Systems - Review of Systems Constitutional: weakness. negative: fever, chills, sweats, malaise, other Eyes: negative: Pain, Vision Change, Conjunctivae Inflammation, Eyelid Inflammation, Redness, Other ENT: negative: Ear Pain, Ear Discharge, Nose Pain, Nose Discharge, Nose Congestion, Mouth Pain, Mouth Swelling, Throat Pain, Throat Swelling, Other Respiratory: negative: Cough, Dry, Shortness of Breath, Hemoptysis, SOB with Excertion, Pleuritic Pain, Sputum, Wheezing Cardiovascular: negative: chest pain, palpitations, orthopnea, paroxysmal nocturnal dyspnea, edema, light headedness, other Gastrointestinal: negative: Nausea, Vomiting, Abdominal Pain, Diarrhea, Constipation, Melena, Hematochezia, Other Genitourinary: negative: Dysuria, Frequency, Incontinence, Hematuria, Retention , Other Musculoskeletal: negative: Neck Pain, Shoulder Pain, Arm Pain, Back Pain, Hand Pain, Leg Pain, Foot Pain, Other Skin: negative: Rash, Lesions, Chintan, Bruising, Other Neurological: negative: Weakness, Numbness, Incoordination, Change in Speech, Confusion, Seizures, Other - Medications/Allergies Allergies/Adverse Reactions: Allergies Allergy/AdvReac Type Severity Reaction Status Date / Time No Known Allergies Allergy Verified 06/01/17 20:51 Medications: Current Medications Acetaminophen (Tylenol) 650 mg PO Q4H PRN PRN Reason: Headache/Fever or Pain Hydrocodone Bitart/Acetaminophen ([place] 5/325) 1 tab PO Q6H PRN PRN Reason: Moderate Pain (4-6) Last Admin: 06/04/17 23:10 Dose: 1 tab Al Hydroxide/Mg Hydroxide (Maalox) 30 ml PO Q6H PRN PRN Reason: Heartburn or Indigestion Albuterol/Ipratropium (Duoneb) 3 ml NEB [id number] PRN PRN Reason: SOB &/or Wheezing Albuterol/Ipratropium (Duoneb) 3 ml NEB Q6H PRN PRN Reason: Dyspnea Benzonatate (Tessalon) 100 mg PO Q4H PRN PRN Reason: Cough Bisacodyl (Dulcolax) 10 mg PO DAILYPRN PRN PRN Reason: Constipation Last Admin: 06/06/17 08:28 Dose: 10 mg Bisacodyl (Dulcolax) 10 mg DC PRN PRN PRN Reason: Constipation Calcium Carbonate (Tums) 1,000 mg PO Q4H PRN PRN Reason: Heartburn or Indigestion Carvedilol (Coreg) 3.125 mg PO BID-[facility] Last Admin: 06/06/17 08:27 Dose: 3.125 mg Clonidine (Catapres) 0.1 mg PO Q4H PRN PRN Reason: Systolic BP > 160 Dextrose/Water (Dextrose 50%) 25 gm SLOW IVP PRN PRN PRN Reason: Hypoglycemia Ferrous Sulfate (Feosol) 325 mg PO BID-[facility] Last Admin: 06/06/17 08:27 Dose: 325 mg Furosemide (Lasix) 40 mg SLOW IVP 0600,1400 [facility] Last Admin: 06/06/17 04:48 Dose: 40 mg Gabapentin (Neurontin) 300 mg PO BID [facility] Last Admin: 06/06/17 08:27 Dose: 300 mg Glucagon (Glucagon) 1 mg IM PRN PRN PRN Reason: Hypoglycemia Guaifenesin (Robitussin Sf) 200 mg PO Q4H PRN PRN Reason: Cough Hydralazine HCl (Apresoline) 10 mg SLOW IVP Q4H PRN PRN Reason: Systolic BP > 170 Dextrose/Water (D5w) 1,000 mls @ 0 mls/hr IV .Q0M PRN; As Directed PRN Reason: Hypoglycemia Insulin Detemir (Levemir) units SC [facility] Insulin Human Lispro (Humalog) 0 units SC .MODERATE SLIDING SC PRN PRN Reason: Moderate Correctional Scale Last Admin: 06/05/17 17:22 Dose: 8 unit Insulin Human Lispro (Humalog) 0 units SC .BEDTIME SLIDING SC PRN PRN Reason: Bedtime Correctional Scale Last Admin: 06/04/17 20:40 Dose: 2 units Loratadine (Claritin) 10 mg PO DAILYPRN PRN PRN Reason: Sinus Symptoms Miscellaneous Medication (Pharmacy To Dose) 0 each PO PRN PRN PRN Reason: Pharmacy to dose Nitroglycerin (Nitrostat) 0.4 mg SL Q5MIN PRN PRN Reason: Chest Pain Ondansetron HCl (Zofran) 4 mg IVP Q6H PRN PRN Reason: Nausea/Vomiting Pantoprazole Sodium (Protonix) 40 mg PO DAILY [facility] Last Admin: 06/06/17 08:27 Dose: 40 mg Senna (Senokot) 2 tab PO HSPRN PRN PRN Reason: Constipation Simvastatin (Zocor) 20 mg PO [facility] Last Admin: 06/05/17 20:43 Dose: 20 mg Sodium Chloride (Flush - Normal Saline) 10 ml IVF PRN PRN PRN Reason: Saline Flush Last Admin: 06/06/17 08:27 Dose: 10 ml Throat Lozenges (Cepastat Lozenges) 1 pham PO Q2H PRN PRN Reason: Sore Throat Last Admin: 06/02/17 12:26 Dose: 1 pham Tramadol HCl (Ultram) 50 mg PO Q4H PRN PRN Reason: Moderate Pain (4-6) Last Admin: 06/01/17 23:46 Dose: 50 mg Vancomycin HCl (First Vancomycin) 250 mg PO QID [facility] Last Admin: 06/06/17 08:27 Dose: 250 mg Warfarin Sodium (Coumadin) 2.5 mg PO 1700 [facility]
--- NOTE | 2017-06-06 12:48 | PRG ---
DATE OF SERVICE: 06/06/2017 RENAL MEDICINE SUBJECTIVE: Ms. Morejon is a 76-year-old white female who was seen for acute kidney injury over ch ronic renal failure. She was felt to be in CHF and had a hemodynamically mediated renal dysfunction. She was also noted to have a GI bleed and has undergone an upper GI endoscopy with cauterization of the bleeding vessels. No other complaints today. She is feeling better. She denies any chest pain or shortness of breath. OBJECTIVE: VITAL SIGNS: Blood pressure is noted at 139/59, heart rate 94, respiratory rate 21, temperature 97.7 , pulse ox 95%. GENERAL: Awake, alert, comfortable, not in distress. SKIN: Adequate turgor. HEENT: She has slightly pale conjunctivae, anicteric sclerae. NECK: No neck mass, no carotid bruits, no JVD. CHEST: No deformities. LUNGS: Clear breath sounds. HEART: Normal sinus rhythm. No murmur, no gallops or rubs. ABDOMEN: Globular, soft, nontender, no masses. EXTREMITIES: Positive for edema. MEDICATIONS: Of 06/06/2017 was reviewed. LABORATORY DATA: Of 06/06/2017, white count 6.1, hemoglobin 9, hematocrit 27.4. Sodium 137, potassi um 5, chloride 102, carbon dioxide 26, BUN 62, creatinine 1.4, glucose 90, calcium 9.0. ASSESSMENT AND PLAN: 1. Acute kidney injury on top of her chronic renal failure, much improved renal function. This was a superimposed hemodynamically mediated renal dysfunction secondary to her congestive heart failure. She is tolerating current diuretic regimen. No indication for any dialytic intervention. 2. Status post gastrointestinal bleed - stabilizing hemoglobin. Gastroenterology following. 3. Congestive heart failure, clinically much improved. Continue current diuretic regimen. Recheck base met and CBC in a.m.
[2017-06-06] MEDS: HumaLOG 300 UNITS/3 ML VIAL SC PRN ×2 (12:59→17:45)
--- NOTE | 2017-06-06 15:20 | PRG ---
DATE OF SERVICE: 06/06/2017 SUBJECTIVE: Ms. Morejon did have a couple of episodes of nonbloody diarrhea today. She has no abd ominal pain or nausea or vomiting. She is tolerating a regular diet. OBJECTIVE: VITAL SIGNS: Temperature 98.6, pulse 87, blood pressure 132/61. GENERAL: She is in no acute distress, alert and oriented x3. LUNGS: Clear to auscultation bilaterally. HEART: Regular rate and rhythm. ABDOMEN: Soft, nontender, nondistended. Bowel sounds are present. EXTREMITIES: No lower extremity edema. LABORATORY DATA: Hemoglobin is 9.0 after 1 unit of transfusion yesterday. INR 1.6, creatinine 1.4. IMPRESSION: 1. 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 Larry whitmore before yesterday that were actively bleeding. These were also clipped. These bled in the setting of a significantly supratherapeutic INR. 2. Anemia of acute blood loss. Her hemoglobin has improved to 9 after 1 unit of transfusion. 3. Clostridium difficile colitis with improvement after starting vancomycin. RECOMMENDATIONS: 1. Continue proton pump inhibitor. 2. Restart anticoagulation today. 3. Complete a 14-day course of vancomycin orally. 4. I will sign off for now. Please call if GI can be of assistance.
[2017-06-06] MEDS ORDERED: Warfarin Sodium 3 MG TAB PO SCH (17:00)
[2017-06-06] MEDS: Warfarin Sodium 2.5 MG TAB PO SCH (17:47)
--- NOTE | 2017-06-06 18:04 | PDOC.CTH ---
<Nelsy Doe - Last Filed: 06/06/17 18:01> Cardiology Progress Note - Subjective The pt seen and examined. No overnight events. No cardiac complaints. She has been up to chair for more than 6 hrs without any distress. - Objective Vital Signs Temp Pulse Resp BP BP Pulse Ox 06/06/17 16:00 98.1 F 85 18 130/63 93 L 06/06/17 12:58 98.6 F 87 20 132/61 92 L 06/06/17 08:12 97.7 F 94 21 H 95 06/06/17 08:10 97.7 F 94 21 H 139/59 L 95 Weight 202 lb 3.2 oz 06/05/17 06/06/17 06/07/17 06:59 06:59 06:59 Intake Total 370 1625 Output Total 2050 1700 Balance -1680 -75 - Physical Examination General/Neuro: alert & oriented x3 Neck: no JVD present Lungs: CTA (diminished at bases) Heart: RRR Abdomen: soft Extremities: other: (No edema) - Telemetry Telemetry Rhythm: SR with BBB - Labs Result Diagrams: 06/06/17 04:32 06/06/17 04:32 Troponin/CKMB CK-MB (CK-2) 1.6 ng/mL (0-6.6) 06/01/17 13:19 Troponin I 0.012 ng/mL (< 0.028) 06/01/17 13:19 - Assessment/Plan 1. Acute on Chronic combined HF - Stable with Lasix 40mg IV BID and Coreg 3.125mg BID; Not on HARLEY due to hx of CKD. 2. Anemia 2ndary to GI bleed with s/p cauterization - OK to resume OAC by GI; Coumadin was started from tonight by PCP. 3. SPENCER on CKD - improving today; managed by heel finisher 4. HTN - stable 5. DM type 2 - managed by PCP 6. Hx of Mechanical AVR - OK to resume Coumadin by GI. 7. COPD - stable with RA MAR reviewed Review of Systems - Review of Systems Constitutional: reports: no symptoms reported EENTM: reports: no symptoms reported Respiratory: reports: no symptoms reported Cardiac (ROS): reports: no symptoms reported ABD/GI: reports: no symptoms reported : reports: no symptoms reported Musculoskeletal: reports: no symptoms reported Skin: reports: no symptoms reported Neurological: reports: no symptoms reported <Jackson Eastman - Last Filed: 06/06/17 19:26> Cardiology Progress Note - Objective Vital Signs Temp Pulse Resp BP BP Pulse Ox 06/06/17 16:00 98.1 F 85 18 130/63 93 L 06/06/17 12:58 98.6 F 87 20 132/61 92 L 06/06/17 08:12 97.7 F 94 21 H 95 06/06/17 08:10 97.7 F 94 21 H 139/59 L 95 Weight 202 lb 3.2 oz 06/05/17 06/06/17 06/07/17 06:59 06:59 06:59 Intake Total 370 1625 720 Output Total 2050 1700 1050 Balance -1680 -75 -330 - Labs Result Diagrams: 06/06/17 04:32 06/06/17 04:32 Troponin/CKMB CK-MB (CK-2) 1.6 ng/mL (0-6.6) 06/01/17 13:19 Troponin I 0.012 ng/mL (< 0.028) 06/01/17 13:19 - Assessment/Plan Pt. seen and eval. by me. I agree with the A/P by the PRODUCT MARKETING COORDINATOR. We discussed the pt. and plan. She is feeling better today and sitting up in the chair. the legs are still edematous.
[2017-06-06] MEDS: Simvastatin 20 MG TAB PO SCH (20:44)
[2017-06-06] MEDS: Insulin Detemir 100 UNITS/ML 10 UNITS in Pre-Filled Syringe 1 EACH SC SCH (20:44)
[2017-06-06] MEDS: HYDROcodone/Acetaminophen 5/325 mg Tablet PO PRN (21:56)
[2017-06-07 05:02] LABS: #Eosinphils 0.2 thou/uL (0.0-0.7); #Lymphocytes 1.7 thou/uL (1.20-3.40); #Monocytes 0.6 thou/uL (0.11-0.59); #Neutrophils 5.7 thou/uL (1.40-6.50); %Basophils 0.2 % (0.0-1.0); %Eosinophils 2.7 % (0.0-10.0); %Lymphocytes 20.6 % (21.0-51.0); %Monocytes 7.8 % (0.0-10.0); %Neutrophils 68.7 % (42.0-75.0); Hemoglobin 8.8 g/dL (12.0-16.0); Mean Corpuscular HGB CONC 32.3 g/dL (32.0-36.0); Mean Corpuscular Hemoglobin 30.4 pg (27.0-31.0); Mean Corpuscular Volume 94.1 fl (81.0-99.0); Mean Platelet Volume 7.9 fL (7.4-10.4); Platelet Count 221 thou/uL (130-400); RBC Distribution Width 14.9 % (11.5-14.5); Red Blood Cell (RBC) Count 2.89 mill/uL (4.20-5.40); White Blood Cell (WBC) Count 8.2 thou/uL (4.8-10.8)
[2017-06-07 05:10] LABS: INR-International Normal Ratio 1.7; Prothrombin Time 20.2 SEC (12.0-14.7)
[2017-06-07 05:16] LABS: Anion Gap 11 mmol/L (10-20); BUN (Urea Nitrogen) 55 mg/dL (9.8-20.1); Calc. Creatinine Clearance 56 mL/min (70-130); Calcium 8.8 mg/dL (7.8-10.44); Carbon Dioxide 30 mmol/L (23-31); Chloride 101 mmol/L (98-107); Estimated GFR-MDRD 44; Glucose 107 mg/dL (83-110); Potassium 4.2 mmol/L (3.5-5.1); Sodium 138 mmol/L (136-145)
[2017-06-07] MEDS: Furosemide 40 MG/4 ML VIAL SLOW IVP SCH (05:18)
--- NOTE | 2017-06-07 09:04 | PRG ---
DATE OF SERVICE: 06/07/2017 SUBJECTIVE: Ms. Morejon is a 76-year-old white female who was seen by the Renal Service for acute kidney injury that was hemodynamically mediated renal dysfunction. She had a background of CHF. She also had a GI bleed with cauterization of the bleeding vessels was done. This morning she is feelin g better. She denies any chest pain or shortness of breath. PHYSICAL EXAMINATION: VITAL SIGNS: Blood pressure is 136/92, heart rate 81, respiratory rate 18, temperature 99.3, pulse o x 93%. GENERAL: Awake, alert, supine, comfortable, not in distress. SKIN: Adequate turgor. HEENT: Pinkish conjunctivae, anicteric sclerae. NECK: No neck mass, no carotid bruits, no JVD. CHEST: No deformities. LUNGS: Decreased breath sounds. HEART: Normal sinus rhythm. Grade 2/6 systolic murmur, no gallops or rubs. ABDOMEN: Globular, soft, nontender, no masses. EXTREMITIES: Positive for edema. MEDICATIONS: 06/07/2017 - Reviewed. LABORATORY: 06/07/2017 - White count 8.2, hemoglobin 8.8. Sodium 138. 06/07/2017 - Potassium 4.2, BUN 55, creatinine 1.2, calcium 8.8. ASSESSMENT AND PLAN: 1. Acute kidney injury - superimposed hemodynamically mediated renal dysfunction. Continued improve ment of renal function. She is currently at stage 3 chronic renal failure. Continue supportive care . No indication for any dialytic intervention. 2. Anemia, stable. The patient recently status post upper GI endoscopy with cauterization of bleedi ng arteriovenous malformation. 3. Congestive heart failure on Lasix IV q.12h. Doing well, clinically asymptomatic.
[2017-06-07] MEDS: Gabapentin 300 MG CAP PO SCH ×2 (09:16→22:49)
[2017-06-07] MEDS: Ferrous Sulfate 325 MG TAB PO SCH ×2 (09:16→18:22)
[2017-06-07] MEDS: Carvedilol 3.125 MG TAB PO SCH (09:16)
[2017-06-07] MEDS: Vancomycin HCl 25 MG/ML Oral PO SCH ×4 (09:16→22:50)
[2017-06-07] MEDS ORDERED: Metolazone 5 MG TAB PO SCH ×2 (09:45→10:00)
--- NOTE | 2017-06-07 13:43 | PDOC.PN ---
- Subjective Encounter Start Date: 06/07/17 Encounter Start Time: 13:41 Patient seen and examined, no new issues or complaints. - Objective Resuscitation Status: Resuscitation Status FULL:Full Resuscitation Vital Signs & Weight: Vital Signs (12 hours) Temp Pulse Resp BP Pulse Ox 06/07/17 12:00 96.8 F L 90 18 119/57 L 90 L 06/07/17 09:25 98.5 F 85 16 127/58 L 94 L 06/07/17 08:05 98.5 F 85 16 06/07/17 05:41 93 L 06/07/17 05:25 99.3 F 81 18 136/92 H 93 L Weight Weight 198 lb 3.2 oz I&O: 06/06/17 06/07/17 06/08/17 06:59 06:59 06:59 Intake Total 1625 870 Output Total 1700 1475 Balance -75 -605 Result Diagrams: 06/07/17 04:28 06/07/17 04:28 Additional Labs: Accuchecks 06/07/17 06/06/17 06/06/17 05:41 20:41 17:12 POC Glucose 111 H 287 H 387 H Phys Exam - Physical Examination Constitutional: NAD obese HEENT: PERRLA, moist MMs, sclera anicteric Neck: no nodes, no JVD, supple Respiratory: no wheezing, no rales, no rhonchi Cardiovascular: RRR 2/6 ODETTE Gastrointestinal: soft, non-tender, no distention Musculoskeletal: pulses present, edema present (trace) Dx/Plan (1) Acute kidney injury superimposed on CKD Code(s): N17.9 - ACUTE KIDNEY FAILURE, UNSPECIFIED; N18.9 - CHRONIC KIDNEY DISEASE, UNSPECIFIED Status: Acute (2) 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 Code(s): I50.40 - UNSP COMBINED SYSTOLIC AND DIASTOLIC (CONGESTIVE) HRT FAIL Status: Acute Comment: reduce lasix.cardiology following (3) GI (gastrointestinal hemorrhage) Code(s): K92.2 - GASTROINTESTINAL HEMORRHAGE, UNSPECIFIED Status: Acute Comment: s/p EGD with cauterisation of small bleeding ulcer.H/H stable .Total 3 unit PRBC given (4) Aortic stenosis Code(s): I35.0 - NONRHEUMATIC AORTIC (VALVE) STENOSIS Status: Chronic Qualifiers: Cardiac valve disease etiology: nonrheumatic Qualified Code(s): I35.0 - Nonrheumatic aortic (valve) stenosis Comment: s/p AVR,mechanical.On coumadin (5) Cardiomyopathy Code(s): I42.9 - CARDIOMYOPATHY, UNSPECIFIED Status: Chronic Comment: last EF 05/16 25-30%.Aldactone on hold due to hyperkalemia.HARLEY-I/ARB on hold due to SPENCER (6) Pulmonary hypertension Code(s): I27.20 - PULMONARY HYPERTENSION, UNSPECIFIED Status: Chronic (7) COPD (chronic obstructive pulmonary disease) Status: Suspected (8) HLD (hyperlipidemia) Code(s): E78.5 - HYPERLIPIDEMIA, UNSPECIFIED Status: Chronic Qualifiers: - Plan * continue current plan of care * coumadin restarted, target INR 2-3 (aortic valve) * hgb stable * Cr stable * renal, cardio and GI following * labs in AM
[2017-06-07] MEDS: Furosemide 100 MG/10 ML VIAL SLOW IVP SCH (13:57)
[2017-06-07] MEDS ORDERED: Furosemide 40 MG/4 ML VIAL SLOW IVP SCH (14:00)
--- NOTE | 2017-06-07 15:16 | PRG ---
DATE OF SERVICE: 06/07/2017 SUBJECTIVE: Ms. Morejon is feeling okay. She is not very happy with her diet. She wants to eat m ore of what she wants. Blood sugars however are running high. She mentions that she is a vegetarian and wanted a black cedillo burger, but they did give her the bread. However, the problem is her sugars are running very high and so a lot of carbohydrates would not be good. PHYSICAL EXAMINATION: VITAL SIGNS: Blood pressure 127/58, pulse 80, it is regular. LUNGS: Clear. CARDIAC: Laurel valve sounds. ABDOMEN: Soft and nontender. EXTREMITIES: Still moderate to severe edema. IMAGING DATA: We took her down to the lab rn and did cineangiogram on the aortic valve. The leafl ets looked like they are moving normally. ASSESSMENT: 1. Congestive heart failure, systolic, diastolic combined, although I think it is more diastolic lisset n systolic clinically. 2. Gastrointestinal bleeding, recurrent. 3. Severe with peripheral edema. 4. Renal failure. 5. Diabetes. PLAN: 1. We will increase diuretic. 2. We will stop carvedilol for now to try to get her blood pressure higher to diurese better. Try t o go back on Coreg later. 3. Cannot take HARLEY inhibitors due to renal failure. 4. Long-term prognosis probably limited in terms of heart failure being her biggest problem. It is unclear to me whether defibrillator would improve her prognosis at all. Certainly, it would not impr ove her symptoms. The patient did not indicate she will need defibrillator at this point. Prognosis in this patient is guarded to poor long-term.
[2017-06-07] MEDS: Warfarin Sodium 2.5 MG TAB PO SCH (18:23)
[2017-06-07] MEDS: HumaLOG 300 UNITS/3 ML VIAL SC PRN (18:24)
--- NOTE | 2017-06-07 20:04 | OP ---
OPERATIVE PROCEDURES: 1. Esophagogastroduodenoscopy. 2. Placement of a Hemoclip over the bleeding site. 3. Injection of epinephrine up to 6 mL at 1 mL increments. 4. A 7-Danish heater probe therapy. PREOPERATIVE DIAGNOSIS: A 76-year-old female with gastrointestinal bleeding and the patien t is on Coumadin because of valve replacement. The patient's PT/INR was probably prolonged until thi s morning, now it is back to baseline. The patient had no stool yesterday, but she had 4 melanotic s tool two days ago. The patient underwent esophagogastroduodenoscopy. POSTOPERATIVE DIAGNOSES: 1. Normal esophagus. 2. Normal duodenum. 3. 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 PROCEDURE NOTE: The patient was placed on her left lateral position and was given sedation by Anesth esia Department. A Pentax video gastroscope under direct vision was passed down the oropharynx past the GE junction into the stomach and subsequently the descending duodenum. The esophagus appeared no rmal. The patient had distal esophageal ring, which was nonobstructing. Just below the GE junction, there was fresh blood with oozing seen. Water was irrigated and washed out. After washing out, I c ould see 2 sites of bleeding, the bleeding actually is persistent and oozing. After washing out 2 mo re times, the patient kept oozing blood what appears to be gastric AVMs. In the fundus, no pathology seen. The gastric body and gastric antrum, no pathology seen. The duodenal bulb and descending duo denum, no pathology seen. The scope was retroflexed to visualize fundus and cardia again. The patie nt again had same spot over the proximal stomach just below the GE junction bleeding. As she is on l ny-term anticoagulation, I cannot felt not to cauterize initially. Initially, I placed a clip over one of the AVMs with slowing of the oozing. Subsequently, was passed and epinephrine was injec kehinde at 1 mL increment, total dose of 3 mL. Even after injection of 3 mL, she kept having mild oozing . It was elected to cauterize the area with a 7-Danish heater probe. After heater probe, . An other AVM was again injected with epinephrine 3 mL total dose and followed by cauterization of the bl eeding area. At the end of procedure, I do not see any oozing of blood. The stomach was decompresse d and the scope was removed. RECOMMENDATIONS: 1. Protonix once a day. 2. Keep her on clear full liquid diet today and advance diet to renal diet tomorrow. This informati on was conveyed to the patient's family.
[2017-06-07] MEDS: Insulin Detemir 100 UNITS/ML 10 UNITS in Pre-Filled Syringe 1 EACH SC SCH (22:49)
[2017-06-07] MEDS: Simvastatin 20 MG TAB PO SCH (22:50)
[2017-06-08 05:13] LABS: #Basophils 0.1 thou/uL (0.0-0.2); #Eosinphils 0.1 thou/uL (0.0-0.7); #Lymphocytes 1.8 thou/uL (1.20-3.40); #Neutrophils 7.3 thou/uL (1.40-6.50); %Basophils 0.5 % (0.0-1.0); %Eosinophils 1.2 % (0.0-10.0); %Lymphocytes 17.3 % (21.0-51.0); %Monocytes 9.5 % (0.0-10.0); %Neutrophils 71.5 % (42.0-75.0); Hemoglobin 8.4 g/dL (12.0-16.0); Mean Corpuscular Hemoglobin 30.3 pg (27.0-31.0); Mean Platelet Volume 7.6 fL (7.4-10.4); Platelet Count 212 thou/uL (130-400); RBC Distribution Width 15.2 % (11.5-14.5); Red Blood Cell (RBC) Count 2.76 mill/uL (4.20-5.40); White Blood Cell (WBC) Count 10.2 thou/uL (4.8-10.8)
[2017-06-08 05:15] LABS: INR-International Normal Ratio 1.5; Prothrombin Time 18.9 SEC (12.0-14.7)
[2017-06-08 05:16] LABS: Anion Gap 10 mmol/L (10-20); BUN (Urea Nitrogen) 46 mg/dL (9.8-20.1); Calc. Creatinine Clearance 56 mL/min (70-130); Calcium 8.5 mg/dL (7.8-10.44); Carbon Dioxide 30 mmol/L (23-31); Chloride 99 mmol/L (98-107); Estimated GFR-MDRD 44; Glucose 223 mg/dL (83-110); Potassium 4.3 mmol/L (3.5-5.1); Sodium 135 mmol/L (136-145)
[2017-06-08] MEDS: Furosemide 100 MG/10 ML VIAL SLOW IVP SCH ×2 (06:16→13:46)
[2017-06-08] MEDS: Ferrous Sulfate 325 MG TAB PO SCH ×2 (08:35→16:21)
[2017-06-08] MEDS: Metolazone 5 MG TAB PO SCH (08:35)
[2017-06-08] MEDS: Vancomycin HCl 25 MG/ML Oral PO SCH ×4 (08:35→20:44)
[2017-06-08] MEDS: Gabapentin 300 MG CAP PO SCH ×2 (08:35→20:43)
--- NOTE | 2017-06-08 10:09 | PDOC.PN ---
- Subjective Encounter Start Date: 06/08/17 Encounter Start Time: 11:20 Subjective: Patient feeling a bit better. No more diarrhea. No chest pain or SOB. -: Still overall weak and edema. - Objective Resuscitation Status: Resuscitation Status FULL:Full Resuscitation MAR Reviewed: Yes Vital Signs & Weight: Vital Signs (12 hours) Temp Pulse Resp BP Pulse Ox 06/08/17 08:31 89 19 126/51 L 92 L 06/08/17 04:30 96 06/08/17 04:00 98.4 F 93 16 103/53 L 96 Weight Weight 196 lb 3.2 oz I&O: 06/07/17 06/08/17 06/09/17 06:59 06:59 06:59 Intake Total 870 1170 Output Total 1475 2990 Balance -605 -1820 Result Diagrams: 06/08/17 04:25 06/08/17 04:25 Additional Labs: Accuchecks 06/08/17 06/07/17 06/07/17 06:36 21:33 16:25 POC Glucose 193 H 251 H 215 H 06/07/17 13:39 POC Glucose 233 H Phys Exam - Physical Examination Constitutional: NAD HEENT: moist MMs Respiratory: no wheezing, no rales, no rhonchi Cardiovascular: RRR, no significant murmur Gastrointestinal: soft, positive bowel sounds Musculoskeletal: edema present Neurological: non-focal Psychiatric: normal affect, A&O x 3 Dx/Plan (1) GI (gastrointestinal hemorrhage) Code(s): K92.2 - GASTROINTESTINAL HEMORRHAGE, UNSPECIFIED Status: Resolved Comment: s/p EGD with cauterisation of small bleeding ulcer.H/H stable .Total 3 unit PRBC given (2) Acute kidney injury superimposed on CKD Code(s): N17.9 - ACUTE KIDNEY FAILURE, UNSPECIFIED; N18.9 - CHRONIC KIDNEY DISEASE, UNSPECIFIED Status: Acute Comment: Improved (3) Recurrent Clostridium difficile diarrhea Code(s): A04.71 - ENTEROCOLITIS DUE TO CLOSTRIDIUM DIFFICILE, RECURRENT Status : Acute Comment: complete 14 days of oral Vancomycin, last dose on 06/18/2017 (4) 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 Code(s): I50.40 - UNSP COMBINED SYSTOLIC AND DIASTOLIC (CONGESTIVE) HRT FAIL Status: Acute Comment: reduce lasix.cardiology following (5) Aortic stenosis Code(s): I35.0 - NONRHEUMATIC AORTIC (VALVE) STENOSIS Status: Chronic Qualifiers: Cardiac valve disease etiology: nonrheumatic Qualified Code(s): I35.0 - Nonrheumatic aortic (valve) stenosis Comment: s/p AVR,mechanical.On coumadin (6) Pulmonary hypertension Code(s): I27.20 - PULMONARY HYPERTENSION, UNSPECIFIED Status: Chronic (7) COPD (chronic obstructive pulmonary disease) Status: Suspected (8) HLD (hyperlipidemia) Code(s): E78.5 - HYPERLIPIDEMIA, UNSPECIFIED Status: Chronic Qualifiers: (9) DM2 (diabetes mellitus, type 2) Status: Chronic Qualifiers: Comment: - Plan cont current plan of care, continue antibiotics Continue diuresis. Possible d/c if continued improvement. * . - Discharge Day Encounter end time: 11:40
--- NOTE | 2017-06-08 13:40 | PRG ---
DATE OF SERVICE: 06/08/2017 SUBJECTIVE: Ms. Morejon is feeling somewhat better today, no complaints. She still has a lot of e gilberto, no chest pain. OBJECTIVE: VITAL SIGNS: Blood pressure 119/56, pulse 90. LUNGS: Clear. CARDIAC: Normal S1, normal S2. ABDOMEN: Soft, nontender. EXTREMITIES: Still moderate to severe edema. ASSESSMENT: 1. Congestive heart failure, systolic, diastolic mixed. 2. History of gastrointestinal bleeding. Hemoglobin stable. 3. Renal failure actually improved, it is probably mostly prerenal. PLAN: 1. We will give an extra dose of furosemide tonight. 2. Metolazone given today. 3. Possibly home tomorrow. The patient has had recurrent admissions for recurrent heart failure. Nahun lopez will see how she is looking tomorrow.
[2017-06-08] MEDS: HumaLOG 300 UNITS/3 ML VIAL SC PRN ×2 (13:48→18:59)
[2017-06-08] MEDS: Warfarin Sodium 2 MG TAB PO SCH (16:22)
[2017-06-08] MEDS ORDERED: Furosemide 100 MG/10 ML VIAL SLOW IVP SCH (20:00)
[2017-06-08] MEDS: Simvastatin 20 MG TAB PO SCH (20:43)
[2017-06-08] MEDS: Insulin Detemir 100 UNITS/ML 10 UNITS in Pre-Filled Syringe 1 EACH SC SCH (20:43)
[2017-06-09 05:01] LABS: INR-International Normal Ratio 1.6; Prothrombin Time 19.5 SEC (12.0-14.7)
[2017-06-09 05:17] LABS: Anion Gap 11 mmol/L (10-20); BUN (Urea Nitrogen) 43 mg/dL (9.8-20.1); Calc. Creatinine Clearance 57 mL/min (70-130); Calcium 8.8 mg/dL (7.8-10.44); Carbon Dioxide 33 mmol/L (23-31); Chloride 95 mmol/L (98-107); Estimated GFR-MDRD 46; Glucose 167 mg/dL (83-110); Potassium 4.1 mmol/L (3.5-5.1); Sodium 135 mmol/L (136-145)
[2017-06-09] MEDS: Furosemide 100 MG/10 ML VIAL SLOW IVP SCH ×2 (05:52→13:16)
--- NOTE | 2017-06-09 08:46 | PDOC.PN ---
- Subjective Encounter Start Date: 06/09/17 Encounter Start Time: 11:30 Subjective: Patient sitting up in chair. Feeling a bit better. Still quite weak but -: working with PT daily. Edema a bit better. - Objective Resuscitation Status: Resuscitation Status FULL:Full Resuscitation MAR Reviewed: Yes Vital Signs & Weight: Vital Signs (12 hours) Temp Pulse Resp BP Pulse Ox 06/09/17 04:40 93 L 06/09/17 04:00 99.5 F 96 16 115/52 L 93 L Weight Weight 191 lb 12.8 oz I&O: 06/08/17 06/09/17 06/10/17 06:59 06:59 06:59 Intake Total 1170 1560 Output Total 2990 3050 Balance -1820 -1490 Result Diagrams: 06/08/17 04:25 06/09/17 04:21 Additional Labs: Accuchecks 06/09/17 06/08/17 06/08/17 05:51 20:42 16:58 POC Glucose 175 H 293 H 269 H 06/08/17 11:56 POC Glucose 166 H Phys Exam - Physical Examination Constitutional: NAD HEENT: moist MMs Respiratory: no wheezing, no rales, no rhonchi Cardiovascular: RRR Gastrointestinal: soft, positive bowel sounds Musculoskeletal: edema present 2+ bilateral legs Neurological: non-focal Psychiatric: normal affect, A&O x 3 Dx/Plan (1) GI (gastrointestinal hemorrhage) Code(s): K92.2 - GASTROINTESTINAL HEMORRHAGE, UNSPECIFIED Status: Resolved Comment: s/p EGD with cauterisation of small bleeding ulcer.H/H stable .Total 3 unit PRBC given (2) Acute kidney injury superimposed on CKD Code(s): N17.9 - ACUTE KIDNEY FAILURE, UNSPECIFIED; N18.9 - CHRONIC KIDNEY DISEASE, UNSPECIFIED Status: Acute Comment: Improved (3) Recurrent Clostridium difficile diarrhea Code(s): A04.71 - ENTEROCOLITIS DUE TO CLOSTRIDIUM DIFFICILE, RECURRENT Status : Acute Comment: complete 14 days of oral Vancomycin, last dose on 06/18/2017 (4) 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 Code(s): I50.40 - UNSP COMBINED SYSTOLIC AND DIASTOLIC (CONGESTIVE) HRT FAIL Status: Acute Comment: reduce lasix.cardiology following (5) Aortic stenosis Code(s): I35.0 - NONRHEUMATIC AORTIC (VALVE) STENOSIS Status: Chronic Qualifiers: Cardiac valve disease etiology: nonrheumatic Qualified Code(s): I35.0 - Nonrheumatic aortic (valve) stenosis Comment: s/p AVR,mechanical.On coumadin, titrating up dose per pharmacy. (6) Pulmonary hypertension Code(s): I27.20 - PULMONARY HYPERTENSION, UNSPECIFIED Status: Chronic (7) COPD (chronic obstructive pulmonary disease) Status: Suspected (8) HLD (hyperlipidemia) Code(s): E78.5 - HYPERLIPIDEMIA, UNSPECIFIED Status: Chronic Qualifiers: (9) DM2 (diabetes mellitus, type 2) Status: Chronic Qualifiers: Comment: - Plan cont current plan of care, PT/OT Good diuresis yesterday, discharge when ok with cardiology * . - Discharge Day Encounter end time: 11:45
[2017-06-09] MEDS: Ferrous Sulfate 325 MG TAB PO SCH ×2 (09:26→17:16)
[2017-06-09] MEDS: Metolazone 5 MG TAB PO SCH (09:26)
[2017-06-09] MEDS: Gabapentin 300 MG CAP PO SCH ×2 (09:26→20:49)
[2017-06-09] MEDS: Vancomycin HCl 25 MG/ML Oral PO SCH ×4 (09:27→20:45)
[2017-06-09] MEDS: HYDROcodone/Acetaminophen 5/325 mg Tablet PO PRN ×2 (10:10→21:09)
[2017-06-09] MEDS: HumaLOG 300 UNITS/3 ML VIAL SC PRN (17:16)
[2017-06-09] MEDS: Warfarin Sodium 2 MG TAB PO SCH (17:16)
--- NOTE | 2017-06-09 18:03 | PRG ---
DATE OF SERVICE: 06/09/2017 SUBJECTIVE: Ms. Morejon is feeling somewhat better. She diuresed well with the furosemide. OBJECTIVE: VITAL SIGNS: Blood pressure 125/60, pulse 86 regular. LUNGS: Clear. CARDIAC: Normal S1, normal S2. ABDOMEN: Soft, nontender. EXTREMITIES: The edema is reduced. LABORATORY DATA: Her INR is 1.6. ASSESSMENT: 1. Congestive heart failure, systolic, diastolic mixed, somewhat refractory. 2. Renal failure, stable. 3. Previous aortic valve replacement. 4. Gastrointestinal bleeding. PLAN: 1. Continue Coumadin. 2. Continue diuresis. We will give her extra dose of furosemide tonight.
[2017-06-09] MEDS ORDERED: Furosemide 100 MG/10 ML VIAL SLOW IVP SCH (20:00)
[2017-06-09] MEDS: Insulin Detemir 100 UNITS/ML 10 UNITS in Pre-Filled Syringe 1 EACH SC SCH (20:47)
[2017-06-09] MEDS: Simvastatin 20 MG TAB PO SCH (20:49)
[2017-06-10] MEDS: Furosemide 100 MG/10 ML VIAL SLOW IVP SCH (06:14)
[2017-06-10] MEDS: HYDROcodone/Acetaminophen 5/325 mg Tablet PO PRN ×3 (06:22→18:04)
--- NOTE | 2017-06-10 07:30 | PDOC.PN ---
- Subjective Encounter Start Date: 06/10/17 Encounter Start Time: 07:29 Subjective: CO gout pain in R wrist - Objective Resuscitation Status: Resuscitation Status FULL:Full Resuscitation MAR Reviewed: Yes Vital Signs & Weight: Vital Signs (12 hours) Temp Pulse Resp BP Pulse Ox 06/10/17 04:12 99.6 F 92 18 109/54 L 97 06/10/17 00:00 100.3 F H 97 20 124/58 L 94 L 06/09/17 20:15 99 F 84 17 117/80 100 Weight Weight 186 lb 1.6 oz I&O: 06/09/17 06/10/17 06/11/17 06:59 06:59 06:59 Intake Total 1560 820 Output Total 3050 2000 Balance -1490 -1180 Result Diagrams: 06/08/17 04:25 06/09/17 04:21 Additional Labs: Accuchecks 06/09/17 06/09/17 06/09/17 20:56 16:55 12:21 POC Glucose 190 H 237 H 182 H Phys Exam - Physical Examination Constitutional: NAD Neck: no JVD Respiratory: clear to auscultation bilateral Cardiovascular: no significant murmur, irregular Gastrointestinal: soft, positive bowel sounds Musculoskeletal: no edema tender red area on R wrist Dx/Plan (1) Acute kidney injury superimposed on CKD Code(s): N17.9 - ACUTE KIDNEY FAILURE, UNSPECIFIED; N18.9 - CHRONIC KIDNEY DISEASE, UNSPECIFIED Status: Acute Comment: Improved (2) 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 Code(s): I50.40 - UNSP COMBINED SYSTOLIC AND DIASTOLIC (CONGESTIVE) HRT FAIL Status: Acute Comment: reduce lasix.cardiology following (3) Recurrent Clostridium difficile diarrhea Code(s): A04.71 - ENTEROCOLITIS DUE TO CLOSTRIDIUM DIFFICILE, RECURRENT Status : Acute Comment: complete 14 days of oral Vancomycin, last dose on 06/18/2017 (4) Aortic stenosis Code(s): I35.0 - NONRHEUMATIC AORTIC (VALVE) STENOSIS Status: Chronic Qualifiers: Cardiac valve disease etiology: nonrheumatic Qualified Code(s): I35.0 - Nonrheumatic aortic (valve) stenosis Comment: s/p AVR,mechanical.On coumadin, titrating up dose per pharmacy. (5) Cardiomyopathy Code(s): I42.9 - CARDIOMYOPATHY, UNSPECIFIED Status: Chronic Qualifiers: Cardiomyopathy type: unspecified Qualified Code(s): I42.9 - Cardiomyopathy , unspecified Comment: last EF 05/16 25-30%.Aldactone on hold due to hyperkalemia.HARLEY-I/ARB on hold due to SPENCER (6) Pulmonary hypertension Code(s): I27.20 - PULMONARY HYPERTENSION, UNSPECIFIED Status: Chronic (7) COPD (chronic obstructive pulmonary disease) Status: Suspected (8) Gout flare Code(s): M10.9 - GOUT, UNSPECIFIED Status: Acute Qualifiers: Gout site: wrist Encounter type: subsequent encounter Laterality: right Comment: (9) Chronic anticoagulation Code(s): Z79.01 - USP (CURRENT) USE OF ANTICOAGULANTS Status: Chronic Comment: Coumadin on hold due to High INR and GIB (10) DM2 (diabetes mellitus, type 2) Status: Chronic Qualifiers: Diabetes mellitus complication status: with kidney complications Diabetes mellitus complication detail: with chronic kidney disease Chronic kidney disease stage: stage 3 (moderate) Comment: (11) HLD (hyperlipidemia) Code(s): E78.5 - HYPERLIPIDEMIA, UNSPECIFIED Status: Chronic Qualifiers: (12) HTN (hypertension) Code(s): I10 - ESSENTIAL (PRIMARY) HYPERTENSION Status: Chronic Qualifiers: Comment: (13) Prosthetic replacement of heart valve Code(s): Z95.2 - PRESENCE OF PROSTHETIC HEART VALVE Status: Chronic - Plan INR subtherapeutic- change warfarin to 5mg daily -: add colchicine for gout -: cont accu/ss/ -: cont po vancomycin -: cont lasix * .
[2017-06-10 07:31] LABS: INR-International Normal Ratio 1.7; Prothrombin Time 20.2 SEC (12.0-14.7)
[2017-06-10 07:55] LABS: Anion Gap 14 mmol/L (10-20); BUN (Urea Nitrogen) 44 mg/dL (9.8-20.1); Calc. Creatinine Clearance 52 mL/min (70-130); Calcium 9.3 mg/dL (7.8-10.44); Carbon Dioxide 35 mmol/L (23-31); Chloride 91 mmol/L (98-107); Estimated GFR-MDRD 44; Glucose 145 mg/dL (83-110); Potassium 3.9 mmol/L (3.5-5.1); Sodium 136 mmol/L (136-145)
[2017-06-10 07:57] LABS: #Eosinphils 0.1 thou/uL (0.0-0.7); #Lymphocytes 1.9 thou/uL (1.20-3.40); #Neutrophils 9.3 thou/uL (1.40-6.50); %Eosinophils 0.4 % (0.0-10.0); %Lymphocytes 15.6 % (21.0-51.0); %Monocytes 8.2 % (0.0-10.0); %Neutrophils 75.8 % (42.0-75.0); Hemoglobin 9.4 g/dL (12.0-16.0); Mean Corpuscular HGB CONC 31.4 g/dL (32.0-36.0); Mean Corpuscular Hemoglobin 29.7 pg (27.0-31.0); Mean Corpuscular Volume 94.5 fl (81.0-99.0); Mean Platelet Volume 8.1 fL (7.4-10.4); Platelet Count 264 thou/uL (130-400); RBC Distribution Width 15.1 % (11.5-14.5); Red Blood Cell (RBC) Count 3.16 mill/uL (4.20-5.40); White Blood Cell (WBC) Count 12.3 thou/uL (4.8-10.8)
[2017-06-10] MEDS: Gabapentin 300 MG CAP PO SCH ×2 (08:17→20:15)
[2017-06-10] MEDS: Ferrous Sulfate 325 MG TAB PO SCH ×2 (08:17→16:26)
[2017-06-10] MEDS: Metolazone 5 MG TAB PO SCH ×2 (08:19→08:55)
[2017-06-10] MEDS: Colchicine 0.6 MG TAB PO SCH ×2 (08:57→20:16)
[2017-06-10] MEDS: traMADol HCl 50 MG TAB PO PRN (09:00)
[2017-06-10 09:01] VITALS: BMI 34.0
[2017-06-10 09:31] LABS: Vancomycin, Trough Less than 1.1 ug/mL
[2017-06-10] MEDS: Vancomycin HCl 25 MG/ML Oral PO SCH ×4 (11:18→20:15)
--- NOTE | 2017-06-10 11:21 | PRG ---
DATE OF SERVICE: 06/10/2017 Ms. Morejon is breathing somewhat better, but unfortunately she has developed diffuse gout. She is in a lot of pain from this. The patient's I's and O's was actually negative. She was doing well from a heart failure standpoint. Her weight has gone from 202 down to 186. PHYSICAL EXAMINATION: VITAL SIGNS: Blood pressure 109/54, pulse 90. LUNGS: Clear. CARDIAC: Normal S1, S2. ABDOMEN: Soft, nontender. EXTREMITIES: The edema is actually reduced. LABORATORY: Creatinine is 1.2. ASSESSMENT: 1. Gout probably precipitated with diuretics. 2. Congestive heart failure, systolic, diastolic mixed, actually slightly improved and unfortunately diuretics are going to have to be reduced. PLAN: 1. Will have to reduce diuretics. 2. Continue Coumadin. INR is slowly increasing to 1.7. 3. Multiple medical problems in this unfortunate patient.
[2017-06-10] MEDS: Furosemide 40 MG/4 ML VIAL SLOW IVP SCH (12:51)
[2017-06-10] MEDS ORDERED: Furosemide 100 MG/10 ML VIAL SLOW IVP SCH ×2 (14:00)
[2017-06-10] MEDS: Warfarin Sodium 5 MG TAB PO SCH (16:27)
[2017-06-10] MEDS: HumaLOG 300 UNITS/3 ML VIAL SC PRN ×2 (17:28→23:10)
[2017-06-10] MEDS: Simvastatin 20 MG TAB PO SCH (20:16)
[2017-06-10] MEDS: Insulin Detemir 100 UNITS/ML 10 UNITS in Pre-Filled Syringe 1 EACH SC SCH (23:09)
[2017-06-11] MEDS: Furosemide 40 MG/4 ML VIAL SLOW IVP SCH (05:06)
[2017-06-11] MEDS: HYDROcodone/Acetaminophen 5/325 mg Tablet PO PRN ×3 (05:19→21:47)
[2017-06-11 06:33] LABS: Prothrombin Time 22.9 SEC (12.0-14.7)
[2017-06-11 06:44] LABS: Anion Gap 13 mmol/L (10-20); BUN (Urea Nitrogen) 46 mg/dL (9.8-20.1); Calc. Creatinine Clearance 53 mL/min (70-130); Calcium 8.7 mg/dL (7.8-10.44); Carbon Dioxide 33 mmol/L (23-31); Chloride 91 mmol/L (98-107); Estimated GFR-MDRD 45; Glucose 143 mg/dL (83-110); Potassium 4.1 mmol/L (3.5-5.1); Sodium 133 mmol/L (136-145)
[2017-06-11] MEDS ORDERED: predniSONE 20 MG TAB PO SCH (08:00)
--- NOTE | 2017-06-11 08:06 | PRG ---
DATE OF SERVICE: 06/11/2017 HISTORY: Ms. Morejon continues to have a lot of severe gout pain. It is slightly better than yest rosarioay, but not much. Her breathing is improved. PHYSICAL EXAMINATION: VITAL SIGNS: Her blood pressures improved to 123/56, pulse 90, it is regular. LUNGS: Clear. CARDIAC: Normal S1, normal S2. ABDOMEN: Soft, nontender. EXTREMITIES: There is a decreased edema that is still present, but it only mild to moderate. LABORATORY: INR 2. ASSESSMENT: 1. Congestive heart failure, systolic/diastolic mixed mostly diastolic. 2. Aortic valve replacement, mechanical with continued good function. 3. Renal failure, improved. 4. Gout worsened with diuresis. 5. Diabetes. PLAN: 1. Give her 1 dose of prednisone. We would expect that the blood sugar will increase, but hopefully this can give her some relief from the gout. 2. Change to oral diuretics. 3. Consider going back to [facility] tomorrow.
--- NOTE | 2017-06-11 08:28 | PDOC.PN ---
- Subjective Encounter Start Date: 06/11/17 Encounter Start Time: 08:27 Subjective: no diarrhea, still has pain R hand - Objective Resuscitation Status: Resuscitation Status FULL:Full Resuscitation MAR Reviewed: Yes Vital Signs & Weight: Vital Signs (12 hours) Temp Pulse Resp BP Pulse Ox 06/11/17 04:00 98.4 F 106 H 15 107/65 95 Weight Admit Weight 213 lb 6.4 oz Weight 185 lb 4.8 oz I&O: 06/10/17 06/11/17 06/12/17 06:59 06:59 06:59 Intake Total 820 810 Output Total 1999 1704 Balance -8169 -9738 Result Diagrams: 06/10/17 03:30 06/11/17 05:29 Additional Labs: Accuchecks 06/11/17 06/10/17 06/10/17 06:13 21:21 17:11 POC Glucose 160 H 297 H 248 H 06/10/17 11:41 POC Glucose 199 H Phys Exam - Physical Examination Neck: no JVD Respiratory: clear to auscultation bilateral Cardiovascular: RRR, no significant murmur Gastrointestinal: soft, non-tender, no distention, positive bowel sounds Musculoskeletal: edema present tender dorsum R hand Dx/Plan (1) Acute kidney injury superimposed on CKD Code(s): N17.9 - ACUTE KIDNEY FAILURE, UNSPECIFIED; N18.9 - CHRONIC KIDNEY DISEASE, UNSPECIFIED Status: Acute Comment: Improved (2) 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 Code(s): I50.40 - UNSP COMBINED SYSTOLIC AND DIASTOLIC (CONGESTIVE) HRT FAIL Status: Acute Comment: reduce lasix.cardiology following (3) Recurrent Clostridium difficile diarrhea Code(s): A04.71 - ENTEROCOLITIS DUE TO CLOSTRIDIUM DIFFICILE, RECURRENT Status : Acute Comment: complete 14 days of oral Vancomycin, last dose on 06/18/2017 (4) Aortic stenosis Code(s): I35.0 - NONRHEUMATIC AORTIC (VALVE) STENOSIS Status: Chronic Qualifiers: Cardiac valve disease etiology: nonrheumatic Qualified Code(s): I35.0 - Nonrheumatic aortic (valve) stenosis Comment: s/p AVR,mechanical.On coumadin, titrating up dose per pharmacy. (5) Cardiomyopathy Code(s): I42.9 - CARDIOMYOPATHY, UNSPECIFIED Status: Chronic Qualifiers: Cardiomyopathy type: unspecified Qualified Code(s): I42.9 - Cardiomyopathy , unspecified Comment: last EF 05/16 25-30%.Aldactone on hold due to hyperkalemia.HARLEY-I/ARB on hold due to SPENCER (6) Pulmonary hypertension Code(s): I27.20 - PULMONARY HYPERTENSION, UNSPECIFIED Status: Chronic (7) COPD (chronic obstructive pulmonary disease) Status: Suspected (8) Gout flare Code(s): M10.9 - GOUT, UNSPECIFIED Status: Acute Qualifiers: Gout site: wrist Encounter type: subsequent encounter Laterality: right Comment: (9) Chronic anticoagulation Code(s): Z79.01 - ELECTRONIC GLUER (CURRENT) USE OF ANTICOAGULANTS Status: Chronic Comment: Coumadin on hold due to High INR and GIB (10) DM2 (diabetes mellitus, type 2) Status: Chronic Qualifiers: Diabetes mellitus complication status: with kidney complications Diabetes mellitus complication detail: with chronic kidney disease Chronic kidney disease stage: stage 3 (moderate) Comment: (11) HLD (hyperlipidemia) Code(s): E78.5 - HYPERLIPIDEMIA, UNSPECIFIED Status: Chronic Qualifiers: (12) HTN (hypertension) Code(s): I10 - ESSENTIAL (PRIMARY) HYPERTENSION Status: Chronic Qualifiers: Comment: (13) Prosthetic replacement of heart valve Code(s): Z95.2 - PRESENCE OF PROSTHETIC HEART VALVE Status: Chronic - Plan cont colchicine -: INR 2, cont warfarin 5 mg daily, monitor INR -: po torsemide for chf -: cont po vancomycin * .
[2017-06-11] MEDS: Metolazone 5 MG TAB PO SCH (08:55)
[2017-06-11] MEDS: Colchicine 0.6 MG TAB PO SCH ×2 (08:55→21:41)
[2017-06-11] MEDS: Ferrous Sulfate 325 MG TAB PO SCH ×2 (08:55→16:41)
[2017-06-11] MEDS: Gabapentin 300 MG CAP PO SCH ×2 (08:56→21:41)
[2017-06-11] MEDS: Vancomycin HCl 25 MG/ML Oral PO SCH ×4 (08:57→21:40)
[2017-06-11] MEDS: HumaLOG 300 UNITS/3 ML VIAL SC PRN ×3 (13:07→21:41)
[2017-06-11] MEDS: Torsemide 20 MG TAB PO SCH (13:08)
[2017-06-11] MEDS: Warfarin Sodium 5 MG TAB PO SCH (16:42)
[2017-06-11] MEDS: Insulin Detemir 100 UNITS/ML 10 UNITS in Pre-Filled Syringe 1 EACH SC SCH (21:41)
[2017-06-11] MEDS: Simvastatin 20 MG TAB PO SCH (21:42)
[2017-06-12 05:18] LABS: Anion Gap 18 mmol/L (10-20); BUN (Urea Nitrogen) 56 mg/dL (9.8-20.1); Calc. Creatinine Clearance 47 mL/min (70-130); Calcium 8.5 mg/dL (7.8-10.44); Carbon Dioxide 28 mmol/L (23-31); Chloride 92 mmol/L (98-107); Estimated GFR-MDRD 38; Glucose 357 mg/dL (83-110); Potassium 3.8 mmol/L (3.5-5.1); Sodium 134 mmol/L (136-145)
[2017-06-12 05:20] LABS: INR-International Normal Ratio 2.5
[2017-06-12] MEDS: HumaLOG 300 UNITS/3 ML VIAL SC PRN (06:29)
[2017-06-12] MEDS: HYDROcodone/Acetaminophen 5/325 mg Tablet PO PRN (06:34)
[2017-06-12] MEDS ORDERED: Carvedilol 6.25 MG TAB PO SCH (08:30)
[2017-06-12] MEDS: Torsemide 20 MG TAB PO SCH (08:54)
[2017-06-12] MEDS: Colchicine 0.6 MG TAB PO SCH (08:54)
[2017-06-12] MEDS: Gabapentin 300 MG CAP PO SCH (08:54)
[2017-06-12] MEDS: Ferrous Sulfate 325 MG TAB PO SCH (08:55)
[2017-06-12] MEDS: Vancomycin HCl 25 MG/ML Oral PO SCH (08:55)
[2017-06-12] MEDS: Metolazone 5 MG TAB PO SCH (08:55)
[2017-06-12 09:05] VITALS: BP 124/59
--- NOTE | 2017-06-12 09:11 | DIS ---
DATE OF ADMISSION: 06/01/2017 DATE OF DISCHARGE: 06/12/2017 DISCHARGE DISPOSITION: Discharged to [facility] PRIMARY CARE PROVIDER: Dr. Ernst Vanegas. FINAL DIAGNOSES: 1. 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 2. Acute renal failure. 3. Hypertension. 4. Cardiomyopathy. 5. Enterocolitis secondary to Clostridium difficile. 6. Diabetes mellitus type 2 with chronic kidney disease stage 3. 7. Chronic anticoagulation. 8. Chronic obstructive pulmonary disease. 9. Pulmonary hypertension. 10. Gout flare. 11. Dyslipidemia. 12. Combined systolic/diastolic heart failure. DISCHARGE MEDICATIONS: Glipizide 10 mg p.o. b.i.d., warfarin 5 mg alternating with 2.5 mg, Aldactone 25 mg a day, Zocor 20 mg a day, Prilosec 20 mg p.o. b.i.d., detemir insulin 10 units at bedtime, edwina apentin 300 mg p.o. b.i.d., ferrous sulfate 325 mg p.o. b.i.d., Coreg 6.25 mg p.o. b.i.d., aspirin 81 mg a day, vancomycin 250 mg p.o. q.i.d., Demadex 20 mg p.o. b.i.d., Zaroxolyn 5 mg a day, Colcrys 0. 6 mg p.o. b.i.d., Tums 1000 mg q.4 hours p.r.n., allopurinol 100 mg a day. ALLERGIES: No known drug allergies. CODE STATUS: FULL. PENDING AT THE TIME OF DISCHARGE: Nothing. DIET: Diabetic with no added salt. HOSPITAL COURSE: Patient admitted to [facility] to the [facility] Service CHIEF COMPLAINT: Worsening weakness and shortness of breath. LABORATORY DATA: On admission, patient's laboratory revealed an elevated creatinine at 3.09, BUN 72, sodium 125, potassium 5.5. INR was elevated at 4.1, follow up 5.2. Hemoglobin is 8.4, follow up 5. 8. The patient's HARLEY inhibitor was stopped. Patient's Coumadin was stopped. Consultation was samira delgadillo with Dr. Rosalino Serna for acute renal failure. He held lisinopril, spironolactone, and ordered salt poor albumin. Patient was seen in consultation by Dr. Jairo Juarez for acute drop in blo od count. She was transfused from hemoglobin of 5.8, up to 7.6. She underwent upper GI endoscopy on 06/04/2017 and found to have bleeding from AV malformation which was electrocauterization with cessa tion of bleeding. She was seen in consultation by Dr. Avtar Cosby, Cardiology who agreed with stop ping HARLEY and spironolactone and holding Coumadin, but not giving vitamin K, agreed with transfusion. The patient had an echocardiogram done which revealed EF of 25%-30%, mechanical aortic valve. The p atient's hemoglobin has been stable since transfusions now 9.4. Her initial creatinine of 3.9 has co me down steadily to 1.134 which is consistent with her chronic kidney disease stage 3 and patient's c are was further complicated by diarrhea with finding of toxigenic C. difficile. She was started on o ral vancomycin for her diarrhea, which has resolved. Late in her hospital stay, she developed some a cute left hand pain consistent with her history of gout. She was started on colchicine 0.6 twice a d ay and given a small dose of methylprednisone with improvement. Other studies done; chest x-ray on a dmission showed only stable Cardiology. Patient is currently comfortable and doing well. Vital sign s are stable. She is being discharged on the current medications. She will need to follow up PT/INR in 2 days. She will need to follow up by PCP determinations to be made by PCP. Plans of care of e vancomycin for C. difficile, monitoring of hemoglobin, monitoring of cardiovascular status as her l isinopril has been held. Also, length of time she is given colchicine for her acute gouty attack. Forty minutes were spent preparing this discharge.
[2017-06-12 09:33] VITALS: TEMP 97.7
[2017-06-12] MEDS ORDERED: Warfarin Sodium 2 MG TAB PO SCH (17:00)
--- NOTE | 2017-06-18 16:57 | CCL ---
PROCEDURE: Fluoroscopy and cine of aortic valve. The patient was brought to the labor specialist and fluoroscopy and cine were done of the aortic valve. Both leaflets were moving normally with normal motion in the mechanical aortic prosthetic valve.
--- NOTE | 2017-07-02 11:36 | PQF ---
NADEEM GREEN, [facility] [id number] [facility]-288 [id number] CLINICAL DOCUMENTATION CLARIFICATION FORM: POST DISCHARGE Addendum to original discharge summary date: 06/12/2017 DATE: 07/02/2017 ATTN: Dr. Urena Please exercise your independent, professional judgment in responding to the clarification form. 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 To accurately assign the appropriate POA indicator, this information must be clearly documented within the medical record. CLINICAL INDICATORS - SIGNS / SYMPTOMS / LABS Anemia on admission. Per 06/[address] Juarez: Acute drop in blood count to 21, GI bleeding. Blood count dropped from 8.5 to 4.8. RISK FACTORS: Per EGD: Bleeding from gastric arteriovenous malformations just below the gastroesophageal junction. TREATMENT: EGD 06/04 with placement of hemoclip, injection of epinephrine and heater probe therapy. Transfusion PRBC's 06/02, 06/03 and 06/05. (This form is maintained as a part of the permanent medical record) 2014 [employer] All Rights Reserved Chrissy [email or web address] [phone] [email or web address]
== END 2017-06-12 10:55 | DRG 377 ==
LOC: ERS 12:23 → 2NO 15:51
PROVIDERS: ADMIT Internal Medicine; ATTEND Internal Medicine
PROC: 30233N1 Transfusion of Nonautologous Red Blood Cells into Peripheral Vein, Percutaneous Approach (ICD-10-PCS; 2017-06-02)
PROC: 0W3P8ZZ Control Bleeding in Gastrointestinal Tract, Via Natural or Artificial Opening Endoscopic (ICD-10-PCS; principal; 2017-06-04)
DX: K31.811 Angiodysplasia of stomach and duodenum with bleeding (principal); I50.43 Acute on chronic combined systolic (congestive) and diastolic (congestive) heart failure; N17.9 Acute kidney failure, unspecified; A04.71 Enterocolitis due to Clostridium difficile, recurrent; D62 Acute posthemorrhagic anemia; E87.1 Hypo-osmolality and hyponatremia; I42.9 Cardiomyopathy, unspecified; I11.0 Hypertensive heart disease with heart failure; E11.21 Type 2 diabetes mellitus with diabetic nephropathy; E11.22 Type 2 diabetes mellitus with diabetic chronic kidney disease; N18.3 Chronic kidney disease, stage 3 (moderate); J44.9 Chronic obstructive pulmonary disease, unspecified; I27.20 Pulmonary hypertension, unspecified; I08.0 Rheumatic disorders of both mitral and aortic valves; D50.9 Iron deficiency anemia, unspecified; R79.1 Abnormal coagulation profile; E78.5 Hyperlipidemia, unspecified; E66.9 Obesity, unspecified; I25.5 Ischemic cardiomyopathy; M10.042 Idiopathic gout, left hand; Z68.33 Body mass index [BMI] 33.0-33.9, adult; Z87.891 Personal history of nicotine dependence; Z79.01 Long term (current) use of anticoagulants; Z79.82 Long term (current) use of aspirin; Z79.899 Other long term (current) drug therapy; Z96.652 Presence of left artificial knee joint; Z95.2 Presence of prosthetic heart valve
CPT/HCPCS: 36415; 36416; 36430; 51702; 71045; 80048; 80053; 80202; 81003; 82274; 82553; 82728; 83540; 83615; 83690; 83880; 84484; 85025; 85610; 85730; 86850; 86900; 86901; 87324; 87449; 87493; 93005; 93306; 94640; 96365; 96375; A4216; G8978-GP-CN; G8979-GP-CK; G8987-GO-CL; G8988-GO-CJ; G8996-GN-CJ; G8997-GN-CI; J1815; J1940; J2001; J2704; J2916; J3430; J7050; J7506; J7620; P9016; P9047

== ENCOUNTER 2017-06-21 07:00 | Inpatient (IN) | payer MEDICARE ==
[2017-06-21] MEDS ORDERED: fentaNYL Citrate/PF 2,000 MCG in Sodium Chloride 0.9% 60 ML IV SCH ×2 (07:30→11:16)
[2017-06-21 08:04] LABS: Bilirubin Small (Negative); Blood, Urine Small (Negative); Glucose, Urine (Dipstick) Negative (Negative); Leukocyte Moderate (Negative); Nitrite Negative (Negative); Protein, Urine (Dipstick) 30 mg/dL (Neg-Trace); Specific Gravity, Urine 1.015 (1.005-1.030); Urobilinogen 0.2 mg/dL (0.2-1.0)
[2017-06-21 08:05] LABS: Clarity Turbid (Clear)
[2017-06-21 08:12] LABS: Renal Epithelial None Seen HPF (0-3); Squamous Epithelial 0-3 HPF (0-3); Transitional Epithelial 0-3 HPF (0-3)
[2017-06-21 08:13] LABS: Bacteria/HPF 4+ HPF (None Seen)
[2017-06-21 08:15] LABS: Hyaline Casts/LPF NONE SEEN LPF (0-3 Hyaline)
[2017-06-21 08:16] LABS: PTT 116.5 SEC (22.9-36.1)
[2017-06-21 08:19] LABS: Actual Bicarbonate (HCO3a) 9.9 mEq/L (22-26); Base Excess (BEa) -15.6 mEq/L (0 (+/-) 2.5); CO2 Tension 21.5 mmHg (35.0-45.0); Hematocrit-ABG 16.4 % (36.0-47.0); O2 Tension (PaO2) 338.9 mmHg (80.0-100.0); pH, Arterial 7.29 (7.35-7.45)
[2017-06-21 08:20] LABS: Analyzer IN Cardio ER; Calcium, Ionized 1.3 mmol/L (1.12-1.30); Hemoglobin (Hb) 3.8 g/dL (12.0-16.0); Puncture Site LBA
[2017-06-21 08:21] LABS: ALV-art Gradient 62.025 (0-20)
[2017-06-21 08:21] LABS: ALT (SGPT) 60 U/L (8-55); AST (SGOT) 154 U/L (5-34); Albumin 2.6 g/dL (3.4-4.8); Alkaline Phosphatase 202 U/L (40-150); Anion Gap 38 mmol/L (10-20); BUN (Urea Nitrogen) 85 mg/dL (9.8-20.1); Bilirubin, Total 1.2 mg/dL (0.2-1.2); Calc. Creatinine Clearance 0 mL/min (70-130); Calcium 9.8 mg/dL (7.8-10.44); Carbon Dioxide 10 mmol/L (23-31); Chloride 91 mmol/L (98-107); Estimated GFR-MDRD 14; Globulin 2.5 g/dL (2.4-3.5); Potassium 6.2 mmol/L (3.5-5.1); Protein, Total 5.1 g/dL (6.0-8.3); Sodium 133 mmol/L (136-145)
[2017-06-21] MEDS ORDERED: Sodium Chloride 0.9% 100 ML ONE (08:22)
[2017-06-21] MEDS ORDERED: Piperacillin/Tazobactam 4.5 GM VIAL ONE (08:22)
[2017-06-21 08:23] LABS: #Basophils 0.1 thou/uL (0.0-0.2); #Eosinphils 0.1 thou/uL (0.0-0.7); #Lymphocytes 4.6 thou/uL (1.20-3.40); #Monocytes 0.4 thou/uL (0.11-0.59); #Neutrophils 9.9 thou/uL (1.40-6.50); %Basophils 0.5 % (0.0-1.0); %Eosinophils 0.9 % (0.0-10.0); %Lymphocytes 30.3 % (21.0-51.0); %Monocytes 2.6 % (0.0-10.0); %Neutrophils 65.8 % (42.0-75.0); Hemoglobin 5.2 g/dL (12.0-16.0); Mean Corpuscular HGB CONC 32.5 g/dL (32.0-36.0); Mean Corpuscular Hemoglobin 30.3 pg (27.0-31.0); Mean Corpuscular Volume 93.3 fl (81.0-99.0); Mean Platelet Volume 10.3 fL (7.4-10.4); Platelet Count 369 thou/uL (130-400); RBC Distribution Width 15.5 % (11.5-14.5); Red Blood Cell (RBC) Count 1.71 mill/uL (4.20-5.40)
[2017-06-21 08:25] LABS: Prothrombin Time Greater than 150.0 SEC (12.0-14.7)
[2017-06-21 08:26] LABS: CKMB 6.2 ng/mL (0-6.6); Glucose 30 mg/dL (83-110)
[2017-06-21 08:31] LABS: Troponin I 0.571 ng/mL (< 0.028)
[2017-06-21 08:41] LABS: Platelet Count 366 thou/uL (130-400)
[2017-06-21 08:42] LABS: Prothrombin Time Greater than 150.0 SEC (12.0-14.7)
[2017-06-21 08:43] LABS: Fibrinogen 315 mg/dL (253-463); PTT 116.5 SEC (22.9-36.1)
--- NOTE | 2017-06-21 08:47 | RAD ---
CHEST 1 VIEW: Date: 06/21/17 HISTORY: 76-year-old female with history of unresponsiveness and difficulty breathing. COMPARISON: 06/01/17. FINDINGS: Endotracheal tube and NG tube in place. Postop midline sternotomy and valvular replacement. Cardiomeg saqib. Increased markings bilaterally with evidence for a small left pleural effusion and some bilatera l vascular congestion. IMPRESSION: Cardiomegaly with postop midline sternotomy and valvular replacement changes with left pleural effusi on and mild vascular congestion. NG tube and endotracheal tube in satisfactory location. Continue arthur rt-term follow-up. POS: OFF
[2017-06-21 08:51] LABS: Iron 126 ug/dL (50-170); Iron Binding Capacity, Total 108 mcg/dL (265-497)
[2017-06-21] MEDS ORDERED: Phytonadione 10 MG/ML AMP SLOW IVP SCH (09:00)
[2017-06-21 09:08] LABS: D-Dimer Test 0.56 *mcg/mL (0.27-0.43)
[2017-06-21 09:12] LABS: Anisocytosis MODERATE=16-30 cells (100X) (0-5/hpf); Band 12 % (5-11); Bite Cells SLIGHT = 2-5 cells (100X) (0-1/hpf); Lymphocytes 32 % (21-51); Metamyelocyte 3 % (0-0); Monocytes 2 % (0-10); Myelocyte 3 % (0-0); Nucleated RBC 3 % (0); Polychromasia MARKED = >4 cells (100X) (0-2/hpf)
[2017-06-21] MEDS ORDERED: Pantoprazole 40 MG VIAL ONE (09:32)
[2017-06-21 09:44] LABS: FSP-Qualitative Normal (Normal)
[2017-06-21] MEDS ORDERED: Acetaminophen 325 MG TAB PER TUBE PRN (10:53)
[2017-06-21] MEDS ORDERED: HumaLOG 300 UNITS/3 ML VIAL SC PRN (10:53)
[2017-06-21] MEDS ORDERED: Eucerin (Mineral Oil/Petrolatum,White) 30 gm Jar TOP PRN (10:53)
[2017-06-21] MEDS ORDERED: Norepinephrine 8 MG/0.9% NS 250 ML IVPB PRN (10:53)
[2017-06-21] MEDS ORDERED: Dextrose 5% in Water 1,000 ML IV PRN (10:53)
[2017-06-21] MEDS ORDERED: Milk Of Magnesia 30 ML UDCUP PER TUBE PRN (10:53)
[2017-06-21] MEDS ORDERED: Artificial Tears 18 DROP/0.9 ML EA EYE PRN (10:53)
[2017-06-21] MEDS ORDERED: Diabetic Tussin 200 MG/10 ML UDCUP PER TUBE PRN (10:53)
[2017-06-21] MEDS ORDERED: Ondansetron HCl/PF 4 MG/2 ML Vial IVP PRN (10:53)
[2017-06-21] MEDS ORDERED: Mag-Al 1200 mg/1200 mg/30 ML UDCUP PER TUBE PRN (10:53)
[2017-06-21] MEDS ORDERED: Dextrose 50% Abboject 50 ML SYRINGE SLOW IVP PRN (10:53)
[2017-06-21] MEDS ORDERED: Bisacodyl 10 MG SUPP PR PRN (10:53)
[2017-06-21] MEDS ORDERED: Ventilator Sedation Protocol 1 EACH FS SCH (10:53)
[2017-06-21] MEDS ORDERED: Acetaminophen 325 MG/10.15 ML UDCUP PER TUBE PRN (10:53)
[2017-06-21] MEDS ORDERED: hydrALAZINE 20 MG/ML VIAL SLOW IVP PRN (10:53)
[2017-06-21] MEDS ORDERED: Lorazepam 2 MG/ML VIAL SLOW IVP PRN (11:16)
[2017-06-21] MEDS ORDERED: Propofol BOLUS 1,000 MG/100 ML VIAL IV PRN (11:16)
[2017-06-21] MEDS ORDERED: Morphine 4 MG/ML VIAL SLOW IVP PRN (11:16)
[2017-06-21] MEDS ORDERED: Fentanyl BOLUS 250 ML IVPB PRN (11:16)
[2017-06-21] MEDS ORDERED: Propofol 1,000 MG/100 ML VIAL IV PRN (11:16)
[2017-06-21 12:16] LABS: Hemoglobin 8.1 g/dL (12.0-16.0)
--- NOTE | 2017-06-21 12:21 | HP ---
PRIMARY CARE PHYSICIAN: Dr. Alphonse Higginbotham. REASON FOR ADMISSION: Acute respiratory failure, lactic acidosis, acute on chronic kidney failure, NSTEMI due to demand ischemia GI bleed, severe anemia. HISTORY OF PRESENT ILLNESS: A 76-year-old female who was recently admitted in our hospital on 06/01/2017, at that time, patient was having generalized weakness and shortness of breath. During that admission, patient had GI bleeding from AV malformation at the level of gastroesophageal junction. GI was consulted and they cauterized bleeding site. Patient also had acute on chronic kidney failure and patient was treated with albumin and some Lasix as well as fluid resuscitation. Her renal function was slightly stabilized back to baseline level, stage 3. During that admission, nephrology, Dr. Serna was following. When she was discharged from the hospital at that time her creatinine was 1.34 and today her creatinine increased to 3.22. During previous admission, patient's hemoglobin was 5.8 and after transfusional support and on discharge, her hemoglobin was 9.4 and today again hemoglobin is 5.2. In the emergency room, and they did orogastric tube at that time, patient had coffee ground and fresh blood in stomach as well as patient was oozing blood from rectum. Today when they did routine blood test and her INR is not reported, but her PT and aPTT is significantly high. Patient has a mechanical prosthetic aortic valve and patient is discharged on chronic anticoagulation therapy. During previous admission, warfarin was kept on hold, but it was cleared to start on 06/06/2017. Patient was discharged to [facility] on 06/12/2017. During that admission, patient also had diarrhea and patient was found with C. difficile infection. Patient had repeat Clostridium difficile testing on , which was negative. Patient was getting oral vancomycin therapy at long term. Last night, patient was restless. Patient's daughter was remained with her during night time. Patient was becoming more and more altered and less responsive and that is why Paramedics were called. At long term, patient was barely breathing 4 respirations per minute and she was started on oxygen and Ambu bag was started and patient was immediately brought to emergency room. In emergency room, when she arrived at that time she was severely hypotensive, she was required four-minute CPR for low pulse and unable to record blood pressure. Patient was intubated, at that time her blood sugar was only 30. Routine blood tests showed hyperkalemia, acute kidney failure, severe lactic acidosis, elevated LFT, and elevated troponin. Patient was also hypothermic required battery reoccur. She was coagulopathic and severely anemic and blood transfusion and FFP transfusion was started. Urinalysis was also suggestive of UTI and that is why broad spectrum antibiotic therapy with vancomycin and Zosyn was given. At this point, we are admitting this critical care patient to ICU. PAST MEDICAL HISTORY: Chronic kidney disease stage 3, chronic systolic and diastolic heart failure with most recent echocardiography on 06/04/2017 showed EF 25%-30%, [id number] tricuspid regurgitation, and pulmonary hypertension, mechanical aortic valve, history of biomechanical prosthetic aortic valve, history of aortic stenosis, diabetes type 2, diabetic nephropathy , hypertension, dyslipidemia, morbid obesity, recent C. diff infection, recent GI bleed from AV malformation at gastroesophageal junction, history of anemia due to blood loss required blood transfusion, physical deconditioning, diabetic neuropathy, gout, gastroesophageal reflux disease, chronic anticoagulation with warfarin for mechanical prosthetic aortic valve. PAST SURGICAL HISTORY: Aortic valve replacement with bioprosthetic valve, bilateral cataract replacement, right total knee replacement, cardiac catheterization. PAST PSYCHIATRIC HISTORY: Reviewed and negative. ALLERGIES: No known drug allergy. FAMILY HISTORY: No strong family history of premature coronary artery disease, stroke, or cancer. CODE STATUS: Patient is FULL CODE. Patient's daughter is surrogate decision maker. SOCIAL HISTORY: Patient is currently living at [facility]. She does not have any tobacco, alcohol, or illicit drug abuse. Patient's medical power of diesel stationary engineer is her 2 daughters who are present at bedside in the emergency room. REVIEW OF SYSTEMS: All review of systems tried to review with the patient, but unable to review because patient is intubated. CURRENT HOME MEDICATION: At this point we do not have any medication list from [facility], so will obtain from there and review later, pt can not provide information as she is intubated. EMERGENCY COURSE: See HPI for more details. PHYSICAL EXAMINATION: VITAL SIGNS: Lowest blood pressure in emergency room 64/53, temperature 92 on arrival, saturation 100% on ventilator, pulse 103, respiratory rate 18 on ventilator, weight 88 kilograms. GENERAL: Patient is currently intubated, sedated, unresponsive on ventilator. HEENT: Normocephalic, atraumatic. Eyes: Pupils round, reactive to light. ENT : Oropharynx within normal limits. Orogastric tube in place, endotracheal tube in place. NECK: Supple, no JVD. LUNGS: Bilateral coarse breath sounds. Air entry reduced. CARDIAC: S1, S2 appears regular, prosthetic sounds heard. No gallop, no rub. ABDOMEN: Obesity present. No peritoneal sign, no organomegaly. GENITOURINARY: Ramos catheter in place. EXTREMITIES: Upper extremity passive movement of all joints are normal. Lower extremity, trace edema noted. Good distal pulsation. SKIN: Pale and cool. NEUROLOGIC: Patient is unresponsive. Neurological examination is not possible. PSYCHIATRIC: Not possible. SIGNIFICANT LABORATORY DATA: EKG showing sinus arrhythmia, incomplete right bundle branch block pattern. Chest x-ray based on my review, cardiomegaly postop midline sternotomy changes, small pleural effusion, and pulmonary vascular congestion. CBC: WBC 15.0, hemoglobin 5.2, platelet 369. PT greater than 150. INR test not performed, aPTT 116.5, D-dimer 0.56. Fibrinogen degradation product normal. Fibrinogen 315. ABG; pH 7.29, pCO2 of 21.5, bicarbonate 9.9, pO2 of 338.9, saturation 99 on ventilator. BMP: Sodium 133, potassium 6.6, chloride 91, carbon dioxide 10, anion gap 38, BUN 85, creatinine 3.22, glucose 30, calcium 9.8. Lactic acid 22.2. Iron 126, TIBC 108, ferritin 9279. LFT: AST 154, ALT 60, alkaline phosphatase 202, albumin 2.6. CK-MB 6.2 , troponin 0.571. Urinalysis suggestive of UTI. ASSESSMENT AND PLAN: 1. Status post cardiopulmonary arrest. Patient had pulseless electrical activity, required CPR for 4 minutes. Patient was given epinephrine, sodium bicarbonate, calcium gluconate. Subsequently pulse, blood pressure retrieved. Etiology of cardiopulmonary arrest, suspecting from hypovolemic shock, abnormal electrolytes. 2. Acute respiratory failure with hypoxia. Patient is on ventilator. Pulmonary group will be consulted for vent management and critical care management. Ventilation sedation protocol initiated. 3. Septic versus hypovolemic shock. Patient has bleeding from stomach as well as from rectally. Her hemoglobin is 5.2. She is also hypothermic and she has lactic acidosis and leukocytosis with abnormal urinalysis suspicious for urinary tract infection. Most likely she has hypovolemic shock, but septic shock cannot be entirely excluded. Patient is currently on IV fluid and Levophed drip. 4. Acute gastrointestinal bleed. Patient has upper and lower gastrointestinal bleed likely due to coagulopathy and she also had AV malformation at gastroesophageal junction side from previously. Currently OG-tube is showing coffee ground emesis, GI will be consulted. We will start on Protonix drip. We will monitor H&H. Patient will need endoscopic evaluation. We will provide transfusional support for blood loss. 5. Anemia due to acute blood loss. Patient's hemoglobin previously was 9 and currently 5.2 suspecting from gastrointestinal bleed from coagulopathy. Patient will be given blood transfusion or support to keep hemoglobin above 7. 6. Coagulopathy due to warfarin, patient has significantly abnormal coagulation profile. Patient will be given vitamin K as well as FFP and we will monitor PT and INR. 7. Severe metabolic acidosis with lactic acidosis. Patient will be given IV fluid with bicarbonate drip. 8. Hyperkalemia due to metabolic acidosis and renal failure. Patient will be given bicarbonate drip. Nephrology will be consulted. 9. Acute on chronic kidney failure, baseline chronic kidney disease, stage 3. Patient will be kept on IV fluid. We will monitor renal function likely due to hypoperfusion related to renal failure. We will avoid nephrotoxin agents. 10. Acute liver failure, likely due to hypoperfusion. We will monitor LFT. 11. Demand ischemia of myocardium with non-ST elevation myocardial infarction type 2, likely due to hypoperfusion and demand ischemia. We will do serial cardiac enzymes. Cardiology will be consulted. We will not give her any aspirin or any blood thinner medication because of active bleeding. 12. Hypoglycemia associated with diabetes type 2. We will start dextrose with bicarbonate drip and we will monitor blood sugar more frequently. 13. Urinary tract infection. Blood culture and urine cultures sent and we will continue with vancomycin and Zosyn. 14. Recent Clostridium difficile infection. We will continue Florastor 250 mg per tube daily along with vancomycin per tube q.i.d. 15. History of mechanical aortic valve replacement. Patient cannot have warfarin at this point, because of coagulopathy and bleeding. 16. Gastrointestinal prophylaxis. Patient will be given Protonix drip. 17. Code status spoke with the patient's daughter and patient wanted to be a FULL CODE. Patient's daughter is surrogate decision maker. 18. Deep venous thrombosis prophylaxis. SCD boots. No Lovenox because of bleeding. 19. Gout. We will continue allopurinol 100 mg per tube daily. 20. Chronic systolic and diastolic heart failure, acute on chronic. We will watch closely hemodynamics and adjust medication while in hospital. Disposition plan based on clinical course. Prognosis is very poor. Patient's condition is critical. Discussed with the entire family member at bedside in the emergency room. Total time spent providing critical care to this patient more than 30 minutes. SID
[2017-06-21] MEDS: Pantoprazole 80 MG, Admixture Fee 1 EACH in Sodium Chloride 0.9% 100 ML IVP SCH ×2 (12:23→21:45)
[2017-06-21] MEDS: Sodium Bicarbonate 150 MEQ in Dextrose 5 %-0.45 % NaCl 1,000 ML IV SCH ×2 (12:23→21:38)
[2017-06-21] MEDS: Vancomycin HCl 25 MG/ML Oral PER TUBE SCH ×3 (12:24→21:37)
[2017-06-21 12:39] LABS: Lactic Acid 10.9 mmol/L (0.5-2.2)
--- NOTE | 2017-06-21 13:27 | CON ---
DATE OF CONSULTATION: 06/21/2017 INDICATION FOR CONSULTATION: A 76-year-old female with abnormal cardiac enzymes. HISTORY OF PRESENT ILLNESS: This very unfortunate 76-year-old female who has a history of coronary a rtery disease and underwent bypass surgery as well as aortic valve replacement in 2006 and also has b een found to have severe decrease in left ventricular systolic function. Ejection fraction by the la st echocardiogram, I believe was about 25 to 30% was performed on 2018. She also had a gradient acro ss the mechanical aortic valve, but by fluoroscopy at that time was noted that the valve seemed to be functioning normally. She also has moderate to severe tricuspid valve regurgitation as well as pulm onary hypertension and mild mitral valve regurgitation. The left atrium was moderately dilated on e last echocardiogram also in 06/04/2017. She has been in and out of the hospital due to congestive heart failure exacerbations and was at the rehab facility, I believe or assisted, the last cou ple days has been complaining of not feeling very well. She has been nauseated, not eating. She has had some recent episode also of diarrhea and C. diff. This apparently was resolving, but then she h ad complained of abdominal pain. She was given, I believe, some sedation in the form of Ativan or ei ther some medication to help her relax and then an hour or two later she was found to be somewhat unr esponsive. She was taken to the emergency room where she required intubation due to acute respirator y failure. She also found to have a hemoglobin of 5.2. She has been given several units of blood pr oducts and fresh frozen plasma. Also, she had an INR that was essentially too high to calculate. I believe, also the INR, the PTT was seen severely elevated and she has been given hopefully correction for this. She also was given vitamin K in the emergency room. She also was found to have severe hy poglycemia and also was found to hyperkalemia. In the emergency room, she was given IV antibiotics a lso for a urinary tract infection. She was given vitamin K injection of 20 mg IV. She was also give n calcium chloride as well as epinephrine. I do not see that she was given insulin in the emergency room because her blood sugar was already extremely low, but her last potassium was 6.2. Hopefully wi ll need to have this corrected better with either further insulin and also D50 in order to correct th is as well as with the calcium and bicarbonate. She was given also bicarbonate in the emergency room . At this time, she remains on the ventilator. She is somewhat responsive. Blood pressure has been continuous, but at this time is now up to 109/49, heart rate is 99, appears to be sinus rhythm. She appears to be somewhat more stable, but the hemoglobin was 5.2 and she has an NG tube in and continu es to have some bleeding through the NG tube. We were asked to see her due to the elevation of the c ardiac enzymes and also due to her history of congestive heart failure as well as her other medical p roblems. PAST MEDICAL HISTORY: Significant for a history of GI bleeding in the past, congestive heart failure , respiratory failure. She has had a history of diabetes. She has hypertension. She has chronic ki dney disease. She has a history of gout. She has had coronary artery disease, bypass surgery and ao rtic valve replacement. She has had cataract surgery, history of Clostridium difficile. SOCIAL HISTORY: She is a . She has 2 children. No heart disease, 2 daughters are alive and we ll. There were at the bedside earlier today giving most of the history. She smoked in the past, but stopped in 2005. Previously, she smoked for about 30 years, a pack a day. She has no alcohol use. She is retired. FAMILY HISTORY: No early family history of coronary artery disease. ALLERGIES: None. MEDICATIONS: Prior to admission included Tylenol, allopurinol, aspirin, Coumadin, Coreg, colchicine, iron, gabapentin, glipizide, insulin, Zaroxolyn on Wednesday, Wednesday, and Fridays, and simvastatin a s well as Torsemide 20 mg b.i.d. Her medications at this time include antibiotics in the form of the piperacillin, she is also on vanc omycin. She gets Tylenol, she has been given IV infusions. She is on glucagon 1 mg p.r.n. She is o n fentanyl. She is on insulin as needed, hydralazine as needed. These are p.r.n. medications. She is on Levophed at this time to keep the blood pressure up. She has been placed on Zofran and she is on propofol also. REVIEW OF SYSTEMS: According to the family, she has recently been complaining of some headaches. Shonda lopez has had a history of smoking, but has not has smoked for quite some time. She has shortness of jb ath. She wheezes some time. She has nausea. She has diarrhea. She complains mainly of the weaknes s. She has had lower extremity edema. PHYSICAL EXAMINATION: GENERAL: Reveals an elderly, ill-appearing female who is on the ventilator with an NG tube in which shows obviously bright red blood in the container, but she is still somewhat responsive. VITAL SIGNS: Blood pressure 85/45 earlier and now has increased up to 109/48. As I am seeing the p jaime's heart rate is 98-105 and shows a sinus tachycardia, respiratory rate 18 on the ventilator. She is 96% O2 saturations. HEENT: Shows the head to be normocephalic, atraumatic. NECK: It is difficult to hear the carotids due to the increased airway noise. LUNGS: Lungs appear to have diffuse coarse rhonchi and wheezing bilaterally, increased airway noise is noted which may be due some to the ET tube which may need to be suctioned. CARDIOVASCULAR: Heart sounds are somewhat distant, but she does have an audible valve. She has a re gular rhythm, somewhat tachycardic. I cannot hear any other murmurs. She does have a murmur of the aortic area, but this is most likely due to the previous aortic valve replacement with a gradient whi ch was already documented by echocardiogram. ABDOMEN: Shows obesity. I cannot palpate any particular masses. She does appear to be slightly ten janeth, but it is difficult to determine as she is already sedated. EXTREMITIES: Show no clubbing or cyanosis. She does have some evidence of mild lower extremity mamta a. I cannot palpate pedal pulses at this time. SKIN: The skin is slightly cool in the extremities, but appears to be dry. NEUROLOGIC: I cannot assess due to patient being on the ventilator and being medicated. EKG shows a sinus rhythm with a right bundle branch block and left anterior fascicular block. She do es have T-wave inversions in the anterior and lateral leads, which certainly could be compatible with ischemia. Chest x-ray shows evidence of congestive heart failure and also shows cardiomyopathy with a small left pleural effusion. IMPRESSION: 1. Acute respiratory failure due to severe anemia and congestive heart failure. She is on the ventilator. We will leave this up to the discretion of the livestock commission agent. 2. Congestive heart failure which is an ongoing problem. She had a severe decrease in left ventricu lar systolic function and that in addition to her severe anemia has exacerbated the problem. We will try to be able to stabilize the congestive heart failure by diuretics if possible and also continue on the ventilation. The family wishes the patient to be a full code, but obviously this is a very ba d situation with the hemoglobin of 5 and the ejection fraction of 25-30%. 3. Abnormal cardiac enzymes which obviously at this time would be considered be due to demand ischem ia that we are unable to do any type of intervention obviously at this time. 4. Over anticoagulation with an INR which is so high, it is not detectable, cannot be read as well a s the PTT being extremely high. We are trying to correct this to giving the blood products. 5. Type 2 diabetes. She was hypoglycemic previously with a blood sugar of 30. This was increased u p to 150 now. 6. History of hypertension. This is very stable at this time. I will continue the Levophed as need ed. 7. Acute on chronic kidney failure. Her BUN is 85 with a creatinine 3.22. 8. Urinary tract infection. She is on antibiotics. Will continue those. 9. Hyperkalemia. She was given bicarbonate and calcium in the emergency room, unable to give insuli n due to the hypoglycemia associated with her diabetes at this time. 10. Severe anemia due to the GI bleeding. She on her last admission, I believe, had cauterization b y the GI physicians. Further endoscopy may be indicated, but not at this time, otherwise her INR is severely elevated. 11. History of gout. We will address this later once the patient becomes more stable. From a cardiac standpoint it is best for us at this time to correct the anemia and give support with the ventilator and also pressure support by Levophed. At this time, I do not have any further recomm endations. We will need to monitor the potassium very carefully in order to decrease this potassium level which was 6.2, troponin I was 0.571. Lactic acid was 22, it has now decreased down to about 10 . Her alkaline phosphatase also was elevated at 202 with an AST of 154.
[2017-06-21] MEDS ORDERED: Calcium Gluc 4.6 MEQ/10 ML (100 MG/ML) SLOW IVP SCH ×2 (14:00→20:00)
[2017-06-21] MEDS ORDERED: Vasopressin 40 UNIT, Admixture Fee 1 EACH in Sodium Chloride 0.9% 100 ML IV SCH (14:00)
[2017-06-21] MEDS: Piperacillin/Tazobactam 3.375 GM in Sodium Chloride 0.9% 100 ML IVPB SCH ×2 (14:09→21:40)
[2017-06-21 14:16] LABS: Anion Gap 26 mmol/L (10-20); BUN (Urea Nitrogen) 77 mg/dL (9.8-20.1); Calc. Creatinine Clearance 24 mL/min (70-130); Calcium 7.2 mg/dL (7.8-10.44); Carbon Dioxide 16 mmol/L (23-31); Chloride 95 mmol/L (98-107); Estimated GFR-MDRD 17; Glucose 292 mg/dL (83-110); Potassium 4.7 mmol/L (3.5-5.1); Sodium 132 mmol/L (136-145)
[2017-06-21 14:23] LABS: CKMB 12.8 ng/mL (0-6.6); Troponin I 0.748 ng/mL (< 0.028)
--- NOTE | 2017-06-21 15:03 | CON ---
DATE OF CONSULTATION: 06/21/2017 SERVICE: Pulmonary Medicine. REASON FOR CONSULT: The patient is a 76-year-old white female with past medical history significant for debility. She lives in a nursing facility. She has been in and out of the hospital here recentl y with increasing weakness. Either way, she was having some increasing generalized weakness and shor tness of breath. 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 They cauterized that bleeding lesion previously. Either way, she was restarted on Coumadi n. She was discharged from the hospital a couple of weeks ago. Last night, she became increasingly restless. She developed altered mentation. Paramedics were called. They brought her to the emergen cy department. She was started on oxygen, but became increasingly somnolent. In the Emergency Depar tment, she was hypotensive and had poor oxygen saturation. She lost her pulse. She required 4 minut es of CPR and blood pressure were once again reestablished. She was subsequently intubated. Her blo od sugar at that time was only 30. She was given some D50. She was tucked into the ICU. She starte d having some bloody things come out of the OG tube. As such, GI consultation has already been place d. PAST MEDICAL HISTORY: 1. Chronic kidney disease, stage 3. 2. 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 3. Pulmonary hypertension, multifactorial. 4. Type 2 diabetes mellitus. 5. 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 6. Hypertension. 7. Dyslipidemia. 8. Morbid obesity. 9. Iron deficiency anemia. 10. Neuropathy secondary to diabetes. 11. Gastroesophageal reflux disease. 12. Gout. PAST SURGICAL HISTORY: 1. Aortic valve replacement with bioprosthetic valve, status post possible redo with mechanical valv e. 2. Cataract surgery, bilateral. 3. Right total knee replacement. 4. Cardiac catheterization. ALLERGIES: No known drug allergies. MEDICATIONS: List of her inpatient medications was reviewed. Multiple updates were made. FAMILY HISTORY: Noncontributory. SOCIAL HISTORY: Negative for alcohol, tobacco or illicit drug use. She lives at [facility]. She is not independent in her ADLs. REVIEW OF SYSTEMS: This cannot be obtained as patient is currently intubated and encephalopathic. PHYSICAL EXAMINATION: VITAL SIGNS: Afebrile, pulse 98, blood pressure 88/32, respirations 13, saturation 95% on 23% FiO2 a nd a PEEP of 5. HEENT: Normocephalic, atraumatic. Sclerae are white, conjunctivae pink. Oral mucosa is moist witho ut lesions. LUNGS: Decent air entry bilaterally. There are no prolonged expiratory phase or wheezing. HEART: Normal rate and regular. ABDOMEN: Soft, nontender, nondistended. Bowel sounds are positive. MUSCULOSKELETAL: No cyanosis or clubbing. There is no pitting in the bilateral lower extremities. NEUROLOGIC: Grossly nonfocal. Her pupils are equal, round, and reactive. With stimulation, she ope ns her eyes and attends. She had purposeful movement and grabbed my arm with her left hand. She was also spontaneously moving the right upper extremity. She withdraws her bilateral lower extremities to noxious stimuli. LABORATORY DATA: WBC 15.0, hemoglobin 5.2 and up trending, platelets 369,000. PT greater than 150, fibrinogen are 315. D-dimer 0.56 and minimally elevated. INR cannot be calculated. A pH 7.29, pCO2 21.5, pO2 338 on 60% FiO2 at that time. She had mechanical rate of 14 with tidal volume of 450 at t his moment. Bicarbonate 10 and anion gap 38. Creatinine 3.22, which is well above her baseline of 1 .3. Potassium 6.2, lactate down trending from 22.2-10.9. AST 154, ALT 60, alkaline phosphatase 200, troponin 0.57. Urinalysis is positive for white blood cells, leukocyte esterase. Nitrites are nega tive. There is proteinuria present, 4+ bacteria identified. C. diff antigen and toxin was not perfo rmed. Stool studies are currently pending. IMAGING: Chest x-ray demonstrates left-sided pleural parenchymal abnormality is minimal. Cardiomega ly is evident. Enteric catheter courses below the level of the diaphragm. Endotracheal tube is roug hly 1-2 cm above the darby. ASSESSMENT: 1. Respiratory failure secondary to inability to keep up with metabolic demand. 2. Metabolic acidosis, severe. 3. Anion gap metabolic acidosis, severe. 4. Septic shock, suspected. 5. Urinary tract infection, possible. 6. Acute blood loss anemia. 7. Acute kidney injury. 8. PEA arrest, status post return of circulation after 4 minutes. 9. Hyperkalemia. 10. Septic shock. PLAN: Will continue our empiric antibiotics directed at issues. We will support with transfusion of blood. I will repeat electrolytes now that her acidosis is likely cleared to touch. We will als o repeat lactate. She will remain on mechanical ventilation. I will give her an amp of calcium greg use of all the blood products she got earlier. Electrolytes will be repeated earlier this afternoon. Pulmonary or Critical Care will continue to follow very closely. There is a possibility that she w ill not make a full neurologic recovery though her post-code neurologic assessment looked fairly reas suring for the time being. CRITICAL CARE TIME: 45 minutes.
[2017-06-21] MEDS: HumaLOG 300 UNITS/3 ML VIAL SC PRN (16:25)
--- NOTE | 2017-06-21 17:17 | CON ---
DATE OF CONSULTATION: 06/21/2017 RENAL MEDICINE HISTORY OF PRESENT ILLNESS: Ms. Morejon is a 76-year-old white female who was admitted for acute r espiratory failure. She was noted to be hypotensive and hypoxemic. She was noted to be pulseless an d a 4-minute CPR was done and blood pressure was subsequently recovered and was started. We are katherine espana consulted for her acute kidney injury. Please note this patient was seen by the renal service a fe w weeks ago for an acute kidney injury on top of her chronic renal failure. She had a superimposed h emodynamically mediated renal dysfunction. During that time, she was also found to have a GI bleed w here she underwent an upper GI endoscopy with findings of AV mal and cauterization was done. With admission, she was again noted to be severely anemic. She has currently received some blood trans fusion. REVIEW OF SYSTEMS: Not obtainable since the patient is sedated and intubated. MEDICATIONS: DuoNeb q.6, status post calcium gluconate 1 ampule, fentanyl drip, hydralazine 10 mg IV q.4 h. as needed, Humalog sliding scale, Levophed drip, Protonix drip, Zosyn to 3.375 grams IV q.6, Diprivan drip, isotonic bicarbonate drip at 100 mL per hour, and vasopressin drip. PAST MEDICAL HISTORY: 1. Status post upper gastrointestinal bleed secondary to a bleeding AV malformation. 2. CHF. 3. Type 2 diabetes mellitus. 4. Chronic renal failure from presumed diabetic nephropathy. 5. Valvular heart disease. 6. History of diabetic neuropathy. 7. History of hypertension. PAST SURGICAL HISTORY: 1. Status post upper GI endoscopy. 2. Status post cardiac catheterization. 3. Status post aortic valve replacement with mechanical valve. 4. Status post right knee replacement. 5. Status post colonoscopy. SOCIAL HISTORY: Patient lives in [place], two children. Smoked for 15-20 years, 1-2 packs a day. Alcohol, none. No IV drug abuse. Status post blood transfusion. 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 ALLERGIES: None. TRAUMA: None. IMMUNIZATIONS: Up to date. HOSPITALIZATIONS: Please see past medical history. FAMILY HISTORY: No family history of ESRD. PHYSICAL EXAMINATION: VITAL SIGNS: Blood pressure is noted at 119/67, heart rate 98. GENERAL: The patient is sedated and intubated on ventilator support. SKIN: Adequate turgor. HEENT: Pale conjunctivae, anicteric sclerae. NECK: No neck mass, no carotid bruits, no JVD. LUNGS: Decreased breath sounds. HEART: Tachycardic, grade 2/6 systolic murmur, no gallops or rubs. ABDOMEN: Globular, soft, nontender, no masses. EXTREMITIES: Positive for edema. LABORATORY DATA: Of 06/21/2017, urinalysis shows specific gravity of 1.015, protein of 30, rbc 4-6, wbc greater than 50. Sodium 132, potassium 4.7, chloride 95, carbon dioxide 16, BUN 77, creatinine 2.78, glucose 292, calc ium is 7.2. Troponin I 0.748. CK-MB 12.8. On 06/21/2017, at 8:02 a.m., BUN 85, creatinine 3.22. On 06/10/2017, creatinine 1.2. ASSESSMENT AND PLAN: 1. Acute kidney injury on top of her chronic renal failure, consider again a hemodynamically mediate d renal dysfunction. The urine sediment shows a prerenal picture. There are no findings of pigmente d granular casts. However, I could not rule out the possibility that she may have early acute tubula r necrosis. For the present time, continue to optimize hemodynamics. Currently on isotonic bicarbon ate drip and Levophed drip. There is no indication for any emergent dialytic intervention with this patient. Continue supportive care. 2. Mild hyperkalemia, much improved. Currently potassium is now within normal. 3. Status post acute respiratory arrest - continue supportive care. Pulmonary is following. Overall, prognosis remains guarded with this patient. Recheck base met and CBC in a.m.
[2017-06-21 18:20] LABS: Hemoglobin 7.3 g/dL (12.0-16.0)
--- NOTE | 2017-06-21 20:36 | CON ---
DATE OF CONSULTATION: 06/21/2017 REASON FOR CONSULTATION: GI bleeding. CONSULTING PHYSICIAN: Dr. Nighat Quesada. HISTORY OF PRESENT ILLNESS: The patient is a 76-year-old female with past medical history of chronic kidney disease stage 3, congestive heart failure with an ejection fraction of 25% to 30%, tricuspid regurgitation, pulmonary hypertension, mechanical aortic valve on chronic anticoagulation, aortic jose nosis, diabetes with nephropathy, hypertension, hyperlipidemia, morbid obesity, iron deficiency anemi a, GERD, gout, and recent diagnosis of Clostridium difficile infection, presenting with increased gen eralized weakness and shortness of breath. The patient was recently admitted to the hospital a few w eeks ago with complaints of diarrhea and during that particular admission, she was shown to have a de creased H&H. Upper endoscopy performed at that time showed the presence of two arteriovenous malform ations located in the proximal stomach near the GE junction that were amenable to Hemoclip placement and bipolar cautery with good hemostasis achieved. She was ultimately discharged to the care home and since discharge had not been doing very well. She continued to have frequent diarrhea-like muriel l movements (unknown frequency) as well as generalized weakness and fatigue. However, last night she became increasingly agitated with altered mental status, at which point the paramedics were called a nd she was brought to [facility] for further evaluation. However, while in the ER, she became inc reasingly somnolent despite increasing titration of supplemental oxygen with the patient experiencing cardiac arrest while in the ER. She required approximately 4 minutes of CPR with return of spontane ous circulation afterwards. She was subsequently intubated and transferred to the ICU for further ev aluation and care. However, while in the ED, she was noted to have bright red blood per rectum as we ll as bloody aspirate from the OG tube after its placement. Currently, the patient is intubated and sedated with further interview impossible due to her current clinical status. REVIEW OF SYSTEMS: Cannot obtain a review of systems due to the patient's intubation and sedation st atus. PAST MEDICAL HISTORY: As per HPI. PAST SURGICAL HISTORY: Bilateral cataract surgeries, right total knee replacement, aortic valve repl acement with bioprosthetic valve. FAMILY HISTORY: Denies any GI malignancy (per family). SOCIAL HISTORY: Per chart review, negative for tobacco, alcohol, or illicit drug use. Currently francisco ing at [facility]. OUTPATIENT MEDICATIONS: Reviewed. ALLERGIES: No known drug allergies. PHYSICAL EXAMINATION: VITAL SIGNS: Temperature 99.1, pulse 87, blood pressure 132/47, respiratory rate 22, and satting 100 % on mechanical ventilation. GENERAL: Patient is currently intubated and sedated and unable to contribute to evaluation questions . NECK: Supple. No JVD noted. CARDIOVASCULAR: Tachycardic rate with no discernible gallops, high pitched systolic murmur heard bes t at the right upper sternal border, although difficult to auscultate. RESPIRATORY: Coarse breath sounds auscultated in all lung milligan consistent with mechanical ventilat ion. No discernible wheezes or rales. ABDOMEN: Normoactive bowel sounds, soft, nondistended. Mild grimacing to palpation in the right upp er quadrant midepigastric and periumbilical regions. EXTREMITIES: No cyanosis, clubbing or edema. LABORATORY DATA: CBC with a white blood cell count of 15, hemoglobin 5.2, hematocrit 15.9, platelets 369. Chemistry with a sodium of 132, potassium 4.7, chloride 95, CO2 of 16, BUN 26, creatinine 2.78 , glucose 292, AST 154, ALT 60, alkaline phosphatase 202, total bilirubin 1.2. Troponins 0.748. INR was too high to calculate, PTT 116.5. IMAGING DATA: Chest x-ray obtained on 06/21/2017 showing endotracheal tube and NG tube placement. Post-line midlin e sternotomy and valvular replacement. Cardiomegaly was also seen with increased markings bilaterall y with evidence of a small left pleural effusion and some bilateral vascular congestion. ASSESSMENT AND PLAN: The patient is a 76-year-old female with multiple medical problems, presenting with altered mental status, cardiac arrest and GI bleeding. GI bleeding. Patient is presenting with acute alteration in her mental status, as well as recent brad gnosis of Clostridium difficile infection on prior admission. However, when she was brought to the E R earlier today, she experienced a cardiac arrest and respiratory distress that required CPR and [facility] anical ventilation. She was subsequently stabilized and transferred to the ICU for further care. Aquilino matt, while in the ER, she was noted to have bright red blood per rectum as well as bloody aspirate after the placement of the OG tube. Given the fact that her INR is too high to calculate at this [facility] with significant coagulopathy from the medication (she is currently taking warfarin as an outpatien t). She could be bleeding anywhere along the mucosal tract of the GI system. The bloody aspirate fr om the OG tube is most likely due to OG tube trauma after placement combined with a significantly gustavo vated INR. However, the hematochezia that she is experiencing could also be due to the elevated INR, or combination of her coagulopathy with a continuation of the Clostridium difficile colitis. At thi s point, the origin of her GI bleeding is unclear, but further evaluation is ill advised given the si gnificantly elevated INR and significant coagulopathy. At this point, she needs to be stabilized fur ther before endoscopic evaluation can even be attempted. RECOMMENDATIONS: 1. Agree with reversal of her coagulopathy with administration of vitamin K and serial evaluations o f her INR. 2. Continue resuscitative efforts via ICU team with mechanical ventilation and close monitoring of h er clinical status. 3. We would continue to trend H&H and transfuse as necessary to maintain an H&H of 7/21. 4. Continue to monitor clinically for signs of active gastrointestinal bleeding. 5. The patient will probably need both an EGD and colonoscopy performed during this admission; howev er, this will be postponed until her coagulopathy is reversed. 6. We would confer with Cardiology Service about whether or not endoscopic evaluation could be attem pted with her recent cardiac arrest and significantly decreased cardiac function. We will continue to follow. Please call with any questions.
[2017-06-21] MEDS ORDERED: Vancomycin HCl 1 GM in Premix Bag 1 BAG IVPB SCH (21:00)
[2017-06-21 23:54] LABS: Hemoglobin 7.3 g/dL (12.0-16.0)
[2017-06-22] MEDS: HumaLOG 300 UNITS/3 ML VIAL SC PRN ×4 (01:29→19:10)
[2017-06-22] MEDS: Piperacillin/Tazobactam 3.375 GM in Sodium Chloride 0.9% 100 ML IVPB SCH ×4 (02:08→21:01)
[2017-06-22] MEDS: Sodium Bicarbonate 150 MEQ in Dextrose 5 %-0.45 % NaCl 1,000 ML IV SCH (03:21)
[2017-06-22] MEDS: Norepinephrine 8 MG in Sodium Chloride 0.9% 250 ML 250 ML IVPB PRN ×3 (03:21→21:02)
[2017-06-22 03:40] LABS: PTT 39.9 SEC (22.9-36.1); Prothrombin Time 22.9 SEC (12.0-14.7)
[2017-06-22 03:47] LABS: Lactic Acid 3.8 mmol/L (0.5-2.2)
[2017-06-22 03:49] LABS: Band 7 % (5-11); Hemoglobin 7.2 g/dL (12.0-16.0); Lymphocytes 22 % (21-51); MDiff Complete? YES; Mean Corpuscular HGB CONC 33.7 g/dL (32.0-36.0); Mean Corpuscular Hemoglobin 28.4 pg (27.0-31.0); Mean Corpuscular Volume 84.2 fl (81.0-99.0); Mean Platelet Volume 8.6 fL (7.4-10.4); Monocytes 1 % (0-10); Neutrophil 70 % (42-75); Nucleated RBC 1 % (0); PLT Morphology Comment Appears Adequate; Platelet Count 193 thou/uL (130-400); RBC Distribution Width 14.3 % (11.5-14.5); Red Blood Cell (RBC) Count 2.55 mill/uL (4.20-5.40); White Blood Cell (WBC) Count 6.7 thou/uL (4.8-10.8)
[2017-06-22 03:50] LABS: Anion Gap 15 mmol/L (10-20); BUN (Urea Nitrogen) 79 mg/dL (9.8-20.1); Calc. Creatinine Clearance 23 mL/min (70-130); Calcium 6.7 mg/dL (7.8-10.44); Carbon Dioxide 30 mmol/L (23-31); Chloride 94 mmol/L (98-107); Estimated GFR-MDRD 16; Glucose 440 mg/dL (83-110); Potassium 3.9 mmol/L (3.5-5.1); Sodium 135 mmol/L (136-145)
[2017-06-22] MEDS: Pantoprazole 80 MG, Admixture Fee 1 EACH in Sodium Chloride 0.9% 100 ML IVP SCH (07:18)
--- NOTE | 2017-06-22 08:00 | PRG ---
DATE OF SERVICE: 06/22/2017 SUBJECTIVE: Ms. Morejon is a 76-year-old white female, who was initially admitted for an acute res piratory failure. She also underwent a pulseless cardiac arrest. CPR was done and she was intubated . We were reconsulted for her acute kidney injury on top of her chronic renal failure. No acute sherwin nts noted last night. The patient is noted to be making some urine output. She has received a total of 3.6 liters of fluid with a total of 495 mL fluid out. OBJECTIVE: VITAL SIGNS: Blood pressure is 107/33, heart rate 85, respiratory rate 20, pulse ox 96%, temperature 99. GENERAL EXAM: Sedated and intubated on ventilator support, obese. SKIN: Adequate turgor. HEENT: Slightly pale conjunctivae. Anicteric sclerae. NECK: No neck mass, no carotid bruits, no JVD. CHEST: No deformities. LUNGS: Decreased breath sounds. No wheezing. HEART: Normal sinus rhythm. No murmur, no gallops, no rubs. ABDOMEN: Globular, soft, nontender, no masses. EXTREMITIES: Positive for edema. Medications of 06/22/2017 was reviewed. LABORATORY DATA: Laboratories of 06/22/2017, white count 6.7, hemoglobin 7.2. Sodium 135, potassium 3.9, chloride 94, carbon dioxide 30, BUN 79, creatinine 2.86, glucose 440, calcium 6.7. ASSESSMENT AND PLAN: 1. Acute kidney injury on top of her chronic renal failure - creatinine noted at 2.86, when compared to yesterday it was 278. She may be plateauing with the renal dysfunction. She most likely has a s uperimposed hemodynamically mediated renal dysfunction. Continue to optimize hemodynamics. No indic ation for any dialytic intervention with this patient. 2. Acute cardiorespiratory arrest, supportive care. Currently intubated on ventilator support. 3. Anemia - the patient has had history of upper gastrointestinal bleed. She has undergone an upper gastrointestinal endoscopy with some cauterization of a bleeding lesion. A reconsult with Gastroent erology was done. The recommendation is reversal of her coagulopathy with administration of vitamin K and C or aberrations of the INR. The plan is to have a repeat upper gastrointestinal and lower gastrointestinal endoscopy. Agree with current management. Overall, prognosis remains guarded.
[2017-06-22] MEDS: Sodium Chloride 0.9% 1,000 ML IV SCH (08:01)
--- NOTE | 2017-06-22 09:00 | PRG ---
DATE OF SERVICE: 06/22/2017 SERVICE: Pulmonary Medicine INTERVAL HISTORY: The patient is doing fine from a respiratory standpoint. She had no overnight events. She is following some simple commands, but remains encephalopathic secondary to pain medication. Otherwise, there has been no interval change to her condition. There were no reported events. PHYSICAL EXAMINATION: VITAL SIGNS: Afebrile, pulse 83, blood pressure 127/40, respirations 20, saturation 96% on 23% FiO2 and a PEEP of 5. GENERAL: The patient is awake and alert. She is under the influence of some sedation. She will fall back asleep without stimulation after about 3 seconds. HEENT: Normocephalic, atraumatic. Sclerae are white, conjunctivae pink. Oral mucosa is moist without lesions. LUNGS: Decent air entry bilaterally. There is no prolonged expiratory phase or wheezing present. HEART: Normal rate, regular. ABDOMEN: Soft, nontender, nondistended. Bowel sounds are positive. MUSCULOSKELETAL: No cyanosis or clubbing. There is 1+ pitting throughout. GENITOURINARY: No Ramos. NEUROLOGIC: Grossly nonfocal. LABORATORY DATA: WBC 6.7, hemoglobin 7.2 and stable, platelets 193,000. INR 2.0. PH 7.29, pCO2 21, pO2 338. Creatinine 2.86 and roughly stable. BUN 79, sodium 135, chloride 94. Basic metabolic profile is otherwise unremarkable. Calcium 6.7. Lactate 3.8 down trending from 22. C. diff antigen and toxin is negative. Blood cultures x2, Shiga toxin test, and stool lactoferrin are all unremarkable. ASSESSMENT: 1. Respiratory failure secondary to inability to keep up with metabolic demand , resolved. 2. Anion gap metabolic acidosis, resolving. 3. Septic shock, improving. 4. Urinary tract infection. 5. Acute blood loss anemia. 6. Acute kidney injury. 7. PEA arrest, status post return of circulation after 4 minutes. 8. Hyperkalemia, resolved. PLAN: We will continue antibiotics directed at issues. Calcium will once again be replaced. I put her on a spontaneous breathing trial. We will hold sedation. If she meets criteria, extubation will be considered. Pulmonary Critical Care will continue to follow along while the patient remains in the ICU over the next 24 hours. Critical care time: 30 minutes. MTDD
--- NOTE | 2017-06-22 09:08 | PDOC.PN ---
- Subjective Encounter Start Date: 06/22/17 Encounter Start Time: 08:40 -: old records requested/rev pt is intubated, now has hyperglycemia, on levophed on ventilator BP is improved hypothermia improved - Objective Resuscitation Status: Resuscitation Status FULL:Full Resuscitation MAR Reviewed: Yes Vital Signs & Weight: Vital Signs (12 hours) Pulse Resp BP Pulse Ox 06/22/17 07:45 83 127/40 L 06/22/17 07:43 84 22 H 95 06/22/17 06:00 15 06/22/17 05:25 86 137/42 L 06/22/17 04:00 15 06/22/17 02:00 15 06/22/17 01:04 79 110/38 L 06/22/17 01:01 79 15 98 06/22/17 00:00 15 06/21/17 22:00 15 Weight Admit Weight 190 lb 14.725 oz Weight 192 lb 4.8 oz Most Recent Monitor Data Heart Rate from ECG 85 NIBP 107/33 NIBP BP-Mean 46 Respiration from ECG 20 SpO2 96 I&O: 06/21/17 06/22/17 06/23/17 06:59 06:59 06:59 Intake Total 3669.9 Output Total 495 Balance 3174.9 Result Diagrams: 06/22/17 03:17 06/22/17 03:17 Additional Labs: Accuchecks 06/22/17 06/22/17 06/21/17 06:28 01:27 16:22 POC Glucose 445 H 413 H 376 H 06/21/17 12:09 POC Glucose 263 H Radiology Reviewed by me: Yes (chest xray) EKG Reviewed by me: Yes (nsr) Phys Exam - Physical Examination Constitutional: NAD HEENT: PERRLA, sclera anicteric intubated, on vent Neck: no nodes, no JVD, supple Respiratory: no wheezing, no rales, no rhonchi reduced air entry at base Cardiovascular: RRR SM+, prosthetic sound+ Gastrointestinal: soft, no distention, positive bowel sounds Obesity, Ramos+ Musculoskeletal: pulses present, edema present trace edema+ unable to asses due to intubated status Lymphatic: no nodes Deviation from normal: unable to assess due to intubated status Skin: no rash, normal turgor Dx/Plan (1) Acute on chronic combined systolic and diastolic congestive heart failure Code(s): I50.43 - ACUTE ON CHRONIC COMBINED SYSTOLIC AND DIASTOLIC HRT FAIL Status: Acute (2) Acute worsening of stage 3 chronic kidney disease Code(s): N18.3 - CHRONIC KIDNEY DISEASE, STAGE 3 (MODERATE) Status: Acute (3) Anemia due to acute blood loss Code(s): D62 - ACUTE POSTHEMORRHAGIC ANEMIA Status: Acute (4) Demand ischemia of myocardium Code(s): I24.8 - OTHER FORMS OF ACUTE ISCHEMIC HEART DISEASE Status: Acute (5) GI bleed Code(s): K92.2 - GASTROINTESTINAL HEMORRHAGE, UNSPECIFIED Status: Acute (6) Metabolic acidosis, increased anion gap Code(s): E87.2 - ACIDOSIS Status: Acute (7) Septic shock Code(s): A41.9 - SEPSIS, UNSPECIFIED ORGANISM; R65.21 - SEVERE SEPSIS WITH SEPTIC SHOCK Status: Acute (8) Transaminitis Code(s): R74.0 - NONSPEC ELEV OF LEVELS OF TRANSAMNS & LACTIC ACID DEHYDRGNSE Status: Acute (9) UTI (urinary tract infection) Status: Acute (10) Warfarin-induced coagulopathy Code(s): D68.32 - HEMORRHAGIC DISORD D/T EXTRINSIC CIRCULATING ANTICOAGULANTS; T45.515A - ADVERSE EFFECT OF ANTICOAGULANTS, INITIAL ENCOUNTER Status: Acute (11) CKD (chronic kidney disease) stage 3, GFR 30-59 ml/min Code(s): N18.3 - CHRONIC KIDNEY DISEASE, STAGE 3 (MODERATE) Status: Chronic (12) Chronic anticoagulation Code(s): Z79.01 - LEADERSHIP DEVELOPMENT MANAGER (CURRENT) USE OF ANTICOAGULANTS Status: Chronic Comment: Coumadin on hold due to High INR and GIB (13) DM2 (diabetes mellitus, type 2) Status: Chronic Qualifiers: Diabetes mellitus complication status: with kidney complications Diabetes mellitus complication detail: with chronic kidney disease Chronic kidney disease stage: stage 3 (moderate) Comment: (14) H/O prosthetic aortic valve replacement Code(s): Z95.2 - PRESENCE OF PROSTHETIC HEART VALVE Status: Chronic (15) HLD (hyperlipidemia) Code(s): E78.5 - HYPERLIPIDEMIA, UNSPECIFIED Status: Chronic Qualifiers: (16) HTN (hypertension) Code(s): I10 - ESSENTIAL (PRIMARY) HYPERTENSION Status: Chronic Qualifiers: Comment: (17) Obesity (BMI 30-39.9) Code(s): E66.9 - OBESITY, UNSPECIFIED Status: Chronic (18) Pulmonary hypertension Code(s): I27.20 - PULMONARY HYPERTENSION, UNSPECIFIED Status: Chronic (19) Hyperkalemia Code(s): E87.5 - HYPERKALEMIA Status: Resolved (20) Hypoglycemia associated with type 2 diabetes mellitus Code(s): E11.649 - TYPE 2 DIABETES MELLITUS WITH HYPOGLYCEMIA WITHOUT COMA Status: Resolved (21) Hypothermia Code(s): T68.XXXA - HYPOTHERMIA, INITIAL ENCOUNTER Status: Resolved - Plan cont current plan of care, continue antibiotics, respiratory therapy, DVT proph w/SCDs * metabolic acidosis is improving, now will DC bicarb drip and start NS at 50 ml per hour * continue levophed and titrate as per BP * continue empiric antibiotics, vancomycin and zosyn and oral vancomycin for recent c-diff * 3 unit PRBC and 3 FFP given so far, her H & H has improved, coagulopathy has improved * eventually she will need EGD and colonoscopy when more stable * ventilator as per pulmonary * follow on culture * monitor labs * medication reviewed as below * symptomatic treatment. * renal function improving * all systems management consultant recommendation noted Review of Systems - Review of Systems Other: unable to review due to intubated status - Medications/Allergies Allergies/Adverse Reactions: Allergies Allergy/AdvReac Type Severity Reaction Status Date / Time No Known Allergies Allergy Verified 06/01/17 20:51 Medications: Current Medications Acetaminophen (Tylenol) 650 mg PER TUBE Q4H PRN PRN Reason: Headache/Fever or Pain Acetaminophen (Tylenol Elixir) 650 mg PER TUBE Q6H PRN PRN Reason: Fever > 101 or Mild Pain Al Hydroxide/Mg Hydroxide (Maalox) 30 ml PER TUBE Q6H PRN PRN Reason: Heartburn or Indigestion Albuterol/Ipratropium (Duoneb) 3 ml NEB [id number] ELYSIA Last Admin: 06/22/17 07:43 Dose: 3 ml Artificial Tears (Tears Naturale) 0 drop EA EYE PRN PRN PRN Reason: Dry Eyes Bisacodyl (Dulcolax) 10 mg UT Q24H PRN PRN Reason: Constipation Dextrose/Water (Dextrose 50%) 25 gm SLOW IVP PRN PRN PRN Reason: Hypoglycemia Glucagon (Glucagon) 1 mg IM PRN PRN PRN Reason: Hypoglycemia Guaifenesin (Robitussin Sf) 200 mg PER TUBE Q4H PRN PRN Reason: Cough Hydralazine HCl (Apresoline) 10 mg SLOW IVP Q4H PRN PRN Reason: Systolic BP > 180 Piperacillin Sod/Tazobactam (Sod 3.375 gm/ Sodium Chloride) 100 mls @ 200 mls/ hr IVPB 0200,0800,1400,2000 [facility] Last Admin: 06/22/17 02:08 Dose: 100 mls Dextrose/Water (D5w) 1,000 mls @ 0 mls/hr IV .Q0M PRN; As Directed PRN Reason: Hypoglycemia Norepinephrine Bitartrate 8 mg (/ Sodium Chloride) 258 mls @ 0 mls/hr IVPB PRN PRN; Protocol; Titrate PRN Reason: To maintain MAP > 65 Last Admin: 06/22/17 03:21 Dose: 258 mls Sodium Chloride (Normal Saline 0.9%) 1,000 mls @ 50 mls/hr IV .Q20H [facility] Last Admin: 06/22/17 08:01 Dose: 1,000 mls Calcium Gluconate 4.6 meq/ (Sodium Chloride) 110 mls @ 200 mls/hr IVPB Q4H [facility] Stop: 06/22/17 12:47 Insulin Human Lispro (Humalog) 0 units SC .MODERATE SLIDING SC PRN PRN Reason: Moderate Correctional Scale Last Admin: 06/22/17 06:28 Dose: 10 unit Insulin Human Lispro (Humalog) 0 units SC .BEDTIME SLIDING SC PRN PRN Reason: Bedtime Correctional Scale Magnesium Hydroxide (Milk Of Magnesium) 30 ml PER TUBE DAILYPRN PRN PRN Reason: Constipation Mineral Oil/White Petrolatum (Eucerin Cream) 0 gm TOP BIDPRN PRN PRN Reason: Dry Skin Ondansetron HCl (Zofran) 4 mg IVP Q6H PRN PRN Reason: Nausea/Vomiting Pantoprazole Sodium (Protonix) 40 mg IVP Q12HR [facility] Saccharomyces Boulardii (Florastor) 250 mg PER TUBE DAILY [facility]
[2017-06-22] MEDS: Calcium Gluconate 4.6 MEQ in Sodium Chloride 0.9% 100 ML IVPB SCH ×2 (09:31→13:00)
[2017-06-22] MEDS: Pantoprazole 40 MG VIAL IVP SCH ×2 (09:32→21:01)
[2017-06-22] MEDS: Saccharomyces boulardii 250 MG CAP PER TUBE SCH (09:43)
[2017-06-22 09:57] LABS: Base Excess-Venous -14.3 mmol/L (0 (+/- 2.5)); Bicarbonate (HCO3v) 12.9 mmol/L (1.0-85.0); CO2 Tension (PvCO2) 35.8 mmHg (41.0-51.0); Calcium, Ionized 1.06 mmol/L (1.12-1.32); Hemoglobin - Calc 4.8 g/dL (12.0-18.0); Lactate 17.73 mmol/L (0.50-2.20); O2 Tension (PvO2) 26.7 mmHg (35.0-45.0); Potassium 5.7 mmol/L (3.4-4.7); pH (Venous) 7.166 (7.35-7.45); vO2 Saturation-calc 35.6 % (94-98)
--- NOTE | 2017-06-22 13:43 | PRG ---
DATE OF SERVICE: 06/22/2017 Ms. Morejon is intubated on the ventilator. Movements do not seem purposeful today. REVIEW OF SYSTEMS: Not obtainable. PHYSICAL EXAMINATION: VITAL SIGNS: Blood pressure 117/46, pulse 90, irregular. LUNGS: Clear. CARDIAC: Normal S1, normal S2. ABDOMEN: Soft and nontender. LABORATORY: The hemoglobin is back down to 7.2. The INR is 2. ASSESSMENT: 1. Diastolic/systolic heart failure combined, progressively worse. 2. Recurrent gastrointestinal bleeding. 3. Mechanical aortic valve. PLAN: Would discussed code status with the family. Would recommend Palliative Care. Will continue supportive care at this point.
[2017-06-22 14:03] VITALS: BMI 35.2
--- NOTE | 2017-06-22 20:08 | PRG ---
DATE OF SERVICE: 06/22/2017 REASON FOR CONSULTATION: GI bleeding. SUBJECTIVE: No acute events or problems overnight with patient not having any episodes of hematochez ia or melena per nursing staff. She did continue to have some red aspirate from the OG tube before i t was pulled but no significant or gross blood seen coming from this particular tubing. Upon intervi ew with the patient today, she is able to be conversive and was nodding her head, both to the affirma tive and negative appropriately with orientation status alert and oriented x2.5. Currently denies an y pain, but kept mouthing that she did not want anything else done to her during this admission per i nterview with the patient's family, it is unclear what the patient's wishes were prior to admission a nd determination of code status and further decisions for an invasive procedures. OBJECTIVE: VITAL SIGNS: Temperature 99, heart rate 95, blood pressure 114/50, respiratory rate 18, saturating 9 6% on mechanical ventilation. GENERAL: Patient is currently lying in bed in no acute distress, intubated and able to contribute to the conversation with nodding her head affirmative and to the negative. CARDIOVASCULAR: Tachycardic rate with no discernible murmurs or gallops. Irregular rate with a high pitched systolic murmur best heard at the right upper sternal border. RESPIRATORY: Coarse breath sounds auscultated in all lung milligan consistent with mechanical ventilat ion. ABDOMEN: Normoactive bowel sounds, soft, mild distention, mild grimacing to palpation in the midepig astric region. EXTREMITIES: No cyanosis or clubbing. Mild edema noted in the upper and lower extremities. LABORATORY DATA: CBC with a white blood cell count of 6.7, hemoglobin 7.2, hematocrit 21.4, platelet s 193. INR 2.0. Chemistry with a sodium of 135, potassium 3.9, chloride 94, CO2 of 30, BUN 79, crea tinine 2.86, glucose 440. IMAGING DATA: No current GI imaging available for review. ASSESSMENT: The patient is a 76-year-old female with multiple medical problems presenting with alter ed mental status, cardiac arrest and gastrointestinal bleeding. Gastrointestinal bleeding. The patient initially presented with acute alteration in her mental statu s that was subsequently followed by cardiac arrest and respiratory distress in the ER that required C MD and ultimately placed on mechanical ventilation as part of resuscitative measures. She was subseq uently stabilized in this method, but upon placement of the OG tube, she was noted to have bright red aspirate as well as some reports of bright red blood per rectum while in the ER and for family. Giv en the fact that her INR was too high to calculate on admission, the most likely reason for these makayla rces of GI bleeding would be significant coagulopathy that was amenable to any micro injury that woul d create bleeding, especially within the upper GI tract with the placement of the OG tube with revers al of her coagulopathy and her INR now close to normal. She has had no further evidence of hematoche heide, melena or hematemesis. Her H&H has also remained stable over the last 12 hours when in credence that she is no longer currently bleeding. Upon questioning the patient and her family, it is unclea r whether or not to proceed with upper and lower endoscopy at this time. Given stabilization of her status, lack of current evidence of active gastrointestinal bleeding, I think both upper and lower en doscopy can be held at this point. RECOMMENDATIONS: 1. Agree with continuing reversal of her coagulopathy. 2. Continue resuscitative efforts to the ICU team. 3. Continue to trend H&H and transfuse as necessary to maintain an H&H of 7/21. 4. Continue to monitor clinically for signs of active gastrointestinal bleeding. 5. We will hold on both EGD and colonoscopy for now given lack of evidence of active gastrointestina l bleeding and unclear picture as to the patient's wishes for further invasive diagnostic measures. We will continue to follow. Please call with any questions.
[2017-06-22] MEDS: Lorazepam 2 MG/ML VIAL SLOW IVP PRN (21:58)
[2017-06-23] MEDS: Lorazepam 2 MG/ML VIAL SLOW IVP PRN (02:37)
[2017-06-23] MEDS: Piperacillin/Tazobactam 3.375 GM in Sodium Chloride 0.9% 100 ML IVPB SCH (02:37)
[2017-06-23 05:30] LABS: Anion Gap 14 mmol/L (10-20); BUN (Urea Nitrogen) 78 mg/dL (9.8-20.1); Calc. Creatinine Clearance 28 mL/min (70-130); Calcium 6.8 mg/dL (7.8-10.44); Carbon Dioxide 31 mmol/L (23-31); Chloride 101 mmol/L (98-107); Estimated GFR-MDRD 21; Glucose 191 mg/dL (83-110); Potassium 3.3 mmol/L (3.5-5.1); Sodium 143 mmol/L (136-145)
[2017-06-23 05:32] LABS: INR-International Normal Ratio 1.7; Prothrombin Time 20.2 SEC (12.0-14.7)
[2017-06-23] MEDS: Sodium Chloride 0.9% 1,000 ML IV SCH ×2 (06:11→12:58)
[2017-06-23] MEDS: HumaLOG 300 UNITS/3 ML VIAL SC PRN ×2 (06:38→13:13)
[2017-06-23 06:44] LABS: Anisocytosis SLIGHT = 6-15 cells (100X) (0-5/hpf); Band 1 % (5-11); Hemoglobin 6.2 g/dL (12.0-16.0); Lymphocytes 32 % (21-51); MDiff Complete? YES; Mean Corpuscular HGB CONC 34.2 g/dL (32.0-36.0); Mean Corpuscular Hemoglobin 29.5 pg (27.0-31.0); Mean Corpuscular Volume 86.2 fl (81.0-99.0); Mean Platelet Volume 9.3 fL (7.4-10.4); Monocytes 17 % (0-10); Neutrophil 45 % (42-75); PLT Morphology Comment Appears Decreased; Platelet Count 109 thou/uL (130-400); Polychromasia SLIGHT = 2-3 cells (100X) (0-2/hpf); RBC Distribution Width 14.4 % (11.5-14.5); Reactive Lymphocytes 5 % (0-10); White Blood Cell (WBC) Count 3.2 thou/uL (4.8-10.8)
[2017-06-23] MEDS ORDERED: Piperacillin/Tazobactam 2.25 GM in Sodium Chloride 0.9% 100 ML IVPB SCH (08:00)
[2017-06-23] MEDS ORDERED: Furosemide 100 MG/10 ML VIAL SLOW IVP SCH (08:45)
[2017-06-23] MEDS: Pantoprazole 40 MG VIAL IVP SCH (09:09)
[2017-06-23] MEDS: Saccharomyces boulardii 250 MG CAP PER TUBE SCH (09:10)
--- NOTE | 2017-06-23 09:36 | PRG ---
DATE OF SERVICE: 06/23/2017 SUBJECTIVE: Ms. Morejon is a 76-year-old white female, who was admitted for acute respiratory dist ress/status post CPR and intubation. We are following this patient for her acute kidney injury on to p of her chronic renal failure. She is still noted to be anemic. GI following. The plan is to give her another unit of packed red blood cells today. Hemodynamics are somewhat stabilized. Renal func tion slowly improving. OBJECTIVE: VITAL SIGNS: Blood pressure is 91/44, heart rate 108, respiratory rate 18, temperature is 100, O2 sa ts 95%. GENERAL EXAM: The patient is sedated and intubated on ventilatory support. SKIN: Adequate turgor. HEENT: Pale conjunctivae. Anicteric sclerae. NECK: No neck mass, no carotid bruits, no JVD. CHEST: No deformities. LUNGS: Decreased breath sounds, no wheezing. HEART: Normal sinus rhythm. No murmur, no gallops, no rubs. ABDOMEN: Globular, soft, nontender, no masses. EXTREMITIES: Trace edema. Medications of 06/23/2017 was reviewed. LABORATORY DATA: Laboratories of 06/23/2017, sodium 143, potassium 3.3, chloride 101, carbon dioxide 31, BUN 78, creatinine 2.29, glucose 191, calcium 6.8. ASSESSMENT AND PLAN: 1. Acute kidney injury - superimposed hemodynamically mediated renal dysfunction. Continue to obser ve. Slowly improving renal function with optimization of her hemodynamics. Agree with blood transfu lauro to further increase intravascular volume. 2. Acute respiratory failure - currently on supportive ventilator. Pulmonary is following. 3. Anemia/? of gastrointestinal bleed - Gastroenterology following. P.r.n. blood transfusion. I had a long discussion with the 2 daughters regarding dialysis in the future. The daughter tells me that the patient is not interested in having any dialytic intervention. Recheck basic metabolic casillas el and CBC in a.m.
--- NOTE | 2017-06-23 09:38 | PRG ---
DATE OF SERVICE: 06/23/2017 SERVICE: Pulmonary Medicine. INTERVAL HISTORY: Patient is doing fine from a respiratory standpoint. She is once again on spontan eous breathing trial. Hemoglobin dropped off again. She is getting a unit of blood this morning. O therwise, there has been no interval change to her condition. Apparently, she was biting the tube. She was doing this all day yesterday. She had episodes of a little bit of agitation followed by prot racted periods to sleep. She is having same pattern last night unfortunately, she got multiple doses of benzodiazepine and is once again encephalopathic this morning. PHYSICAL EXAMINATION: VITAL SIGNS: Afebrile currently, temperature 99.9, pulse 108, blood pressure 91/44, respirations 18, saturation 95% on 27% FIO2 and a PEEP of 5. GENERAL: Patient is not awake. She is somnolent with no stimulation, she will fall back to sleep wi thin about 5 seconds. HEENT: Normocephalic, atraumatic. Sclerae white, conjunctivae pink. Oral and nasal mucosa is moist without lesions. She will follow commands, but she will not attend. She demonstrates extraordinary weakness throughout. LUNGS: Decent air entry. Rhonchi are present. Dependent crackles are also evident today. HEART: Normal rate, regular. ABDOMEN: Soft, nontender, nondistended. Bowel sounds are positive. MUSCULOSKELETAL: No cyanosis or clubbing. There is diffuse 2+ edema throughout. : No Ramos. NEUROLOGIC: Grossly nonfocal. LABORATORY DATA: Urine cultures growing pansensitive Klebsiella. ASSESSMENT: 1. Respiratory failure secondary to inability to keep up with metabolic demand, resolved. 2. Septic shock, improving. 3. Urinary tract infection. 4. Acute blood loss anemia. 5. Acute kidney injury, improving. 6. Pulseless electrical activity arrest, status post return of circulation after 4 minutes. 7. 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 PLAN: We will extubate the patient today after spontaneous breathing trial if her mentation allows f or it. Ativan once again be discontinued. I will start to diurese the patient. I will check an LDH with morning laboratories. If it is elevated, the patient is likely suffering from a macrocytic hem olytic anemia. Pulmonary Critical Care will continue to follow. CRITICAL CARE TIME: 30 minutes.
[2017-06-23] MEDS ORDERED: Digoxin 0.5 MG/2 ML AMP SLOW IVP SCH (10:00)
--- NOTE | 2017-06-23 10:47 | PRG ---
DATE OF SERVICE: 06/23/2017 HISTORY: Ms. Morejon is awake. She is currently on the ventilator. PHYSICAL EXAMINATION: VITAL SIGNS: Her blood pressure 90/40. She is on Levophed. LUNGS: Clear. CARDIAC: Tachycardic and irregular. The patient is in atrial fibrillation. ABDOMEN: Soft, nontender. EXTREMITIES: She still has severe edema. ASSESSMENT: 1. 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 2. Recurrent gastrointestinal bleeding. 3. Coagulopathy. 4. Mechanical aortic valve. 5. Anemia. Hemoglobin back down to 6.2. PLAN: She is receiving packed red blood cells and then Lasix. We have encouraged the family to singletary sition to comfort care only. The patient will be extubated. We will try to further explain this onc e she is extubated. Prognosis is poor. The patient appears end stage.
--- NOTE | 2017-06-23 11:09 | PDOC.PN ---
- Subjective Encounter Start Date: 06/23/17 Encounter Start Time: 10:10 Patient seen and examined. pt is on ventilator. No overnight events family bedside - Objective Resuscitation Status: Resuscitation Status FULL:Full Resuscitation MAR Reviewed: Yes Vital Signs & Weight: Vital Signs (12 hours) Pulse Resp BP Pulse Ox 06/23/17 10:52 114 H 114/59 L 06/23/17 10:07 101 H 06/23/17 06:42 101 H 98/44 L 06/23/17 06:41 101 H 18 100 06/23/17 06:00 17 06/23/17 04:00 17 06/23/17 02:44 99 20 100 06/23/17 02:00 18 06/23/17 00:00 18 06/22/17 23:49 88 16 98 Weight Admit Weight 190 lb 14.725 oz Weight 200 lb 9.93 oz Most Recent Monitor Data Heart Rate from ECG 115 NIBP 114/59 NIBP BP-Mean 70 Respiration from ECG 22 SpO2 100 I&O: 06/22/17 06/23/17 06/24/17 06:59 06:59 06:59 Intake Total 3669.9 2650 100 Output Total 495 870 210 Balance 3174.9 1780 -110 Result Diagrams: 06/23/17 04:38 06/23/17 04:38 Additional Labs: Accuchecks 06/22/17 06/22/17 06/22/17 22:04 18:58 11:13 POC Glucose 222 H 280 H 377 H EKG Reviewed by me: Yes (nsr) Phys Exam - Physical Examination Constitutional: NAD on ventilator, awake HEENT: PERRLA, sclera anicteric ET tube+ Neck: no JVD, supple Respiratory: no wheezing, no rales, no rhonchi Cardiovascular: RRR, no rub prosthetic sound+ Gastrointestinal: soft, no distention, positive bowel sounds obesity+ Musculoskeletal: pulses present, edema present unable to evaluate as pt is intubated Skin: no rash, normal turgor Dx/Plan (1) Acute on chronic combined systolic and diastolic congestive heart failure Code(s): I50.43 - ACUTE ON CHRONIC COMBINED SYSTOLIC AND DIASTOLIC HRT FAIL Status: Acute (2) Acute worsening of stage 3 chronic kidney disease Code(s): N18.3 - CHRONIC KIDNEY DISEASE, STAGE 3 (MODERATE) Status: Acute (3) Anemia due to acute blood loss Code(s): D62 - ACUTE POSTHEMORRHAGIC ANEMIA Status: Acute (4) Demand ischemia of myocardium Code(s): I24.8 - OTHER FORMS OF ACUTE ISCHEMIC HEART DISEASE Status: Acute (5) GI bleed Code(s): K92.2 - GASTROINTESTINAL HEMORRHAGE, UNSPECIFIED Status: Acute (6) Metabolic acidosis, increased anion gap Code(s): E87.2 - ACIDOSIS Status: Acute (7) Septic shock Code(s): A41.9 - SEPSIS, UNSPECIFIED ORGANISM; R65.21 - SEVERE SEPSIS WITH SEPTIC SHOCK Status: Acute (8) Transaminitis Code(s): R74.0 - NONSPEC ELEV OF LEVELS OF TRANSAMNS & LACTIC ACID DEHYDRGNSE Status: Acute (9) UTI (urinary tract infection) Status: Acute (10) Warfarin-induced coagulopathy Code(s): D68.32 - HEMORRHAGIC DISORD D/T EXTRINSIC CIRCULATING ANTICOAGULANTS; T45.515A - ADVERSE EFFECT OF ANTICOAGULANTS, INITIAL ENCOUNTER Status: Acute (11) CKD (chronic kidney disease) stage 3, GFR 30-59 ml/min Code(s): N18.3 - CHRONIC KIDNEY DISEASE, STAGE 3 (MODERATE) Status: Chronic (12) Chronic anticoagulation Code(s): Z79.01 - 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 (CURRENT) USE OF ANTICOAGULANTS Status: Chronic Comment: Coumadin on hold due to High INR and GIB (13) DM2 (diabetes mellitus, type 2) Status: Chronic Qualifiers: Diabetes mellitus complication status: with kidney complications Diabetes mellitus complication detail: with chronic kidney disease Chronic kidney disease stage: stage 3 (moderate) Comment: (14) H/O prosthetic aortic valve replacement Code(s): Z95.2 - PRESENCE OF PROSTHETIC HEART VALVE Status: Chronic (15) HLD (hyperlipidemia) Code(s): E78.5 - HYPERLIPIDEMIA, UNSPECIFIED Status: Chronic Qualifiers: (16) HTN (hypertension) Code(s): I10 - ESSENTIAL (PRIMARY) HYPERTENSION Status: Chronic Qualifiers: Comment: (17) Obesity (BMI 30-39.9) Code(s): E66.9 - OBESITY, UNSPECIFIED Status: Chronic (18) Pulmonary hypertension Code(s): I27.20 - PULMONARY HYPERTENSION, UNSPECIFIED Status: Chronic (19) Hyperkalemia Code(s): E87.5 - HYPERKALEMIA Status: Resolved (20) Hypoglycemia associated with type 2 diabetes mellitus Code(s): E11.649 - TYPE 2 DIABETES MELLITUS WITH HYPOGLYCEMIA WITHOUT COMA Status: Resolved (21) Hypothermia Code(s): T68.XXXA - HYPOTHERMIA, INITIAL ENCOUNTER Status: Resolved - Plan cont current plan of care, plan discussed w/ family, continue antibiotics * ventilator as per pulmonary * possible extubation today * dc zosyn * start rocephin as per culture result * transfuse 1 unit PRBC * palliative care consulted * GI following * renal function improving * still low BP and on levophed * medication reviewed as below * symptomatic treatment * discussed with family. Review of Systems - Review of Systems Other: unable to review with pt as pt is intubated pt is awake on vent - Medications/Allergies Allergies/Adverse Reactions: Allergies Allergy/AdvReac Type Severity Reaction Status Date / Time No Known Allergies Allergy Verified 06/01/17 20:51 Medications: Current Medications Acetaminophen (Tylenol) 650 mg PER TUBE Q4H PRN PRN Reason: Headache/Fever or Pain Acetaminophen (Tylenol Elixir) 650 mg PER TUBE Q6H PRN PRN Reason: Fever > 101 or Mild Pain Al Hydroxide/Mg Hydroxide (Maalox) 30 ml PER TUBE Q6H PRN PRN Reason: Heartburn or Indigestion Albuterol/Ipratropium (Duoneb) 3 ml NEB [id number] [facility] Last Admin: 06/23/17 06:41 Dose: 3 ml Artificial Tears (Tears Naturale) 0 drop EA EYE PRN PRN PRN Reason: Dry Eyes Bisacodyl (Dulcolax) 10 mg LA Q24H PRN PRN Reason: Constipation Dextrose/Water (Dextrose 50%) 25 gm SLOW IVP PRN PRN PRN Reason: Hypoglycemia Digoxin (Lanoxin) 0.25 mg SLOW IVP NOW [facility] Stop: 06/23/17 12:00 Last Admin: 06/23/17 10:07 Dose: 0.25 mg Furosemide (Lasix) 60 mg SLOW IVP DAILY [facility] Glucagon (Glucagon) 1 mg IM PRN PRN PRN Reason: Hypoglycemia Guaifenesin (Robitussin Sf) 200 mg PER TUBE Q4H PRN PRN Reason: Cough Hydralazine HCl (Apresoline) 10 mg SLOW IVP Q4H PRN PRN Reason: Systolic BP > 180 Dextrose/Water (D5w) 1,000 mls @ 0 mls/hr IV .Q0M PRN; As Directed PRN Reason: Hypoglycemia Norepinephrine Bitartrate 8 mg (/ Sodium Chloride) 258 mls @ 0 mls/hr IVPB PRN PRN; Protocol; Titrate PRN Reason: To maintain MAP > 65 Last Admin: 06/22/17 21:02 Dose: 258 mls Sodium Chloride (Normal Saline 0.9%) 1,000 mls @ 50 mls/hr IV .Q20H [facility] Last Admin: 06/23/17 06:11 Dose: Not Given Ceftriaxone Sodium 1 gm/ (Sodium Chloride) 100 mls @ 200 mls/hr IVPB Q24HR [facility] Insulin Human Lispro (Humalog) 0 units SC .MODERATE SLIDING SC PRN PRN Reason: Moderate Correctional Scale Last Admin: 06/23/17 06:38 Dose: 2 unit Insulin Human Lispro (Humalog) 0 units SC .BEDTIME SLIDING SC PRN PRN Reason: Bedtime Correctional Scale Last Admin: 06/22/17 22:03 Dose: 2 unit Magnesium Hydroxide (Milk Of Magnesium) 30 ml PER TUBE DAILYPRN PRN PRN Reason: Constipation Mineral Oil/White Petrolatum (Eucerin Cream) 0 gm TOP BIDPRN PRN PRN Reason: Dry Skin Ondansetron HCl (Zofran) 4 mg IVP Q6H PRN PRN Reason: Nausea/Vomiting Pantoprazole Sodium (Protonix) 40 mg IVP Q12HR [facility] Last Admin: 06/23/17 09:09 Dose: 40 mg Saccharomyces Boulardii (Florastor) 250 mg PER TUBE DAILY [facility] Last Admin: 06/23/17 09:10 Dose: Not Given
[2017-06-23] MEDS ORDERED: cefTRIAXone\\ROCEPHIN 1 GM in Sodium Chloride 0.9% 100 ML IVPB SCH (11:15)
[2017-06-23] MEDS ORDERED: cefTRIAXone\\ROCEPHIN 1 GM, Syringe 0.4 ML in Sterile Water 9.6 ML SLOW IVP SCH (12:00)
[2017-06-23 12:09] VITALS: TEMP 100.8
[2017-06-23 13:25] VITALS: BP 118/55
[2017-06-23] MEDS ORDERED: Morphine 4 MG/ML VIAL SLOW IVP PRN (15:33)
[2017-06-23] MEDS ORDERED: Lorazepam 2 MG/ML VIAL SLOW IVP PRN (15:34)
[2017-06-23] MEDS ORDERED: Acetaminophen 650 MG Suppository PR PRN (17:42)
[2017-06-23] MEDS ORDERED: Ondansetron ODT 4 MG TAB PO PRN (17:42)
--- NOTE | 2017-06-23 18:12 | PRG ---
DATE OF SERVICE: 06/23/2017 SUBJECTIVE: Today, the patient was extubated from the ventilator as part of comfort care measures on ly. She does have some periods of interactivity, and she is able to respond appropriately negative t o certain questions, but at the current time of this interview, she was resting comfortably in bed, a sleep. She did have one episode of a darker maroon colored liquid stool earlier today, but otherwise no further episodes of hematemesis. OBJECTIVE: VITAL SIGNS: Temperature 100.8, heart rate 111, blood pressure 113/59, respiratory rate 26, satting 100% on 2 liters nasal cannula. LABORATORY DATA: CBC with a white blood cell count of 3.2, hemoglobin 6.2, hematocrit 18.1, platelet s 109. INR 1.7. Chemistry with sodium of 143, potassium 3.3, chloride 101, CO2 31, BUN 78, creatini ne 2.29, glucose 191, LDH 447. ASSESSMENT AND PLAN: The patient is a 76-year-old female with multiple medical problems, presenting with altered mental status, cardiac arrest and gastrointestinal bleeding. Gastrointestinal bleeding. The patient initially presenting with cardiac arrest and respiratory dist ress in the ER that required CPR and ultimately placed on mechanical ventilation as part of resuscita tive measures. Prior to admission, she did have some stated episodes of bright red blood per rectum as well as blood aspirate from the OG tube after replacement. Also, on admission, she was noted to h ave a significantly high INR, which could further contribute to any bleeding from any mucosal surface given the extremely high INR. At this point, we had a discussion with family, the decision to make the patient comfort care measures only has been made with the patient to be transferred to the floor for palliative care purposes after extubation. She did have a decrease in her H&H, but no further in vasive procedures are planned at this time. RECOMMENDATIONS: 1. Agree with placing patient on palliative care measures only. 2. EGD and colonoscopy are not indicated at this time. We will sign off. Please call with any additional questions.
--- NOTE | 2017-06-23 21:51 | DS ---
PRIMARY CARE PHYSICIAN: Alphonse Higginbotham M.D. DATE OF : 06/23/2017 TIME OF : 1803 hours. PRIMARY COURSE OF : Acute on chronic combined systolic and diastolic heart failure, acute on ch ronic kidney failure, baseline chronic kidney disease stage 3. Acute massive gastrointestinal bleed, anemia due to acute blood loss, demand ischemia of myocardium, warfarin induced coagulopathy, severe metabolic acidosis, urinary tract infection, septic shock, acute liver failure, urinary tract infect ion, hyperkalemia hypoglycemia associated with diabetes type 2. CONTRIBUTING DIAGNOSES: Pulmonary hypertension, obesity with BMI 36, hypertension, dyslipidemia, his tory of prosthetic aortic valve replacement, diabetes type 2, and chronic kidney disease stage 3. PRIMARY PROCEDURES AND OPERATIONS: Endotracheal intubation, mechanical ventilatory support, and cent ral line placement. RADIOLOGICAL INVESTIGATION: Chest x-ray. DISCHARGE DISPOSITION: The patient . SHORT HOSPITAL SUMMARY: A 76-year-old female who was recently admitted in our hospital for GI bleed. She had prosthetic aortic valve and she is on chronic warfarin therapy. She was living at half-way, where patient had acute altered mental status, lethargy, and hypotension. Patient was sent to emergency room. Patient had cardiac arrest, required 4 minutes of CPR. Subsequently, patient was in tubated. Patient's hemoglobin was on admission 5.2. She had severe coagulopathy. She was having bl eeding from stomach as well as rectally. The patient was hypotensive despite IV fluid resuscitation. She was given 4 units of PRBC and 3 units of FFP despite that patient was keep losing hemoglobin. Patient had multiorgan failure including acute on chronic kidney failure, liver failure, non STEMI, r espiratory failure, encephalopathy. Patient also had a septic shock type of picture as well with uri nary tract infection. Patient was admitted in CCU and she was treated with ventilatory support, singletary sfusional support, fluid resuscitation and Levophed for vasopressor. Multiple consultants involved i n her care including GI team. Initially, there was plan for EGD and colonoscopy, but on stability an d coagulopathy, hindered that decision. Cardiology recommended that the troponin elevation is relate d to demand ischemia. Nephrology was following. Her renal function was slightly improved. Pulmonar y was managing critical care. This patient's long-term prognosis was poor. Today, we had long discussion with the family member an d family member decided to make her DNR and patient was terminally extubated based on family member r rick. After request, patient was kept on comfort care. At 1803 hours, patient was and was pr onounced. Patient was seen earlier today. Please see my progress note from that day.
[2017-06-24] MEDS ORDERED: Furosemide 100 MG/10 ML VIAL SLOW IVP SCH (09:00)
== END 2017-06-23 18:03 | disposition expired | DRG 871 ==
LOC: ERS 07:00 → CCU 08:46
PROVIDERS: ADMIT Internal Medicine; ATTEND Internal Medicine
PROC: 5A1935Z Respiratory Ventilation, Less than 24 Consecutive Hours (ICD-10-PCS; principal; 2017-06-21)
PROC: 0BH17EZ Insertion of Endotracheal Airway into Trachea, Via Natural or Artificial Opening (ICD-10-PCS; 2017-06-21)
PROC: 30233N1 Transfusion of Nonautologous Red Blood Cells into Peripheral Vein, Percutaneous Approach (ICD-10-PCS; 2017-06-21)
PROC: 30233L1 Transfusion of Nonautologous Fresh Plasma into Peripheral Vein, Percutaneous Approach (ICD-10-PCS; 2017-06-21)
DX: A41.9 Sepsis, unspecified organism (principal); R65.21 Severe sepsis with septic shock; J96.01 Acute respiratory failure with hypoxia; I21.A1 Myocardial infarction type 2; K72.00 Acute and subacute hepatic failure without coma; I46.9 Cardiac arrest, cause unspecified; I95.9 Hypotension, unspecified; R57.1 Hypovolemic shock; G92 Toxic encephalopathy; T68.XXXA Hypothermia, initial encounter; K92.2 Gastrointestinal hemorrhage, unspecified; D62 Acute posthemorrhagic anemia; I50.43 Acute on chronic combined systolic (congestive) and diastolic (congestive) heart failure; N17.9 Acute kidney failure, unspecified; D68.9 Coagulation defect, unspecified; I13.0 Hypertensive heart and chronic kidney disease with heart failure and stage 1 through stage 4 chronic kidney disease, or unspecified chronic kidney disease; N39.0 Urinary tract infection, site not specified; E87.2 Acidosis; Z95.2 Presence of prosthetic heart valve; Z66 Do not resuscitate; N18.3 Chronic kidney disease, stage 3 (moderate); E87.5 Hyperkalemia; I07.1 Rheumatic tricuspid insufficiency; I27.20 Pulmonary hypertension, unspecified; E66.09 Other obesity due to excess calories; Z68.36 Body mass index [BMI] 36.0-36.9, adult; E11.21 Type 2 diabetes mellitus with diabetic nephropathy; E78.5 Hyperlipidemia, unspecified; K21.9 Gastro-esophageal reflux disease without esophagitis; Z79.01 Long term (current) use of anticoagulants; Z96.651 Presence of right artificial knee joint; T45.515A Adverse effect of anticoagulants, initial encounter; Z79.82 Long term (current) use of aspirin; Z79.899 Other long term (current) drug therapy; Z79.4 Long term (current) use of insulin; Z79.2 Long term (current) use of antibiotics
CPT/HCPCS: 31500; 36416; 36430; 36556; 51702; 71045; 80048; 81003; 81015; 82274; 82330; 82533; 82553; 82728; 82803; 82805; 83010; 83540; 83550; 83605; 83615; 83630; 84484; 85007; 85025; 85027; 85049; 85300; 85362; 85379; 85384; 85610; 85730; 86850; 86900; 86901; 87040; 87045; 87046; 87077; 87086; 87186; 87449; 87899; 92950; 93005; 94002; 94003; 94640; 94760; 96361; 96365; 96366; 96368; 96374; 96375; 99292; A4216; C9113; J0696; J1160; J1940; J2060; J2543; J3010; J3370; J3430; J7042; J7050; J7620; P9016; P9059